=== PATIENT | female | born 1960 | race Caucasian/White ===

== ENCOUNTER → 2017-12-03 17:55 | Outpatient (CLI) | payer OTHER, SELFPAY | PROVIDERS: Family Provider Family Medicine; Visit Provider Physician Assistant Surgical | DX: J02.9 Acute pharyngitis, unspecified (principal) | CPT/HCPCS: 87081 ==

== ENCOUNTER → 2020-05-17 09:13 | Outpatient (CLI) | payer SELFPAY ==
[2020-05-17 12:10] LABS: Absolute Lymphocyte Count 1.34 X10^3/uL (0.83-4.51); Absolute Neutrophil Count 2.1 X10^3/uL (2.0-7.7); Basophil# 0.03 X10^3/uL; Basophil% 0.8 % (0-1); Hematocrit 44.4 % (37-47); Hemoglobin 13.7 g/dL (12.0-15.0); Lymphocyte # 1.34 X10^3/ul (4.0); Lymphocyte % 34.1 % (19-41); Mean Corp Hgb Conc 30.9 g/dL (32-36); Mean Corpuscular Hgb 27.9 pg (27.0-32.0); Mean Corpuscular Volume 90.4 fL (81-99); Mean Platelet Vol. 10.7 fl (6.2-12.0); Monocyte# 0.43 X10^3/uL; Monocyte% 10.9 % (0-10); NRBC Flagged by Analyzer 0 % (0-5); Neutrophil # 2.11 X10^3/uL (2.7-7.7); Neutrophil % 53.7 % (47-70); Platelet Count 320 K/mm3 (150-450); RBC Distribution Width CV 12.6 % (11.6-14.6); RBC Distribution Width SD 41.3 fl (35.1-43.9); Red Blood Count 4.91 M/mm3 (4.2-5.4); White Blood Count 3.9 K/mm3 (4.4-11.0)
[2020-05-17 12:35] LABS: ALB/GLOB Ratio 1.1 RATIO (0.9-2.4); AST(SGOT) 14 U/L (15-37); Alanine Aminotransfer ALT/SGPT 20 U/L (13-56); Albumin, Serum 3.9 g/dL (3.2-5.0); Alkaline Phosphatase 84 U/L (45-117); Anion Gap 2 (5-15); BUN 15 mg/dL (7-18); BUN/Creat Ratio 15.6 RATIO (10-20); Calcium,Total 9.1 mg/dL (8.5-10.1); Chloride 108 mmol/L (98-107); Cholesterol 154 mg/dL (200); Creatinine, Serum 0.96 mg/dL (0.55-1.02); EST Glomerular Filtration Rate 63 mL/min (>60); Est Glom Filt Rate - Afr Amer 76 mL/min (>60); Globulin 3.5 g/dL (2.2-4.2); Glucose 96 mg/dL (74-106); High Density Lipoprotein 52 mg/dL; Potassium 4.2 mmol/L (3.5-5.1); Protein, Total 7.4 g/dL (6.4-8.2); Sodium Level 139 mmol/L (136-145); Triglycerides 118 mg/dL; Very Low Density Lipoprotein 24 mg/dL (5-40)
== END ==
PROVIDERS: PCP Family Medicine; Visit Provider Family Medicine
DX: E78.5 Hyperlipidemia, unspecified (principal); D64.9 Anemia, unspecified; Z51.81 Encounter for therapeutic drug level monitoring
CPT/HCPCS: 36415; 80053; 80061; 85025

== ENCOUNTER → 2022-06-26 | Outpatient (CLI) | payer OTHER, SELFPAY ==
--- NOTE | 2022-06-26 11:59 | US_ITS ---
STUDY: THYROID ULTRASOUND REASON FOR EXAM: Female, 61 years old. NODULE TECHNIQUE: Ultrasound evaluation of the thyroid was performed with real-time and static lind-scale imaging. COMPARISON: None. FINDINGS: RIGHT LOBE: The right lobe of the thyroid gland measures 3.7 x 1.7 x 1.8 cm. Mixed solid and cystic nodule mid pole 1.3 x 1.0 x 1.1 cm. This is seen posteriorly in the mid pole. In the midpole there is a cyst 0.7 x 0.5 x 0.3 cm anteriorly. There is a mixed cystic and solid nodule in the lower pole 0.6 x 0.4 x 0.5 cm. LEFT LOBE: The left lobe of the thyroid gland measures 5.0 x 2.4 x 2.9 cm upper pole mixed cystic and solid nodule 1.0 x 0.7 x 1.2 cm. Larger nodule is seen in the left mid to lower pole with predominately cystic components but solid components as well and overall measures 3.7 x 2.6 x 2.5 cm. Remainder of both lobes is homogeneous with the exception of a scattered small cysts within both lobes. ISTHMUS: The isthmus measures 0.2 cm. . The regional lymph nodes are normal. US/Thyroid IMPRESSION: Multicystic/multinodular goiter as above. Electronically Signed: Kendrick Carrizales MD, TASHI at 17:35 EDT ,
== END | disposition home or self-care (01) ==
PROVIDERS: PCP Family Medicine; Referring Provider Family Medicine; Visit Provider Family Medicine
DX: E04.1 Nontoxic single thyroid nodule (principal)
CPT/HCPCS: 76536

== ENCOUNTER 2022-06-28 19:11 | Emergency (ER) | payer OTHER, SELFPAY ==
[2022-06-28 19:13] VITALS: BP 174/108; PULSE 68; RESP 15; TEMP 36.6; O2SAT 98; BMI 38.0
[2022-06-28 20:01] VITALS: BP 179/86; PULSE 59; RESP 16; O2SAT 98
--- NOTE | 2022-06-28 20:01 | CT_ITS ---
STUDY: CTA HEAD AND NECK WITH CONTRAST REASON FOR EXAM: Female, 61 years old. TIA RADIATION DOSAGE (If Supplied By Facility): CTDIvol = ( 28.32 ) mGy, DLP = ( 1477.45 ) mGycm TECHNIQUE: CT angiography was performed with a multi-detector CT scanner. Data acquisition was obtained from the skull base through the vertex following intravenous administration of IV 100mL Isovue-370. MIP images were reconstructed from the axial data set. Post-processing of the angiographic images was performed, with multiplanar reformation and 3D reconstruction. Individualized dose optimization techniques were used for this CT. COMPARISON: No relevant priors. FINDINGS: Normal bilateral petrous carotid arteries. Normal right cavernous carotid artery with a normal supraclinoid bifurcation. Normal left cavernous carotid artery with a normal supraclinoid bifurcation. There is non-visualization of the right A1 segment of the anterior cerebral arteries consistent with either aplastic development or an occlusion. Normal left A1 segments of the anterior cerebral artery. Normal intact anterior communicating artery (ACOM). Normal bilateral A2 segments of the anterior cerebral arteries. Normal right M1 and M2 segments of the middle cerebral arteries, with a normal M1 bifurcation. Normal left M1 and M2 segments of the middle cerebral arteries, with a normal M1 bifurcation. Normal right posterior communicating artery (PCOM). Normal left posterior communicating artery (PCOM). Normal bilateral vertebral arteries. Normal basilar artery with a normal basilar bifurcation. The visualized bilateral superior cerebellar (SCA) arteries are normal. Normal bilateral P1, P2 and visualized P3 segments of the posterior cerebral arteries. There is no demonstrated aneurysm of the [place]. There is no demonstrated abnormality of the visualized brain. AORTIC ARCH: There is a bovine origin of the great vessels arising from the aortic arch with a common origin of the brachiocephalic and left common carotid artery. Normal origin of the left subclavian artery. Normal origins of the brachiocephalic, left common carotid, and left subclavian arteries. RIGHT CAROTID ARTERIES: Normal right common carotid artery (CCA). Normal right common carotid bulb. Normal origin of the right internal carotid (ICA) artery without a hemodynamically significant stenosis. There is atherosclerotic tortuous elongation of the cervical portion of the right internal carotid artery. Normal origin of the right external carotid artery (ECA). LEFT CAROTID ARTERIES: Normal left common carotid artery (CCA). Normal left common carotid bulb. Normal origin of the left internal carotid (ICA) artery without a hemodynamically significant stenosis. There is atherosclerotic tortuous elongation of the cervical portion of the left internal carotid artery. Normal origin of the left external carotid artery (ECA). VERTEBRAL ARTERIES: Normal bilateral vertebral arteries. CT/CTA Head AND Neck W/ Contrast IMPRESSION: Normal CTA Head and neck with contrast. Electronically Signed: Davey Rodriges MD at 22:20 EDT ,
--- NOTE | 2022-06-28 20:02 | EKG12_ITS ---
Test Reason : DYSRHYTHMIA Blood Pressure : / mmHG Vent. Rate : 059 BPM Atrial Rate : 059 BPM P-R Int : 176 ms QRS Dur : 096 ms QT Int : 448 ms P-R-T Axes : 049 -20 031 degrees QTc Int : 443 ms Sinus bradycardia Otherwise normal ECG Confirmed by MELISSA LOPEZ, BRENNON ([id number]), content editor CAROLYN VALLECILLO ([id number]) on 06/29/2022 2:04:52 P M Referred By: TI Confirmed By:SHERLY TORRES MD
--- NOTE | 2022-06-28 20:04 | EDS_ITS ---
HPI History of Present Illness Chief Complaint: Neuro S/Sx Informant: patient Onset/Context/Timing Onset: Days Current Severity: Gone Maximum Severity: Moderate Narrative Narrative: Patient presents after waking up with right-sided weakness 2 days ago. Patient states that she was normal when she went to bed on Sunday night, June 24. When she woke on Sunday morning she states her right leg was like a rag doll. She had some vision changes also. She managed to get up and states she was bouncing off the f[place]man and furniture when trying to walk. She fell and struck her head. She woke up on the floor and was able to crawl to the bathroom and then to the kitchen to get some water. Within 1/2-hour of waking her symptoms completely resolved. She did go back to bed and take a nap for about 3 hours. When she woke she had a right-sided headache that has since resolved. Patient denies any vision change or right-sided weakness at this time. She has noted some intermittent paresthesias to her face, but states it is not unilateral. [facility] Medical History Chest pain HTN (hypertension) SOB (shortness of breath) Home Medications fluticasone propionate 50 mcg/actuation nasal spray,suspension (Flonase Allergy Relief) 50 mcg intranasal ONCE 12/03/17 [History Last Taken Unknown] lisinopril 2.5 mg tablet 2.5 mg PO QDAY 12/03/17 [History Last Taken Unknown] multivitamin (One-A-Day Essential tablet) 1 tab PO QAM 12/03/17 [History Last Taken Unknown] Allergy/AdvReac Type Severity Reaction Status Date / Time grass pollen Allergy Unknown Verified 06/28/22 20:02 mold Allergy Unknown Verified 06/28/22 20:02 Surgical History H/O foot surgery History of hernia surgery History of tonsillectomy Social History Smoking Status: Never smoker alcohol intake: never ROS ROS ED Constitutional Constitutional ED: Denies chills or fever(s) Eyes Eyes: Reports change in vision; Denies discharge from eye(s) ENT ENT ED: Denies discharge from eye(s), rhinorrhea or sore throat Cardiovascular Cardiovascular: Denies chest pain or palpitations Respiratory/Chest Respiratory/Chest: Denies cough or dyspnea Gastrointestinal Gastrointestinal: Denies abdominal pain, diarrhea, nausea or vomiting Genitourinary Genitourinary ED: Denies dysuria Musculoskeletal Musculoskeletal: Denies back pain or extremity pain Integumentary Denies Abrasions or rash Neurologic Neurologic: Reports headache(s), paresthesias and weakness Psychiatric Psychiatric: Denies anxiety or depression Allergic/Immunologic Allergic/Immunologic ED: Denies lip swelling or urticaria EXAM Physical Exam Const Vital Signs: 06/28/22 19:13 06/28/22 20:01 Temperature 97.8 F Temperature Source Temporal Pulse Rate 68 59 L Respiratory Rate 15 16 Blood Pressure 174/108 H 179/86 H Blood Pressure Mean 130 117 Pulse Ox 98 98 Oxygen Delivery Method Room Air Room Air Positive well nourished and well developed General Appearance ED: well developed HEENT Reports normocephalic and head/scalp atraumatic Eyes PERRL and EOMs intact bilaterally Neck supple Chest Wall inspection of chest normal and palpation of chest normal Resp normal respiratory effort and clear to auscultation bilaterally Cardio regular rate and regular rhythm GI normal to inspection, nondistended, normoactive bowel sounds Palpation: soft Back/Spine no CVA tenderness Extremity normal to inspection Neuro oriented x3 and no sensory deficits noted Neuro Narrative: NIH equals 0 Sensorium / Orientation: alert Motor Exam: strength 5/5 throughout Psych mental status grossly normal Skin no rashes or lesions noted MDM MDM MDM Narrative Medical decision making narrative: EKG, chest x-ray, lab work obtained. Patient sent for CTA of the head and neck. Lab Data Attestation: I reviewed the patient's lab results. Labs: Laboratory Results - last 24 hr 06/28/22 06/28/22 20:10 20:10 WBC 9.1 RBC 4.76 Hgb 13.9 Hct 42.8 MCV 89.9 MCH 29.2 MCHC 32.5 RDW Std Deviation 41.9 RDW Coeff of Lesli 12.7 Plt Count 351 MPV 9.8 Immature Gran % (Auto) 0.200 Neut % (Auto) 64.2 Lymph % (Auto) 27.1 [place] % (Auto) 8.0 Eos % (Auto) 0.1 Baso % (Auto) 0.4 Absolute Neuts (auto) 5.9 Absolute Lymphs (auto) 2.48 Nucleated RBC % 0 Sodium 140 Potassium 3.8 Chloride 105 Carbon Dioxide 28.0 Anion Gap 7 BUN 20 H Creatinine 0.94 Estim Creat Clear Calc 57.35 Est GFR (MDRD) Af Amer 78 Est GFR (MDRD) Non-Af 64 BUN/Creatinine Ratio 21.4 H Glucose 105 Calcium 9.1 Troponin I High Sens 5 Radiography Chest X-Ray - ED: 1 View, Read by ED Physician, Chronic Changes and No Infiltrates Diagnostic Testing: Clinical Impression(s) from Imaging Studies Head/Neck CTA 06/28/22 20:01 IMPRESSION: Normal CTA Head and neck with contrast. Electronically Signed: Davey Rodriges MD at 22:20 EDT Reading Location ID and State: [id number] / [place] Tel , Service support , Chest X-Ray 06/28/22 20:45 IMPRESSION: Normal x-ray examination of the chest. Electronically Signed: Davey Rodriges MD at 22:07 EDT , EKG Initial EKG: Interpretation: Sinus Bradycardia (Sinus bradycardia 59 bpm. No acute ischemia.) Treatment and Re-Evaluation Narrative: Repeat evaluation patient resting comfortably. Blood pressures in the 150s systolic. Lab work unremarkable. EKG and chest x-ray revealed no acute abnormalities. CTA of the head and neck is normal. I did discuss all these findings with the patient. I did encourage her if she gets any recurrent neurologic symptoms she needs to present to the emergency room immediately for evaluation. She will follow-up with her primary care physician. Return instructions provided. Discharge Plan Triage Chief Complaint: Neuro S/Sx ED Provider: Nena Partida Dx/Rx/DC Orders Clinical Impression: Brain TIA Instructions: ED TIA: Transient Ischemic Attack Prescriptions: No Action lisinopril 2.5 mg tablet 2.5 mg PO QDAY fluticasone propionate [Flonase Allergy Relief] 50 mcg/actuation spray,watt spension 50 mcg INTRANASAL ONCE multivitamin [One-A-Day Essential] tablet 1 tab PO QAM Primary Care Provider: Sabina Simons Referrals: Sabina Simons DO [Primary Care Provider] - 1-2 Weeks Disposition Disposition: Home, Self Care
[2022-06-28 20:14] VITALS: BMI 38.5
[2022-06-28 20:20] LABS: Absolute Lymphocyte Count 2.48 X10^3/uL (0.83-4.51); Absolute Neutrophil Count 5.9 X10^3/uL (2.0-7.7); Basophil# 0.04 X10^3/uL; Basophil% 0.4 % (0-1); Eosinophil# 0.01 X10^3/uL; Eosinophils% 0.1 % (0-5); Hematocrit 42.8 % (37-47); Hemoglobin 13.9 g/dL (12.0-15.0); Lymphocyte # 2.48 X10^3/ul (0.83-4.51); Lymphocyte % 27.1 % (19-41); Mean Corp Hgb Conc 32.5 g/dL (32-36); Mean Corpuscular Hgb 29.2 pg (27.0-32.0); Mean Corpuscular Volume 89.9 fL (81-99); Mean Platelet Vol. 9.8 fl (6.2-12.0); Monocyte# 0.73 X10^3/uL; NRBC Flagged by Analyzer 0 % (0-5); Neutrophil # 5.86 X10^3/uL (2.7-7.7); Neutrophil % 64.2 % (47-70); Platelet Count 351 K/mm3 (150-450); RBC Distribution Width CV 12.7 % (11.6-14.6); RBC Distribution Width SD 41.9 fl (35.1-43.9); Red Blood Count 4.76 M/mm3 (4.2-5.4); White Blood Count 9.1 K/mm3 (4.4-11.0)
[2022-06-28 20:37] LABS: Anion Gap 7 (5-15); BUN 20 mg/dL (7-18); BUN/Creat Ratio 21.4 RATIO (10-20); Calcium,Total 9.1 mg/dL (8.5-10.1); Chloride 105 mmol/L (98-107); Creatinine, Serum 0.94 mg/dL (0.55-1.02); EST Glomerular Filtration Rate 64 mL/min (>60); Est Glom Filt Rate - Afr Amer 78 mL/min (>60); Estimated Creatinine Clearance 57.35 ml/min; Glucose 105 mg/dL (74-106); Potassium 3.8 mmol/L (3.5-5.1); Sodium Level 140 mmol/L (136-145); Troponin-I HS 5 pg/mL (3.0-54.0)
--- NOTE | 2022-06-28 20:45 | RAD_ITS ---
STUDY: X-RAY CHEST REASON FOR EXAM: Female, 61 years old. sob TECHNIQUE: Single AP portable view of the chest. COMPARISON: None. FINDINGS: The lungs are clear and expanded. There is no demonstrated pleural abnormality. Normal size heart. Normal mediastinum and gisselle. Normal visualized pulmonary arteries. Normal visualized aortic arch and descending thoracic aorta. Normal visualized thoracic spine. Normal visualized ribs, clavicles, and shoulders. There is no demonstrated abnormality of the visualized soft tissue structures of the upper abdomen. RAD/Chest 1 View (Portable) IMPRESSION: Normal x-ray examination of the chest. Electronically Signed: Davey Rodriges MD at 22:07 EDT ,
[2022-06-28 22:46] VITALS: BP 167/102; PULSE 61; RESP 14; O2SAT 97
[2022-06-28 22:47] VITALS: BP 167/102; PULSE 63; RESP 17; O2SAT 95
== END 2022-06-28 22:55 | disposition home or self-care (01) ==
PROVIDERS: Emergency Provider Emergency Medicine; PCP Family Medicine; Visit Provider Emergency Medicine
DX: G45.9 Transient cerebral ischemic attack, unspecified (principal); I10 Essential (primary) hypertension; H53.9 Unspecified visual disturbance; R51.9 Headache, unspecified; R20.2 Paresthesia of skin; R53.1 Weakness
CPT/HCPCS: 70496; 70498; 71045; 80048; 84484; 85025; 93005; 99284; Q9967; A4216

== ENCOUNTER → 2022-07-10 | Outpatient (CLI) | payer OTHER, SELFPAY ==
[2022-07-10 18:03] LABS: Thyroid Stim Hormone (TSH) 2.07 uIU/mL (0.358-3.74)
== END | disposition home or self-care (01) ==
LOC: BFHLAB 14:56
PROVIDERS: PCP Family Medicine; Visit Provider Family Medicine
DX: E04.2 Nontoxic multinodular goiter (principal)
CPT/HCPCS: 36415; 84443

== ENCOUNTER → 2022-07-13 | Outpatient (CLI) | payer OTHER, SELFPAY ==
--- NOTE | 2022-07-13 08:15 | FLU_PTH ---
PATIENT: BARBARA SMYTH LOC: [facility] U#:[id number] AGE/SX: 61/F ROOM: RE07/13/[address]: Dr. Dmitry Elliott MD : 1960 BED: DIS: 07/13/2022 SPEC #: [id number] RECD: 07/13/22 16:27 STATUS: NIRANJAN REDara #: [id number] NELSON: 07/13/22 08:[address]: Dmitry Elliott DEPT: CYTOLOGY RECD BY: Mary Carrington ENTERED: 07/14/22 08:41 SP TYPE: Fluid OTHR DR: Dr. Sabina Simons, DO Tissues: A - Thyroid gland, NOS B - Thyroid gland, NOS Procedures: Special Stain Group II Surgery Specimen Level IV Cytospin Fluid Cytology Other HEADER OPERATION: Fine needle aspiration of left mid to lower thyroid nodule PRE-OP DIAGNOSIS: Multiple thyroid nodules TISSUE SUBMITTED: A - Left superior thyroid cystic fluid, B - Left mid to lower thyroid nodule x6 slides DIAGNOSIS CYTOLOGY A. Fine needle aspiration, left superior thyroid nodule (cytospin and cell block): Macrophages consistent with benign cyst contents. See comment. B. Fine needle aspiration, left mid to lower thyroid nodule (smears): Adequate for evaluation. Benign, consistent with benign follicular nodule ([place] Category II). See comment. AM:mike 07/17/2022 COMMENT A. Rare benign follicular cells are noted. B. The [place] System for thyroid diagnostic categorization was used in the evaluation of this case. The specimen is adequate for evaluation. CYTOLOGY STUDY Slides are reviewed. CYTOLOGY GROSS A - Received is 6 ml of brown cloudy fluid labeled with the patient's name and and designated per the requisition as left superior cystic fluid. Submitted for cytology preparation including cell block. B - Received are six smears labeled with the patient's name and designated per the requisition as left mid to lower thyroid nodule. Submitted for staining. / mike 07/14/2022 TC:5 CPT: 49504, 71029 x2
== END | disposition home or self-care (01) ==
LOC: LABSPEC 16:39
PROVIDERS: PCP Family Medicine; Referring Provider Surgery; Visit Provider Surgery
DX: E04.1 Nontoxic single thyroid nodule (principal)
CPT/HCPCS: 88108; 88161; 88305; 88313

== ENCOUNTER 2022-07-22 21:43 | Emergency (ER) | payer OTHER, SELFPAY ==
[2022-07-22 21:44] VITALS: BP 161/87; PULSE 77; RESP 20; TEMP 36.1; O2SAT 96; BMI 38.5
--- NOTE | 2022-07-22 22:14 | EKG12_ITS ---
Test Reason : CP Blood Pressure : / mmHG Vent. Rate : 074 BPM Atrial Rate : 074 BPM P-R Int : 188 ms QRS Dur : 092 ms QT Int : 412 ms P-R-T Axes : 044 -27 044 degrees QTc Int : 457 ms Normal sinus rhythm Inferior infarct , age undetermined Abnormal ECG Confirmed by ERICA LOPEZ, MAGAN ([id number]), editor department CAROLYN VALLECILLO ([id number]) on 07/24/2022 12:56:00 PM Referred By: MYLES Confirmed By:MAGAN MALDONADO MD
--- NOTE | 2022-07-22 22:16 | EDS_ITS ---
HPI History of Present Illness Chief Complaint: Chest Pain Informant: patient Onset/Context/Timing Onset: Today Activity at onset: sudden Timing: Intermittent and Lasts (15 minutes) Quality: Positive for Sharp Location: Left Chest Current Severity: Gone Maximum Severity: Moderate Narrative Narrative: Patient presents with a 15-minute episode of chest pain. Approximate hour and a half prior to my evaluation she experienced sudden onset of sharp pain to the left side of her chest. She states it went into her back and down her left arm. Once it started to ease up she developed a headache. All of her pain is currently subsided. She denies any similar events in the past. No known heart disease. She does have a history of hypertension. [facility] Medical History Chest pain HTN (hypertension) SOB (shortness of breath) Home Medications fluticasone propionate 50 mcg/actuation nasal spray,suspension (Flonase Allergy Relief) 50 mcg intranasal ONCE 12/03/17 [History Last Taken Unknown] multivitamin (One-A-Day Essential tablet) 1 tab PO QAM 12/03/17 [History Last Taken Unknown] aspirin 81 mg tablet,delayed release 81 mg PO DAILY 07/13/22 [History Last Taken Unknown] losartan 50 mg tablet 50 mg PO DAILY 07/13/22 [History Last Taken Unknown] omeprazole magnesium 20 mg tablet,delayed release (Prilosec OTC) 20 mg PO DAILY 07/13/22 [History Last Taken Unknown] Allergy/AdvReac Type Severity Reaction Status Date / Time adhesive tape Allergy Intermediate Rash Verified 07/13/22 07:52 grass pollen Allergy Unknown Verified 07/13/22 07:52 mold Allergy Unknown Verified 07/13/22 07:52 Surgical History H/O foot surgery History of hernia surgery History of tonsillectomy Social History Smoking Status: Never smoker alcohol intake: never ROS ROS ED Constitutional Constitutional ED: Denies chills or fever(s) Eyes Eyes: Denies change in vision or discharge from eye(s) ENT ENT ED: Denies discharge from eye(s), rhinorrhea or sore throat Cardiovascular Cardiovascular: Reports chest pain; Denies palpitations Respiratory/Chest Respiratory/Chest: Denies cough or dyspnea Gastrointestinal Gastrointestinal: Denies abdominal pain, diarrhea, nausea or vomiting Genitourinary Genitourinary ED: Denies difficulty urinating or dysuria Musculoskeletal Musculoskeletal: Reports extremity pain; Denies back pain Integumentary Denies Abrasions or rash Neurologic Neurologic: Reports headache(s); Denies weakness Allergic/Immunologic Allergic/Immunologic ED: Denies lip swelling or urticaria EXAM Physical Exam Const Vital Signs: 07/22/22 21:44 07/22/22 21:51 07/22/22 22:14 Temperature 97.0 F L Temperature Source Temporal Pulse Rate 77 Respiratory Rate 20 H Respiratory Effort Normal Non-Labored Blood Pressure 161/87 H Blood Pressure Mean 111 Pulse Ox 96 Oxygen Delivery Method Room Air Room Air 07/22/22 22:44 07/23/22 00:00 Temperature Temperature Source Pulse Rate 71 64 Respiratory Rate 16 22 H Respiratory Effort Blood Pressure 126/71 H 145/87 H Blood Pressure Mean 89 106 Pulse Ox 94 93 Oxygen Delivery Method Room Air Positive well nourished and well developed General Appearance ED: well developed HEENT Reports normocephalic and head/scalp atraumatic Eyes PERRL and EOMs intact bilaterally Neck supple Chest Wall inspection of chest normal and palpation of chest normal Resp normal respiratory effort and clear to auscultation bilaterally Cardio regular rate and regular rhythm Peripheral Pulses: pulses 2+ throughout GI normal to inspection, nondistended, normoactive bowel sounds Palpation: soft Extremity normal to inspection Neuro oriented x3 and no sensory deficits noted Sensorium / Orientation: alert Motor Exam: strength 5/5 throughout Psych mental status grossly normal Skin no rashes or lesions noted Heart Score History: Slightly/Non-Suspicious ECG: Normal Age: >45 - <65 years Risk Factors: 1 or 2 Risk Factors Troponin: </= Normal Limit Score: 2 MDM MDM MDM Narrative Medical decision making narrative: Patient given aspirin on arrival. EKG, chest x-ray, lab work obtained. Lab Data Attestation: I reviewed the patient's lab results. Labs: Laboratory Results - last 24 hr 07/22/22 07/22/22 07/22/22 22:10 22:10 22:10 WBC 5.5 RBC 4.43 Hgb 13.1 Hct 40.2 MCV 90.7 MCH 29.6 MCHC 32.6 RDW Std Deviation 42.6 RDW Coeff of Lesli 13.0 Plt Count 297 MPV 10.1 Immature Gran % (Auto) 0.400 Neut % (Auto) 59.5 Lymph % (Auto) 26.6 [place] % (Auto) 12.6 H Eos % (Auto) 0.2 Baso % (Auto) 0.7 Absolute Neuts (auto) 3.3 Absolute Lymphs (auto) 1.46 Nucleated RBC % 0 D-Dimer Quant (PE/DVT) 0.74 H* Sodium 141 Potassium 3.6 Chloride 109 H Carbon Dioxide 26.0 Anion Gap 6 BUN 14 Creatinine 0.90 Estim Creat Clear Calc 59.89 Est GFR (MDRD) Af Amer 81 Est GFR (MDRD) Non-Af 67 BUN/Creatinine Ratio 15.5 Glucose 115 H Calcium 8.7 Troponin I High Sens 10 07/23/22 00:35 WBC RBC Hgb Hct MCV MCH MCHC RDW Std Deviation RDW Coeff of Lesli Plt Count MPV Immature Gran % (Auto) Neut % (Auto) Lymph % (Auto) [place] % (Auto) Eos % (Auto) Baso % (Auto) Absolute Neuts (auto) Absolute Lymphs (auto) Nucleated RBC % D-Dimer Quant (PE/DVT) Sodium Potassium Chloride Carbon Dioxide Anion Gap BUN Creatinine Estim Creat Clear Calc Est GFR (MDRD) Af Amer Est GFR (MDRD) Non-Af BUN/Creatinine Ratio Glucose Calcium Troponin I High Sens 16 Radiography Chest X-Ray - ED: 1 View, Read by ED Physician, Normal, Heart, Lungs and Mediastinum Diagnostic Testing: Clinical Impression(s) from Imaging Studies Chest X-Ray 07/22/22 22:18 IMPRESSION: No evidence of active intrathoracic disease. Electronically Signed: Augusta Florian MD at 23:06 EDT , Chest CTA 07/22/22 22:50 IMPRESSION: 1. No evidence of pulmonary emboli. 2. Scattered minimal groundglass opacities in the lungs nonspecific can be seen with viral pneumonitis. Mild peribronchial thickening. No consolidation. 3. Right upper lobe 4 mm pulmonary nodule and smaller nodule, indeterminate. CT imaging follow-up recommended according to the guidelines detail below. 4. 3.5 cm thyroid nodule. Follow-up nonemergent thyroid ultrasound recommended. 5. Right adrenal nodule indeterminate. If there are no prior imaging studies to assess stability, consider follow-up nonemergent CT adrenal protocol. *Fleischner Society Recommendations (Radiology 2017, 284:228-243.) (Follow-up and management of multiple nodules smaller than 8 mm detected incidentally at non-screening CT. Newly detected indeterminate nodule in persons 35 years of age or older.) Low risk patient: Minimal or absent history of smoking and of other known risk factors. < 6 mm: No followup needed 6-8mm: Initial Follow-up CT at 3-6 months, then consider CT at 18-24 months >8mm: CT at 3-6 months, then consider CT at 18-24 months High risk patient: History of smoking or of other known risk factors. < 6 mm: Optional CT at 12 months. 6-8mm: CT at 3-6 months, then CT at 18-24 months. >8mm: CT at 3-6 months, then CT at 18-24 months Electronically Signed: Augusta Florian MD at 23:51 EDT , EKG Initial EKG: Attestation: I personally reviewed and interpreted this EKG as follows: Interpretation: Sinus Rhythm (Sinus at 74 with no acute ischemia.) Treatment and Re-Evaluation Narrative: Patient has had no further pain while in the emergency room. 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 CBC and chemistry studies unremarkable. Initial troponin is 10. D-dimer is slightly elevated at 0.74. Portable chest x-ray per my interpretation shows no acute findings. CTA of the chest is obtained. There is a lung nodule that will need follow-up but no acute evidence of PE or dissection. Patient is already aware of thyroid nodule that was noted and has had it biopsied. 2-hour repeat troponin is obtained and is still normal at 16. At this time patient be discharged home with family. Return instructions provided. Discharge Plan Triage Chief Complaint: Chest Pain ED Provider: Nena Partida Dx/Rx/DC Orders Clinical Impression: Atypical chest pain Instructions: ED Chest Pain, Uncertain Cause Prescriptions: No Action fluticasone propionate [Flonase Allergy Relief] 50 mcg/actuation spray,suspension 50 mcg INTRANASAL ONCE multivitamin [One-A-Day Essential] tablet 1 tab PO QAM omeprazole magnesium [Prilosec OTC] 20 mg tablet,delayed release (DR/EC) 20 mg PO DAILY losartan 50 mg tablet 50 mg PO DAILY aspirin 81 mg tablet,delayed release (DR/EC) 81 mg PO DAILY Primary Care Provider: Kendrick Kendall Referrals: Kendrick Kendall DO [Primary Care Provider] - 1-2 Weeks Disposition Disposition: Home, Self Care
--- NOTE | 2022-07-22 22:18 | RAD_ITS ---
STUDY: X-RAY CHEST REASON FOR EXAM: Female, 61 years old. chest pain TECHNIQUE: AP portable. 10:20 PM. COMPARISON: 06/28/2022. FINDINGS: LUNGS: No consolidation. No pneumothorax. MEDIASTINUM: Aorta is tortuous and atherosclerotic. CARDIAC SILHOUETTE: Not enlarged. BONES AND SOFT TISSUES: Degenerative changes in the dorsal spine. RAD/Chest 1 View (Portable) IMPRESSION: No evidence of active intrathoracic disease. Electronically Signed: Augusta Florian MD at 23:06 EDT ,
[2022-07-22] MEDS: 0.9% Normal Saline 1,000 ML 150 ML IV (22:22)
[2022-07-22] MEDS: Aspirin 81 MG TAB.CHEW 243 MG PO (22:22)
[2022-07-22 22:28] LABS: Absolute Lymphocyte Count 1.46 X10^3/uL (0.83-4.51); Absolute Neutrophil Count 3.3 X10^3/uL (2.0-7.7); Basophil# 0.04 X10^3/uL; Basophil% 0.7 % (0-1); Eosinophil# 0.01 X10^3/uL; Eosinophils% 0.2 % (0-5); Hematocrit 40.2 % (37-47); Hemoglobin 13.1 g/dL (12.0-15.0); Lymphocyte # 1.46 X10^3/ul (0.83-4.51); Lymphocyte % 26.6 % (19-41); Mean Corp Hgb Conc 32.6 g/dL (32-36); Mean Corpuscular Hgb 29.6 pg (27.0-32.0); Mean Corpuscular Volume 90.7 fL (81-99); Mean Platelet Vol. 10.1 fl (6.2-12.0); Monocyte# 0.69 X10^3/uL; Monocyte% 12.6 % (0-10); NRBC Flagged by Analyzer 0 % (0-5); Neutrophil # 3.27 X10^3/uL (2.7-7.7); Neutrophil % 59.5 % (47-70); Platelet Count 297 K/mm3 (150-450); RBC Distribution Width SD 42.6 fl (35.1-43.9); Red Blood Count 4.43 M/mm3 (4.2-5.4); White Blood Count 5.5 K/mm3 (4.4-11.0)
[2022-07-22 22:44] VITALS: BP 126/71; PULSE 71; RESP 16; O2SAT 94
[2022-07-22 22:44] LABS: D-Dimer Quantitative (DVT/PE) 0.74 FEU/ug/m (0.27-0.49)
[2022-07-22 22:49] LABS: Anion Gap 6 (5-15); BUN 14 mg/dL (7-18); BUN/Creat Ratio 15.5 RATIO (10-20); Calcium,Total 8.7 mg/dL (8.5-10.1); Chloride 109 mmol/L (98-107); EST Glomerular Filtration Rate 67 mL/min (>60); Est Glom Filt Rate - Afr Amer 81 mL/min (>60); Estimated Creatinine Clearance 59.89 ml/min; Glucose 115 mg/dL (74-106); Potassium 3.6 mmol/L (3.5-5.1); Sodium Level 141 mmol/L (136-145); Troponin-I HS (w/2H Reflex) 10 pg/mL (3.0-54.0)
--- NOTE | 2022-07-22 22:50 | CT_ITS ---
STUDY: CTA CHEST REASON FOR EXAM: Female, 61 years old. CP, elevated d-dimer RADIATION DOSAGE (If Supplied By Facility): CTDIvol = ( 24.53 ) mGy, DLP = ( 557.27 ) mGycm TECHNIQUE: The examination was performed with the intravenous administration of IV 100mL Isovue-370. Post-processing of the angiographic images was performed, with multiplanar reformation and 3D reconstruction. Individualized dose optimization techniques were used for this CT. COMPARISON: CTA head and neck 06/28/2022. FINDINGS: LUNGS: Scattered minimal groundglass opacities in the lungs. There is a 4 mm nodule in the right upper lobe inferiorly, tiny nodule in the right upper lobe. Mild bronchial wall thickening bilaterally. No consolidation. PLEURA: No pleural effusion. No pneumothorax. PULMONARY VESSELS: Suboptimal due to respiratory motion. No definite pulmonary emboli identified. MEDIASTINUM: 3.5 x 2.5 cm heterogeneous mass inferior left thyroid extending into the superior mediastinum, with displacement of trachea to the right, unchanged compared to recent prior study. HEART: Not enlarged. AORTA/GREAT VESSELS: Thoracic aorta is normal caliber. No aneurysm or dissection. ESOPHAGUS: Small hiatal hernia. UPPER ABDOMEN: No acute findings. Right adrenal nodule. 4 cm not completely characterized. BONES/SOFT TISSUES: No acute findings. OTHER: None. CT/CTA Chest W/WO Contrast IMPRESSION: 1. No evidence of pulmonary emboli. 2. Scattered minimal groundglass opacities in the lungs nonspecific can be seen with viral pneumonitis. Mild peribronchial thickening. No consolidation. 3. Right upper lobe 4 mm pulmonary nodule and smaller nodule, indeterminate. CT imaging follow-up recommended according to the guidelines detail below. 4. 3.5 cm thyroid nodule. Follow-up nonemergent thyroid ultrasound recommended. 5. Right adrenal nodule indeterminate. If there are no prior imaging studies to assess stability, consider follow-up nonemergent CT adrenal protocol. *Fleischner Society Recommendations (Radiology 2017, 284:228-243.) (Follow-up and management of multiple nodules smaller than 8 mm detected incidentally at non-screening CT. Newly detected indeterminate nodule in persons 35 years of age or older.) Low risk patient: Minimal or absent history of smoking and of other known risk factors. < 6 mm: No followup needed 6-8mm: Initial Follow-up CT at 3-6 months, then consider CT at 18-24 months >8mm: CT at 3-6 months, then consider CT at 18-24 months High risk patient: History of smoking or of other known risk factors. < 6 mm: Optional CT at 12 months. 6-8mm: CT at 3-6 months, then CT at 18-24 months. >8mm: CT at 3-6 months, then CT at 18-24 months Electronically Signed: Augusta Florian MD at 23:51 EDT ,
[2022-07-23] VITALS: BP 145/87; PULSE 64; RESP 22; O2SAT 93
[2022-07-23 00:25] LABS: Reflex Troponin-HS? (from REC) Y
[2022-07-23 00:57] LABS: Troponin-I HS 16 pg/mL (3.0-54.0)
[2022-07-23 01:08] VITALS: BP 150/82; PULSE 67; RESP 15; O2SAT 97
== END 2022-07-23 01:32 | disposition home or self-care (01) ==
PROVIDERS: Emergency Provider Emergency Medicine; PCP Family Medicine; Visit Provider Emergency Medicine
DX: R07.89 Other chest pain (principal); I10 Essential (primary) hypertension; Z79.82 Long term (current) use of aspirin; Z79.899 Other long term (current) drug therapy
CPT/HCPCS: 71045; 71275; 80048; 84484; 85025; 85379; 93005; 99284; J7030; Q9967; A4216

== ENCOUNTER → 2022-10-23 | Outpatient (CLI) | payer MEDICAID, SELFPAY ==
--- NOTE | 2022-10-23 07:41 | BI_ITS ---
MAMMOGRAPHY - BILATERAL SCREENING REASON FOR EXAM: Female, 62 years old. Routine annual screening examination. PERTINENT HISTORY: Non-contributory. TECHNIQUE: Digital bilateral breast lynette (3D mammographic acquisition) in the CC and MLO projections. 2-D mediolateral oblique (MLO) and craniocaudad (CC) views of both breasts were obtained. CAD: Full Field Digital Mammography with Computer Added Detection was performed. COMPARISON: Comparison is made with prior study 11/27/2016. FINDINGS: Breast Composition: There are scattered areas of fibroglandular density. There are no dominant masses or suspicious calcifications. Stable small benign-appearing bilateral axillary lymph nodes. No other significant abnormalities are identified. There has been no significant change since the prior study. BI/SCRN MAMM (CAD)W/LYNETTE BILAT IMPRESSION: Stable bilateral screening mammogram. Yearly follow-up mammogram recommended. (A) ASSESSMENT CATEGORY: BIRADS Category 2: Benign. A letter regarding these results will be sent to the patient by the facility within 30 days. Approximately 10% of breast cancers are not detected by mammography. A normal mammogram should not delay biopsy of a clinically suspicious abnormality. [id number] Electronically Signed: Vince Workman MD at 13:03 EST ,
== END | disposition home or self-care (01) ==
LOC: OPBI 07:39
PROVIDERS: PCP Family Medicine; Referring Provider Family Medicine; Visit Provider Family Medicine
DX: Z12.31 Encounter for screening mammogram for malignant neoplasm of breast (principal)
CPT/HCPCS: 77063; 77067

== ENCOUNTER → 2022-11-03 | Outpatient (CLI) | payer MEDICAID, SELFPAY ==
--- NOTE | 2022-11-03 12:30 | LIP_PTH ---
PATIENT: BARBARA SMYTH LOC: [facility] U#:[id number] AGE/SX: 62/F ROOM: RE11/03/[address]: Dr. Kimmie Olmos MD : 1960 BED: DIS: 11/03/2022 SPEC #: [id number] RECD: 11/03/22 15:21 STATUS: NIRANJAN REQ #: [id number] NELSON: 11/03/22 12:[address]: Kimmie Olmos DEPT: SURGICAL PATHOLOGY RECD BY: Mary Carrington ENTERED: 11/06/22 08:46 SP TYPE: LIPOMA OTHR DR: Dr. Kendrick Kendall, DO Tissues: Soft tissues, NOS Procedures: Surgery Specimen Level III HEADER OPERATION: Lipoma excision on back PRE-OP DIAGNOSIS: Lipoma excision on back TISSUE SUBMITTED: Lipoma tissue MICROSCOPIC DIAGNOSIS Soft tissue mass of back, excision: Mature adipose tissue consistent with lipoma. AM:mike 11/07/2022 MICROSCOPIC DESCRIPTION Slides are reviewed. GROSS DESCRIPTION Received in fixative is one container labeled with the patient's name and designated lipoma tissue. The specimen consists of an irregular piece of adipose tissue measuring 8.0 x 6.0 x 4.0 cm. The external surface is inked. Sections reveal yellow adipose cut surfaces without areas of hemorrhage, necrosis or cystic degeneration. Stunner sections are submitted in four cassettes. / SJ:mike 11/06/2022 TC:1 CPT: 86662
== END | disposition home or self-care (01) ==
LOC: LABSPEC 15:27
PROVIDERS: PCP Family Medicine; Referring Provider Surgery; Visit Provider Surgery
DX: D17.79 Benign lipomatous neoplasm of other sites (principal)
CPT/HCPCS: 88304

== ENCOUNTER 2022-11-20 07:22 | Day surgery (SDC) | payer MEDICAID, SELFPAY ==
--- NOTE | 2022-11-20 | GASB_PTH ---
PATIENT: BARBARA SMYTH LOC: EN U#:[id number] AGE/SX: 62/F ROOM: RE11/20/[address]: Dr. Kimmie Olmos MD : 1960 BED: DIS: 11/20/2022 SPEC #: [id number] RECD: 11/20/22 11:52 STATUS: NIRANJAN REDara #: [id number] NELSON: 11/20/22 00:[address]: Kimmie Olmos DEPT: SURGICAL PATHOLOGY RECD BY: Wolfgang Najera ENTERED: 11/20/22 11:53 SP TYPE: Gastric Bx OTHR DR: Dr. Kendrick Kendall, DO Tissues: A - Gastric mucous membrane B - Gastric mucous membrane C - Ascending colon D - Sigmoid colon biopsy Procedures: Surgery Specimen Level IV HEADER OPERATION: [place]oscopy with biopsies[place] [place] PRE-OP DIAGNOSIS: GERD, history of colonic polyp TISSUE SUBMITTED: A ? Antrum biopsy for H. pylori and path, B - Gastroesophageal junction biopsy, C ? Ascending colon polyp biopsy, D ? Sigmoid colon polyp biopsy x2 MICROSCOPIC DIAGNOSIS A. Gastric antrum, biopsy: Chronic gastritis. See comment. B. Gastroesophageal junction, biopsy: Chronic inflammation. Focal goblet cell metaplasia consistent with Romero's esophagus. No evidence of dysplasia. See comment. C. Ascending colon polyp, biopsy: Tubular adenoma. D. Sigmoid colon polyps, biopsy: Fragments of tubular adenoma. AM:mike 11/21/2022 COMMENT A. The results of immunohistochemistry for Helicobacter pylori will be reported separately ([id number]). B. Immunohistochemistry ([id number]) for P53 and Ki-67 will be performed and results will be reported separately. Alcian blue/PAS stain with matched control supports the above diagnosis. MICROSCOPIC DESCRIPTION Slides are reviewed. GROSS DESCRIPTION A - Received in fixative is one container labeled with the patient's name and designated antrum biopsy. The specimen consists of one irregular fragment of light de paz soft tissue that measures 0.3 x 0.3 x 0.1 cm. The specimen is totally submitted in one cassette. B - Received in fixative is one container labeled with the patient's name and designated GE junction biopsy. The specimen consists of one irregular fragment of light de paz soft tissue that measures 0.3 x 0.3 x 0.1 cm. The specimen is totally submitted in one cassette. C - Received in fixative is one container labeled with the patient's name and designated ascending colon polyp biopsy. The specimen consists of one irregular fragment of light de paz soft tissue that measures 0.3 x 0.3 x 0.1 cm. The specimen is totally submitted in one cassette. D - Received in fixative is one container labeled with the patient's name and designated sigmoid colon polyp biopsy x2. The specimen consists of two irregular fragments of light de paz soft tissue that in aggregate measure 0.6 x 0.3 x 0.1 cm. The specimen is totally submitted in one cassette. / SJ:rg 11/20/2022 TC:3 CPT: 11761 x4, 53272
[2022-11-20 07:53] VITALS: BP 122/72; PULSE 66; RESP 18; TEMP 36.2; O2SAT 98; BMI 36.6
[2022-11-20] MEDS: Lactated Ringers 1,000 ML 15 ML IV (08:00)
--- NOTE | 2022-11-20 08:23 | HP.PCM_ITS ---
HPI - General General Date of Admission: 11/20/22 HPI Narrative BARBARA SANFORD, is a 62 F who presents for EGD and colonoscopy. Patient's last scopes were in 2011 patient did not have any polyps at that time on her colonoscopy did have some esophagitis on her EGD. States she has bowel movements about every day or every other day. Denies any blood. Patient denies any chronic abdominal pain/nausea/vomiting. Patient is on omeprazole. States it pretty well controls her reflux. [facility] Medical History (Updated 11/16/22 @ 09:48 by Vickie Gray) Allergic rhinitis due to allergen Arthritis Asthma Back pain Chest pain CPAP (continuous positive airway pressure) dependence Former smoker Gastric reflux History of edema History of IBS History of steroid therapy HTN (hypertension) Hx of lipoma Incidental lung nodule, > 3mm and < 8mm Injury of head and neck NICOLAS on CPAP Post-menopausal Sleep apnea SOB (shortness of breath) TIA (transient ischemic attack) Wears dentures Wears glasses Wears hearing aid Wheezing Home Medications multivitamin (One-A-Day Essential tablet) 1 tab PO QAM 12/03/17 [History Last Taken Unknown] losartan 50 mg tablet 50 mg PO DAILY 07/13/22 [History Last Taken 11/20/22] estradiol 0.5 mg tablet 0.5 mg PO DAILY 10/16/22 [History Last Taken Unknown] omeprazole 40 mg capsule,delayed release 40 mg PO QDAY #30 caps 10/16/22 [Rx Last Taken Unknown] ipratropium bromide 21 mcg (0.03 %) nasal spray 2 spray intranasal BID-TID PRN allergy symptoms #30 mL 10/30/22 [Rx Last Taken Unknown] albuterol sulfate 90 mcg/actuation aerosol inhaler 1 - 2 inh inhalation PRN PRN ASTHMA 11/16/22 [History Last Taken Unknown] fexofenadine 180 mg tablet 180 mg PO DAILY 11/16/22 [History Last Taken Unknown] Allergy/AdvReac Type Severity Reaction Status Date / Time adhesive tape Allergy Intermediate Rash Verified 11/20/22 07:53 grass pollen Allergy Unknown Verified 11/20/22 07:53 mold Allergy Unknown Verified 11/20/22 07:53 Surgical History H/O foot surgery History of hernia surgery History of tonsillectomy Social History Smoking Status: Never smoker alcohol intake: never Past Medical/Surgical History Planned Operation Planned Operative Procedure/s: ONOSCOPY/EGD Previous Hospitalizations/Surgeries HX Hospitalizations: No Any Problems With Anesthesia: No You/Your Family Experience Fever (Hyperthermia) With Anes: No Cholinesterase deficiency: No Cardiovascular Hx Hypertension: Yes (CONTROLLED ON MED) Respiratory Hx Sleep Apnea: Yes CPAP: Yes BIPAP: No Hx Respiratory Tract Infection/Cold (presently): No Result (for STOP score): Positive Smoking Status: Never smoker Neurological Does patient have nerve stimulator: No Miscellaneous Recent Exposure to Contagious Disease: No Allergies adhesive tape Allergy (Intermediate, Verified 11/20/22 07:53) Rash grass pollen Allergy (Verified 11/20/22 07:53) Unknown mold Allergy (Verified 11/20/22 07:53) Unknown Discharge Is Pt Admitted From a Senior Living, or a Mcfp: No After D/C, Where Do you Plan to Go: Return Home Vital Signs Vital Signs Vital Signs: 11/20/22 07:53 11/20/22 07:53 Temperature 97.2 F L Temperature Source Temporal Pulse Rate 66 Respiratory Rate 18 Respiratory Pattern Normal Blood Pressure 122/72 H Blood Pressure Mean 88 Blood Pressure Source Monitor Blood Pressure Position Semi-Fowlers Blood Pressure Location Left Arm Pulse Ox 98 Oxygen Delivery Method Room Air Weight Weight: 226 lb 13.69 oz Body Mass Index (BMI) 36.6 Physical Exam Const alert, oriented x3 and no apparent distress HEENT normocephalic and head/scalp atraumatic Neck Neck Narrative: Posterior left neck previous excision of a lipoma incision healing well with Steri-Strips no evidence of seroma. Resp normal respiratory effort Cardio regular rate GI soft to palpation and non-tender; Negative for non-distended Palpation: Negative for guarding Extremity no clubbing, cyanosis or edema Neuro CN's II-XII intact bilaterally Psych mental status grossly normal Assessment & Plan Assessment/Plan (1) GERD (gastroesophageal reflux disease): (2) Hx of colonic polyp: Surgery Risks - Colonoscopy Risks Include but are not Limited To: Risks include but are not limited to: Bleeding, perforation requiring further surgery, inability to complete colonoscopy requiring barium enema.
--- NOTE | 2022-11-20 09:00 | IMM_PTH ---
PATIENT: BARBARA SMYTH LOC: EN U#:[id number] AGE/SX: 62/F ROOM: RE11/20/[address]: Dr. Kimmie Olmos MD : 1960 BED: DIS: 11/20/2022 SPEC #: [id number] RECD: 11/20/22 12:31 STATUS: NIRANJAN REDara #: [id number] NELSON: 11/20/22 09:[address]: Kimmie Olmos DEPT: IMMUNOHISTOCHEMISTRY RECD BY: Casie Townsend ENTERED: 11/20/22 12:32 SP TYPE: IMMUNO OTHR DR: Dr. Kendrick Kendall, DO Tissues: A - Stomach, NOS B - Gastric mucous membrane Procedures: H Pylori (initial) P53 (initial) KI-67 (add) PHYSICIAN & INSTITUTION [place] [address] SPECIMEN INFORMATION: Tissue Source: A ? Antrum biopsy, B - Gastroesophageal junction Clinical Info: GERD, history of colonic polyp Specimen Number: [id number] A & B CPT code: 21048 x2, 32000 METHODOLOGY: Deparaffinized sections of prefer/formalin-fixed tissue or PAP/DQ stained slides are incubated with monoclonal/polyclonal antibodies/oligonucleotide probes. Localization is made via biotin free immunoperoxidase method. Appropriate controls are performed and reacted as expected. Results on target cell population are indicated in the following table: RESULTS: ANTIBODY / CLONE RESULT Block A H Pylori (polyclonal) negative Block B P53 (DO-7) positive, wild-type pattern Ki-67 (30-9) positive, low These tests were developed and their performance characteristics determined by [facility]. They may not have been cleared or approved by the U.S. Food and Drug Administration. The FDA has determined that such clearance or approval is not necessary. The above immunohistochemical/dualISH markers are ordered and reviewed by the Pathologist. INTERPRETATION: A. Antrum, biopsy: Negative for Helicobacter pylori organisms. B. Gastroesophageal junction, biopsy: No evidence of dysplasia. AM:mike 11/22/2022
[2022-11-20 09:45] VITALS: BP 115/64; BP 122/72; PULSE 57; RESP 16; TEMP 36.4; O2SAT 98
[2022-11-20 09:50] VITALS: BP 104/58; BP 122/72; PULSE 61; RESP 16; O2SAT 97
--- NOTE | 2022-11-20 09:52 | OP.EGD_ITS ---
Patient Name: Chiara Hernandez Procedure Date: 11/20/2022 9:01 AM Date of : 1960 Age: 62 Procedure: Upper GI endoscopy Indications: Heartburn Providers: Kimmie Olmos MD Referring MD: Kimmie Olmos MD Medicines: Monitored Anesthesia Care Patient Profile: This is a 62 year old female. Complications: No immediate complications. Procedure: Pre-Anesthesia Assessment: - Prior to the procedure, a History and Physical was performed, and patient medications and allergies were reviewed. The patient's tolerance of previous anesthesia was also reviewed. The risks and benefits of the procedure and the sedation options and risks were discussed with the patient. All questions were answered, and informed consent was obtained. Prior Anticoagulants: The patient has taken no previous anticoagulant or antiplatelet agents. ASA Grade Assessment: Per anesthesia. After reviewing the risks and benefits, the patient was deemed in satisfactory condition to undergo the procedure. After obtaining informed consent, the endoscope was passed under direct vision. Throughout the procedure, the patient's blood pressure, pulse, and oxygen saturations were monitored continuously. The colonoscope was introduced through the mouth, and advanced to the second part of duodenum. The upper GI endoscopy was accomplished without difficulty. The patient tolerated the procedure well. Scope In: 9:10:19 AM Scope Out: 9:16:46 AM Total Procedure Duration Time 0 hours 6 minutes 27 seconds Findings: The Z-line was irregular and was found 37 cm from the incisors. Biopsies were taken with a cold forceps for histology. Mildly erythematous mucosa was found in the gastric antrum. Biopsies were taken with a cold forceps for histology. Biopsies were taken with a cold forceps for Helicobacter pylori cultures. The examined duodenum was normal. A small hiatal hernia was present. Impression: - Z-line irregular, 37 cm from the incisors. Biopsied. - Erythematous mucosa in the antrum. Biopsied. - Normal examined duodenum. - Small hiatal hernia. Recommendation: - Await pathology results. - Continue present medications. Procedure Code(s): --- Professional --- 79691, Esophagogastroduodenoscopy, flexible, transoral; with biopsy, single or multiple Diagnosis Code(s): --- Professional --- K22.8, Other specified diseases of esophagus K31.89, Other diseases of stomach and duodenum K44.9, Diaphragmatic hernia without obstruction or gangrene R12, Heartburn CPT copyright 2017 [employer]. All rights reserved. The codes documented in this report are preliminary and upon medical biller/coder review may be revised to meet current compliance requirements. MD Kimmie Hernandes MD 11/20/2022 9:52:31 AM This report has been signed electronically. Number of Addenda: 0 Note Initiated On: 11/20/2022 9:01 AM
--- NOTE | 2022-11-20 09:53 | OP.CCLET_ITS ---
11/20/2022 Kendrick Kendall [address] [facility] [place] [address] Re : Upper GI endoscopy procedure for Chiara Diana David Dear Dr. Kendall This procedure was performed on Sunday, November 20, 2022. My impressions and recommendations are as follows: Impressions : - Z-line irregular, 37 cm from the incisors. Biopsied. - Erythematous mucosa in the antrum. Biopsied. - Normal examined duodenum. - Small hiatal hernia. Recommendations : - Await pathology results. - Continue present medications. My findings are described in the full procedure note, which is enclosed. If I can be of further assistance, please feel free to contact me at Doctor phone number(s): , Work: . Sincerely, MD Kimmie Hernandes MD 11/20/2022 9:52:31 AM This report has been signed electronically.
[2022-11-20 09:55] VITALS: BP 119/69; BP 122/72; PULSE 57; RESP 16; O2SAT 98
--- NOTE | 2022-11-20 09:58 | OP.COLON_ITS ---
Patient Name: Chiara Hernandez Procedure Date: 11/20/2022 9:17 AM Date of : 1960 Age: 62 Procedure: Colonoscopy Indications: Screening for colorectal malignant neoplasm Providers: Kimmie Olmos MD Referring MD: Kimmie Olmos MD Medicines: Monitored Anesthesia Care Patient Profile: This is a 62 year old female. Last Colonoscopy: 2011. Complications: No immediate complications. Procedure: Pre-Anesthesia Assessment: - Prior to the procedure, a History and Physical was performed, and patient medications and allergies were reviewed. The patient's tolerance of previous anesthesia was also reviewed. The risks and benefits of the procedure and the sedation options and risks were discussed with the patient. All questions were answered, and informed consent was obtained. Prior Anticoagulants: The patient has taken no previous anticoagulant or antiplatelet agents. ASA Grade Assessment: Per anesthesia. After reviewing the risks and benefits, the patient was deemed in satisfactory condition to undergo the procedure. After I obtained informed consent, the scope was passed under direct vision. Throughout the procedure, the patient's blood pressure, pulse, and oxygen saturations were monitored continuously. The colonoscope was introduced through the anus and advanced to the terminal ileum. The colonoscopy was performed without difficulty. The patient tolerated the procedure well. The quality of the bowel preparation was good. Scope In: 9:18:27 AM Scope Withdrawal Time 0 hours 13 minutes 52 seconds Scope Out: 9:39:55 AM Total Procedure Duration Time 0 hours 21 minutes 28 seconds Findings: Hemorrhoids were found on perianal exam. Non-bleeding external and internal hemorrhoids were found. The hemorrhoids were small and Grade I (internal hemorrhoids that do not prolapse). Three sessile polyps were found in the sigmoid colon and ascending colon. The polyps were less than 5 mm in size. These polyps were removed with a cold biopsy forceps. Resection and retrieval were complete. The terminal ileum appeared normal. The exam was otherwise without abnormality. Multiple small-mouthed diverticula were found in the sigmoid colon. There was a medium-sized lipoma, in the ascending colon. Impression: - Hemorrhoids found on perianal exam. - Non-bleeding external and internal hemorrhoids. - Three less than 5 mm polyps in the sigmoid colon and in the ascending colon, removed with a cold biopsy forceps. Resected and retrieved. - The examined portion of the ileum was normal. - The examination was otherwise normal. - Diverticulosis in the sigmoid colon. - Medium-sized lipoma in the ascending colon. Recommendation: - Discharge patient to home. - High fiber diet. - Continue present medications. - Await pathology results. - Repeat colonoscopy in 3 - 5 years for surveillance based on pathology results. Procedure Code(s): --- Professional --- 81957, PT, Colonoscopy, flexible; with biopsy, single or multiple Diagnosis Code(s): --- Professional --- Z12.11, Encounter for screening for malignant neoplasm of colon K64.0, First degree hemorrhoids D12.5, Benign neoplasm of sigmoid colon D12.2, Benign neoplasm of ascending colon K57.30, Diverticulosis of large intestine without perforation or abscess without bleeding CPT copyright 2017 [employer]. All rights reserved. The codes documented in this report are preliminary and upon infection control preventionist review may be revised to meet current compliance requirements. MD Kimmie Hernandes MD 11/20/2022 9:58:12 AM This report has been signed electronically. Number of Addenda: 0 Note Initiated On: 11/20/2022 9:17 AM
--- NOTE | 2022-11-20 09:59 | OP.CCLET_ITS ---
11/20/2022 Kendrick Kendall [address] [facility] [place] [address] Re : Colonoscopy procedure for Chiara Diana David Dear Dr. Kendall This procedure was performed on Sunday, November 20, 2022. My impressions and recommendations are as follows: Impressions : - Hemorrhoids found on perianal exam. - Non-bleeding external and internal hemorrhoids. - Three less than 5 mm polyps in the sigmoid colon and in the ascending colon, removed with a cold biopsy forceps. Resected and retrieved. - The examined portion of the ileum was normal. - The examination was otherwise normal. - Diverticulosis in the sigmoid colon. - Medium-sized lipoma in the ascending colon. Recommendations : - Discharge patient to home. - High fiber diet. - Continue present medications. - Await pathology results. - Repeat colonoscopy in 3 - 5 years for surveillance based on pathology results. My findings are described in the full procedure note, which is enclosed. If I can be of further assistance, please feel free to contact me at Doctor phone number(s): , Work: . Sincerely, MD Kimmie Hernandes MD 11/20/2022 9:58:12 AM This report has been signed electronically.
[2022-11-20 10:00] VITALS: BP 109/78; BP 122/72; PULSE 55; RESP 16; TEMP 36.6; O2SAT 97
[2022-11-20 10:16] VITALS: BP 122/72
== END 2022-11-20 10:50 | disposition home or self-care (01) ==
LOC: EN 07:25 → AC 07:25
PROVIDERS: PCP Family Medicine; Referring Provider Family Medicine; Visit Provider Surgery
PROC: 0DJD8ZZ Inspection of Lower Intestinal Tract, Via Natural or Artificial Opening Endoscopic (ICD-10-PCS; CPT 45378; principal; 2022-11-20 08:55)
DX: Z12.11 Encounter for screening for malignant neoplasm of colon (principal); K44.9 Diaphragmatic hernia without obstruction or gangrene; K57.30 Diverticulosis of large intestine without perforation or abscess without bleeding; Z86.010 Personal history of colon polyps; I10 Essential (primary) hypertension; K64.9 Unspecified hemorrhoids; R12 Heartburn; K31.89 Other diseases of stomach and duodenum; K64.0 First degree hemorrhoids; G47.33 Obstructive sleep apnea (adult) (pediatric); Z86.73 Personal history of transient ischemic attack (TIA), and cerebral infarction without residual deficits; D12.5 Benign neoplasm of sigmoid colon; D12.2 Benign neoplasm of ascending colon
CPT/HCPCS: 43239; 45380; 88305; 88341; 88342; J7120; J2405

== ENCOUNTER → 2022-12-25 | Outpatient (CLI) | payer MEDICAID, SELFPAY ==
--- NOTE | 2022-12-26 05:46 | PFTCOMP_ITS ---
COMPLETE PULMONARY FUNCTION TEST INTERPRETATION Brief HPI: Patient is a 62-year-old female, currently under the care of Dr. Carranza, who presents to [facility] for complete pulmonary function tests secondary to diagnosis of wheezing. Respiratory therapist reports good effort and reproducible results. Interpretation: Forced expiration spirometry shows no large airways obstructive ventilatory defect with an FEV1 of 109% predicted. There is no significant bronchodilator response by strict ATS criteria. Spirograms are of good quality and plateau slowly, indicating slowly emptying areas of the lungs. The respiratory flow volume loop shows decreased expiratory flow rates at high lung volumes consistent with small airways obstruction. Lung volumes by body plethysmography show an elevated total lung capacity at 6.3 L, 122% predicted. All other lung volumes are increased symmetrically. Diffusion capacity by carbon monoxide is normal at 101% predicted. The airway resistance is normal. No previous pulmonary function tests were available for review. Impression: Grossly normal pulmonary function test with some stigmata of small airways disease. Could consider bronchoprovocation study if asthma is being considered
== END | disposition home or self-care (01) ==
LOC: PSN 07:42
PROVIDERS: PCP Family Medicine; Referring Provider Internal Medicine; Visit Provider Internal Medicine
DX: J30.9 Allergic rhinitis, unspecified (principal); R06.2 Wheezing
CPT/HCPCS: 94060; 94726; 94729

== ENCOUNTER → 2023-01-01 | Outpatient (CLI) | payer MEDICAID, SELFPAY | END | disposition home or self-care (01) | LOC: SL 20:22 | PROVIDERS: PCP Family Medicine; Referring Provider Internal Medicine; Visit Provider Internal Medicine | DX: G47.33 Obstructive sleep apnea (adult) (pediatric) (principal); Z99.89 Dependence on other enabling machines and devices | CPT/HCPCS: 95811 ==

== ENCOUNTER → 2023-01-27 | Outpatient (CLI) | payer MEDICAID, SELFPAY ==
--- NOTE | 2023-01-27 07:49 | CT_ITS ---
STUDY: CT MAXILLOFACIAL SINUSES REASON FOR EXAM: Female, 62 years old. PROBABLE OBSTRUCTIVE SUNUSITIS, ? NEED SURGERY RADIATION DOSAGE (If Supplied By Facility): CTDIvol = ( 33.06 ) mGy, DLP = ( 738.81 ) mGycm TECHNIQUE: The patient was scanned in a multi detector CT scanner. High resolution axial imaging was performed without the administration of intravenous contrast material. Sagittal and coronal images were reconstructed. Individualized dose optimization techniques were used for this CT. COMPARISON: None. FINDINGS: This frontal S internus. There is visualized mild degenerative change within the cervical spine. There is a benign-appearing appearing calcifications in the inner table of the right temporal region which likely represents a benign bony calcification less likely meningioma measuring 9.4 mm. FRONTAL SINUSES: Normal aeration, without mucosal inflammatory disease. ETHMOIDAL SINUSES: Normal aeration, without mucosal inflammatory disease. MAXILLARY SINUSES: Normal aeration, without mucosal inflammatory disease. SPHENOIDAL SINUSES: There is chronic appearing mucosal thickening of the left sphenoid sinus. There is patency of the bilateral maxillary infundibuli with normal uncinate processes, ethmoid bullae, and hiatus semilunaris. There is a paradoxical right-sided middle turbinate compared to the right side inferior turbinate. There is an enlarged appearance of the right inferior turbinate. There is a visualized rightward nasal spur and deviation with narrowing of the right-sided nasal passageway partial obstruction of the ostiomeatal complex. There is a normal size of the left-sided inferior turbinate. There is a slightly rightward deviated by large rightward nasal spur . The left side is patent. There is a narrowed appearance of the right-sided nasal passageway and ostiomeatal complex secondary to a nasal spur. The visualized osseous structures are normal. The visualized bilateral orbital contents are normal. CT/Sinus/Facial Bone IMPRESSION: Enlarged right-sided inferior turbinate.. Paradoxical appearing right middle turbinate and visualized rightward nasal spur contributing to narrowing of the right-sided nasal passageway. Electronically Signed: Kenzie Markham MD at 4:44 EDT ,
== END | disposition home or self-care (01) ==
LOC: CT 07:47
PROVIDERS: PCP Family Medicine; Referring Provider Internal Medicine; Visit Provider Internal Medicine
DX: J30.9 Allergic rhinitis, unspecified (principal); G47.33 Obstructive sleep apnea (adult) (pediatric); Z99.89 Dependence on other enabling machines and devices
CPT/HCPCS: 70486

== ENCOUNTER → 2023-02-09 | Outpatient (CLI) | payer MEDICAID, SELFPAY ==
--- NOTE | 2023-02-09 07:10 | CT_ITS ---
INDICATION: RT ADRENAL MASS EXAMINATION: CT ABDOMEN WITH AND WITHOUT CONTRAST TECHNIQUE: Helically acquired images were obtained of the abdomen both before and after IV contrast. A radiation dose optimization technique was used for this scan. IV Contrast dosage and agent: 100 cc Isovue-300 Oral contrast: None. RADIATION DOSAGE (If Supplied By Facility): CTDIvol = ( 35.93 ) mGy, DLP = ( 3183.02 ) mGycm COMPARISON: 07/22/2022 FINDINGS: LOWER CHEST: Lung bases are clear. No cardiomegaly or pericardial effusion. LIVER: Homogeneous. No focal mass. GALLBLADDER AND BILIARY TREE: There is a solitary gallstone measures 3 mm. No intra- or extrahepatic biliary ductal dilation. PANCREAS: No focal cystic or solid mass. SPLEEN: Normal size without focal cystic or solid mass. ADRENAL GLANDS: No nodules. KIDNEYS AND URETERS: Normal renal size and position. No hydronephrosis or nephrolithiasis. No definite renal mass. PERITONEUM: No ascites or free air. No other fluid collection. BOWEL: No stomach or bowel distension. No focal inflammatory change. There is diverticulosis of the descending colon. LYMPH NODES: No enlarged mesenteric or retroperitoneal lymph nodes. VESSELS: Aorta is non-dilated. ABDOMINAL WALL: No discrete abdominal wall hernia. BONES: No lytic or blastic abnormality. CT/Abdomen W/WO IV Contrast IMPRESSION: Diverticulosis of the descending colon. Cholelithiasis. There is no evidence of renal neoplasm. Electronically Signed: Justin Lyles MD at 2:59 EDT ,
[2023-02-09 07:15] LABS: CREATININE FINGERSTICK < 0.9 mg/dL (0.55-1.02); EGFR FINGERSTICK > 60.0000 mL/min (>60)
== END | disposition home or self-care (01) ==
PROVIDERS: PCP Family Medicine; Referring Provider Family Medicine; Visit Provider Family Medicine
DX: E27.8 Other specified disorders of adrenal gland (principal)
CPT/HCPCS: 74170; Q9967; A4216

== ENCOUNTER → 2023-10-01 | Outpatient (CLI) | payer MEDICARE, SELFPAY ==
--- NOTE | 2023-10-01 13:39 | VDLE_ITS ---
Reason For Study: Varicose Veins RIGHT LEFT CFV is compressible, spontaneous, phasic, CFV is compressible, spontaneous, phasic, competent and demonstrates normal competent, and demonstrates normal augmentation. augmentation. FV is compressible, spontaneous, phasic, FV is compressible, spontaneous, phasic, competent and demonstrates normal competent and demonstrates normal augmentation. augmentation. POP V is compressible, spontaneous, phasic, POP V is compressible, spontaneous, phasic, competent and demonstrates normal competent and demonstrates normal augmentation. augmentation. T/P Trunk is compressible. T/P Trunk is compressible. PTV is compressible. PTV is compressible. RT PerV is compressible. LT PerV is compressible. SFJ is competent and measures 0.83cm x 0.74 SFJ is competent and measures 0.70cm x 0.68 cm. cm. GSV proximal thigh measures 0.40cm x 0.44 cm. GSV proximal thigh measures 0.32cm x 0.36 cm. GSV at knee measures 0.33cm x 0.32 cm. GSV at knee measures 0.34cm x 0.37 cm. GSV above knee is competent. GSV above knee is INCOMPETENT for greater GSV below knee is INCOMPETENT for greater than 0.5 seconds. than 0.5 seconds. GSV below knee is competent. SSV proximal calf is competent and measures SSV proximal calf is competent and measures 0.32cm x 0.33 cm. 0.53cm x 0.58 cm. Procedure ASV proximal calf is INCOMPETENT for greater This is a venous duplex using B-mode, color than 0.5 seconds and measures 0.28cm x 0.28 flow and spectral Doppler. cm. Exam performed in department. A preliminary report was called and/or faxed to Dr. Kendall. VL/Venous Duplex US - Saulo Extrem Interpretation Summary Deep veins of the lower extremities are patent and compressible segmentally. Th ere is no evidence of bilateral lower extremity deep vein thrombosis. The bilateral great saphenous v eins appear patent and compressible segmentally. Positive for reflux in the right great saphenous vein below the knee Positive for reflux in the left great saphenous vein below the knee, accessory saphenous vein below the knee Ordering Physician: Kendrick Kendall Referring Physician: Kendrick Kendall Performed By: Marisabel Nunn, DANIKA, RVT
== END | disposition home or self-care (01) ==
LOC: CVS 13:38
PROVIDERS: PCP Family Medicine; Referring Provider Family Medicine; Visit Provider Family Medicine
DX: I83.893 Varicose veins of bilateral lower extremities with other complications (principal); I83.029 Varicose veins of left lower extremity with ulcer of unspecified site
CPT/HCPCS: 93970

== ENCOUNTER → 2023-10-15 | Outpatient (CLI) | payer MEDICARE, SELFPAY ==
[2023-10-15 12:02] LABS: Absolute Lymphocyte Count 1.36 X10^3/uL (0.83-4.51); Absolute Neutrophil Count 3.1 X10^3/uL (2.0-7.7); Basophil# 0.06 X10^3/uL; Basophil% 1.1 % (0-1); Hematocrit 42.8 % (37-47); Hemoglobin 13.7 g/dL (12.0-15.0); Lymphocyte # 1.36 X10^3/ul (0.83-4.51); Lymphocyte % 25.8 % (19-41); Mean Corpuscular Hgb 29.4 pg (27.0-32.0); Mean Corpuscular Volume 91.8 fL (81-99); Mean Platelet Vol. 10.5 fl (6.2-12.0); Monocyte# 0.75 X10^3/uL; Monocyte% 14.2 % (0-10); NRBC Flagged by Analyzer 0 % (0-5); Neutrophil # 3.05 X10^3/uL (2.7-7.7); Platelet Count 358 K/mm3 (150-450); RBC Distribution Width CV 13.1 % (11.6-14.6); RBC Distribution Width SD 43.2 fl (35.1-43.9); Red Blood Count 4.66 M/mm3 (4.2-5.4); White Blood Count 5.3 K/mm3 (4.4-11.0)
[2023-10-15 13:44] LABS: ALB/GLOB Ratio 0.9 RATIO (0.9-2.4); AST(SGOT) 18 U/L (15-37); Alanine Aminotransfer ALT/SGPT 28 U/L (13-56); Albumin, Serum 3.5 g/dL (3.2-5.0); Alkaline Phosphatase 73 U/L (45-117); Anion Gap 4 (5-15); BUN 20 mg/dL (7-18); BUN/Creat Ratio 21.9 RATIO (10-20); Calcium,Total 9.2 mg/dL (8.5-10.1); Chloride 109 mmol/L (98-107); Cholesterol 139 mg/dL (200); Creatinine, Serum 0.92 mg/dL (0.55-1.02); EST Glomerular Filtration Rate 66 mL/min (>60); Est Glom Filt Rate - Afr Amer 79 mL/min (>60); Globulin 3.7 g/dL (2.2-4.2); Glucose 97 mg/dL (74-106); High Density Lipoprotein 50 mg/dL; Potassium 4.2 mmol/L (3.5-5.1); Protein, Total 7.2 g/dL (6.4-8.2); Sodium Level 139 mmol/L (136-145); Triglycerides 199 mg/dL; Very Low Density Lipoprotein 40 mg/dL (5-40)
[2023-10-15 14:40] LABS: Hemoglobin A1c 5.6 % (3.8-5.6)
== END | disposition home or self-care (01) ==
LOC: BFHLAB 09:51
PROVIDERS: PCP Family Medicine; Visit Provider Family Medicine
DX: I10 Essential (primary) hypertension (principal); R73.01 Impaired fasting glucose
CPT/HCPCS: 36415; 80053; 80061; 83036; 85025

== ENCOUNTER → 2023-10-29 | Outpatient (CLI) | payer MEDICARE, SELFPAY | END | disposition home or self-care (01) | LOC: LABSPEC 15:23 | PROVIDERS: PCP Family Medicine; Visit Provider Otolaryngology Otolaryngology/Facial Plastic Surgery | DX: J32.9 Chronic sinusitis, unspecified (principal) | CPT/HCPCS: 87070; 87205 ==

== ENCOUNTER → 2023-11-15 | Outpatient (CLI) | payer MEDICARE, SELFPAY ==
--- NOTE | 2023-11-15 14:38 | BI_ITS ---
MAMMOGRAPHY - BILATERAL SCREENING REASON FOR EXAM: Female, 63 years old. Routine annual screening examination. PERTINENT HISTORY: Non-contributory. TECHNIQUE: Digital bilateral breast lynette (3D mammographic acquisition) in the CC and MLO projections. 2-D mediolateral oblique (MLO) and craniocaudad (CC) views of both breasts were obtained. CAD: Full Field Digital Mammography with Computer Added Detection was performed. COMPARISON: Comparison is made with prior study dated October 23, 2022 and November 27, 2016. FINDINGS: Breast Composition: There are scattered areas of fibroglandular density. There are no dominant masses or suspicious calcifications. Stable bilateral fat containing axillary lymph nodes. No other significant abnormalities are identified. There has been no significant change since the prior study. BI/SCRN MAMM (CAD)W/LYNETTE BILAT IMPRESSION: Stable bilateral screening mammogram. Yearly follow-up mammogram recommended. (A) ASSESSMENT CATEGORY: BIRADS Category 2: Benign. A letter regarding these results will be sent to the patient by the facility within 30 days. Approximately 10% of breast cancers are not detected by mammography. A normal mammogram should not delay biopsy of a clinically suspicious abnormality. [id number] Electronically Signed: Vince Workman MD at 15:42 EST ,
--- NOTE | 2023-11-15 15:18 | BD_ITS ---
STUDY: DUAL ENERGY X-RAY ABSORPTIOMETRY / DXA REASON FOR EXAM: Female, 63 years old. M810 TECHNIQUE: Bone Mineral Density (BMD) measurements of lumbar spine and bilateral hips were obtained. COMPARISON: None. FINDINGS: Lumbar Spine (L1-L4): g/cm2 (0.866) / T-score (-1.0) / Z-score (0.6) Findings are suggestive of normal bone density with a low fracture risk. Left Femur Total: g/cm2 (1.042) / T-score (0.8) / Z-score (2.1) Left Femoral Neck: g/cm2 (0.814) / T-score (-0.3) / Z-score (1.2) Right Femur Total: g/cm2 (1.003) / T-score (0.5) / Z-score (1.7) Right Femoral Neck: g/cm2 (0.771) / T-score (-0.7) / Z-score (0.8) BD/Dexa Bone Density Study IMPRESSION: The patient is considered normal as outlined below according to World Fernando Organization (WHO) criteria with a low fracture risk. Reference Information: The T-score is the number of standard deviations above or below the standard which is normal for young adults at their peak bone mineral density. The World Health Organization (WHO) interprets the T-scores as follows: Above -1 Normal bone density Between -1 and -2.5 Osteopenia Equal to / or below -2.5 Osteoporosis As a practical clinical guideline, osteopenia may be graded as follows: Mild -1 through -1.5 Moderate -1.6 through -2.0 Severe -2.1 through -2.4 The Z-score is the number of standard deviations above or below age-matched controls. A Z-score of less than -1.5 would be considered abnormal. References: 1. NIH Osteoporosis and Related Bone Diseases www osteo.org 2. International Society for Clinical Densitometry www iscd.org 3. National Osteoporosis Foundation www nof.org Electronically Signed: Vince Workman MD at 13:33 EST ,
== END | disposition home or self-care (01) ==
LOC: OPBD 14:36
PROVIDERS: PCP Family Medicine; Referring Provider Family Medicine; Visit Provider Family Medicine
DX: Z12.31 Encounter for screening mammogram for malignant neoplasm of breast (principal); M81.0 Age-related osteoporosis without current pathological fracture
CPT/HCPCS: 77063; 77067; 77080

== ENCOUNTER → 2023-11-19 | Outpatient (CLI) | payer MEDICARE, SELFPAY ==
--- NOTE | 2023-11-19 13:06 | CT_ITS ---
INDICATION: FU LUNG NODULE EXAMINATION: CT CHEST WITHOUT CONTRAST - CT Chest W/O Contrast Injection TECHNIQUE: Helically acquired images were obtained of the chest. A radiation dose optimization technique was used for this scan. IV Contrast dosage and agent: None. RADIATION DOSAGE (If Supplied By Facility): CTDIvol = ( 20.84 ) mGy, DLP = ( 731.80 ) mGycm COMPARISON: Prior study dated: 07/22/2022 FINDINGS: LUNGS, PLEURA AND LARGE AIRWAYS: Stable right middle lobe nodule measuring about 7 mm best seen on axial image 57 series 4 unchanged. Vague groundglass 3 mm nodular density in the right upper lobe. Calcified left lower lobe granuloma. No focal infiltrate or consolidation. No evidence of pleural effusions. THYROID: Persistent 3 cm left lobe thyroid nodule unchanged. HEART AND PERICARDIUM: Heart size is normal. No pericardial effusion. CORONARY ARTERIES: Coronary artery calcification is not seen. VESSELS: Thoracic aorta is not dilated. MEDIASTINUM AND ZONIA: No mediastinal or hilar adenopathy. Esophagus is unremarkable. Small hiatal hernia. UPPER ABDOMEN: No acute pathology. BONES: Degenerative changes of the spine. CT/Chest without Contrast IMPRESSION: 1. Stable 7 mm right upper lobe nodule. Further follow-up exam in one year is recommended. 2. No new mass, adenopathy or focal acute pulmonary infiltrate. 3. Left lobe thyroid nodule unchanged. Electronically Signed: Diego Flores MD at 15:36 EST ,
== END | disposition home or self-care (01) ==
LOC: CT 13:03
PROVIDERS: PCP Family Medicine; Referring Provider Family Medicine; Visit Provider Family Medicine
DX: R91.1 Solitary pulmonary nodule (principal)
CPT/HCPCS: 71250

== ENCOUNTER 2023-11-26 10:00 | Outpatient (RCR) | payer MEDICARE, SELFPAY ==
--- NOTE | 2023-08-27 11:37 | HP.PTEVAL ---
Patient's Visit Information Visit Information Visit Information: BARBARA SANFORD is a 62 year old F referred to Physical Therapy by Dr. Radha Osorio MD with a diagnosis of MIXED INCONTINENCE. Date of Evaluation: 08/27/23 Physical Therapist: Rika Thompson, PT, Cert MDT Visit Plan Frequency: 1x/Week Duration: 2-4 Months Plan: EDUCATION IN BASIC ANATOMY AND PHYSIOLOGY OF PELVIC FLOOR, CORE AND HIPS. INSTRUCTED PATIENT IN AVOIDING KEGEL'S DURING micturition, INCREASE of FLUID INTAKE to 1/2 BODY WEIGHT IN OUNCES (with 2/3 being H2O), AND TO AVOID JIC VOIDING. RECOMMENDED VOIDING EVERY 3 HOURS IF POSSIBLE BUT TO AVOID PAIN AND LEAKING. INSTRUCTION IN BEHAVIOR MODIFICATIONS FOR URGE INCONTINENCE. Subjective Subjective: Work/Leisure: [employer] 40+ HRS A WK 8 TO 12 HRS A DAY, 5 DAYS A WK. Present symptoms: URINARY LEAKING THAT IS WORSENING. Present since: ABOUT 10 YEARS. WORSE THE LAST 3 YEARS. Pain Scale: N/A Is it getting better, worse or staying the same: IMPROVING SINCE STARTING MEDICINE. Commenced as a result of: NO APPARENT REASON Worse: DRINKING A LOT WATER Better: NOTHING Disturbed sleep: GETTING UP 1 TIME AT NIGHT TO URINATE. Previous history/Previous treatment: NO PRIOR TREATMENT. INITIALLY USE TO WEAR A PANTY LINER. NOW WEARING THCKER UI PAD. Treatment this episode: ONE CONSULT WITH DR. OSORIO. RECOMMENDED DIETARY CHANGES AND PT CONSULT. ALSO STARTED MEDICATION SAMPLES AND PATIENT THINKS IT IS HELPING. Coughing/sneezing/straining: POSITIVE FOR UI. Gait: NORMAL How long can you delay the need to urinate: SOMETIMES CAN NOT MAKE IT IN TIME. 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 REPORTS SHE DOES GET A FEELING OF FALLING OUT. Frequency of Urination: ABOUT EVERY 45 MINUTES. Ability to stop urine flow: UNSURE Ability to initiate urine stream: YES Dyspareunia: N/A Bowel Incontinence: NO Accidents: NO Unexplained weight loss: NO Imaging: US SHOWED NORMAL BLADDER EMPTYING PER PATIENT REPORT. PMH/Recent major surgery: HTN, ACID REFLUX. HYSTERECTOMY 1982. R FOOT ORIF 1984. H/O LBP/L SCIATICA AND SCOLIOSIS. HAS BEEN GOING TO [facility] REGULARLY FOR 2 YEARS AND OFF AND ON YEARS. H/O LLE EDEMA - STATES DR. JAIN RECOMMENDED SUPPORT HOSE AND CALLING A SPECIALIST. PATIENT REPORTS SHE WEARS OTC SUPPORT STOCKINGS FROM [facility]. Objective Objective: Sitting/Standing Posture: FH. RSH'S. INCREASED KYPHOSIS. NORMAL LORDOSIS. NO RELEVANT LATERAL SHIFT. ANTERIOR PELVIC TILT. Other Observations: INDEP GAIT AND TRANSFERS. Sensory deficit: DECREASED L LATERAL LOWER LEG LIGHT TOUCH COMPARED TO RIGHT. ROM deficit: TIGHT RAGHU HIP FLEXORS, HS, HIP ROTATORS AND CALVES. L HIP TIGHTER THAN R. Motor deficit: R HIP 4/5, KNEE 5/5, ANKLE 5/5. L HIP 4-/5, KNEE 5/5, ANKLE 5/5. PATIENT COMMUNICATES ABILITY TO CONTRACT PELVIC FLOOR X 3 SEC X 3 REPS WITH CUEING. Reflexes: UNABLE TO ELICIT RAGHU LE DTR'S. Dural Signs: POSITIVE LLE. Lumbar mvmt loss: flex - MIN ext - MOD R SG - MOD L SG - MOD PATIENT C/O LOW BACK PAIN WITH RAGHU SG TESTING BUT DENIES INCREASED PAIN WITH FLEXION AND EXTENSION TESTING. INCREASED C/O LBP AFTER LUMBAR ROM TESTING AND PATIENT REPORTS HER TAILBONE ALWAYS HURTS. Core strength: POOR Palpation: TENDERNESS WITH PALPATION OF LUMBAR SPINE AND INCREASED M. TONE RAGHU LUMBAR PARASPINALS. FUNCTIONAL SCREEN: Incontinence Impact Questionnaire Score: 12 Urogenital Distress Inventory Score: 10 Goals Goal 1:: DECREASE URINARY LEAKAGE EPISODES TO ONE OR LESS PER DAY Goal Time Frame: 8-12 Weeks Goal 2:: PATIENT WILL SUCCESSFULLY DELAY VOIDING LONG NEEDED WHEN URGENCY OCCURS TO SUCCESSFULLY MAKE IT TO THE BATHROOM. Goal Time Frame: 6-8 Weeks Goal 3:: PATIENT WILL DEMONSTRATE/COMMUNICATE 10 CONSISTENT AND CONSECUTIVE 10 SECOND PELVIC FLOOR MUSCLE CONTRACTIONS TO DEMONSTRATE IMPROVED PELVIC FLOOR ENDURANCE. Goal Time Frame: 8-12 Weeks Goal 4:: DEVELOP HEALTHY FLUID INTAKE HABITS WITH FLUID INTAKE OF ? BODY WEIGHT IN OUNCES PER DAY AND 2/3 BEING WATER. Goal Time Frame: 2-4 Weeks Goal 5:: NORMALIZE VOIDING FREQUENCEY TO EVERY 3-4 HOURS. Goal Time Frame: 6-8 Weeks Goal 6:: PATIENT WILL BE INDEP WITH A HEP/HOME INSTRUCTIONS FOR CONTINUED IMPROVEMENT ONCE FORMAL PHYSICAL THERAPY CONCLUDES. Goal Time Frame: 8-12 Weeks Rehabilitation Potential Physical Therapy Diagnosis: MIXED STRESS AND URGE INCONTINENCE. CONTRIBUTING FACTORS INCLUDE POOR CORE STABILITY CONTROL Rehabilitation Potential: Good Anticipated Interventions Patient/Client Instruction: Educate patient on: Condition, Plan of Care and Risk Factors For the Purpose of:: To improve self management Therapeutic Exercise to Include: Strength training, Endurance training and Flexibilty training For the Purpose of:: To improve muscle performance and motor function, To increase tolerance to activity/condition/position, To improve ability of physical actions for home/community/work/leisure and To increase flexibility/ROM Text: Thank you for the opportunity to evaluate your patient. For Medicare and Medicare HMO plans, please review the plan of care and approve it. It will need to be FAXED BACK to us at [phone] for Medicare purposes. For Medicare only, by signing this I certify the plan of care. Please let me know if there are questions or concerns regarding this plan of care. Physician Signature: Date:
--- NOTE | 2023-11-26 16:44 | HP.PTDCSUM_ITS ---
Discharge Summary D/C summary: It has been my pleasure to treat BARBARA SANFORD referred by Dr. Radha Osorio MD, with the diagnosis of MIXED INCONTINENCE for a total of 11 visit(s). Discharge Date: 11/26/23 Please see the following information for a summary of their discharge status. Subjective Subjective: EVERY ONCE IN A BLUE VASQUEZ IF I HAVE A LOT OF WATER AND WAIT TO GO TO THE BATHROOM I HAVE TROUBLE GETTING MY PANTS DOWN IN TIME . PATIENT REPORTS SHE IS DOING GOOD WITH THE EX'S AND PLANS TO CONTINUE THEM. Overall Improvement % Improvement: 95 Objective Objective/Function: PATIENT TOLERATED NEW EX WELL AND COMMUNICATED A GOOD UNDERSTANDING OF ALL INSTRUCTIONS AFTER GIVEN. SHE IS APPROPRIATE FOR AND AGREEABLE TO DISCHARGE TO [facility]. SHE HAS DONE REALLY WELL WITH PT AND ALL PT GOALS HAVE BEEN MET. FUNCTIONAL SCREEN: Incontinence Impact Questionnaire Score: 3 Urogenital Distress Inventory Score: 1 Goals Goal 1:: DECREASE URINARY LEAKAGE EPISODES TO ONE OR LESS PER DAY Goal Progress: Goal Met Goal 2:: PATIENT WILL SUCCESSFULLY DELAY VOIDING LONG NEEDED WHEN URGENCY OCCURS TO SUCCESSFULLY MAKE IT TO THE BATHROOM. Goal Progress: Goal Met Goal 3:: PATIENT WILL DEMONSTRATE/COMMUNICATE 10 CONSISTENT AND CONSECUTIVE 10 SECOND PELVIC FLOOR MUSCLE CONTRACTIONS TO DEMONSTRATE IMPROVED PELVIC FLOOR ENDURANCE. Goal Progress: Goal Met Goal 4:: DEVELOP HEALTHY FLUID INTAKE HABITS WITH FLUID INTAKE OF ? BODY WEIGHT IN OUNCES PER DAY AND 2/3 BEING WATER. Goal Progress: Goal Met Goal 5:: NORMALIZE VOIDING FREQUENCEY TO EVERY 3-4 HOURS. Goal Progress: Goal Met Goal 6:: PATIENT WILL BE INDEP WITH A HEP/HOME INSTRUCTIONS FOR CONTINUED IMPROVEMENT ONCE FORMAL PHYSICAL THERAPY CONCLUDES. Goal Progress: Goal Met Plan Plan: D/C D/C Information d/c sentence: If there are questions or concerns regarding this patient's physical therapy, please feel free to call me at [phone]. Thank you for the referral of this patient. Sincerely, Rika Thompson, PT, Cert MDT Balance/Gait/Functional tests Improvement % Improvement: 95
== END 2023-11-26 19:00 | disposition home or self-care (01) ==
LOC: PT 10:00
PROVIDERS: PCP Family Medicine; Visit Provider Urology
DX: N39.46 Mixed incontinence (principal)
CPT/HCPCS: 97162; 97530

== ENCOUNTER → 2023-12-10 | Outpatient (CLI) | payer MEDICARE, SELFPAY ==
--- NOTE | 2023-12-10 11:50 | US_ITS ---
EXAM: US SOFT TISSUES HEAD AND NECK, THYROID CLINICAL INDICATION: MULTIPLE NODULES TECHNIQUE: Crain scale and color doppler imaging was performed of the thyroid gland. COMPARISON: No relevant prior studies available. FINDINGS: LEFT THYROID LOBE: Left thyroid lobe measures 6.0 x 2.9 x 2.6 cm. 3.8 x 2.8 cm left thyroid mass noted. This nodule is mixed cystic and solid, hyperechoic or isoechoic, [id number], smoothly marginated and contains no echogenic foci. TI-RADS points: 2. TI-RADS category: TR2. This nodule is not suspicious and no FNA or follow-up is necessary. RIGHT THYROID LOBE: Right thyroid lobe measures 4.0 x 1.8 x 1.9 cm. Dominant 1.6 cm nodule along the posterior midportion of the right thyroid lobe. This nodule is solid or almost completely solid, hyperechoic or isoechoic, [id number], smoothly marginated and contains no echogenic foci. TI-RADS points: 3. TI-RADS category: TR3. This nodule is mildly suspicious. Recommend follow-up thyroid ultrasounds at 1, 3 and 5 years. Several additional nodules noted measuring 6 mm and less in size. These nodules are mixed cystic and solid, hyperechoic or isoechoic, [id number]-[id number], smoothly marginated and contained no echogenic foci. TI-RADS points: 2. TI-RADS category: TR2. These nodules are not suspicious and no FNA or follow-up is necessary. ISTHMUS: Isthmus measures 3.4 mm in AP dimension. No thyroid nodules are present. US/Thyroid IMPRESSION: Bilateral thyroid nodules as described. Follow-up thyroid ultrasound as recommended above. Electronically Signed: Zachary Rubio MD at 9:12 EDT ,
== END | disposition home or self-care (01) ==
LOC: US 11:50
PROVIDERS: PCP Family Medicine; Referring Provider Family Medicine; Visit Provider Family Medicine
DX: E04.2 Nontoxic multinodular goiter (principal)
CPT/HCPCS: 76536

== ENCOUNTER → 2024-06-04 | Outpatient (CLI) | payer MEDICARE, SELFPAY ==
--- NOTE | 2024-06-04 13:10 | LIP_PTH ---
PATIENT: BARBARA SMYTH LOC: [facility] U#:[id number] AGE/SX: 63/F ROOM: RE06/04/[address]: Dr. Kimmie Olmos MD : 1960 BED: DIS: 06/04/2024 SPEC #: [id number] RECD: 06/04/24 14:22 STATUS: NIRANJAN REDara #: [id number] NELSON: 06/04/24 13:[address]: Kimmie Olmos DEPT: SURGICAL PATHOLOGY RECD BY: Juju Bey ENTERED: 06/05/24 10:21 SP TYPE: LIPOMA OTHR DR: Dr. Kendrick Kendall, DO Tissues: Soft tissues, NOS Procedures: Surgery Specimen Level III HEADER OPERATION: Right anterior shoulder lipoma excision PRE-OP DIAGNOSIS: Right shoulder lipoma TISSUE SUBMITTED: Right shoulder lipoma MICROSCOPIC DIAGNOSIS Soft tissue mass of right shoulder, excision: Capillary hemangioma. AM.mr 06/06/2024 COMMENT Case has been reviewed in consultation with Dr. Zamorano who concurs with the above diagnosis. IDC:[id number] MICROSCOPIC DESCRIPTION Slides are reviewed. GROSS DESCRIPTION Received in fixative is one container labeled with the patient's name and designated Right anterior shoulder lipoma. The specimen consists of a piece of black-yellow adipose tissue measuring 1.8 x 1.5 x 0.7cm. The specimen is inked, serially sectioned and reveal hemorrhagic cut surfaces. The entire specimen is submitted in two cassettes. 06/05/2024 TC:1 CPT:04458
== END | disposition home or self-care (01) ==
LOC: LABSPEC 14:57
PROVIDERS: PCP Family Medicine; Referring Provider Surgery; Visit Provider Surgery
DX: D17.9 Benign lipomatous neoplasm, unspecified (principal)
CPT/HCPCS: 88304

== ENCOUNTER → 2024-08-18 | Outpatient (CLI) | payer MEDICARE, SELFPAY | END | disposition home or self-care (01) | PROVIDERS: PCP Family Medicine; Referring Provider Otolaryngology Otolaryngology/Facial Plastic Surgery; Visit Provider Otolaryngology Otolaryngology/Facial Plastic Surgery | DX: J32.8 Other chronic sinusitis (principal) | CPT/HCPCS: 87070; 87205 ==

== ENCOUNTER → 2024-10-20 | Outpatient (CLI) | payer MEDICARE, SELFPAY ==
[2024-10-20 12:21] LABS: Absolute Lymphocyte Count 1.13 X10^3/uL (0.83-4.51); Absolute Neutrophil Count 3.3 X10^3/uL (2.0-7.7); Basophil# 0.03 X10^3/uL; Basophil% 0.6 % (0-1); Eosinophil# 0.03 X10^3/uL; Eosinophils% 0.6 % (0-5); Hematocrit 41.2 % (37-47); Hemoglobin 12.7 g/dL (12.0-15.0); Lymphocyte # 1.13 X10^3/ul (0.83-4.51); Lymphocyte % 22.3 % (19-41); Mean Corp Hgb Conc 30.8 g/dL (32-36); Mean Corpuscular Hgb 28.3 pg (27.0-32.0); Mean Platelet Vol. 10.3 fl (6.2-12.0); Monocyte# 0.53 X10^3/uL; Monocyte% 10.5 % (0-10); NRBC Flagged by Analyzer 0 % (0-5); Neutrophil # 3.32 X10^3/uL (2.7-7.7); Neutrophil % 65.6 % (47-70); Platelet Count 346 K/mm3 (150-450); RBC Distribution Width CV 13.1 % (11.6-14.6); RBC Distribution Width SD 44.4 fl (35.1-43.9); Red Blood Count 4.48 M/mm3 (4.2-5.4); White Blood Count 5.1 K/mm3 (4.4-11.0)
[2024-10-20 12:39] LABS: Hemoglobin A1c 5.5 % (3.8-5.6)
[2024-10-20 13:07] LABS: ALB/GLOB Ratio 0.9 RATIO (0.9-2.4); AST(SGOT) 13 U/L (15-37); Alanine Aminotransfer ALT/SGPT 16 U/L (13-56); Albumin, Serum 3.3 g/dL (3.2-5.0); Alkaline Phosphatase 84 U/L (45-117); Anion Gap 10 (5-15); BUN 14 mg/dL (7-18); BUN/Creat Ratio 13.6 RATIO (10-20); Calcium,Total 8.8 mg/dL (8.5-10.1); Chloride 108 mmol/L (98-107); Cholesterol 125 mg/dL (200); Creatinine, Serum 1.03 mg/dL (0.55-1.02); EST Glomerular Filtration Rate 57 mL/min (>60); Est Glom Filt Rate - Afr Amer 69 mL/min (>60); Globulin 3.6 g/dL (2.2-4.2); Glucose 128 mg/dL (74-106); High Density Lipoprotein 55 mg/dL; Potassium 3.8 mmol/L (3.5-5.1); Protein, Total 6.9 g/dL (6.4-8.2); Sodium Level 140 mmol/L (136-145); Triglycerides 68 mg/dL; Very Low Density Lipoprotein 14 mg/dL (5-40)
== END | disposition home or self-care (01) ==
LOC: BFHLAB 08:52
PROVIDERS: PCP Family Medicine; Referring Provider Family Medicine; Visit Provider Family Medicine
DX: I10 Essential (primary) hypertension (principal); E04.2 Nontoxic multinodular goiter; R73.01 Impaired fasting glucose
CPT/HCPCS: 36415; 80053; 80061; 83036; 84443; 85025

== ENCOUNTER → 2024-10-27 | Outpatient (CLI) | payer MEDICARE, SELFPAY ==
--- NOTE | 2024-10-27 14:18 | US_ITS ---
PROCEDURE: THYROID REASON FOR EXAM: History of thyroid nodules. Goiter. TECHNIQUE: Thyroid ultrasound COMPARISON: Comparison is made with prior study dated December 10, 2023. FINDINGS: Right thyroid lobe measures 4.6 cm x 1.9 cm x 2 cm. Left thyroid lobe measures 6.1 cm x 2.6 cm x 3.3 cm. Isthmus thickness is2.8 mm. Thyroid Size: Enlarged left lobe of the thyroid. Background Echotexture: Normal Thyroid Nodules: Once again, 3 nodules are seen in the right lobe of the thyroid. The largest measures 1.6 cm x 1.4 cm x 1.2 cm. This is seen in the posterior aspect of the midpole. This is mixed solid and cystic nodule. In the midpole, there is also evidence of a 5 mm x 5 mm x 3 mm and 6 mm x 4 mm x 3 mm mixed cystic and solid nodules. Stable 6 mm x 4 mm x 5 mm mixed cystic nodule in the lower pole. There is a dominant 4 cm x 3.1 cm x 2.5 cm complex nodule in the pole of the left lobe. This is predominantly cystic although some solid components are seen. This has increased slightly in size as compared to prior study. Vascularity is present. A biopsy is recommended if not already performed. Stable 1.2 cm x 1.1 cm x 0.4 cm cystic and solid nodule in the upper pole. US/Thyroid IMPRESSION: Enlargement of the left lobe of the thyroid with the dominant mass as described . Biopsy recommended if not already performed. Reading Location: [id number]
== END | disposition home or self-care (01) ==
LOC: US 14:18
PROVIDERS: PCP Family Medicine; Referring Provider Family Medicine; Visit Provider Family Medicine
DX: E04.2 Nontoxic multinodular goiter (principal)
CPT/HCPCS: 76536

== ENCOUNTER → 2024-11-10 | Outpatient (CLI) | payer MEDICARE, SELFPAY | END | disposition home or self-care (01) | PROVIDERS: PCP Family Medicine; Referring Provider Nurse Practitioner Acute Care; Visit Provider Nurse Practitioner Acute Care | DX: R06.02 Shortness of breath (principal) | CPT/HCPCS: 94060; 94726; 94729 ==

== ENCOUNTER → 2024-11-17 | Outpatient (CLI) | payer MEDICARE, SELFPAY ==
--- NOTE | 2024-11-17 07:55 | BI_ITS ---
PROCEDURE: SCRN MAMM (CAD)W/LYNETTE BILAT REASON FOR EXAM: F, Age 64 y/o, grandmother. Annual mammographic follow-up. TECHNIQUE: Bilateral screening digital breast tomosynthesis with 2D and 3D images. Computer aided detection. COMPARISON: Prior exam(s) dating back to 06/06/2024.. FINDINGS: There are scattered areas of fibroglandular density. Stable fat containing bilateral axillary lymph nodes. No suspicious masses, areas of developing architectural distortion, or suspicious calcifications. BI/SCRN MAMM (CAD)W/LYNETTE BILAT IMPRESSION: BI-RADS 2: BENIGN. RECOMMEND ANNUAL MAMMOGRAPHIC SCREENING. Follow-up code: Routine Follow-up The patient will be notified of the results by letter. Reading Location: [id number]
== END | disposition home or self-care (01) ==
LOC: OPBI 07:53
PROVIDERS: PCP Family Medicine; Referring Provider Family Medicine; Visit Provider Family Medicine
DX: Z12.31 Encounter for screening mammogram for malignant neoplasm of breast (principal)
CPT/HCPCS: 77063; 77067

== ENCOUNTER 2024-12-01 08:45 | Day surgery (SDC) | payer MEDICARE, SELFPAY ==
[2024-12-01] VITALS (8 sets, daily range): BP systolic 105–141; BP diastolic 56–70; PULSE 59–66; RESP 16–20; TEMP 36.1–36.6; O2SAT 95–98; BMI 40.7
--- NOTE | 2024-12-01 | EGD_PTH ---
PATIENT: BARBARA SMYTH LOC: EN U#:[id number] AGE/SX: 64/F ROOM: RE12/01/[address]: Dr. Kimmie Olmos MD : 1960 BED: DIS: 12/01/2024 SPEC #: [id number] RECD: 12/01/24 13:19 STATUS: NIRANJAN REDara #: [id number] NELSON: 12/01/24 00:[address]: Kimmie Olmos DEPT: SURGICAL PATHOLOGY RECD BY: Juju Bey ENTERED: 12/01/24 13:34 SP TYPE: EGD BIOPSY SACHIN DR: Dr. 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 Stomach, antrum, biopsy: * Chronic gastritis with features of reactive gastropathy. * IHC is negative for H pylori. B. Esophagus, GEJ, biopsy: * Squamous mucosa with reactive change. * Columnar mucosa negative for goblet cell metaplasia. MICROSCOPIC DESCRIPTION Slides are reviewed. These tests were developed and their performance characteristics determined by [facility]. They may not have been cleared or approved by the U.S. Food and Drug Administration. The FDA has determined that such clearance or approval is not necessary. The above immunohistochemical/dualISH markers are ordered and reviewed by the Pathologist. GROSS DESCRIPTION A. Received in fixative is one container labeled with the patient's name and designated Antrum biopsy. The specimen consists of one irregular fragment of light de paz soft tissue that measures 0.5 x 0.3 x 0.2 cm. The specimen is totally submitted in one cassette. B. Received in fixative is one container labeled with the patient's name and designated GE junction biopsy. The specimen consists of two irregular fragments of light de paz soft tissue that in aggregate measure 0.6 x 0.3 x 0.1 cm. The specimen is totally submitted in one cassette. MS/mr 12/01/2024 CPT:28941f8,32315
--- NOTE | 2024-12-01 09:47 | PCM.HP.BLA ---
History and Physical Date of Admission: 12/01/24 Date of Service: 11/10/24 MR#: [id number] Acct: [id number] Name: BARBARA SMYTH Rep #: [id number] : 1960 Provider: Dr. Kimmie Olmos MD Age/Sex: 64/F Location: [facility] [address] Status: Signed Intake Vital Signs 05/05/2413:35 10/27/2508:12 11/10/2512:14 Height 5 ft 6 in 5 ft 6 in 5 ft 6 in Weight: 230 lb 235 lb BMI 37.1 37.9 BP 138/84 H 141/81 H Blood Pressure Location Lt brachial Rt brachial Position Sitting Sitting Respiration 18 17 Pulse 77 78 Pulse Source Monitor Monitor Temp 97.6 F L Pulse Oximetry (%) 96 94 Oxygen Delivery Method room air room air Intake Visit Reasons: RECALL EGD Chief Complaint: recall egd Is patient in pain?: No Allergies adhesive tape Allergy (Intermediate, Verified 11/10/24 13:15) Rashgrass pollen Allergy (Verified 11/10/24 13:15) Unknownmold Allergy (Verified 11/10/24 13:15) Unknown Medications ?Medication ?Instructions ?Recorded ?Confirmed ?Type multivitamin (One-A-Day Essential 1 tab PO QAM 12/03/17 11/10/24 History tablet) losartan 50 mg tablet 50 mg PO DAILY 07/13/22 11/10/24 History estradiol 0.5 mg tablet 0.5 mg PO DAILY 10/16/22 11/10/24 History fexofenadine 180 mg tablet 180 mg PO DAILY 11/16/22 10/27/24 History fluticasone propionate 50 2 spray intranasal BID Allergic 01/15/23 11/10/24 Rx mcg/actuation nasal rhinitis #30 mL spray,suspension (Flonase Allergy Relief) albuterol sulfate 90 mcg/actuation 1 - 2 inh inhalation PRN PRN 10/27/24 11/10/24 Rx aerosol inhaler ASTHMA #8.5 grams omeprazole 40 mg capsule,delayed 40 mg PO QDAY #30 caps 11/10/24 11/10/24 Rx release sucralfate 1 gram tablet 1 g PO QACHS #56 tabs 11/10/24 11/10/24 Rx Have you fallen in the past year?: No PFSH Medical History Barretts esophagus BMI 37.0-37.9, adult Wears hearing aid Wears dentures Wears glasses Post-menopausal History of steroid therapy Arthritis Back pain Injury of head and neck TIA (transient ischemic attack) History of IBS Gastric reflux Former smoker CPAP (continuous positive airway pressure) dependence Sleep apnea Asthma History of edema Hx of lipoma Wheezing Allergic rhinitis due to allergen Incidental lung nodule, > 3mm and < 8mm NICOLAS on CPAP Chest pain SOB (shortness of breath) HTN (hypertension) Surgical History History of hysterectomy H/O foot surgery History of tonsillectomy History of hernia surgery Family History Other Asthma Cancer Diabetes Hypertension Social History Smoking Status: Former smoker second hand exposure: Yes alcohol intake: never HPI HPI HPI: 64-year-old female presents due to history of Romero's patient's last EGD was 11/20/2022. Patient has been on Protonix 40 mg p.o. daily. Patient states for the last month she has had daily symptoms with burning in her epigastrium and up her esophagus. Patient notices the reflux abdominal discomfort in the morning before she overeats as well as at night when she is laying down. Patient did cut back on her coffee as she did think it was making it worse. Patient previously had colonoscopy in 2022 as well which she did have tubular adenomas recommend 5-year follow-up. ROS General General: No weight change, appetite, fatigue, colon cancer or breast cancer HEENT HEENT: No difficulty swallowing, eye injury, eye surgery, swollen glands or hoarseness Endo Endocrine: Yes thyroid disease; No diabetes mellitus, thyroid cancer, Hair loss, heat intolerance or cold intolerance Skin Skin: No rash or changing moles Musc Musculoskeletal: Yes back problems and arthritis; No rheumatoid arthritis, gout or joint pain Cardio Cardiovascular: Yes high blood pressure and shortness of breat with exertion; No murmur, pacemaker, heart disease, atrial fibrillation, heart attack, heart stent, palpitations or chest pain Psych Psychiatric: No depression, anxiety or hearing voices Resp Respiratory: Yes shortness of breath, Yes sleep apnea, No cough, No COPD, Yes asthma, No emphysema and No wheezing Gastro Gastrointestinal: No abdominal pain, No nausea or vomiting, No diarrhea, No constipation, No blood in stool, Yes acid reflux, No hemorrhoids, No ulcers, No gallbladder problem and No black,tarry stools Rancho Hematologic: No blood thinners, No blood disorders, No bleeding, No anemia and No blood clots Neuro Neurologic: No numbness and No tingling Exam Const General: cooperative, healthy appearing, comfortable and no acute distress [facility] Head: normocephalic and atraumatic Neck Neck: supple Resp Effort & Inspection: normal respiratory effort Cardio Rate: regular rate GI Inspection: non-distended Palpation: soft, no guarding and tender in the epigastrum and in the LUQ; with no rebound tenderness Skin General: no rashes or lesions noted Neuro General: CN's II-XI intact bilaterally Extrem General: normal to inspection Psych Mental Status: mental status grossly normal Attitude: cooperative Assessment and Plan Assessment and Plan (1) 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: Status: Acute (2) GERD (gastroesophageal reflux disease): Status: Acute Medications: New omeprazole swallow whole; do not crush, chew, dissolve, cut, break 40 mg PO QDAY 30 caps 5RF sucralfate Take an hour before meals and at bedtime 1 g PO QACHS 56 tabs 0RF Discontinued pantoprazole Discontinued Reason: Order Changed Take 1 tablet by mouth once daily 30 tabs 3RF Plan I have discussed the above with the patient. I have offered the patient esophagogastroduodenoscopy for evaluation. I have explained the risks/benefits of the procedure and described the procedure. I have discussed the risks with the patient, including but not limited to: infection, bleeding, perforation of the GI tract requiring emergency surgery, inability to complete the procedure, injury to any internal organs, complications of anesthesia, etc. - the patient understands and agrees to proceed. I have answered all the patient's questions to the patient's satisfaction and the patient has no further questions. Kimmie Olmos M.D. Pager: [phone] [facility] [address] [place] [address], [facility], [address] [place] [address] Office: [phone] Coding Level of Care Code Off vis,est,level 3 Diagnoses 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 K22.70 GERD (gastroesophageal reflux disease) K21.9 Clinical Quality Measures Falls Risk Screening/Assistive Devices Have you fallen in the past year?: No 11/10/24 1319 <Electronically signed by Kimmie Olmos MD> Date Kimmie Olmos MD
--- NOTE | 2024-12-01 10:22 | PRE.ANES_ITS ---
ASA Classification* ASA Classification ASA Classification: 3 Assessment & Plan Anesthesia* Anesthesia Assessment Anesthesia Assessment: Discussed sedation and/or anesthesia options, risks, benefits, and alternatives with patient/parents/legal guardian/POA. Questions invited. The patient/parents/legal guardian/POA seems to understand and agrees to proceed with anesthesia plan. Reviewed the physical assessment, medical history, allergy history and patient home medications list prior to surgery/procedure/anesthetic and documented any changes. Performed airway and anesthesia risk assessments. Anesthesia Type Anesthesia Type: MAC History Source History Obtained from:: Patient and Chart Anesthesia Focused Assessment* Temperature: 97.7 F Pulse Rate: 63 Blood Pressure: 135/56 Respiratory Rate: 16 Pulse Ox: 95 Oxygen Delivery Method: Room Air Airway Assessment Mouth opens: >3 cm Mallampati Score: II Teeth Condition: Dentures (Upper) and Lower (partial, teeth still in mouth are intact) Neck Range of motion (ROM): Full ROM Focused Labs Anesthesia Preop lab: CBC WBC 5.1 K/mm3 (4.4-11.0) 10/20/24 08:52 10/20/24 RBC 4.48 M/mm3 (4.2-5.4) 10/20/24 08:52 10/20/24 Hgb 12.7 g/dL (12.0-15.0) 10/20/24 08:52 10/20/24 Hct 41.2 % (37-47) 10/20/24 08:52 10/20/24 Plt Count 346 K/mm3 (150-450) 10/20/24 08:52 10/20/24 CHEMISTRY Potassium 3.8 mmol/L (3.5-5.1) 10/20/24 08:52 10/20/24 Sodium 140 mmol/L (136-145) 10/20/24 08:52 10/20/24 Magnesium 2.2 mg/dL (1.8-2.4) 04/12/15 10:00 04/12/15 BUN 14 mg/dL (7-18) 10/20/24 08:52 10/20/24 Creatinine 1.03 mg/dL (0.55-1.02) H 10/20/24 08:52 Glucose 128 mg/dL (74-106) H 10/20/24 08:52 10/20/24 TSH 2.080 uIU/mL (0.358-3.740) 10/20/24 08:52 0212/09 COAG Pre-Assessment Diagnosis/Proposed Procedure Planned Operative Procedure(s): EGD Anesthesia History Anesthesia History - stars analytical lead: Anesthesia History - stars analytical lead Hx Hospitalization No 11/28/24 14:13 Any Problems With Anesthesia No 11/28/24 14:13 Cholinesterase deficiency No 11/28/24 14:13 You/Your Family Experience No 11/28/24 14:13 fever (hyperthermia) with Relationship Recent Exposure to Contagious No 12/01/24 09:18 Disease Does patient have nerve No 11/28/24 14:13 stimulator Patient instructed to have device shut off --Does patient have Pacemaker No 12/01/24 09:21 or ICD? When Was Last Pacemaker Check QUESTION #4 FULL TEXT: You/Your Family Experience fever (hyperthermia) with Anesthesia Last Oral Intake Last Oral intake: Last Oral Intake NPO since 22:00 12/01/24 09:21 Meds taken in AM with sips of Yes 12/01/24 09:21 water? Meds patient instructed to take am of surgery PONV PONV - stars analytical lead: PONV - stars analytical lead Female Yes 11/28/24 14:13 HX of Motion Sickness Yes 11/28/24 14:13 HX of N/V After Surgery No 11/28/24 14:13 Non-Smoker Yes 11/28/24 14:13 Duration of Surgery greater No 11/28/24 14:13 than 60 minutes Number of Risk Factors 3 11/28/24 14:13 PONV Score Moderate Risk 11/28/24 14:13 Height & Weight Height & Weight: Anesthesia: Height & Weight Height 5 ft 6 in 12/01/24 09:21 Weight: 114.577 kg 12/01/24 09:21 Body Mass Index (BMI) 40.7 12/01/24 09:21 Respiratory Assessment Respiratory Assessment - stars analytical lead: Respiratory Tract Infection Hx - stars analytical lead Hx Respiratory Tract Infection Yes: URI TREATED/RESOLVED 11/28/24 14:13 STOP Sleep Apnea STOP Sleep Apnea - stars analytical lead: STOP Sleep Apnea - stars analytical lead Hx Hypertension Yes: CONTROLLED ON MED 11/28/24 14:13 Hx Sleep Apnea Yes 11/28/24 14:13 CPAP Yes 11/28/24 14:13 BIPAP No 11/28/24 14:13 Do you snore loudly (louder than talking or can be heard Do you often feel tired/ fatigued/ sleepy during daytime? Has anyone observed you stop breathing during sleep? STOP Results Positive 11/28/24 14:13 QUESTION #5 FULL TEXT : Do you snore loudly (louder than talking or can be heard through closed doors)? 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 Specify any problems Hx of Preganancy in last 3 No 11/28/24 14:13 Months Nurse Filling Out Transfusion DSCHRIBER 11/28/24 14:13 & Questions: Date: 11/28/24 11/28/24 14:13 Time: 14:15 11/28/24 14:13 Patient unable to answer at this time (ie. confused, unrespo /Reproduction History /Reproductive History - stars analytical lead: /Reproductive Hx- stars analytical lead Hx Now No 11/28/24 14:13 Gestational Age (in weeks): EDC: Hx Hx Para Hx Section SAB No 11/28/24 14:13 PFSH Medical History Thyroid disease Difficulty swallowing Barretts esophagus BMI 37.0-37.9, adult Wears hearing aid Wears dentures Wears glasses Post-menopausal History of steroid therapy Arthritis Back pain Injury of head and neck TIA (transient ischemic attack) History of IBS Gastric reflux Former smoker CPAP (continuous positive airway pressure) dependence Asthma History of edema Hx of lipoma Wheezing Allergic rhinitis due to allergen Incidental lung nodule, > 3mm and < 8mm NICOLAS on CPAP SOB (shortness of breath) HTN (hypertension) Home Medications ?Medication ?Instructions ?Recorded ?Last Taken ?Type multivitamin (One-A-Day Essential 1 tab PO QAM 8 11/30/24 History tablet) losartan 50 mg tablet 50 mg PO DAILY 07/13/2211/15 07:00 History estradiol 0.5 mg tablet 0.5 mg PO DAILY 10/16/22 History fexofenadine 180 mg tablet 180 mg PO DAILY 11/16/22 History fluticasone propionate 50 2 spray intranasal BID Aller gic 01/15/23 11/30/24 Rx mcg/actuation nasal rhinitis #30 mL spray,suspension (Flonase Allergy Relief) albuterol sulfate 90 mcg/actuation 1 - 2 inh inhalatio n PRN PRN 10/27/24 12/01/24 06:00 Rx aerosol inhaler ASTHMA #8.5 grams omeprazole 40 mg capsule,delayed 40 mg PO QDAY #30 cap s 11/10/24 12/01/24 06:00 Rx release sucralfate 1 gram tablet 1 g PO QACHS #56 tabs 11/30/24 Rx Allergy/AdvReac Type Severity Reaction Status Date / Time adhesive tape Allergy Intermediate Rash Verified 12/01/24 09:17 grass pollen Allergy Unknown Verified 12/01/24 09:17 mold Allergy Unknown Verified 12/01/24 09:17 Family History Other Asthma Cancer Diabetes Hypertension Surgical History Hx of colonoscopy History of esophagogastroduodenoscopy (EGD) Hx of umbilical hernia repair History of hysterectomy H/O foot surgery History of tonsillectomy Social History Smoking Status: Former smoker second hand exposure: Yes alcohol intake: never Review of Systems (Anesthesia) ROS Narrative System reviewed and no additional complaints, except as documented.
--- NOTE | 2024-12-01 11:08 | PCM.POST.ANE ---
Anesthesia: Postop Eval I Current Vital Signs Temperature: 97.0 F Pulse Rate: 66 Blood Pressure: 111/56 Respiratory Rate: 20 Pulse Ox: 98 Oxygen Delivery Method: Room Air Assessment Airway patent: Yes Spontaneous unlabored respirations: Yes Mental status: Awake nausea: No Vomiting: No Anesthesia Complication: No Fluid Hydration Crystalloid volume administer (ml): 30 Total IV fluid infused: 30 Progress Note Anesthesia document: Postop Eval 1 completed: Yes
--- NOTE | 2024-12-01 11:10 | OP.CCLET_ITS ---
12/01/2024 Kendrick Kendall [address] [place] [address] Re : Upper GI endoscopy procedure for Chiara Diana Dear Dr. Kendall This procedure was performed on Sunday, December 01, 2024. My impressions and recommendations are as follows: Impressions : - Z-line irregular, 41 cm from the incisors. Biopsied. - Normal examined duodenum. - Small hiatal hernia. - Erythematous mucosa in the antrum. Biopsied. - No gross lesions in the entire esophagus. Recommendations : - Await pathology results. - Discharge patient to home. - Resume previous diet. - Continue present medications. My findings are described in the full procedure note, which is enclosed. If I can be of further assistance, please feel free to contact me at Doctor phone number(s): , Work: . Sincerely, MD Kimmie Hernandes MD 12/01/2024 11:09:31 AM This report has been signed electronically.
--- NOTE | 2024-12-01 11:10 | OP.EGD_ITS ---
Patient Name: Chiara Diana Procedure Date: 12/01/2024 10:44 AM Date of : 1960 Age: 64 Procedure: Upper GI endoscopy Indications: Romero's esophagus Providers: Kimmie Olmos MD Referring MD: Kendrick Kendall Medicines: Monitored Anesthesia Care Patient Profile: This is a 64 year old female. Complications: No immediate complications. Procedure: Pre-Anesthesia Assessment: - Prior to the procedure, a History and Physical was performed, and patient medications and allergies were reviewed. The patient's tolerance of previous anesthesia was also reviewed. The risks and benefits of the procedure and the sedation options and risks were discussed with the patient. All questions were answered, and informed consent was obtained. Prior Anticoagulants: The patient has taken no anticoagulant or antiplatelet agents. ASA Grade Assessment: Per anesthesia. After reviewing the risks and benefits, the patient was deemed in satisfactory condition to undergo the procedure. After obtaining informed consent, the endoscope was passed under direct vision. Throughout the procedure, the patient's blood pressure, pulse, and oxygen saturations were monitored continuously. The Endoscope was introduced through the mouth, and advanced to the second part of duodenum. The upper GI endoscopy was accomplished without difficulty. The patient tolerated the procedure well. Scope In: 10:56:18 AM Scope Out: 11:02:13 AM Total Procedure Duration Time 0 hours 5 minutes 55 seconds Findings: The Z-line was irregular and was found 41 cm from the incisors. Biopsies were taken with a cold forceps for histology. The examined duodenum was normal. A small hiatal hernia was present. Mildly erythematous mucosa without bleeding was found in the gastric antrum. Biopsies were taken with a cold forceps for histology. Biopsies were taken with a cold forceps for Helicobacter pylori cultures. No gross lesions were noted in the entire esophagus. Impression: - Z-line irregular, 41 cm from the incisors. Biopsied. - Normal examined duodenum. - Small hiatal hernia. - Erythematous mucosa in the antrum. Biopsied. - No gross lesions in the entire esophagus. Recommendation: - Await pathology results. - Discharge patient to home. - Resume previous diet. - Continue present medications. Procedure Code(s): --- Professional --- 08745, PT, Esophagogastroduodenoscopy, flexible, transoral; with biopsy, single or multiple Diagnosis Code(s): --- Professional --- K22.89, Other specified disease of esophagus K22.70, Romero's esophagus without dysplasia K44.9, Diaphragmatic hernia without obstruction or gangrene K31.89, Other diseases of stomach and duodenum CPT copyright 2021 [employer]. All rights reserved. The codes documented in this report are preliminary and upon barber apprentice review may be revised to meet current compliance requirements. MD Kimmie Hernandes MD 12/01/2024 11:09:31 AM This report has been signed electronically. Number of Addenda: 0 Note Initiated On: 12/01/2024 10:44 AM
--- NOTE | 2024-12-01 11:15 | POSTOPAN2_ITS ---
Anesthesia Postop Eval I Sum Postop Eval Completion status Anesthesia document: Postop Eval 1 completed: Yes Anesthesia Postop Eval I Summary Anesthesia Postop Eval I Summary: Anesthesia Postop Eval I: Assessment Summary Airway patent Yes 12/01/24 11:09 [email or web address] Spontaneous unlabored Yes 12/01/24 11:09 [email or web address] respirations Mental status Awake 12/01/24 11:09 [email or web address] nausea No 12/01/24 11:09 [email or web address] Vomiting No 12/01/24 11:09 [email or web address] Anesthesia Postop Eval I: Fluid Summary Crystalloid volume administer 30 12/01/24 11:09 [email or web address] (ml) Colloids volume administered ( ml) Blood Product volume administered (ml) Total IV fluid infused 30 12/01/24 11:09 [email or web address] Anesthesia Postop Eval I: Summary Notes Anesthesia Complication No 12/01/24 11:09 [email or web address] Anesthesia Complication Comment: Post-operative progress note Anesthesia: Postop Eval II Evaluation Mental status: Awake Pain Level: 0 nausea: No Vomiting: No
--- NOTE | 2024-12-01 11:15 | PCM.POSTANE2 ---
Anesthesia Postop Eval I Sum Postop Eval Completion status Anesthesia document: Postop Eval 1 completed: Yes Anesthesia Postop Eval I Summary Anesthesia Postop Eval I Summary: Anesthesia Postop Eval I: Assessment Summary Airway patent Yes 12/01/24 11:09 [email or web address] Spontaneous unlabored Yes 12/01/24 11:09 [email or web address] [email or web address] respirations Mental status Awake 12/01/24 11:09 [email or web address] nausea No 12/01/24 11:09 [email or web address] [email or web address] Vomiting No 12/01/24 11:09 [email or web address] Anesthesia Postop Eval I: Fluid Summary Crystalloid volume administer 30 12/01/24 11:09 [email or web address] (ml) Colloids volume administered ( ml) Blood Product volume administered (ml) Total IV fluid infused 30 12/01/24 11:09 [email or web address] Anesthesia Postop Eval I: Summary Notes Anesthesia Complication No 12/01/24 11:09 [email or web address] Anesthesia Complication Comment: Post-operative progress note Anesthesia: Postop Eval II Evaluation Mental status: Awake Pain Level: 0 nausea: No Vomiting: No
== END 2024-12-01 12:12 | disposition home or self-care (01) ==
LOC: EN 08:45 → AC 09:05
PROVIDERS: PCP Family Medicine; Referring Provider Family Medicine; Visit Provider Surgery
PROC: 0DJ08ZZ Inspection of Upper Intestinal Tract, Via Natural or Artificial Opening Endoscopic (ICD-10-PCS; CPT 43235; principal; 2024-12-01 10:10)
DX: K22.70 Barrett's esophagus without dysplasia (principal); K44.9 Diaphragmatic hernia without obstruction or gangrene; I10 Essential (primary) hypertension; K22.89 Other specified disease of esophagus; Z87.891 Personal history of nicotine dependence; Z90.710 Acquired absence of both cervix and uterus; Z86.73 Personal history of transient ischemic attack (TIA), and cerebral infarction without residual deficits; G47.33 Obstructive sleep apnea (adult) (pediatric); Z99.89 Dependence on other enabling machines and devices; K21.9 Gastro-esophageal reflux disease without esophagitis; Z79.899 Other long term (current) drug therapy; K29.50 Unspecified chronic gastritis without bleeding
CPT/HCPCS: 43239; 88305; 88342; A4216; J2405

== ENCOUNTER → 2024-12-08 | Outpatient (CLI) | payer MEDICARE, SELFPAY ==
[2024-12-08 12:35] VITALS: PULSE 100; PULSE 101; PULSE 103; PULSE 71; PULSE 76; O2SAT 94; O2SAT 95; O2SAT 96; O2SAT 97
--- NOTE | 2024-12-10 11:08 | PCM.PSN.6M ---
PSN 6 Minute Walk Test 6 Minute Walk Test 6 Minute Walk Test: 6 Minute Walk Test PSN:6-Minute Walk Test Start: 12/08/24 12:35 Freq: Status: Active Protocol: [id number] Document 12/08/24 12:35 RACHAELJULIANNA (Rec: 12/08/24 12:37 [email or web address] [id number]) 6 Minute Walk Test Date Performed 12/08/24 Time Performed 12:30 Height 5 ft 6 in Weight: 235 lb Weight in Pounds 235.[address]: Jodie Salguero HAND FLESHER Assistive device None used: Pre-test Oxygen Delivery Room Air Method Pulse Ox (%) 94 Pulse Rate (60-100 71 beats/min) Dyspnea Marylin Scale ( 0 0-10) Exertion Marylin Scale 6 (6-20) 1st minute Oxygen Delivery Room Air Method Pulse Ox (%) 94 Pulse Rate (60-100 103 H beats/min) 2nd minute Oxygen Delivery Room Air Method Pulse Ox (%) 96 Pulse Rate (60-100 103 H beats/min) 3rd minute Oxygen Delivery Room Air Method Pulse Ox (%) 96 Pulse Rate (60-100 101 H beats/min) 4th minute Oxygen Delivery Room Air Method Pulse Ox (%) 95 Pulse Rate (60-100 101 H beats/min) 5th minute Oxygen Delivery Room Air Method Pulse Ox (%) 96 Pulse Rate (60-100 101 H beats/min) 6th minute Oxygen Delivery Room Air Method Pulse Ox (%) 96 Pulse Rate (60-100 100 beats/min) Dyspnea Marylin Scale ( 3 0-10) Exertion Marylin Scale 12 (6-20) Post-test Oxygen Delivery Room Air Method Pulse Ox (%) 97 Pulse Rate (60-100 76 beats/min) Full Laps Walked 14 Partial Lap, Number 37 of Tiles Walked Total Distance 863 Walked (ft) Interpretation Interpretation: The patient ambulated 863 feet over the course of 6 minutes beginning on room air without assistive devices. Pretesting oxygen saturation was noted to be 94% on room air. With ambulation, the shane oxygen saturation was 94%. There was no significant exertional oxygen desaturation. Recommendations Recommendations: There is no indication for the use of supplemental oxygen at this time.
== END | disposition home or self-care (01) ==
PROVIDERS: PCP Family Medicine; Referring Provider Nurse Practitioner Acute Care; Visit Provider Nurse Practitioner Acute Care
DX: R06.02 Shortness of breath (principal)
CPT/HCPCS: 94618

== ENCOUNTER → 2024-12-29 | Outpatient (CLI) | payer MEDICARE, SELFPAY ==
--- NOTE | 2024-12-29 09:00 | FLU_PTH ---
PATIENT: BARBARA SMYTH LOC: [facility] U#:[id number] AGE/SX: 64/F ROOM: RE12/29/[address]: Dr. Babak Clarke MD : 1960 BED: DIS: 12/29/2024 SPEC #: [id number] RECD: 12/29/24 11:26 STATUS: NIRANJAN LAWRENCE #: [id number] NELSON: 12/29/24 09:[address]: Babak Clarke DEPT: CYTOLOGY RECD BY: Juju Bey ENTERED: 12/29/24 11:26 SP TYPE: Fluid OTHR DR: Dr. Kendrick Kendall, DO Tissues: A - CYST Procedures: Special Stain Group II Surgery Specimen Level III Surgery Specimen Level IV Cytospin Fluid HEADER OPERATION: Thyroid nodular cyst PRE-OP DIAGNOSIS: Thyroid nodular cyst TISSUE SUBMITTED: A- Thyroid nodular cyst fluid for cytology DIAGNOSIS CYTOLOGY A. Thyroid nodular cyst, FNA: * Non-diagnostic * Cyst fluid only CYTOLOGY STUDY Slides are reviewed. CYTOLOGY GROSS A. Received is 8 ml of dark-red/brown fluid labeled with the patient's name and and designated per the requisition as Thyroid nodular cyst. Submitted for cytology and cell block preparation. Mr 12/29/2024 CPT: 53890
== END | disposition home or self-care (01) ==
LOC: LABSPEC 10:37
PROVIDERS: PCP Family Medicine; Referring Provider Surgery; Visit Provider Surgery
DX: E04.1 Nontoxic single thyroid nodule (principal)
CPT/HCPCS: 88108; 88304; 88305; 88313

== ENCOUNTER → 2025-06-08 | Outpatient (CLI) | payer MEDICARE, SELFPAY ==
--- NOTE | 2025-06-08 06:30 | CT_ITS ---
PROCEDURE: CHEST WITHOUT CONTRAST 06/08/2025 REASON FOR EXAM: FU LUNG NODULE TECHNIQUE: Chest CT without contrast. Coronal and Sagittal reconstruction series were provided. One or more dose reduction techniques were used (e.g., Automated exposure control, adjustment of the mA and/or kV according to patient size, use of iterative reconstruction technique RADIATION DOSE SUMMARY: DLP: 683 mGycm COMPARISON: 11/19/2023 FINDINGS: LUNGS AND PLEURA: No focal consolidations. No pleural effusion. No pneumothorax. No pleural thickening. Stable 7 mm right middle lobe nodule, grossly unchanged. Again seen is subtle 3 mm ground-glass nodular density within the right upper lobe best seen on series 2, image 3. Calcified left lower lobe granuloma. MEDIASTINUM: No lymphadenopathy or mass. The heart shows no acute findings. The aorta shows no acute findings. The pulmonary trunk and branches of the vessels in the mediastinum are within normal limits. SUPRACLAVICULAR AND AXILLARY: No abnormalities seen in these regions. No mass or significant lymphadenopathy. 2.8 x 2.6 cm left thyroid nodule. UPPER ABDOMEN: Small hiatal hernia. BONES AND SOFT TISSUES: The bony structures show no significant acute findings. No focal bony mass lesions noted. The subcutaneous soft tissues are unremarkable. CT/Chest without Contrast IMPRESSION: Stable 7 mm right middle lobe nodule. Stable subtle subtle 3 mm ground-glass no dular density within the right upper lobe. Stable 2.8 cm left thyroid nodule. Reading Location: [id number]
--- OUTSIDE RECORDS SUMMARY | 2025-06-08 06:32 | XMS RPT_ITS | CCD ---
Author Organization [facility] Care Team Providers Care Project Scheduler Name Role Phone Dr. Sabina Simons Primary Care Provider [phone] Sabina Simons Referring Provider [phone] Dr. Dmitry Elliott Attending Provider Dr. Sabina Simons Primary Care Provider [phone] Sabina Simons Referring Provider Dr. Dmitry Elliott Attending Provider Dr. Kendrick Kendall Primary Care Provider Dr. Kendrick Kendall Referring Provider Dr. Kimmie Olmos Attending Provider Dr. Rashid Carranza Attending Provider Dr. Kendrick Kendall Primary Care Provider Dr. Kendrick Kendall Referring Provider Dr. Kimmie Olmos Attending Provider Dr. Rashid Carranza Attending Provider Dr. Kimmie Olmos Other Provider Dr. Rashid Carranza Referring Provider Dr. Rashid Carranza Other Provider Dr. Fran Ornelas Attending Provider Dr. Kendrick Kendall Primary Care Provider Dr. Steve Waldrop Attending Provider Dr. Kendrick Kendall Referring Provider Dr. Fran Ornelas Attending Provider BARRETT Garrett Attending Provider Dr. Kendrick Kendall Primary Care Provider Dr. Kendrick Kendall Referring Provider Dr. Steve Waldrop Attending Provider Dr. Fran Ornelas Attending Provider BARRETT Garrett Attending Provider Sabina Simons DO Primary Care Provider Dr. Kendrick Kendall DO Primary Care Provider Bebeto LOPEZ, Dr. Usman Dominguez Attending Provider Dr. Usman Tate MD Referring Provider Dr. Kendrick Kendall DO Attending Provider Dr. Kendrick Kendall DO Referring Provider Noemy UNIFIED COMMUNICATIONS ARCHITECT-C, Jodie Attending Provider Noemy UNIFIED COMMUNICATIONS ARCHITECT-C, Jodie Referring Provider Dr. Kimmie Olmos MD Attending Provider Dr. Kendrick Kendall DO Primary Care Provider Dr. Usman Tate MD Attending Provider Dr. Usman Tate MD Referring Provider Dr. Kendrick Kendall DO Attending Provider Dr. Kendrick Kendall DO Referring Provider Noemy UNIFIED COMMUNICATIONS ARCHITECT-C, Jodie Attending Provider Noemy UNIFIED COMMUNICATIONS ARCHITECT-C, Jodie Referring Provider Dr. Kimmie Olmos MD Attending Provider Dr. Kimmie Olmos MD Other Provider Noemy UNIFIED COMMUNICATIONS ARCHITECT-C, Jodie Other Provider [phone] Dr. Jonathon Roche DO Attending Provider Dr. Kendrick Kendall DO Primary Care Provider Vince LOPEZ, Dr. Hilliard Attending Provider Vince LOPEZ, Dr. Hilliard Referring Provider Faiza LUTZ, Kendrick A Unavailable [phone] Faiza, Kendrick Referring Unavailable Faiza, Kendrick Primary Care Unavailable Faiza, Kendrick Attending Unavailable Faiza, Kendrick Primary Care Unavailable Faiza, Kendrick Referring Unavailable Faiza, Kendrick Attending Unavailable Robotham, Kimmie Attending Unavailable Faiza, Kendrick Primary Care Unavailable Faiza, Kendrick Referring Unavailable Robotham, Kimmie Referring Unavailable Robotham, Kimmie Attending Unavailable Faiza, Kendrick Primary Care Unavailable Faiza, Kendrick Primary Care Unavailable Usman Tate K Referring Unavailable Usman Tate K Attending Unavailable Faiza, Kendrick Referring Unavailable Faiza, Kendrick Primary Care Unavailable Faiza, Kendrick Attending Unavailable Faiza, Kendrick Primary Care Unavailable Jodie Salguero Referring Unavailable Noemy, Jodie Attending Unavailable Faiza, Kendrick Referring Unavailable Babak Clarke Consulting Unavailable Faiza, Kendrick Attending Unavailable Faiza, Kendrick Primary Care Unavailable Faiza, Kendrick Referring Unavailable Faiza, Kendrick Primary Care Unavailable Jodie Salguero Attending Unavailable Faiza, Kendrick Referring Unavailable Faiza, Kendrick Primary Care Unavailable Noemy, Jodie Attending Unavailable Babak Clarke Referring Unavailable Borsilvia, Babak Attending Unavailable Faiza, Kendrick Primary Care Unavailable Faiza, Kendrick Primary Care Unavailable Jodie Salguero Referring Unavailable Jodie Salguero Attending Unavailable Babak Clarke Referring Unavailable BorBabak vega Attending Unavailable Faiza, Kendrick Primary Care Unavailable Babak Clarke Attending Unavailable Faiza, Kendirck Primary Care Unavailable Faiza, Kendrick Referring Unavailable Faiza, Kendrick Referring Unavailable Robotham, Kimmie Attending Unavailable Faiza, Kendrick Primary Care Unavailable Faiza, Kendrick Referring Unavailable Faiza, Kendrick Primary Care Unavailable Jodie Salguero Attending Unavailable Faiza, Kendrick Primary Care Unavailable Faiza, Kendrick Referring Unavailable Robotham, Kimmie Attending Unavailable Faiza, Kendrick Primary Care Unavailable Noemy, Jodie Referring Unavailable Jonathon Roche Attending Unavailable Babak Clarke Attending Unavailable Faiza, Kendrick Primary Care Unavailable Faiza, Kendrick Referring Unavailable Robotham, Kimmie Attending Unavailable Kimmie Olmos Consulting Unavailable Kendrick Kendall Primary Care Unavailable Kendrick Kendall Referring Unavailable Kendrick Kendall Primary Care Unavailable Jodie Salguero Referring Unavailable Jonathon Roche Attending Unavailable Jodie Salguero Consulting Unavailable MALYS, SABINA A Primary Care Unavailable ALVA, REYNA Referring Unavailable MALYS, SABINA A Primary Care Unavailable KETDEEPAR, JOSE Attending Unavailable MALYS, SABINA A Primary Care Unavailable KETTLER, JOSE Referring Unavailable MALYS, SABINA A Primary Care Unavailable MALYS, SABINA A Primary Care Unavailable NIDA, REYNA Attending Unavailable Allergies Allergy Classification Reported Allergen(s) Allergy Type Date of Onset Reaction(s) Facility (20 sources) Grass pollen; Translations: [grass pollen] Allergy to substance 2 Unknown [facility] (20 sources) Mold Extract Drug Allergy 2 [facility] (20 sources) Adhesive Tape; Translations: [adhesive tape] Allergy to substance 2 Rash [facility] (6 sources) Seasonal allergy; Translations: [SEASONAL ALLERGIES] Allergy to substance 3 Other: See Comments [facility] (1 source) Mold Extract Drug Allergy 5 [facility] Repository Medications Current Medications Medication Drug Class(es) Dates Sig (Normalized) Sig (Original) [id number] actuat albuterol 0.09 mg/actuat metered dose inhaler (20 sources) beta2-Adrenergic Agonist Start: 11-16-2022 End: 10-27-2024 Albuterol Sulfate 90 mcg/actuation HFA aerosol inhaler Active 1 - 2 NMA INHALATION NEEDED as needed for ASTHMA 8.5 October 27, 2024 2:53pm Start: 11-16-2022 Albuterol Sulf ate Active 1 - 2 INH INHALATION NEEDED November 16, 2022 1:00am Start: 02-23-2014 take 2 puff(s) by in halation every six hours as needed for wheezing albuterol HFA 90 mcg/actuation inhaler Indications: Asthma (HCC) Inhale 2 Puffs as instructed every 6 hours as needed for Wheezing/Shortness of Breath. 1 Inhaler 6 02/23/2014 Active 12 hr amoxicillin 1000 mg / clavulanate 62.5 mg extended release oral tablet (1 source) Penicillin-class Antibacterial Start: 05-29-2025 End: 06-05-2025 take 2 tablets by mouth twice daily amoxicillin-clavulanate potassium (AUGMENTIN XR) 1,000-62.5 mg per tablet Indications: Acute bacterial rhinosinusitis Take 2 tablets by mouth two times a day for 7 days. 28 tablet 05/29/2025 06/05/2025 Active aspirin 81 mg delayed release oral tablet (5 sources) Platelet Aggregation Inhibitor, Nonsteroidal Anti-inflammatory Drug Start: 07-13-2022 take 81 mg by mouth once daily Aspirin Active 81 MG PO DAILY July 12, 2022 11:00pm BREYNA 160-4.5 mcg/actuation inhaler (4 sources) Start: 05-01-2025 take 2 puff(s) by inhalation twice daily BREYNA 160-4.5 mcg/actuation inhaler Inhale 2 puffs as instructed two times a day. 05/01/2025 Active Budesonide-For moterol (2 sources) Corticosteroid, beta2-Adrenergic Agonist Start: 12-29-2024 Budesonide-Formoterol (Breyna) 160-4.5 mcg/actuation HFA aerosol inhaler Active 2 NMA INHALATION TWICE A DAY December 29, 2024 12:00am CPAP (15 sources) Start: 12-09-2014 CPAP CHIN STRAP, USED WITH CPAP DEVICE 1 Each 12/09/2014 Active Start: 08-19-2014 CPAP Mask (per patient preference) optional chin strap (if indicated) , filters, tubing, humidifier and lifetime supplies. Dx. NICOLAS 327.23. Pt is in need of new filters and supplies. 1 Units 0 08/19/2014 Active Start: 07-01-2014 CPAP Indicatio ns: NICOLAS (obstructive sleep apnea) Initiate CPAP @ 11 cm of water with humidification. Mask (per patient preference) optional chin strap (if indicated) , filters, tubing, humidifier and lifetime supplies. Dx. NICOLAS 327.23 1 Device 0 07/01/2014 Active doxycycline hyclate 100 mg oral tablet (3 sources) Tetracycline-class Drug Start: 05-12-2025 End: 05-19-2025 take 1 tablet by mouth twice daily doxycycline (VIBRA-TABS) 100 mg tablet Indications: Pharyngitis, unspecified etiology , Rhinosinusitis , Acute cough Take 1 tablet by mouth two times a day for 7 days. 14 tablet 05/12/2025 05/19/2025 Active Start: 11-20-2024 End: 11-27-2024 take 1 tablet by mouth twice daily doxycycline (VIBRA-TABS) 100 mg tablet Indications: Sinobronchitis Take 1 tablet by mouth two times a day for 7 days. 14 tablet 11/20/2024 11/27/2024 Active ergocalciferol 1.25 mg oral capsule (5 sources) Provitamin D2 Compound Start: 09-09-2014 take 1 capsule by mouth every week ergocalciferol, vitamin D2, (DRISDOL) 50,000 unit capsule Indications: Vitamin D deficiency Take 1 capsule by mouth once each week. 4 capsule 11 09/09/2014 Active estradiol 0.5 mg oral tablet (20 sources) Estrogen Start: 10-16-2022 take 1 tablet by mouth once daily Estradiol 0.5 mg tablet Active 0.5 mg PO DAILY October 16, 2022 1:00am fexofenadine hydrochloride 180 mg oral tablet (16 sources) Histamine-1 Receptor Antagonist Start: 11-16-2022 take 1 tablet by mouth once daily Fexofenadine (Bettina) 180 mg Tablet Active 180 mg PO DAILY November 16, 2022 1:00am fluticasone propionate 0.05 mg/actuat metered dose nasal spray (20 sources) Corticosteroid Start: 01-15-2023 take 50 ug nasal route twice daily Fluticasone Propionate (Flonase Allergy Relief) 50 mcg/actuation spray,suspension Active 2 NMA INTRANASAL TWICE A DAY January 15, 2023 12:00am administer into each nostril Start: 01-15-2023 take 1 spray(s) nasa l route twice daily Fluticasone Propionate (Flonase Allergy Relief) 50 mcg/actuation spray,suspension Active 2 SPRAY INTRANASAL TWICE A DAY January 15, 2023 12:00am administer into each nostril Start: 12-03-2017 Fluticasone Pr opionate (Flonase Allergy Relief) 50 mcg/actuation spray,suspension Active 50 MCG INTRANASAL ONCE December 02, 2017 11:00pm Start: 06-10-2014 take 2 spray(s) by m outh once daily fluticasone (FLONASE) 50 mcg/actuation nasal spray Indications: Allergic rhinitis Use 2 Sprays in each nostril once daily. Rinse mouth after use. 1 Bottle 6 06/10/2014 Active losartan potassium 50 mg oral tablet (20 sources) Angiotensin 2 Receptor Mariaelena Start: 07-13-2022 take 1 tablet by mouth once daily losartan (COZAAR) 50 mg tablet Take 1 tablet by mouth once daily. 09/24/2024 Active methylPREDNISolone (20 sources) Corticosteroid Start: 05-12-2025 End: 05-18-2025 methylPREDNISolone (MEDROL, SARA,) 4 mg Dose-Pack Indications: Pharyngitis, unspecified etiology , Rhinosinusitis , Acute cough Take as instructed per package. 21 tablet 05/12/2025 05/18/2025 Active Start: 12-03-2017 End: 12-08-2017 take 1 tablet by mouth once Methylprednisolone (Medrol (Sara)) 4 mg tablets,dose pack Discontinued 4 mg PO per package directions 21 5 December 03, 2017 12:00am December 07, 2017 12:00am December 08, 2017 12:06am Multivitamin (One-A-Day Essential) tablet (20 sources) Start: 12-03-2017 Multivitamin ( One-A-Day Essential) tablet Active 1 {tbl} PO EVERY MORNING December 03, 2017 12:00am Start: 12-03-2017 Multivitamin ( One-A-Day Essential) tablet Active 1 {tbl} PO EVERY MORNING December 02, 2017 11:00pm Start: 12-03-2017 take 1 tablet by payam th once daily in the morning Multivitamin (One-A-Day Essential) tablet Active 1 TABLET PO EVERY MORNING December 02, 2017 11:00pm Start: 12-03-2017 take 1 tablet by payam th once daily in the morning Multivitamin (One-A-Day Essential) tablet Active 1 TABLET PO EVERY MORNING December 03, 2017 12:00am multivitamin tablet (5 sources) Start: 08-16-2012 take 1 tablet by mouth once daily multivitamin tablet Take 1 tablet by mouth once daily. 0 08/16/2012 Active omeprazole 40 mg delayed release oral capsule (20 sources) Proton Pump Inhibitor Start: 07-13-2022 End: 10-30-2022 take 1 tablet by mouth once daily Omeprazole Magnesium (Prilosec Otc) 20 mg tablet,delayed release (DR/EC) Discontinued 20 mg PO DAILY July 13, 2022 12:00am October 30, 2022 8:05am Start: 02-15-2015 End: 11-22-2022 take 1 capsule by mouth once daily Omeprazole 40 mg capsule Indications: GERD (gastroesophageal reflux disease) Take 1 capsule by mouth once daily. 30 capsule 11 02/15/2015 Active pantoprazole 40 mg delayed release oral tablet (20 sources) Proton Pump Inhibitor Start: 11-22-2022 End: 11-10-2024 take 1 tablet by mouth once daily pantoprazole DR (PROTONIX) 40 mg tablet Take 40 mg by mouth once daily. 11/06/2024 Active predniSONE 20 mg oral tablet (2 sources) Start: 05-29-2025 End: 06-09-2025 take 2 tablets by mouth once daily, then take 1.5 tablets by mouth once daily, then take 1 tablet by mouth once daily, then take 0.5 tablet by mouth once daily predniSONE (DELTASONE) 20 mg tablet Indications: Moderate persistent asthma with (acute) exacerbation (HCC) Take 2 tablets by mouth once daily for 5 days, THEN 1.5 tablets once daily for 2 days, THEN 1 tablet once daily for 2 days, THEN 0.5 tablets once daily for 2 days. 16 tablet 05/29/2025 06/09/2025 Active Start: 11-20-2024 End: 11-25-2024 take 2 tablets by mouth once daily at mealtime predniSONE (DELTASONE) 20 mg tablet Indications: Sinobronchitis Take 2 tablets by mouth once daily for 5 days. Take daily with food. 10 tablet 11/20/2024 11/25/2024 Active sucralfate 1000 mg oral tablet (11 sources) Aluminum Complex Start: 11-10-2024 take 1 tablet by mouth four times daily sucralfate (CARAFATE) 1 gram tablet Take 1 g by mouth four times daily. 11/10/2024 Active Start: 11-10-2024 take 1 tablet by payam th once at bedtime Sucralfate 1 gram tablet Active 1 g PO before meals and at bedtime 56 November 10, 2024 1:00am Take an hour before meals and at bedtime Completed/Discontinued Medications Medication Drug Class(es) Dates Sig (Normalized) Sig (Original) azithromycin 250 mg oral tablet (20 sources) Macrolide Antimicrobial Start: 12-03-2017 End: 12-13-2017 Azithromycin 250 mg tablet Discontinued 250 mg PO daily 11 December 03, 2017 12:00am December 12, 2017 12:00am December 13, 2017 12:05am Take 2 tabs once on day one then take one tablet once daily for the next 9 days. ipratropium bromide 0.021 mg/actuat metered dose nasal spray (20 sources) Anticholinergic Start: 01-15-2023 End: 10-23-2023 Ipratropium Rougon 21 mcg (0.03 %) spray,non-aerosol Discontinued 2 NMA INTRANASAL 2 to 3 times per day January 15, 2023 8:52am October 23, 2023 2:05pm administer into each nostril Start: 01-15-2023 End: 10-23-2023 Ipratropium Rougon Disconti nued 2 SPRAY INTRANASAL 2 to 3 times per day January 15, 2023 8:52am October 23, 2023 2:05pm administer into each nostril Start: 10-30-2022 End: 01-15-2023 Ipratropium Rougon Disconti nued 2 SPRAY INTRANASAL 2 to 3 times per day October 30, 2022 12:00am January 15, 2023 8:09am administer into each nostril Start: 10-30-2022 End: 01-15-2023 Ipratropium Rougon Disconti nued 2 SPRAY INTRANASAL 2 to 3 times per day October 30, 2022 1:00am January 15, 2023 9:09am administer into each nostril Start: 10-30-2022 Ipratropium Br omide Active 2 SPRAY INTRANASAL 2 to 3 times per day October 30, 2022 1:00am administer into each nostril Start: 10-30-2022 Ipratropium Br omide Active 2 SPRAY INTRANASAL 2 to 3 times per day October 30, 2022 12:00am administer into each nostril Ipratropium Rougon 21 mcg ( 0.03 %) spray,non-aerosol (6 sources) Start: 10-30-2022 End: 01-15-2023 Ipratropium Rougon 21 mcg (0.03 %) spray,non-aerosol Discontinued 2 NMA INTRANASAL 2 to 3 times per day as needed for allergy symptoms October 30, 2022 1:00am January 15, 2023 9:09am administer into each nostril Start: 10-30-2022 End: 01-15-2023 Ipratropium Rougon 21 mcg ( 0.03 %) spray,non-aerosol Discontinued 2 NMA INTRANASAL 2 to 3 times per day as needed for allergy symptoms October 30, 2022 12:00am January 15, 2023 8:09am administer into each nostril lisinopril 2.5 mg oral tablet (20 sources) Angiotensin Converting Enzyme Inhibitor Start: 12-03-2017 End: 07-13-2022 take 1 tablet by mouth once daily Lisinopril 2.5 mg tablet Discontinued 2.5 mg PO daily December 03, 2017 12:00am July 13, 2022 7:52am Start: 09-09-2014 take 1 tablet by payam once daily lisinopril (ZESTRIL, PRINIVIL) 10 mg tablet Indications: Essential hypertension, benign Take 1 tablet by mouth once daily. 90 tablet 3 09/09/2014 Active phentermine hydrochloride 37.5 mg oral capsule (6 sources) Sympathomimetic Amine Anorectic Start: 12-19-2023 End: 10-27-2024 take 1 capsule by mouth once daily 30 minutes after breakfast Phentermine 37.5 mg capsule Discontinued 37.5 mg PO DAILY December 19, 2023 12:00am October 27, 2024 2:23pm must administer 30 minutes before or 1-2 hours after breakfast Problems Active Problems Problem Classification Problem Date Documented Date Episodic/Chronic Asthma (17 sources) Unspecified asthma, uncomplicated; Translations: [Asthma, unspecified type, unspecified] Onset: 2 Chronic Bacterial infection; unspecified site (1 source) Other specified bacterial agents as the cause of diseases classified elsewhere; Translations: [Acute bacterial rhinosinusitis] Onset: 5 Episodic Esophageal disorders (20 sources) Gastroesophageal reflux disease; Translations: [Gastro-esophageal reflux disease without esophagitis] Onset: 2 10-16-2022 Chronic Essential hypertension (6 sources) Benign essential hypertension; Translations: [Essential (primary) hypertension] Onset: 8 06-05-2011 Chronic Menopausal disorders (5 sources) Menopausal syndrome; Translations: [Menopausal and female climacteric states] Onset: 1 06-26-2011 Chronic Nonspecific chest pain (20 sources) Atypical chest pain; Translations: [Other chest pain] 07-31-2022 Episodic Nutritional deficiencies (5 sources) Vitamin D deficiency; Translations: [Vitamin D deficiency, unspecified] Onset: 4 03-18-2014 Chronic Other and unspecified benign neoplasm (18 sources) Lipoma of back; Translations: [Benign lipomatous neoplasm of skin and subcutaneous tissue of trunk] 10-16-2022 Episodic Comment on above: s/p excision 11x8 cm (11/03/22) Other and unspecified benign neoplasm (18 sources) History of polyp of colon; Translations: [Personal history of colonic polyps] 10-16-2022 Episodic Other and unspecified benign neoplasm (8 sources) Personal history of colonic polyps; Translations: [Personal history of colonic polyps] 10-16-2022 Episodic Other and unspecified benign neoplasm (9 sources) Benign lipomatous neoplasm of skin and subcutaneous tissue of trunk; Translations: [Lipoma of other specified sites] 10-16-2022 Episodic Other and unspecified benign neoplasm (6 sources) Lipoma of upper limb; Translations: [Benign lipomatous neoplasm of skin and subcutaneous tissue of unspecified limb] 05-05-2024 Episodic Other diseases of veins and lymphatics (11 sources) Venous insufficiency of leg; Translations: [Venous insufficiency (chronic) (peripheral)] 10-23-2023 Episodic Comment on above: Venous Duplex US - B il ExtremInterpretation SummaryDeep veins of the lower extremities are patent and compressible segmentally. There is no evidence ofbilateral lower extremity deep vein thrombosis. The bilateral great saphenous veins appear patentand compressible segmentally.Positive for reflux in the right great saphenous vein below the kneePositive for reflux in the left great saphenous vein below the knee, accessory saphenous vein belowthe knee Other diseases of veins and lymphatics (5 sources) Venous insufficiency (chronic) (peripheral); Translations: [Venous (peripheral) insufficiency, unspecified] 10-23-2023 Episodic Other hereditary and degenerative nervous system conditions (5 sources) Restless legs; Translations: [Restless legs syndrome] Onset: 4 08-23-2014 Chronic Other lower respiratory disease (11 sources) Pulmonary granuloma; Translations: [Pulmonary fibrosis, unspecified] 10-22-2023 Chronic Other lower respiratory disease (5 sources) Pulmonary fibrosis, unspecified; Translations: [Postinflammatory pulmonary fibrosis] 10-22-2023 Chronic Other lower respiratory disease (18 sources) Wheezing; Translations: [Wheezing] 10-31-2022 Episodic Comment on above: Impression:Obstructi ve sleep apnea, good stated compliance with CPAP 11 cm with a full facemask still mildly sleepy with an Geneva score of 8, and 6 years since her last sleep study. Weight has remained stable in that time. -Split-night polysomnogram, adjusted settings as needed -Lesly has been contacted to obtain the download of her current CPAP machine at 11 cm. - patient was advised to continue CPAP all night, every night - we discussed her sleep habits. Her Geneva score , although not excessively sleepy, is higher than I would like, likely due to non-CPAP issues (frequent awakenings, with noisy CPAP, etc.) - Patient was coached on machine cleaning and disinfection. She was advised to replace plastic wear per medical information specialist's instruction, probably once every 1 to 3 months. - Atrovent nasal spray 1 spray each nostril nightly as needed 0.03% - weight loss is recommended.Possible mild COPD plus or minus asthma, maintained on as needed albuterol alone in a former [id number] smoker - Complete pulmonary function test -Adjust albuterol or other inhalers based on results.Hypertension, possible TIA Jul 2022; managed by primary - it is important to assure that NICOLAS is treated well and AHI has been reduced to <10 on CPAP.Incidental 4 mm Right lung nodule in a former heavy smoker. She quit 25 years ago, and with a nodule less than 5 cm by the Fleischner criteria a follow-up CT scan is optional. - In the setting of an adrenal mass I would re-check a LDCT in 1 year. If the adrenal mass is being followed, would recommend the chest be included at the same time. - timing of and Follow-up of the adrenal mass per Dr. Kendall.Thank you for referring this pleasant woman for evaluation of [facility]. She will follow-up here in 2 months for the results of the above and I may make adjustments prior to that as her test results come back.Rashid Carranza MD/ addendum:I received her ENT/allergy records from [facility],Her allergy skin testing on 02/15/2022 was 3+ for cockroach, 2 for molds including Alternaria, Hormodendrum, Aspergillus, penicillium; 2+ for cat and cattle, 2+ for dust and feathers, 2+ for grass including fescue, Sanjiv, [place], and [place], 2+ for tree pollen including maple birch elm and oak, and 2+ for ragweed goldenrod lambs quarter and grain. She was 1+ for dog and horse.Office notes were reviewed, her last course of Medrol Dosepak was June 26, 2022 for flare in her allergic rhinitis symptoms. Other lower respiratory disease (18 sources) Solitary nodule of lung; Translations: [Solitary pulmonary nodule] 10-30-2022 Episodic Other lower respiratory disease (7 sources) Solitary pulmonary nodule; Translations: [Solitary pulmonary nodule] Onset: 5 10-30-2022 Episodic Other lower respiratory disease (5 sources) Wheezing; Translations: [Wheezing] 10-30-2022 Episodic Other lower respiratory disease (14 sources) Dyspnea; Translations: [Shortness of breath] 10-27-2024 Episodic Other lower respiratory disease (2 sources) Cough; Translations: [Acute cough] 05-12-2025 Episodic Other lower respiratory disease (3 sources) Shortness of breath; Translations: [Shortness of breath] Onset: Episodic Other nutritional; endocrine; and metabolic disorders (14 sources) Body mass index 30+ - obesity; Translations: [Body mass index (BMI) 37.0-37.9, adult] 01-15-2023 Chronic Other nutritional; endocrine; and metabolic disorders (6 sources) Body mass index (BMI) 37.0-37.9, adult; Translations: [Body Mass Index 37.0-37.9, adult] 01-15-2023 Chronic Other nutritional; endocrine; and metabolic disorders (10 sources) Obesity; Translations: [Obesity, unspecified] Onset: 2 08-16-2012 Chronic Other screening for suspected conditions (not mental disorders or infectious disease) (1 source)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 currently on room air. She has not recently been seen in the ED or urgent care for any respiratory illness. She was seen in an urgent care and was treated with antibiotics and prednisone in the end of November for a cough. If you recall, she quit smoking 25 or more years ago. Since last office visit she has been compliant with the use of Breyna 2 puffs twice daily. She does report rinsing her mouth out after each use. She denies any medication side effect such as sore throat or thrush. She is compliant with use of Bettina and Flonase daily. She also utilizes ipratropium bromide nasal spray daily. She has not needed albuterol rescue inhaler as frequently. She denied shortness of breath at the last office visit, however today she is reporting that she is noticing less shortness of breath since starting Breyna. She has an occasional cough that is productive of "cream-colored" sputum. She denies any hemoptysis. She admits that the cough is less frequent. She reports occasional wheezing, but denies any chest tightness, chest pain or palpitations. She denies any fever, chills or body aches. She is compliant with PAP therapy. She wakes feeling rested and refreshed. She is experiencing occasional dry mouth. She is not having excessive nocturia. She denies the need for napping. She is not nodding off to sleep unintentionally. Compliance report for the past 30 days shows 100% compliance with an average use of 6 hours and 54 minutes per night. Current setting is AutoPap 8 to 17 cm water pressure typically being utilized at 9.2-13.4 cm water. Residual AHI of 1.7 events per hour. Leaks do not appear to be problematic. Intake Vital Signs 12/29/24 09:22 02/16/25 08:18 Height 5 ft 6 in 5 ft 6 in Weight: 236 lb 4 oz 233 lb BMI 38.1 37.5 BP 137/84 H 145/70 H Blood Pressure Location Rt brachial Lt radial Position Sitting Sitting Respiration 18 16 Pulse 72 73 Pulse Source Monitor NIBP Temp 97.2 F L 97.8 F Temperature Source Temporal Artery Pulse Oximetry (%) 98 96 Oxygen Delivery Method room air room air Intake Visit Reasons: 6 wk FU Chief Complaint: thyroid nodule Residential Electrician Required: No DME Vendor: Lesly Accompanied by: Self Is patient in pain?: No Allergies adhesive tape Allergy (Intermediate, Verified 02/16/25 14:28) Rash grass pollen Allergy (Verified 02/16/25 14:28) Unknown mold Allergy (Verified 02/16/25 14:28) Unknown Medications ???Medication ???Instructions ???Recorded ???Confirmed ???Type multivitamin (One-A-Day Essential 1 tab PO QAM 12/03/17 02/16/25 Hi story tablet) losartan 50 mg tablet 50 mg PO DAILY 07/13/22 02/16/25 H istory estradiol 0.5 mg tablet 0.5 mg PO DAILY 10/16/22 02/16/25 History fexofenadine 180 mg tablet 180 mg PO DAILY 11/16/22 02/16/25 History fluticasone propionate 50 2 spray intranasal BID Allergic 02/16/25 Rx mcg/actuation nasal rhinitis #30 mL spray,suspension (Flonase Allergy (more content not included)... Normal [facility] Pulmonary Visit Reporton Pulmonary Visit Report [facility] Pulmonary Medicine of [address] [place] [address] OFFICE VISIT Date of Service: 12/29/24 MR#: [id number] Acct: [id number] Name: BARBARA DIANA Rep #: [id number] : 1960 Provider: SHAHANA Salguero Age/Sex: 64/F Location: [facility] [place] Status: Signed Assessment and Plan Assessment and Plan (1) Asthma: Status: Acute Qualifiers: Asthma severity: unspecified severity Asthma persistence: unspecified Asthma complication type: uncomplicated Qualified Code(s): J45.909 - Unspecified asthma, uncomplicated Plan: Recent PFTs suggestive of asthma. The patient would need a bronco provocation to confirm. However, we will proceed with trial of combination inhaled corticosteroid and long-acting bronchodilator. She will return to the office in 6 weeks to evaluate her response. She was instructed to use this inhaler 2 puffs twice daily and to rinse her mouth out after each use. She conveyed understanding. She was also instructed that if this medication is too expensive to contact her prescription drug plan to evaluate if there is an alternative that is preferred. She can contact our office with this information. No additional testing at this time. (2) NICOLAS on CPAP: Status: Chronic Comment: AutoPap Plan: She is using and benefiting from Pap therapy. No indication for titration study at this time. Contact the office for any new or worsening symptoms in the meantime. (3) Obesity: Status: Chronic Qualifiers: Obesity type: due to excess calories Obesity classification: adult class 2 (BMI 35 - 39.9) Serious obesity comorbidity presence: with serious comorbidity Body mass index: BMI 37.0-37.9 Qualified Code(s): E66.812 - Obesity, class 2; E66.01 - Morbid (severe) obesity due to excess calories; Z68.37 - Body mass index [BMI] 37.0-37.9, adult Plan: Complicates exam, plan, care and prognosis. Encourage weight loss. Medications: New budesonide-formoterol 160-4.5 mcg/actuation (Breyna) 2 inhalations inhalation BID 1 ea 11RF Plan Details Follow Up: 6 Weeks (CSM) HPI 2 M F/U Chief Complaint: Test results HPI Comments Details: This patient presents to the office today for follow-up of her obstructive sleep apnea, allergic rhinitis secondary to allergen and lung nodule. She is ambulatory and currently on room air. She has not recently been seen in the ED or urgent care for any respiratory illness. She was seen in an urgent care and was treated with antibiotics and prednisone in the end of November for a cough. If you recall, she quit smoking 25 or more years ago. She is compliant with use of Bettina and Flonase daily. She also utilizes ipratropium bromide nasal spray daily. She is using Albuterol rescue inhaler "at least twice a week". She finds it to be effective. Today she denies any shortness of breath. She has an occasional cough that is productive of clear sputum. She denies any hemoptysis. She reports occasional wheezing, but denies any chest tightne ss, chest pain or palpitations. She denies any fever, chills or body aches. She is compliant with PAP therapy. She wakes feeling rested and refreshed. She is experiencing occasional dry mouth. She is not having excessive nocturia. She denies the need for napping. She is not nodding off to sleep unintentionally. Compliance report for the past 30 days shows 100% compliance with an average use of 7 hours and 6 minutes per night. Current setting is AutoPap 8 to 17 cm water pressure typically being utilized at 9.2-13.3 cm water. Residual AHI of 1.1 events per hour. Leaks do not appear to be problematic. Test results personally with patient: Pulmonary function test completed on November 10, 2024. Impression is grossly normal pulmonary studies. There is noted a significant bronchodilator response. Walking oximetry completed on December 08, 2024. The patient was able to ambulate total of 863 feet over the course of 6 minutes. She did not become hypoxic and does not currently require any supplemental oxygen. Intake Vital Signs 10/27/24 09:12 12/29/24 08:30 12/29/24 09:22 Height 5 ft 6 in 5 ft 6 in 5 ft 6 in Weight: 235 lb BMI 37.9 BP 122/79 H Blood Pressure Location Lt brachial Position Sitting Respiration 18 Pulse 75 Pulse Source Monitor Temp 97.8 F Temperature Source Temporal Artery Pulse Oximetry (%) 96 Oxygen Delivery Method room air Intake Visit Reasons: 2 M F/U Chief Complaint: recall egd Residential Electrician Required: No DME Vendor: Lesly Accompanied by: Self Allergies adhesive tape Allergy (Intermediate, Verified 12/29/24 14:56) Rash grass pollen Allergy (Verified 12/29/24 14:56) Unknown mold Allergy (Verified 12/29/24 14:56) Unknown Medications ???Medication ???Instructions ???Recorded ???Confirmed ???Type (more content not included)... Normal [facility] Special Stain Group IIon Special Stain Group II -------- Patient Age/Sex Location Account Attending Physician -------- BARBARA DIANA 64/F LABSPEC [id number] Dr. Babak Clarke MD -------- Specimen: [id number] Received: 12/29/24 Status: NIRANJAN Morales Num: [id number] Spec Type: Fluid Subm Dr: Dr. Babak Clarke MD HEADER OPERATION: Thyroid nodular cyst PRE-OP DIAGNOSIS: Thyroid nodular cyst TISSUE SUBMITTED: A- Thyroid nodular cyst fluid for cytology -------- DIAGNOSIS CYTOLOGY A. Thyroid nodular cyst, FNA: * Non-diagnostic * Cyst fluid only CYTOLOGY STUDY Slides are reviewed. CYTOLOGY GROSS A. Received is 8 ml of dark-red/brown fluid labeled with the patient's name and and designated per the requisition as "Thyroid nodular cyst." Submitted for cytology and cell block preparation. Mr 12/29/2024 CPT: 31749 Signed (signature on file) Dr. Natalya Estrella, 01/06/25 0824 -------- Normal [facility] Comment on above: Performed By: #### P SSII #### [facility] [address] [place], [address] Surgery Visit Reporton 12-29 Surgery Visit Report [facility] [address] [place] [address] OFFICE VISIT Date of Service: 12/29/24 MR#: [id number] Acct: [id number] Name: BARBARA DIANA Rep #: [id number] : 1960 Provider: Dr. Babak infante MD Age/Sex: 64/F Location: [facility] Status: Signed Intake Vital Signs 11/10/24 13:14 12/29/24 08:30 12/29/24 09:22 Height 5 ft 6 in 5 ft 6 in 5 ft 6 in Weight: 236 lb 4 oz BMI 38.1 BP 137/84 H Blood Pressure Location Rt brachial Position Sitting Respiration 18 Pulse 72 Pulse Source Monitor Temp 97.2 F L Temp Source Temporal Pulse Oximetry (%) 98 Oxygen Delivery Method room air Intake Visit Reasons: THYROID NODULE Chief Complaint: thyroid nodule Is patient in pain?: No Allergies adhesive tape Allergy (Intermediate, Verified 12/01/24 09:17) Rash grass pollen Allergy (Verified 12/01/24 09:17) Unknown mold Allergy (Verified 12/01/24 09:17) Unknown Have you fallen in the past year?: No PFSH Medical History Thyroid disease Difficulty swallowing Barretts esophagus BMI 37.0-37.9, adult Wears hearing aid Wears dentures Wears glasses Post-menopausal History of steroid therapy Arthritis Back pain Injury of head and neck TIA (transient ischemic attack) History of IBS Gastric reflux Former smoker CPAP (continuous positive airway pressure) dependence Asthma History of edema Hx of lipoma Wheezing Allergic rhinitis due to allergen Incidental lung nodule, > 3mm and < 8mm NICOLAS on CPAP SOB (shortness of breath) HTN (hypertension) Surgical History Hx of colonoscopy History of esophagogastroduodenoscopy (EGD) Hx of umbilical hernia repair History of hysterectomy H/O foot surgery History of tonsillectomy Family History Other Asthma Cancer Diabetes Hypertension Social History Smoking Status: Former smoker second hand exposure: Yes alcohol intake: never HPI HPI HPI: Patient is a 64-year-old female who presents for evaluation of thyroid nodules. They are referred for surgical consultation from Dr. Kendall. This was discovered years ago and patient has even previously sought surgical consultation. Patient last seen by Dr. Elliott 07/13/2022 when he performed FNA biopsy of patient's left dominant thyroid nodule as well as aspiration of additional cystic fluid. She states that she felt "so much better" following this aspiration procedure and noticed an immediate impact to her swallow and cough symptoms. However, gradually since that time she now finds that medicines seem to get stuck, her cough has returned with intensity, and she even finds that she must stop while talking to regroup for voice. She notes that this exacerbation has occurred rather acutely over the last 3 to 4 months. In addition above patient notes that she has experienced some weight gain and some shortness of breath. Regarding the latter she reports that she is due to see pulmonary medicine but believes that her shortness of breath, experience more acutely, was related to her becoming sick. She notes that she had a favorable response to initiation of both steroid and antibiotic treatments. Previous work-up has included thyroid ultrasound. This study was performed on 10/27/2024 and showed a right thyroid lobe measuring 4.6 x 1.9 x 2.0 cm. Within this lobe radiology identified 3 nodules with the largest measuring 1.6 x 1.4 x 1.2 cm. It is described as having mixed composition. Additionally there were 5 mm and 6 mm mixed composition nodules identified alongside this more dominant nodule of the right side. The left thyroid lobe measured 6.1 x 2.6 x 3.3 cm. Within this lobe radiology identified a nodule measuring 4.0 x 3.1 x 2.5 cm with a "predominantly cystic" appearance. As above, an FNA was performed in [address] Dmitry Elliott with a final [place] 2 diagnosis. Other tests include: TSH: 2.08 (10/20/2024) ROS General General: No weight change, appetite, fatigue, colon cancer or breast cancer HEENT HEENT: No difficulty swallowing, eye injury, eye surgery, swollen glands or hoarseness Endo Endocrine: Yes thyroid disease; No diabetes mellitus, thyroid cancer, Hair loss, heat intolerance or cold intolerance Skin Skin: No rash or changing moles Musc Musculoskeletal: Yes back problems and arthritis; No rheumatoid arthritis, gout or joint pain Cardio Cardiovascular: Yes high blood pressure and shortness of breath with exertion; No murmur, pacemaker, heart disease, atrial fibrillation, heart attack, heart stent, palpitations or chest pain Psych (more content not included)... Normal [facility] 6 Minute Walk Teston 025 6 Minute Walk Test y [facility] Pul[facility] Services/Neurology [address] [place] [address] MR#: [id number] Acct: [id number] Name: BARBARA DIANA Rep #: [id number] : 1960 64 From: Jonathon Roche DO Referring Dr: Jodie Salguero UNIFIED COMMUNICATIONS ARCHITECT UNIFIED COMMUNICATIONS ARCHITECT-C Status: REG CLI Location: PSN Date: Sex: F C PSN 6 Minute Walk Test 6 Minute Walk Test 6 Minute Walk Test: 6 Minute Walk Test PSN:6-Minute Walk Test Start: 12/08/24 12:35 Freq: Status: Active Protocol: RESP.6MINW Document 12/08/24 12:35 SFENTON (Rec: 12/08/24 12:37 SFENTON [id number]) 6 Minute Walk Test Date Performed 12/08/24 Time Performed 12:30 Height 5 ft 6 in Weight: 235 lb Weight in Pounds 235.[address]: Jodie Salguero UNIFIED COMMUNICATIONS ARCHITECT Assistive device None used: Pre-test Oxygen Delivery Room Air Method Pulse Ox (%) 94 Pulse Rate (60-100 71 beats/min) Dyspnea Marylin Scale ( 0 0-10) Exertion Marylin Scale 6 (6-20) 1st minute Oxygen Delivery Room Air Method Pulse Ox (%) 94 Pulse Rate (60-100 103 H beats/min) 2nd minute Oxygen Delivery Room Air Method Pulse Ox (%) 96 Pulse Rate (60-100 103 H beats/min) 3rd minute Oxygen Delivery Room Air Method Pulse Ox (%) 96 Pulse Rate (60-100 101 H beats/min) 4th minute Oxygen Delivery Room Air Method Pulse Ox (%) 95 Pulse Rate (60-100 101 H beats/min) 5th minute Oxygen Delivery Room Air Method Pulse Ox (%) 96 Pulse Rate (60-100 101 H beats/min) 6th minute Oxygen Delivery Room Air Method Pulse Ox (%) 96 Pulse Rate (60-100 100 beats/min) Dyspnea Marylin Scale ( 3 0-10) Exertion Marylin Scale 12 (6-20) Post-test Oxygen Delivery Room Air Method Pulse Ox (%) 97 Pulse Rate (60-100 76 beats/min) Full Laps Walked 14 Partial Lap, Number 37 of Tiles Walked Total Distance 863 Walked (ft) Interpretation Interpretation: The patient ambulated 863 feet over the course of 6 minutes beginning on room air without assistive devices. Pretesting oxygen saturation was noted to be 94% on room air. With ambulation, the shane oxygen saturation was 94%. There was no significant exertional oxygen desaturation. Recommendations Recommendations: There is no indication for the use of supplemental oxygen at this time. 12/10/24 1109 Date Jonathon Roche DO CC: Date Dictated: 12/10/241107 Date Transcribed: 12/10/241107 Cigar Packing Examiner: Dr. Jonathon Roche DO Signed Normal [facility] EGD Reporton 12-01-2024 EGD Report [facility] Medical Records Department [address] [place] [address] EGD Report MR#: [id number] Acct: [id number] Name: BARBARA DIANA Rep #: [id number] : 1960 64 From: Kimmie Olmos MD PCP: Dr. Kendrick Kendall, DO Status[place] [facility] Patient Name: Barbara Diana Procedure Date: 12/01/2024 10:44 AM Date of : 1960 Age: 64 Procedure: Upper GI endoscopy Indications: Romero's esophagus Providers: Kimmie Olmos MD Referring MD: Kendrick Kendall Medicines: Monitored Anesthesia Care Patient Profile: This is a 64 year old female. Complications: No immediate complications. Procedure: Pre-Anesthesia Assessment: - Prior to the procedure, a History and Physical was performed, and patient medications and allergies were reviewed. The patient's tolerance of previous anesthesia was also reviewed. The risks and benefits of the procedure and the sedation options and risks were discussed with the patient. All questions were answered, and informed consent was obtained. Prior Anticoagulants: The patient has taken no anticoagulant or antiplatelet agents. ASA Grade Assessment: Per anesthesia. After reviewing the risks and benefits, the patient was deemed in satisfactory condition to undergo the procedure. After obtaining informed consent, the endoscope was passed under direct vision. Throughout the procedure, the patient's blood pressure, pulse, and oxygen saturations were monitored continuously. The Endoscope was introduced through the mouth, and advanced to the second part of duodenum. The upper GI endoscopy was accomplished without difficulty. The patient tolerated the procedure well. Scope In: 10:56:18 AM Scope Out: 11:02:13 AM Total Procedure Duration Time 0 hours 5 minutes 55 seconds Findings: The Z-line was irregular and was found 41 cm from the incisors. Biopsies were taken with a cold forceps for histology. The examined duodenum was normal. A small hiatal hernia was present. Mildly erythematous mucosa without bleeding was found in the gastric antrum. Biopsies were taken with a cold forceps for histology. Biopsies were taken with a cold forceps for Helicobacter pylori cultures. No gross lesions were noted in the entire esophagus. Impression: - Z-line irregular, 41 cm from the incisors. Biopsied. - Normal examined duodenum. - Small hiatal hernia. - Erythematous mucosa in the antrum. Biopsied. - No gross lesions in the entire esophagus. Recommendation: - Await pathology results. - Discharge patient to home. - Resume previous diet. - Continue present medications. Procedure Code(s): --- Professional --- 92524, PT, Esophagogastroduodenoscopy, flexible, transoral; with biopsy, single or multiple Diagnosis Code(s): --- Professional --- K22.89, Other specified disease of esophagus K22.70, Romero's esophagus without dysplasia K44.9, Diaphragmatic hernia without obstruction or gangrene K31.89, Other diseases of stomach and duodenum CPT copyright 2021 [employer]. All rights reserved. The codes documented in this report are preliminary and upon paleobotanist review may be revised to meet current compliance requirements. MD Kimmie Hernandes MD 12/01/2024 11:09:31 AM This report has been signed electronically. Number of Addenda: 0 Note Initiated On: 12/01/2024 10:44 AM 12/01/24 1109 Date Kimmie Olmos MD Cosigner Signature: Date (if indicated) CC: Dr. Kendrick Kendall DO; Dr. Kimmie Olmos MD Date Dictated: 12/01/24 1044 Date Transcribed: Cigar Packing Examiner: TR Signed Normal [facility] Immunohistochemical Stainson 12-01-2024 Immunohistochemical Stains -------- Patient Age/Sex Location Account Attending Physician -------- BARBARA DIANA 64/F EN [id number] Dr. Kimmie Olmos MD -------- Specimen: [id number] Received: 12/01/24 Status: NIRANJAN Morales Num: [id number] Spec Type: EGD BIOPSY Subm Dr: Dr. Kimmie Olmos MD HEADER OPERATION: EGD with biopsy PRE-OP DIAGNOSIS: Romero's esophagus determined by biopsy, GERD TISSUE SUBMITTED: A- Antrum biopsy, B- Gastroesophageal junction biopsy -------- MICROSCOPIC DIAGNOSIS A. Stomach, antrum, biopsy: * Chronic gastritis with features of reactive gastropathy. * IHC is negative for H pylori. B. Esophagus, GEJ, biopsy: * Squamous mucosa with reactive change. * Columnar mucosa negative for goblet cell metaplasia. MICROSCOPIC DESCRIPTION Slides are reviewed. Matched control(s) reacted appropriately. GROSS DESCRIPTION A. Received in fixative is one container labeled with the patient's name and designated "Antrum biopsy." The specimen consists of one irregular fragment of light de paz soft tissue that measures 0.5 x 0.3 x 0.2 cm. The specimen is totally submitted in one cassette. B. Received in fixative is one container labeled with the patient's name and designated "GE junction biopsy." The specimen consists of two irregular fragments of light de paz soft tissue that in aggregate measure 0.6 x 0.3 x 0.1 cm. The specimen is totally submitted in one cassette. MS/ 12/01/2024 CPT:07072g5,78343 -------- Patient Age/Sex Location Account Attending Physician -------- BARBARA DIANA 64/F EN [id number] Dr. Kimmie Olmos MD -------- Signed (signature on file) Dr. Tameka Eckert MD 12/04/24 0955 -------- Normal [facility] Comment on above: Performed By: #### P IMHI #### [facility] [address] [place], [address] MR/[email or web address] 12-01-2024 MR/[email or web address].ANE [facility] Medical Records Department [address] [place] [address] Anesthesia Postop Eval I 12/01/24 1108 MR#: [id number] Acct: [id number] Name: BARBARA DIANA Rep #: [id number] : 1960 64 From: Jarad Monson CRNA PCP: Dr. Kendrick Kendall, DO Status:REG SDC Y Race: C Location: [place] [address] Anesthesia: Postop Eval I Current Vital Signs Temperature: 97.0 F Pulse Rate: 66 Blood Pressure: 111/56 Respiratory Rate: 20 Pulse Ox: 98 Oxygen Delivery Method: Room Air Assessment Airway patent: Yes Spontaneous unlabored respirations: Yes Mental status: Awake nausea: No Vomiting: No Anesthesia Complication: No Fluid Hydration Crystalloid volume administer (ml): 30 Total IV fluid infused: 30 Progress Note Anesthesia document: Postop Eval 1 completed: Yes 12/01/24 110 Date Jarad Monson CRNA Cosigner Signature: Date CC: Signed Normal [facility] MR/[id number] 12-01-2024 MR/POSTOPAN2 [facility] Medical Records Department [address] [place] [address] Anesthesia Postop Eval II 12/01/24 1115 MR#: [id number] Acct: [id number] Name: BARBARA DIANA Rep #: [id number] : 1960 64 From: Caty Gomez PCP: Dr. Kendrick Kendall, DO Status:REG SDC Y Race: C Location: [place] [address] Anesthesia Postop Eval I Sum Postop Eval Completion status Anesthesia document: Postop Eval 1 completed: Yes Anesthesia Postop Eval I Summary Anesthesia Postop Eval I Summary: Anesthesia Postop Eval I: Assessment Summary Airway patent Yes 12/01/24 11:09 TEST ANALYST.PKEL Spontaneous unlabored Yes 12/01/24 11:09 TEST ANALYST.PKEL respirations Mental status Awake 12/01/24 11:09 TEST ANALYST.PKEL nausea No 12/01/24 11:09 TEST ANALYST.PKEL Vomiting No 12/01/24 11:09 TEST ANALYST.PKEL Anesthesia Postop Eval I: Fluid Summary Crystalloid volume administer 30 12/01/24 11:09 TEST ANALYST.PKEL (ml) Colloids volume administered ( ml) Blood Product volume administered (ml) Total IV fluid infused 30 12/01/24 11:09 TEST ANALYST.PKEL Anesthesia Postop Eval I: Summary Notes Anesthesia Complication No 12/01/24 11:09 TEST ANALYST.PKEL Anesthesia Complication Comment: Post-operative progress note Anesthesia: Postop Eval II Evaluation Mental status: Awake Pain Level: 0 nausea: No Vomiting: No 12/01/24 1115 Date Caty Modi Signature: Date CC: Signed Normal [facility] CNOVon 11-20-2024 CNOV Office Visit (UCWSTR ) BARBARA DIANA ([id number]) 1960 F Date Time Provider Department 11/20/24 7:00 PM MOGRAN SARAVIA [facility] During your visit today, we recorded the following information about you: Temperature Pulse Respiration Blood pressure 98.5 degrees 70/minute 22/minute 154/91 Weight 107 kg Morgan Saravia APRN.[employer] FACULTY MEMBER 11/20/2024 7:38 PM Signed [facility] Subjective HPI Barbara Diana is a 64 year old female who presents today for CC of cough, sinus pressure, sob, wheezing. This started 2 weeks ago. Has tried otc medication for relief. Symptoms are worsened by nothing. Risk factors sick exposures. Hx of asthma. Nonsmoker. .Patient presents with: Cough: Chest congestion, SOB, wheeze, sinus pressure and pain x 2 weeks PAST MEDICAL HISTORY Diagnosis Date Anxiety 06/16/2004 Asthma 08/16/2012 Essential hypertension, benign 06/29/2008 GERD (gastroesophageal reflux disease) 06/27/2012 Hemorrhage of gastrointestinal tract, unspecified 2004 hemorrhoidal NICOLAS (obstructive sleep apnea) 08/05/2014 Split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 [Vol rate/Area] 57 mL/min/{1.73_m2} Low >60 [facility] Comment on above: Order Comment: CBCD Result Comment: Non- GFR Calc Performed By: #### P IMHI #### [facility] [address] [place], [address] Globulin (S) [Mass/Vol] 3.6 g/dL Normal 2.2-4.2 [facility] Comment on above: Order Comment: CBCD Performed By: #### P IMHI #### [facility] [address] [place], [address] Glucose [Mass/Vol] 128 mg/dL High 74-106 [facility] Comment on above: Order Comment: CBCD Result Comment: Fast ing Glucose result greater than or equal to 126 mg/dL suggests DIABETES MELLITUS per A.D.A. criteria. Performed By: #### P IMHI #### [facility] [address] [place], [address] Potassium [Moles/Vol] 3.8 mmol/L Normal 3.5-5.1 [facility] Comment on above: Order Comment: CBCD Performed By: #### P IMHI #### [facility] [address] [place], [place], [address] Sodium [Moles/Vol] 140 mmol/L Normal 136-145 [facility] Comment on above: Order Comment: CBCD Performed By: #### P IMHI #### [facility] [address] [place], [place], [address] T PROT 6.9 g/dL Normal 6.4-8.2 [facility] Comment on above: Order Comment: CBCD Performed By: #### P IMHI #### [facility] [address] [place], [place], [address] Urea nitrogen [Mass/Vol] 14 mg/dL Normal 7-18 [facility] Comment on above: Order Comment: CBCD Performed By: #### P IMHI #### [facility] [address] [place], [place], [address] Eosinophil percentageOrdered By: Kendrick Kendall on 10-20-2024 Eosinophils/100 WBC (Bld) 0.6 % 0-5 [facility] Erythrocyte distribution wid th ratioOrdered By: Kendrick Kendall on 10-20-2024 Erythrocyte distribution width (RBC) [Ratio] 13.1 % 11.6-14.6 [facility] Erythrocyte distribution wid th standard deviationOrdered By: Kendrick Kendall on 10-20-2024 Erythrocyte distribution width (RBC) [Entitic vol] 44.4 fL High 35.1-43.9 [facility] Erythrocyte distribution width (RBC) [Ratio] 44.4 fl High 35.1-43.9 [facility] Estimated glomerular filtrat ion rate (GFR) AmericanOrdered By: Kendrick Kendall on 10-20-2024 Estimated GFR (MDRD) Amer 69 mL/min >60 [facility] Comment on above: GFR Calc Glomerular filtration rate ( GFR) estimationOrdered By: Kendrick Kendall on 10-20-2024 Estimated GFR (MDRD) Non-Af Amer 57 mL/min Low >60 [facility] Comment on above: Non- GFR Calc GFR/1.73 sq M.predicted among non-blacks MDRD (S/P/Bld) [Vol rate/Area] 57 mL/min/{1.73_m2} Low >60 [facility] Comment on above: Non- GFR Calc Glucose measurementOrdered B y: Kendrick Kendall on 10-20-2024 Glucose [Mass/Vol] 128 mg/dL High 74-106 [facility] Comment on above: Fasting Glucose resu lt greater than or equal to 126 mg/dL suggests DIABETES MELLITUS per A.D.A. criteria. Hematocrit Auto (Bld) [Volum e fraction]Ordered By: Kendrick Kendall on 10-20-2024 Hematocrit (Bld) [Volume fraction] 41.2 % 37-47 [facility] Hemoglobin A1con 10-20-2024 HbA1c (Bld) [Mass fraction] 5.5 % Normal 3.8-5.6 [facility] Comment on above: Result Comment: Norm al < 5.7 % Prediabetic 5.7 - 6.4 % Diabetic >or= 6.5 % Please note range changes. Performed By: #### P SUIII #### [facility] [address] [place], [place] [address] [place], [address] Hemoglobin A1c percentageOrd ered By: Kendrick Kendall on 10-20-2024 HbA1c (Bld) [Mass fraction] 5.5 % 3.8-5.6 [facility] Comment on above: Normal < 5.7 % Predi abetic 5.7 - 6.4 % Diabetic >or= 6.5 % Please note range changes. Hemoglobin measurementOrdere d By: Kendrick Kendall on 10-20-2024 Hemoglobin (Bld) [Mass/Vol] 12.7 g/dL 12.0-15.0 [facility] High density lipoprotein (HD L) measurementOrdered By: Kendrick Kendall on 10-20-2024 Cholesterol in HDL [Mass/Vol] 55 mg/dL >40 [facility] Comment on above: The drugs N-Acetylcy steine and Metamizole may falsely depress this assay. Reference Range HDL <40 mg/dL Low HDL Cholesterol HDL >or= 60 mg/dL High HDL Cholesterol Immature granulocytes/100 WB C Auto (Bld)Ordered By: Kendrick Kendall on 10-20-2024 Immature granulocytes/100 WBC (Bld) 0.400 % 0.0-0.9 [facility] Comment on above: IG% - Immature Granu locytes (promyelocytes, myelocytes and metamyelocytes) > 1% indicates that a LEFT SHIFT is Present. Laboratory - Chemistry and C hemistry - challengeOrdered By: Kendrick Kendall on 10-20-2024 AST [Catalytic activity/Vol] 13 U/L Low 15-37 [facility] Lipid Profileon 10-20-2024 Cholesterol [Mass/Vol] 125 mg/dL Normal 200 [facility] Comment on above: Result Comment: <200 mg/dL Desirable 200-240 mg/dL Borderline >240 mg/dL High Risk Performed By: #### P IMHI #### [facility] [address] [facility] [address] Cholesterol in HDL [Mass/Vol] 55 mg/dL Normal [facility] Comment on above: Result Comment: The drugs N-Acetylcysteine and Metamizole may falsely depress this assay. Reference Range HDL <40 mg/dL Low HDL Cholesterol HDL >or= 60 mg/dL High HDL Cholesterol Performed By: #### P IMHI #### [facility] [address] [place], [address] Cholesterol in LDL [Mass/Vol] 56 mg/dL Normal 0-130 [facility] Comment on above: Performed By: #### P IMHI #### [facility] [address] [facility] [address] Cholesterol in VLDL [Mass/Vol] 14 mg/dL Normal 5-40 [facility] Comment on above: Performed By: #### P IMHI #### [facility] [address] [facility] [address] Triglyceride [Mass/Vol] 68 mg/dL Normal [facility] Comment on above: Result Comment: The drugs N-Acetylcysteine and Metamizole may falsely depress this assay. Serum Triglycerides Reference Interval Normal <150 mg/dL Borderline high 150 - 199 mg/dL High 200 - 499 mg/dL Very High > or = 500 mg/dL Performed By: #### P IMNJ #### [facility] [address] [place], [address] Low density lipoprotein (LDL ) cholesterol measurementOrdered By: Kendrick Kendall on 10-20-2024 Cholesterol in LDL [Mass/Vol] 56 mg/dL 0-130 [facility] Lymphocytes Auto (Unsp spec) [#/Vol]Ordered By: Kendrick Kendall on 10-20-2024 Lymphocytes (Bld) [#/Vol] 1.13 10*3/uL 0.83-4.51 [facility] Lymphocytes/100 WBC Auto (Un sp spec)Ordered By: Kendrick Kendall on 10-20-2024 Lymphocytes/100 WBC (Bld) 22.3 % 19-41 [facility] MCV (mean corpuscular volume ) determinationOrdered By: Kendrick Kendall on 10-20-2024 MCV (RBC) [Entitic vol] 92.0 fL 81-99 [facility] Mean corpuscular hemoglobin (MCH) determinationOrdered By: Kendrick Kendall on 10-20-2024 MCH (RBC) [Entitic mass] 28.3 pg 27.0-32.0 [facility] Mean corpuscular hemoglobin concentration (MCHC) determinationOrdered By: Kendrick Kendall on 10-20-2024 MCHC (RBC) [Mass/Vol] 30.8 g/dL Low 32-36 [facility] Mean platelet volume determi nationOrdered By: Kendrick Kendall on 10-20-2024 Platelet mean volume (Bld) [Entitic vol] 10.3 fL 6.2-12.0 [facility] Monocyte percentageOrdered B y: Kendrick Kendall on 10-20-2024 Monocytes/100 WBC (Bld) 10.5 % High 0-10 [facility] Neutrophil percentageOrdered By: Kendrick Kendall on 10-20-2024 Neutrophils/100 WBC (Bld) 65.6 % 47-70 [facility] Nucleated red blood cell per centageOrdered By: Kendrick Kendall on 10-20-2024 Nucleated RBC/100 WBC (Bld) [Ratio] 0 % 0-5 [facility] Platelet countOrdered By: Louie Kendall on 10-20-2024 Platelets (Bld) [#/Vol] 346 10*3/uL 150-450 [facility] Potassium measurementOrdered By: Kendrick Kendall on 10-20-2024 Potassium [Moles/Vol] 3.8 mmol/L 3.5-5.1 [facility] RBC Auto (Bld) [#/Vol]Ordere d By: Kendrick Kendall on 10-20-2024 RBC (Bld) [#/Vol] 4.48 10*6/uL 4.2-5.4 [facility] Serum anion gap measurementO rdered By: Kendrick Kendall on 10-20-2024 Anion gap [Moles/Vol] 10 mmol/L 5-15 [facility] Serum globulin measurementOr dered By: Kendrick Kendall on 10-20-2024 Globulin (S) [Mass/Vol] 3.6 g/dL 2.2-4.2 [facility] Serum or plasma alanine min otransferase (ALT) measurementOrdered By: Kendrick Kendall on 10-20-2024 ALT [Catalytic activity/Vol] 16 U/L 13-56 [facility] Serum or plasma albumin donal urement (mass/volume)Ordered By: Kendrick Kendall on 10-20-2024 Albumin [Mass/Vol] 3.3 g/dL 3.2-5.0 [facility] Serum or plasma alkaline mk sphatase measurementOrdered By: Kendrick Kendall on 10-20-2024 ALP [Catalytic activity/Vol] 84 U/L 45-117 [facility] Serum or plasma calcium donal urement (mass/volume)Ordered By: Kendrick Kendall on 10-20-2024 Calcium [Mass/Vol] 8.8 mg/dL 8.5-10.1 [facility] Serum or plasma cholesterol measurement (mass/volume)Ordered By: Kendrick Kendall on 10-20-2024 Cholesterol [Mass/Vol] 125 mg/dL <200 [facility] Comment on above: <200 mg/dL Desirable 200-240 mg/dL Borderline >240 mg/dL High Risk Serum or plasma creatinine m easurement (mass/volume)Ordered By: Kendrick Kendall on 10-20-2024 Creatinine [Mass/Vol] 1.03 mg/dL High 0.55-1.02 [facility] Comment on above: The validity of the calculated GFR & GFRAA in patients over 70 years has not been determined. Clinical correlation is essential. Serum or plasma thyroid stim ulating hormone (TSH) measurement (units/volume)Ordered By: Kendrick Kendall on 10-20-2024 TSH Qn 2.080 uIU/mL 0.358-3.74 0 [facility] Serum or plasma urea nitroge n measurement (mass/volume)Ordered By: Kendrick Kendall on 10-20-2024 Urea nitrogen [Mass/Vol] 14 mg/dL 7-18 [facility] Sodium levelOrdered By: Kendrick Kendall on 10-20-2024 Sodium [Moles/Vol] 140 mmol/L 136-145 [facility] TSH QnOrdered By: Kendrick malik on 10-20-2024 Thyroid Stimulating Hormone (TSH) 2.080 uIU/mL 0.358-3.74 0 [facility] Thyroid Stim Hormone (TSH)on 10-20-2024 TSH 2.080 uIU/mL Normal 0.358-3.74 0 [facility] Comment on above: Performed By: #### P [facility] #### [facility] [place], [address] Total proteinOrdered By: Meryl Kendall on 10-20-2024 Protein [Mass/Vol] 6.9 g/dL 6.4-8.2 [facility] Triglycerides measurementOrd ered By: Kendrick Kendall on 10-20-2024 Triglyceride [Mass/Vol] 68 mg/dL <199 [facility] Comment on above: The drugs N-Acetylcy steine and Metamizole may falsely depress this assay.Serum Triglycerides Reference Interval Normal <150 mg/dL Borderline high 150 - 199 mg/dL High 200 - 499 mg/dL Very High > or = 500 mg/dL Very low density lipoprotein (VLDL) cholesterol measurementOrdered By: Kendrick Kendall on 10-20-2024 Very low density lipoprotein (VLDL) cholesterol measurement 14 mg/dL 5-40 [facility] VLDL Cholesterol 14 mg/dL 5-40 [facility] White blood cell (WBC) count Ordered By: Kendrick Kendall on 10-20-2024 WBC (Bld) [#/Vol] 5.1 10*3/uL 4.4-11.0 [facility] Gram Stainon 08-19-2024 GS Gram Stain Rare Epithelial cells Rare Gram positive rods Rare Gram positive cocci Normal [facility] Comment on above: Performed By: #### P SUIII #### [facility] [address] [place], [place], [id number] Nasopharyngeal Cultureon NAC No growth in 48 hours. Normal [facility] Comment on above: Performed By: #### P SUIII #### [facility] [address] [place], [address] Gram stainOrdered By: Usman calderon on 08-18-2024 Microscopic observation Gram stain Nom (Unsp spec) [facility] Microscopic observation Gram stain Nom (Unsp spec) [facility] Nasopharyngeal cultureOrdere d By: Usman Tate on 08-18-2024 Nasopharyngeal Culture No growth in 48 hours. [facility] Nasopharyngeal Culture No growth in 48 hours. [facility] Specimen Level IIIon 06-04-2024 Surgery Specimen Level III -------- Patient Age/Sex Location Account Attending Physician -------- [facility] 63[id number] Kimmie Olmos MD -------- Specimen: [id number] Received: 06/04/24 Status: NIRANJAN Morales Num: [id number] Spec Type: LIPOMA Subm Dr: Dr. Kimmie Olmos MD HEADER OPERATION: Right anterior shoulder lipoma excision PRE-OP DIAGNOSIS: Right shoulder lipoma TISSUE SUBMITTED: Right shoulder lipoma -------- MICROSCOPIC DIAGNOSIS Soft tissue mass of right shoulder, excision: Capillary hemangioma. AM. 06/06/2024 COMMENT Case has been reviewed in consultation with Dr. Zamorano who concurs with the above diagnosis. IDC:RJ MICROSCOPIC DESCRIPTION Slides are reviewed. GROSS DESCRIPTION Received in fixative is one container labeled with the patient's name and designated "Right anterior shoulder lipoma." The specimen consists of a piece of black-yellow adipose tissue measuring 1.8 x 1.5 x 0.7cm. The specimen is inked, serially sectioned and reveal hemorrhagic cut surfaces. The entire specimen is submitted in two cassettes. RJ. 06/05/2024 TC:1 CPT:43902 -------- Patient Age/Sex Location Account Attending Physician -------- BARBARA FREEMAN 63/F [facility] [id number] Dr. Kimmie Olmos MD -------- Signed (signature on file) Dr. Usman Gomez DO 06/06/24 1215 -------- Normal [facility] Comment on above: Performed By: #### P SUIII #### [facility] [address] [place], [address] Surgery Visit Reporton 06-04 Surgery Visit Report [facility] [address] [place] [address] OFFICE VISIT Date of Service: 06/04/24 MR#: [id number] Acct: [id number] Name: BARBARA FREEMAN Rep #: [id number] : 1960 Provider: Dr. Kimmie hansen MD Age/Sex: 63/F Location: [facility] Status: Signed Intake Vital Signs 05/05/24 13:35 Height 5 ft 6 in Weight: 227 lb 6 oz BMI 36.6 BP 130/76 H Blood Pressure Location Rt brachial Position Sitting Respiration 18 Pulse 76 Pulse Source Monitor Temp 96.4 F L Temp Source Temporal Pulse Oximetry (%) 96 Oxygen Delivery Method room air Intake Visit Reasons: LIPOMAS ON RIGHT ARM Chief Complaint: Lipomas right arm Allergies adhesive tape Allergy (Intermediate, Verified 05/05/24 13:36) Rash grass pollen Allergy (Verified 05/05/24 13:36) Unknown mold Allergy (Verified 05/05/24 13:36) Unknown Have you fallen in the past year?: No PFSH Medical History (Updated 06/04/24 @ 15:[address] Kimmie Olmos MD) Barretts esophagus BMI 37.0-37.9, adult Wears hearing aid Wears dentures Wears glasses Post-menopausal History of steroid therapy Arthritis Back pain Injury of head and neck TIA (transient ischemic attack) History of IBS Gastric reflux Former smoker CPAP (continuous positive airway pressure) dependence Sleep apnea Asthma History of edema Hx of lipoma Wheezing Allergic rhinitis due to allergen Incidental lung nodule, > 3mm and < 8mm NICOLAS on CPAP Chest pain SOB (shortness of breath) HTN (hypertension) Surgical History (Updated 05/05/24 @ 13:27 by Paty Madsen) History of hysterectomy H/O foot surgery History of tonsillectomy History of hernia surgery Family History Other Asthma Cancer Diabetes Hypertension Social History Smoking Status: Former smoker second hand exposure: Yes alcohol intake: never HPI HPI HPI: 63-year-old female presents for excision of right upper extremity subcutaneous masses likely lipomas. As they have been more bothersome and painful. Office Procedures Excision and Linear Repair Procedure performed by: Kimmie Olmos Informed consent given: Yes Consent signed: Yes Size of lesion (cm): 3 (3 cm anterior shoulder- ?lipoma/clot-sent to pathology; 1.5 cm right posterior arm c/w lipoma no sent) Amount of lidocaine applied (mL): 8 Preparation: chlorhexidine Device used for excision: #15 blade Cutaneous deformities present: No Hemostasis: electrocautery (Hyfrecator) Buried vertical mattress suture used: No Sutures used for cuticle layer: Yes Type: 3-0 (Vicryl subdermal interrupted sutures with Steri- Strips) Patient tolerated procedure: well Complications: No Assessment and Plan Assessment and Plan (1) Lipoma of arm: Status: Acute (2) Subcutaneous mass of right upper extremity: Status: Acute Plan Patient tolerated excision well in office. Right upper extremity/shoulder subcutaneous mass sent to pathology-Questionable lipoma/clot mixture clinically. Will call patient with pathology results. Kimmie Olmos M.D. Pager: [phone] [facility] [address] [place] [address], [address] [place] [address] Office: 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 Kendrick Kendall, DO Normal [facility] Gram stain for investigation of transfusion reactionOrdered By: Usman Tate on 10-29-2023 Microscopic observation Gram stain Nom (Unsp spec) [facility] Microscopic observation Gram stain Nom (Unsp spec) [facility] No Panel InformationOrdered By: Usman Tate on 10-29-2023 Nasopharyngeal Culture No growth in 48 hours. [facility] Nasopharyngeal Culture No growth in 48 hours. [facility] Absolute lymphocyte countOrd ered By: Kendrick Kendall on 10-15-2023 Lymphocytes Auto (Unsp spec) [#/Vol] 1.36 10*3/uL 0.83-4.51 [facility] Automated lymphocyte count a s percentage of total leukocytesOrdered By: Kendrick Kendall on 10-15-2023 Lymphocytes/100 WBC Auto (Unsp spec) 25.8 % 19-41 [facility] Basophil percentageOrdered B y: Kendrick Kendall on 10-15-2023 Basophils/100 WBC (Bld) 1.1 % 0-1 [facility] Bilirubin [Mass/Vol] 0.50 mg/dL 0.20-1.00 [facility] Comment on above: For patients on eltr ombopag therapy, use of Dimension [place] TBIL is not recommended. Chloride [Moles/Vol] 109 mmol/L 98-107 [facility] Cholesterol [Mass/Vol] 139 mg/dL <200 [facility] Comment on above: <200 mg/dL Desirable 200-240 mg/dL Borderline >240 mg/dL High Risk Eosinophils/100 WBC (Bld) 0.0 % 0-5 [facility] Glucose [Mass/Vol] 97 mg/dL 74-106 [facility] Hemoglobin (Bld) [Mass/Vol] 13.7 g/dL 12.0-15.0 [facility] Monocytes/100 WBC (Bld) 14.2 % 0-10 [facility] Neutrophils (Bld) [#/Vol] 3.1 10*3/uL 2.0-7.7 [facility] Neutrophils/100 WBC (Bld) 58.0 % 47-70 [facility] Potassium [Moles/Vol] 4.2 mmol/L 3.5-5.1 [facility] Protein [Mass/Vol] 7.2 g/dL 6.4-8.2 [facility] Sodium [Moles/Vol] 139 mmol/L 136-145 [facility] Triglyceride [Mass/Vol] 199 mg/dL <199 [facility] Comment on above: The drugs N-Acetylcy steine and Metamizole may falsely depress this assay.Serum Triglycerides Reference Interval Normal <150 mg/dL Borderline high 150 - 199 mg/dL High 200 - 499 mg/dL Very High > or = 500 mg/dL WBC (Bld) [#/Vol] 5.3 10*3/uL 4.4-11.0 [facility] Determination of erythrocyte mean corpuscular volume (MCV)Ordered By: Kendrick Kendall on 10-15-2023 MCV (RBC) [Entitic vol] 91.8 fL 81-99 [facility] Erythrocyte distribution wid th ratioOrdered By: Kendrick Kendall on 10-15-2023 Erythrocyte distribution width (RBC) [Ratio] 13.1 % 11.6-14.6 [facility] Erythrocyte distribution wid th standard deviationOrdered By: Kendrick Kendall on 10-15-2023 Erythrocyte distribution width (RBC) [Entitic vol] 43.2 fL 35.1-43.9 [facility] Hematocrit Auto (Bld) [Volum e fraction]Ordered By: Kendrick Kendall on 10-15-2023 Hematocrit (Bld) [Volume fraction] 42.8 % 37-47 [facility] High density lipoprotein (HD L) measurementOrdered By: Kendrick Kendall on 10-15-2023 Cholesterol in HDL (Body fld) [Mass/Vol] 50 mg/dL >40 [facility] Comment on above: The drugs N-Acetylcy steine and Metamizole may falsely depress this assay. Reference Range HDL <40 mg/dL Low HDL Cholesterol HDL >or= 60 mg/dL High HDL Cholesterol Immature granulocytes/100 WB C Auto (Bld)Ordered By: Kendrick Kendall on 10-15-2023 Immature granulocytes/100 WBC (Bld) 0.900 % 0.0-0.9 [facility] Comment on above: IG% - Immature Granu locytes (promyelocytes, myelocytes and metamyelocytes) > 1% indicates that a LEFT SHIFT is Present. Laboratory - Chemistry and C hemistry - challengeOrdered By: Kendrick Kendall on 10-15-2023 Albumin/Globulin [Mass ratio] 0.9 {ratio} 0.9-2.4 [facility] ALP [Catalytic activity/Vol] 73 U/L 45-117 [facility] ALT [Catalytic activity/Vol] 28 U/L 13-56 [facility] CO2 [Moles/Vol] 26.0 mmol/L 21.0-32.0 [facility] Globulin (S) [Mass/Vol] 3.7 g/dL 2.2-4.2 [facility] Urea nitrogen/Creatinine [Mass ratio] 21.9 mg/mg 10-20 [facility] Laboratory - Hematology and Cell countsOrdered By: Kendrick Kendall on 10-15-2023 MCH (RBC) [Entitic mass] 29.4 pg 27.0-32.0 [facility] MCHC (RBC) [Mass/Vol] 32.0 g/dL 32-36 [facility] Nucleated RBC/100 WBC (Bld) [Ratio] 0 % 0-5 [facility] Platelets (Bld) [#/Vol] 358 10*3/uL 150-450 [facility] Low density lipoprotein (LDL ) cholesterol measurementOrdered By: Kendrick Kendall on 10-15-2023 Cholesterol in LDL (Body fld) [Moles/Vol] 49 mg/dL 0-130 [facility] No Panel InformationOrdered By: Kendrick Kendall on 10-15-2023 Estimated GFR (MDRD) Amer 79 mL/min >60 [facility] Comment on above: GFR Calc Estimated GFR (MDRD) Non-Af Amer 66 mL/min >60 [facility] Comment on above: Non- GFR Calc Platelet mean volume Win-Ec ker (Bld) [Entitic vol]Ordered By: Kendrick Kendall on 10-15-2023 Platelet mean volume (Bld) [Entitic vol] 10.5 fL 6.2-12.0 [facility] RBC Auto (Bld) [#/Vol]Ordere d By: Kendrick Kendall on 10-15-2023 RBC (Bld) [#/Vol] 4.66 10*6/uL 4.2-5.4 [facility] Serum or plasma calcium donal urement (mass/volume)Ordered By: Kendrick Kendall on 10-15-2023 Calcium [Mass/Vol] 9.2 mg/dL 8.5-10.1 [facility] Serum or plasma creatinine m easurement (mass/volume)Ordered By: Kendrick Kendall on 10-15-2023 Creatinine [Mass/Vol] 0.92 mg/dL 0.55-1.02 [facility] Comment on above: The validity of the calculated GFR & GFRAA in patients over 70 years has not been determined. Clinical correlation is essential. Serum or plasma urea nitroge n measurement (mass/volume)Ordered By: Kendrick Kendall on 10-15-2023 Urea nitrogen [Mass/Vol] 20 mg/dL 7-18 [facility] Thin prep Papanicolaou smear with manual screeningOrdered By: Kendrick Kendall on 10-15-2023 Thin prep Papanicolaou smear with manual screening 3.5 g/dL 3.2-5.0 [facility] Thin prep Papanicolaou smear with manual screening 18 U/L 15-37 [facility] Thin prep Papanicolaou smear with manual screening 4 5-15 [facility] Very low density lipoprotein (VLDL) cholesterol measurementOrdered By: Kendrick Kendall on 10-15-2023 Cholesterol in VLDL Calc [Moles/Vol] 40 mg/dL 5-40 [facility] Whole blood hemoglobin A1c/t otal hemoglobin ratio (mass fraction)Ordered By: Kendrick Kendall on 10-15-2023 HbA1c (Bld) [Mass fraction] 5.6 % 3.8-5.6 [facility] Comment on above: Normal < 5.7 % Predi abetic 5.7 - 6.4 % Diabetic >or= 6.5 % Please note range changes. Basophil percentageOrdered B y: Dr. Kendall on 02-09-2023 Basophil percentage < 0.9 mg/dL 0.55-1.02 [facility] No Panel InformationOrdered By: Dr. Kendall on 02-09-2023 Bedside Estimated GFR (eGFR) > 60.0000 mL/min >60 [facility] No Panel InformationOrdered By: Dr. Partida on 07-23-2022 Troponin I High Sensitivity 16 pg/mL 3.0-54.0 [facility] Comment on above: Please Note: New Mayte t Units and Gender Specific Reference Ranges. For more information see Policy Stat Procedure [place] High Sensitivity Troponin (TNIH) and attachments. Absolute lymphocyte countOrd ered By: Dr. Partida on 07-22-2022 Lymphocytes Auto (Unsp spec) [#/Vol] 1.46 10*3/uL 0.83-4.51 [facility] Basophil percentageOrdered B y: Dr. Partida on 07-22-2022 Basophils/100 WBC (Bld) 0.7 % 0-1 [facility] Chloride [Moles/Vol] 109 mmol/L 98-107 [facility] Eosinophils/100 WBC (Bld) 0.2 % 0-5 [facility] Glucose [Mass/Vol] 115 mg/dL 74-106 [facility] Comment on above: Fasting Glucose resu lt from 100 to 125 mg/dL suggests IMPAIRED HOMEOSTASIS per A.D.A. criteria. Neutrophils (Bld) [#/Vol] 3.3 10*3/uL 2.0-7.7 [facility] Neutrophils/100 WBC (Bld) 59.5 % 47-70 [facility] Potassium [Moles/Vol] 3.6 mmol/L 3.5-5.1 [facility] Sodium [Moles/Vol] 141 mmol/L 136-145 [facility] WBC (Bld) [#/Vol] 5.5 10*3/uL 4.4-11.0 [facility] Blood erythrocytes count (nu mber/volume)Ordered By: Dr. Partida on 07-22-2022 RBC (Bld) [#/Vol] 4.43 10*6/uL 4.2-5.4 [facility] Blood hemoglobin measurement (mass/volume)Ordered By: Dr. Partida on 07-22-2022 Hemoglobin (Bld) [Mass/Vol] 13.1 g/dL 12.0-15.0 [facility] Blood lymphocytes/100 leukoc ytesOrdered By: Dr. Partida on 07-22-2022 Lymphocytes/100 WBC (Bld) 26.6 % 19-41 [facility] Blood monocytes/100 leukocyt esOrdered By: Dr. Partida on 07-22-2022 Monocytes/100 WBC (Bld) 12.6 % 0-10 [facility] Blood platelet mean volumeOr dered By: Dr. Partida on 07-22-2022 Platelet mean volume (Bld) [Entitic vol] 10.1 fL 6.2-12.0 [facility] Determination of erythrocyte mean corpuscular volume (MCV)Ordered By: Dr. Partida on 07-22-2022 MCV (RBC) [Entitic vol] 90.7 fL 81-99 [facility] Hematocrit Auto (Bld) [Volum e fraction]Ordered By: Dr. Partida on 07-22-2022 Hematocrit (Bld) [Volume fraction] 40.2 % 37-47 [facility] Laboratory - Chemistry and C hemistry - challengeOrdered By: Dr. Partida on 07-22-2022 CO2 [Moles/Vol] 26.0 mmol/L 21.0-32.0 [facility] Urea nitrogen/Creatinine [Mass ratio] 15.5 mg/mg 10-20 [facility] Laboratory - Hematology and Cell countsOrdered By: Dr. Partida on 07-22-2022 Erythrocyte distribution width (RBC) [Entitic vol] 42.6 fL 35.1-43.9 [facility] Erythrocyte distribution width (RBC) [Ratio] 13.0 % 11.6-14.6 [facility] Immature granulocytes/100 WBC (Bld) 0.400 % 0.0-0.9 [facility] Comment on above: IG% - Immature Granu locytes (promyelocytes, myelocytes and metamyelocytes) > 1% indicates that a LEFT SHIFT is Present. MCH (RBC) [Entitic mass] 29.6 pg 27.0-32.0 [facility] Nucleated RBC/100 WBC (Bld) [Ratio] 0 % 0-5 [facility] MCHC Auto (RBC) [Mass/Vol]Or dered By: Dr. Partida on 07-22-2022 MCHC (RBC) [Mass/Vol] 32.6 g/dL 32-36 [facility] No Panel InformationOrdered By: Dr. Partida on 07-22-2022 D-Dimer Quantitative (PE/DVT) 0.74 FEU/ug/m 0.27-0.49 [facility] Comment on above: D-Dimer ELEVATED (>0 .49): Additional studies and clinicalassessments are indicated to conclude diagnosis of:Deep Vein Thrombosis (DVT) or Pulmonary Embolism (PE)CRITICAL VALUE VERIFIED. CALLED TO QUENTIN PITTMAN07/22/22 0200 Tameka Bach.RESULTS READ BACK BY SAME . Estimated Creatinine Clearance Calc 59.89 ml/min [facility] Estimated GFR (MDRD) Amer 81 mL/min >60 [facility] Comment on above: GFR Calc Estimated GFR (MDRD) Non-Af Amer 67 mL/min >60 [facility] Comment on above: Non- GFR Calc Platelets bldOrdered By: Dr. Partida on 07-22-2022 Platelets (Bld) [#/Vol] 297 10*3/uL 150-450 [facility] Serum or plasma calcium donal urement (mass/volume)Ordered By: Dr. Partida on 07-22-2022 Calcium [Mass/Vol] 8.7 mg/dL 8.5-10.1 [facility] Serum or plasma creatinine m easurement (mass/volume)Ordered By: Dr. Partida on 07-22-2022 Creatinine [Mass/Vol] 0.90 mg/dL 0.55-1.02 [facility] Comment on above: The validity of the calculated GFR & GFRAA in patients over 70 years has not been determined. Clinical correlation is essential. Serum or plasma urea nitroge n measurement (mass/volume)Ordered By: Dr. Partida on 07-22-2022 Urea nitrogen [Mass/Vol] 14 mg/dL 7-18 [facility] Thin prep Papanicolaou smear with manual screeningOrdered By: Dr. Partida on 07-22-2022 Thin prep Papanicolaou smear with manual screening 6 5-15 [facility] No Panel InformationOrdered By: Dr. Simons on 07-10-2022 Thyroid Stimulating Hormone (TSH) 2.07 uIU/mL 0.358-3.74 [facility] Absolute lymphocyte counton 06-28-2022 Lymphocytes Auto (Unsp spec) [#/Vol] 2.48 10*3/uL 0.83-4.51 [facility] Work Phone: [phone] Basophil percentageon 2021 Basophils/100 WBC (Bld) 0.4 % 0-1 [facility] Work Phone: Chloride [Moles/Vol] 105 mmol/L 98-107 [facility] Work Phone: Eosinophils/100 WBC (Bld) 0.1 % 0-5 [facility] Work Phone: Glucose [Mass/Vol] 105 mg/dL 74-106 [facility] Work Phone: [phone] Comment on above: Fasting Glucose resu lt from 100 to 125 mg/dL suggests IMPAIRED HOMEOSTASIS per A.D.A. criteria. Neutrophils (Bld) [#/Vol] 5.9 10*3/uL 2.0-7.7 [facility] Work Phone: Neutrophils/100 WBC (Bld) 64.2 % 47-70 [facility] Work Phone: Potassium [Moles/Vol] 3.8 mmol/L 3.5-5.1 [facility] Work Phone: Sodium [Moles/Vol] 140 mmol/L 136-145 [facility] Work Phone: WBC (Bld) [#/Vol] 9.1 10*3/uL 4.4-11.0 [facility] Work Phone: [phone] Blood erythrocytes count (nu mber/volume)on 06-28-2022 RBC (Bld) [#/Vol] 4.76 10*6/uL 4.2-5.4 [facility] Work Phone: [phone] Blood hemoglobin measurement (mass/volume)on 06-28-2022 Hemoglobin (Bld) [Mass/Vol] 13.9 g/dL 12.0-15.0 [facility] Work Phone: Blood lymphocytes/100 leukoc yteson 06-28-2022 Lymphocytes/100 WBC (Bld) 27.1 % 19-41 [facility] Work Phone: Blood monocytes/100 leukocyt eson 06-28-2022 Monocytes/100 WBC (Bld) 8.0 % 0-10 [facility] Work Phone: Blood platelet mean volumeon 06-28-2022 Platelet mean volume (Bld) [Entitic vol] 9.8 fL 6.2-12.0 [facility] Work Phone: [phone] Determination of erythrocyte mean corpuscular volume (MCV)on 06-28-2022 MCV (RBC) [Entitic vol] 89.9 fL 81-99 [facility] Work Phone: Hematocrit Auto (Bld) [Volum e fraction]on 06-28-2022 Hematocrit (Bld) [Volume fraction] 42.8 % 37-47 [facility] Work Phone: Laboratory - Chemistry and C hemistry - challengeon 06-28-2022 CO2 [Moles/Vol] 28.0 mmol/L 21.0-32.0 [facility] Work Phone: [phone] Urea nitrogen/Creatinine [Mass ratio] 21.4 mg/mg 10-20 [facility] Work Phone: Laboratory - Hematology and Cell countson 06-28-2022 Erythrocyte distribution width (RBC) [Entitic vol] 41.9 fL 35.1-43.9 [facility] Work Phone: [phone] Erythrocyte distribution width (RBC) [Ratio] 12.7 % 11.6-14.6 [facility] Work Phone: Immature granulocytes/100 WBC (Bld) 0.200 % 0.0-0.9 [facility] Work Phone: Comment on above: IG% - Immature Granu locytes (promyelocytes, myelocytes and metamyelocytes) > 1% indicates that a LEFT SHIFT is Present. MCH (RBC) [Entitic mass] 29.2 pg 27.0-32.0 [facility] Work Phone: Nucleated RBC/100 WBC (Bld) [Ratio] 0 % 0-5 [facility] Work Phone: MCHC Auto (RBC) [Mass/Vol]on 06-28-2022 MCHC (RBC) [Mass/Vol] 32.5 g/dL 32-36 [facility] Work Phone: No Panel Informationon 06-28 Estimated Creatinine Clearance Calc 57.35 ml/min [facility] Work Phone: Estimated GFR (MDRD) Amer 78 mL/min >60 [facility] Work Phone: Comment on above: GFR Calc Estimated GFR (MDRD) Non-Af Amer 64 mL/min >60 [facility] Work Phone: Comment on above: Non- GFR Calc Troponin I High Sensitivity 5 pg/mL 3.0-54.0 [facility] Work Phone: Comment on above: Please Note: New Mayte t Units and Gender Specific Reference Ranges. For more information see Policy Stat Procedure [place] High Sensitivity Troponin (TNIH) and attachments. Platelets bldon 06-28-2022 Platelets (Bld) [#/Vol] 351 10*3/uL 150-450 [facility] Work Phone: Serum or plasma calcium donal urement (mass/volume)on 06-28-2022 Calcium [Mass/Vol] 9.1 mg/dL 8.5-10.1 [facility] Work Phone: Serum or plasma creatinine m easurement (mass/volume)on 06-28-2022 Creatinine [Mass/Vol] 0.94 mg/dL 0.55-1.02 [facility] Work Phone: Comment on above: The validity of the calculated GFR & GFRAA in patients over 70 years has not been determined. Clinical correlation is essential. Serum or plasma urea nitroge n measurement (mass/volume)on 06-28-2022 Urea nitrogen [Mass/Vol] 20 mg/dL 7-18 [facility] Work Phone: Thin prep Papanicolaou smear with manual screeningon 06-28-2022 Thin prep Papanicolaou smear with manual screening 7 5-15 [facility] Work Phone: Vital Signs Date Time Vital Sign Value Performing Clinician Facility 05-29-2025 18:30-0400 Body temperature 99.7 [degF] Jose Astudillo MD Work Phone: [facility] 05-29-2025 18:30-0400 Body weight 106 kg Jose Astudillo MD Work Phone: [facility] 05-29-2025 18:30-0400 Diastolic blood pressure 90 mm[Hg] Jose Astudillo MD Work Phone: [facility] 05-29-2025 18:30-0400 Heart rate 93 /min Jose Astudillo MD Work Phone: [facility] 05-29-2025 18:30-0400 Respiratory rate 20 /min Jose Astudillo MD Work Phone: [facility] 05-29-2025 18:30-0400 SaO2% (BldA) [Mass fraction] 96 % Jose Astudillo MD Work Phone: [facility] 05-29-2025 18:30-0400 Systolic blood pressure 150 mm[Hg] Jose Astudillo MD Work Phone: [facility] 05-12-2025 18:49-0400 Body temperature 98.49 [degF] Reyna Alva HEALTHCARE FACILITY ADMINISTRATOR.[employer]AC[employer]Y MEMBER Work Phone: [facility] 05-12-2025 18:49-0400 Body weight 106.9 kg Reyna Alva HEALTHCARE FACILITY ADMINISTRATOR.[employer]AC[employer]Y MEMBER Work Phone: [facility] 05-12-2025 18:49-0400 Diastolic blood pressure 78 mm[Hg] Reyna Alva HEALTHCARE FACILITY ADMINISTRATOR.[employer]AC[employer]Y MEMBER Work Phone: [facility] 05-12-2025 18:49-0400 Heart rate 77 /min Reyna Alva HEALTHCARE FACILITY ADMINISTRATOR.[employer]AC[employer]Y MEMBER Work Phone: [facility] 05-12-2025 18:49-0400 Respiratory rate 16 /min Reyna Alva HEALTHCARE FACILITY ADMINISTRATOR.[employer]AC[employer] MEMBER Work Phone: [facility] 05-12-2025 18:49-0400 SaO2% (BldA) [Mass fraction] 98 % Reyna Alva HEALTHCARE FACILITY ADMINISTRATOR.[employer] FAC[employer]Y MEMBER Work Phone: [facility] 05-12-2025 18:49-0400 Systolic blood pressure 130 mm[Hg] Reyna Alva HEALTHCARE FACILITY ADMINISTRATOR.[employer]AC[employer]Y MEMBER Work Phone: [facility] 02-16-2025 08:18-0400 Body height 167.[address] Kendrick Kendall DO Work Phone: [facility] 02-16-2025 08:18-0400 Body mass index (BMI) [Ratio] 37.5 kg/m2 Dr. Kendrick Kendall DO Work Phone: [facility] 02-16-2025 08:18-0400 Body temperature 97.8 [degF] Dr. Kendrick Kendall DO Work Phone: [facility] 02-16-2025 08:18-0400 Body weight 105.[address] Kendrick Kendall DO Work Phone: [facility] 02-16-2025 08:18-0400 Diastolic blood pressure 70 mm[Hg] Dr. Kendrick Kendall DO Work Phone: [facility] 02-16-2025 08:18-0400 Heart rate 73 /min Dr. Kendrick Kendall DO Work Phone: [facility] 02-16-2025 08:18-0400 Respiratory rate 16 /min Dr. Kendrick Kendall DO Work Phone: [facility] 02-16-2025 08:18-0400 SaO2% (BldA) [Mass fraction] 96 % Dr. Kendrick Kendall DO Work Phone: [facility] 02-16-2025 08:18-0400 Systolic blood pressure 145 mm[Hg] Dr. Kendrick Kendall DO Work Phone: [facility] 12-29-2024 09:22-0400 Body height 167.[address] Kendrick Kendall DO Work Phone: [facility] 12-29-2024 09:22-0400 Body mass index (BMI) [Ratio] 38.1 kg/m2 Dr. Kendrick Kendall DO Work Phone: [facility] 12-29-2024 09:22-0400 Body temperature 97.2 [degF] Dr. Kendrick Kendall DO Work Phone: [facility] 12-29-2024 09:22-0400 Body weight 107.[address] Kendrick Kendall DO Work Phone: [facility] 12-29-2024 09:22-0400 Diastolic blood pressure 84 mm[Hg] Dr. Kendrick Kendall DO Work Phone: [facility] 12-29-2024 09:22-0400 Heart rate 72 /min Dr. Kendrick Kendall DO Work Phone: [facility] 12-29-2024 09:22-0400 Respiratory rate 18 /min Dr. Kendrick Kendall DO Work Phone: [facility] 12-29-2024 09:22-0400 SaO2% (BldA) [Mass fraction] 98 % Dr. Kendrick Kendall DO Work Phone: [facility] 12-29-2024 09:22-0400 Systolic blood pressure 137 mm[Hg] Dr. Kendrick Kendall DO Work Phone: [facility] 12-29-2024 08:30-0400 Body mass index (BMI) [Ratio] 37.9 kg/m2 Dr. Kendrick Kendall DO Work Phone: [facility] 12-29-2024 08:30-0400 Body temperature 97.8 [degF] Dr. Kendrick Kendall DO Work Phone: [facility] 12-29-2024 08:30-0400 Body weight 106.[address] Kendrick Kendall DO Work Phone: [facility] 12-29-2024 08:30-0400 Diastolic blood pressure 79 mm[Hg] Dr. Kendrick Kendall DO Work Phone: [facility] 12-29-2024 08:30-0400 Heart rate 75 /min Dr. Kendrick Kendall DO Work Phone: [facility] 12-29-2024 08:30-0400 Respiratory rate 18 /min Dr. Kendrick Kendall DO Work Phone: [facility] 12-29-2024 08:30-0400 SaO2% (BldA) [Mass fraction] 96 % Dr. Kendrick Kendall DO Work Phone: [facility] 12-29-2024 08:30-0400 Systolic blood pressure 122 mm[Hg] Dr. Kendrick Kendall DO Work Phone: [facility] 12-08-2024 12:35-0400 Body height 167.[address] Kendrick Kendall DO Work Phone: [facility] 12-08-2024 12:35-0400 Body weight 106.[address] Kendrick Kendall DO Work Phone: [facility] 12-08-2024 12:35-0400 Heart rate 71 /min Dr. Kendrick Kendall DO Work Phone: [facility] 12-08-2024 12:35-0400 SaO2% (BldA) [Mass fraction] 94 % Dr. Kendrick Kendall DO Work Phone: [facility] 12-01-2024 11:20-0400 Body temperature 97.8 [degF] Dr. Kendrick Kendall DO Work Phone: [facility] 12-01-2024 11:20-0400 Diastolic blood pressure 70 mm[Hg] Dr. Kendrick Kendall DO Work Phone: [facility] 12-01-2024 11:20-0400 Heart rate 61 /min Dr. Kendrick Kendall DO Work Phone: [facility] 12-01-2024 11:20-0400 Respiratory rate 16 /min Dr. Kendrick Kendall DO Work Phone: [facility] 12-01-2024 11:20-0400 SaO2% (BldA) [Mass fraction] 97 % Dr. Kendrick Kendall DO Work Phone: [facility] 12-01-2024 11:20-0400 Systolic blood pressure 141 mm[Hg] Dr. Kendrick Kendall DO Work Phone: [facility] 12-01-2024 09:21-0400 Body height 167.[address] Kendrick Kendall DO Work Phone: [facility] 12-01-2024 09:21-0400 Body mass index (BMI) [Ratio] 40.7 kg/m2 Dr. Kendrick Kendall DO Work Phone: [facility] 12-01-2024 09:21-0400 Body weight 114.[address] Kendrick Kendall DO Work Phone: [facility] 11-20-2024 19:13-0500 Body mass index (BMI) [Ratio] 39.25 kg/m2 Morgan Saravia HEALTHCARE FACILITY ADMINISTRATOR.[employer]AC[employer]Y MEMBER Work Phone: [facility] 11-20-2024 19:13-0500 Body temperature 98.49 [degF] Morgan Saravia HEALTHCARE FACILITY ADMINISTRATOR.[employer] FAC[employer]Y MEMBER Work Phone: [facility] 11-20-2024 19:13-0500 Body weight 107 kg Morgan Saravia HEALTHCARE FACILITY ADMINISTRATOR.[employer]AC[employer]Y MEMBER Work Phone: [facility] 11-20-2024 19:13-0500 Diastolic blood pressure 91 mm[Hg] Morgan Saravia HEALTHCARE FACILITY ADMINISTRATOR.[employer]AC[employer]Y MEMBER Work Phone: [facility] 11-20-2024 19:13-0500 Heart rate 70 /min Morgan Saravia HEALTHCARE FACILITY ADMINISTRATOR.[employer]AC[employer]Y MEMBER Work Phone: [facility] 11-20-2024 19:13-0500 Respiratory rate 22 /min Morgan Saravia HEALTHCARE FACILITY ADMINISTRATOR.NATURAL RESOURCES FACULTY MEMBER Work Phone: [facility] 11-20-2024 19:13-0500 SaO2% (BldA) [Mass fraction] 99 % Morgan Saravia HEALTHCARE FACILITY ADMINISTRATOR.NATURAL RESOURCES FACULTY MEMBER Work Phone: [facility] 11-20-2024 19:13-0500 Systolic blood pressure 154 mm[Hg] Morgan Saravia HEALTHCARE FACILITY ADMINISTRATOR.NATURAL RESOURCES FACULTY MEMBER Work Phone: [facility] 11-10-2024 13:14-0500 Body height 167.[address] Kendrick Kendall DO Work Phone: [facility] 11-10-2024 13:14-0500 Body mass index (BMI) [Ratio] 37.9 kg/m2 Dr. Kendrick Kendall DO Work Phone: [facility] 11-10-2024 13:14-0500 Body weight 106.[address] Kendrick Kendall DO Work Phone: [facility] 11-10-2024 13:14-0500 Diastolic blood pressure 81 mm[Hg] Dr. Kendrick Kendall DO Work Phone: [facility] 11-10-2024 13:14-0500 Heart rate 78 /min Dr. Kendrick Kendall DO Work Phone: [facility] 11-10-2024 13:14-0500 Respiratory rate 17 /min Dr. Kendrick Kendall DO Work Phone: [facility] 11-10-2024 13:14-0500 SaO2% (BldA) [Mass fraction] 94 % Dr. Kendrick Kendall DO Work Phone: [facility] 11-10-2024 13:14-0500 Systolic blood pressure 141 mm[Hg] Dr. Kendrick Kendall DO Work Phone: [facility] 10-27-2024 09:12-0500 Body mass index (BMI) [Ratio] 37.1 kg/m2 Dr. Kendrick Kendall DO Work Phone: [facility] 10-27-2024 09:12-0500 Body temperature 97.6 [degF] Dr. Kendrick Kendall DO Work Phone: [facility] 10-27-2024 09:12-0500 Body weight 104.[address] Kendrick Kendall DO Work Phone: [facility] 10-27-2024 09:12-0500 Diastolic blood pressure 84 mm[Hg] Dr. Kendrick Kendall DO Work Phone: [facility] 10-27-2024 09:12-0500 Heart rate 77 /min Dr. Kendrick Kendall DO Work Phone: [facility] 10-27-2024 09:12-0500 Respiratory rate 18 /min Dr. Kendrick Kendall DO Work Phone: [facility] 10-27-2024 09:12-0500 SaO2% (BldA) [Mass fraction] 96 % Dr. Kendrick Kendall DO Work Phone: [facility] 10-27-2024 09:12-0500 Systolic blood pressure 138 mm[Hg] Dr. Kendrick Kendall DO Work Phone: [facility] 10-23-2023 13:03-0500 Body temperature 97.8 [degF] Dr. Kendrick Kendall Work Phone: [facility] 10-23-2023 13:03-0500 Body weight 106.[address] Kendrick Kendall Work Phone: [facility] 10-23-2023 13:03-0500 Diastolic blood pressure 80 mm[Hg] Dr. Kendrick Kendall Work Phone: [facility] 10-23-2023 13:03-0500 Heart rate 78 /min Dr. Kendrick Kendall Work Phone: [facility] 10-23-2023 13:03-0500 Respiratory rate 18 /min Dr. Kendrick Kendall Work Phone: [facility] 10-23-2023 13:03-0500 SaO2% (BldA) [Mass fraction] 95 % Dr. Kendrick Kendall Work Phone: [facility] 10-23-2023 13:03-0500 Systolic blood pressure 141 mm[Hg] Dr. Kendrick Kendall Work Phone: [facility] 10-22-2023 06:00-0500 Body height 167.[address] Kendrick Kendall Work Phone: [facility] 10-22-2023 06:00-0500 Body mass index (BMI) [Ratio] 37.1 kg/m2 Dr. Kendrick Kendall Work Phone: [facility] 10-22-2023 06:00-0500 Body temperature 97.3 [degF] Dr. Kendrick Kendall Work Phone: [facility] 10-22-2023 06:00-0500 Body weight 104.[address] Kendrick Kendall Work Phone: [facility] 10-22-2023 06:00-0500 Diastolic blood pressure 87 mm[Hg] Dr. Kendrick Kendall Work Phone: [facility] 10-22-2023 06:00-0500 Heart rate 80 /min Dr. Kendrick Kendall Work Phone: [facility] 10-22-2023 06:00-0500 Respiratory rate 20 /min Dr. Kendrick Kendall Work Phone: [facility] 10-22-2023 06:00-0500 SaO2% (BldA) [Mass fraction] 92 % Dr. Kendrick Kendall Work Phone: [facility] 10-22-2023 06:00-0500 Systolic blood pressure 150 mm[Hg] Dr. Kendrick Kendall Work Phone: [facility] 01-15-2023 08:06-0400 Body height 167.[address] Kendrick Kendall Work Phone: [facility] 01-15-2023 08:06-0400 Body mass index (BMI) [Ratio] 37.5 kg/m2 Dr. Kendrick Kendall Work Phone: [facility] 01-15-2023 08:06-0400 Body temperature 95.3 [degF] Dr. Kendrick Kendall Work Phone: [facility] 01-15-2023 08:06-0400 Body weight 105.[address] Kendrick Kendall Work Phone: [facility] 01-15-2023 08:06-0400 Diastolic blood pressure 85 mm[Hg] Dr. Kendrick Kendall Work Phone: [facility] 01-15-2023 08:06-0400 Heart rate 68 /min Dr. Kendrick Kendall Work Phone: [facility] 01-15-2023 08:06-0400 Respiratory rate 20 /min Dr. Kendrick Kendall Work Phone: [facility] 01-15-2023 08:06-0400 SaO2% (BldA) [Mass fraction] 95 % Dr. Kendrick Kendall Work Phone: [facility] 01-15-2023 08:06-0400 Systolic blood pressure 148 mm[Hg] Dr. Kendrick Kendall Work Phone: [facility] 11-20-2022 10:00-0500 Body temperature 97.9 [degF] Dr. Kendrick Kendall Work Phone: [facility] 11-20-2022 10:00-0500 Diastolic blood pressure 78 mm[Hg] Dr. Kendrick Kendall Work Phone: [facility] 11-20-2022 10:00-0500 Heart rate 55 /min Dr. Kendrick Kendall Work Phone: [facility] 11-20-2022 10:00-0500 Respiratory rate 16 /min Dr. Kendrick Kendall Work Phone: [facility] 11-20-2022 10:00-0500 SaO2% (BldA) [Mass fraction] 97 % Dr. Kendrick Kendall Work Phone: [facility] 11-20-2022 10:00-0500 Systolic blood pressure 109 mm[Hg] Dr. Kendrick Kendall Work Phone: [facility] 11-20-2022 07:53-0500 Body height 167.[address] Kendrick Kendall Work Phone: [facility] 11-20-2022 07:53-0500 Body mass index (BMI) [Ratio] 36.6 kg/m2 Dr. Kendrick Kendall Work Phone: [facility] 11-20-2022 07:53-0500 Body weight 102.[address] Kendrick Kendall Work Phone: [facility] 10-30-2022 07:07-0500 Body height 167.[address] Sabina Simons Work Phone: [facility] 10-30-2022 07:02-0500 Body mass index (BMI) [Ratio] 37.1 kg/m2 Dr. Sabina Simons Work Phone: [facility] 10-30-2022 07:02-0500 Body temperature 98.1 [degF] Dr. Sabina Simons Work Phone: [facility] 10-30-2022 07:02-0500 Body weight 104.[address] Sabina Simons Work Phone: [facility] 10-30-2022 07:02-0500 Diastolic blood pressure 86 mm[Hg] Dr. Sabina Simons Work Phone: [facility] 10-30-2022 07:02-0500 Heart rate 56 /min Dr. Sabina Simons Work Phone: [facility] 10-30-2022 07:02-0500 Respiratory rate 18 /min Dr. Sabina Simons Work Phone: [facility] 10-30-2022 07:02-0500 SaO2% (BldA) [Mass fraction] 96 % Dr. Sabina Simons Work Phone: [facility] 10-30-2022 07:02-0500 Systolic blood pressure 152 mm[Hg] Dr. Sabina Simons Work Phone: [facility] 10-16-2022 13:02-0500 Body mass index (BMI) [Ratio] 36.8 kg/m2 Dr. Sabina Simons Work Phone: [facility] 10-16-2022 13:02-0500 Body weight 103.[address] Sabina Simons Work Phone: [facility] 10-16-2022 13:02-0500 Diastolic blood pressure 80 mm[Hg] Dr. Sabina Simons Work Phone: [facility] 10-16-2022 13:02-0500 Respiratory rate 16 /min Dr. Sabina Simons Work Phone: [facility] 10-16-2022 13:02-0500 Systolic blood pressure 129 mm[Hg] Dr. Sabina Simons Work Phone: [facility] 07-23-2022 01:08-0400 Diastolic blood pressure 82 mm[Hg] Dr. Sabina Simons Work Phone: [facility] 07-23-2022 01:08-0400 Heart rate 67 /min Dr. Sabina Simons Work Phone: [facility] 07-23-2022 01:08-0400 Respiratory rate 15 /min Dr. Sabina Simons Work Phone: [facility] 07-23-2022 01:08-0400 SaO2% (BldA) [Mass fraction] 97 % Dr. Sabina Simons Work Phone: [facility] 07-23-2022 01:08-0400 Systolic blood pressure 150 mm[Hg] Dr. Sabina Simons Work Phone: [facility] 07-22-2022 21:44-0400 Body height 167.[address] Sabina Simons Work Phone: [facility] Work Phone: 07-22-2022 21:44-0400 Body mass index (BMI) [Ratio] 38.5 kg/m2 Dr. Sabina Simons Work Phone: [facility] 07-22-2022 21:44-0400 Body temperature 97 [degF] Dr. Sabina Simons Work Phone: [facility] 07-22-2022 21:44-0400 Body weight 108.[address] Sabina Simons Work Phone: [facility] 07-13-2022 07:50-0400 Body height 167.[address] Sabina Simons Work Phone: [facility] Work Phone: 07-13-2022 07:50-0400 Body mass index (BMI) [Ratio] 38.6 kg/m2 Dr. Sabina Simons Work Phone: [facility] 07-13-2022 07:50-0400 Body temperature 97.3 [degF] Dr. Sabina Simons Work Phone: [facility] 07-13-2022 07:50-0400 Body weight 108.[address] Sabina Simons Work Phone: [facility] 07-13-2022 07:50-0400 Diastolic blood pressure 78 mm[Hg] Dr. Sabina Simons Work Phone: [facility] 07-13-2022 07:50-0400 Heart rate 76 /min Dr. Sabina Simons Work Phone: [facility] 07-13-2022 07:50-0400 Respiratory rate 17 /min Dr. Sabina Simons Work Phone: [facility] 07-13-2022 07:50-0400 SaO2% (BldA) [Mass fraction] 96 % Dr. Sabina Simons Work Phone: [facility] 07-13-2022 07:50-0400 Systolic blood pressure 133 mm[Hg] Dr. Sabina Simons Work Phone: [facility] 06-28-2022 22:47-0400 Diastolic blood pressure 102 mm[Hg] [facility] Work Phone: 06-28-2022 22:47-0400 Heart rate 63 /min [facility] Work Phone: 06-28-2022 22:47-0400 Respiratory rate 17 /min [facility] Work Phone: 06-28-2022 22:47-0400 SaO2% (BldA) [Mass fraction] 95 % [facility] Work Phone: 06-28-2022 22:47-0400 Systolic blood pressure 167 mm[Hg] [facility] Work Phone: 06-28-2022 20:14-0400 Body height 167.64 cm [facility] Work Phone: 06-28-2022 20:14-0400 Body mass index (BMI) [Ratio] 38.5 kg/m2 [facility] Work Phone: 06-28-2022 20:14-0400 Body weight 108.2 kg [facility] Work Phone: 06-28-2022 19:13-0400 Body temperature 97.8 [degF] [facility] Work Phone: Encounters Encounter Date Encounter Type Care Provider Facility Start: 06-08-2025 ambulatory Babak Clarke Facility: [facility] Start: 05-29-2025 End: 05-29-2025 Subsequent hospital visit by physician Xr [facility] Work Phone: Radiology Comment on above: SOB (shortness of br eath) [R06.02] Start: 05-29-2025 End: 05-29-2025 Office outpatient visit 25 minutes Jose Astudillo MD Work Phone: [facility] Comment on above: Moderate persistent asthma with (acute) exacerbation (HCC) (Primary Dx); Acute bacterial rhinosinusitis; SOB (shortness of breath) Start: 05-29-2025 End: 05-29-2025 ambulatory SABINA SIMONS Facility:[facility] Start: 05-12-2025 End: 05-12-2025 Subsequent hospital visit by physician Xr [facility] Work Phone: Radiology Comment on above: Pharyngitis, unspeci fied etiology [J02.9] Start: 05-12-2025 End: 05-12-2025 ambulatory SABINA SIMONS Facility:[facility] Start: 05-12-2025 End: 05-12-2025 Patient encounter procedure Reyna Alva ZOFIA.NATURAL RESOURCES FACULTY MEMBER Work Phone: [facility] Comment on above: Pharyngitis, unspeci fied etiology (Primary Dx); Rhinosinusitis; Acute cough; Abnormal finding on chest xray; Uncomplicated asthma, unspecified asthma severity, unspecified whether persistent (HCC) Start: 02-16-2025 End: 02-16-2025 Patient encounter procedure Jodie HARKINS -[facility] Work Phone: Start: 02-16-2025 End: 02-16-[address] Kendrick Kendall DO Work Phone: [facility] Work Phone: Start: 12-29-2024 End: 12-29-2024 Patient encounter procedure Jodie HARKINS -[facility] Work Phone: Start: 12-29-2024 End: 12-29-2024 ambulatory Kendrick Kendall Facility:[facility] Start: 12-29-2024 End: 12-29-[address] Kendrick Kendall DO Work Phone: [facility] Work Phone: Start: 12-29-2024 End: 12-29-[address] Babak Clarke MD -Laboratory, Specimen Work Phone: Start: 12-29-2024 End: 12-29-[address] Babak Clarke MD -[facility] Work Phone: Start: 12-29-2024 End: 12-29-2024 ambulatory Babak Vince Facility:[facility] Start: 12-29-2024 End: 12-29-2024 ambulatory Babak Clarke Facility:[facility] Start: 12-10-2024 ambulatory Kendrick Kendall Facility: [facility] Start: 12-10-2024 Non-patient / Non-visit Dr. Jonathon ward DO -[facility] Start: 12-08-2024 End: 12-08-[address] Kendrick Kendall DO Work Phone: [facility] Work Phone: Start: 12-08-2024 End: 12-08-2024 Patient encounter procedure Jodie Salguero UNIFIED COMMUNICATIONS ARCHITECT-C -Pulmonary Services/Neurology Work Phone: Start: 12-08-2024 End: 12-08-2024 ambulatory Kendrick Faiza Facility:[facility] Start: 12-01-2024 ambulatory Kimmie Butcher y:[facility] Start: 12-01-2024 Non-patient / Non-visit Dr. Barrett Olmos MD -[facility] Start: 12-01-2024 End: 12-01-2024 Admission to same day surgery center Dr. Kimmie Olmos MD -Endoscopy Work Phone: Start: 12-01-2024 End: 12-01-[address] Kendrick Kendall DO Work Phone: [facility] Work Phone: Start: 11-24-2024 ambulatory Babak Clarke Facility: [facility] Start: 11-20-2024 End: 11-20-2024 ambulatory SABINA Patel HORTENSIATUNDE Facility:[facility] Start: 11-20-2024 End: 11-20-2024 Patient encounter procedure Morgan Saravia APRN.CNP Work Phone: [facility] Comment on above: Sinobronchitis (Prim balbina Dx) Start: 11-17-2024 End: 11-17-[address] Kendrick Kendall DO Work Phone: [facility] Work Phone: Start: 11-17-2024 End: 11-17-[address] Kendrick Kendall DO -Outpatient Breast Imaging Work Phone: Start: 11-17-2024 End: 11-17-2024 ambulatory [facility] Start: 11-10-2024 End: 11-10-[address] Kimmie Olmos MD -[facility] Work Phone: Start: 11-10-2024 End: 11-10-2024 ambulatory [facility] Start: 11-10-2024 End: 11-10-2024 Patient encounter procedure Jodie Salguero UN[employer] COMMUNICATIONS ARCHITECTMitchell -Pulmonary Services/Neurology Work Phone: Start: 11-10-2024 End: 11-10-[address] Kendrick Kendall DO Work Phone: [facility] Work Phone: Start: 11-10-2024 End: 11-10-2024 ambulatory [facility] Start: 10-27-2024 End: 10-27-[address] Kendrick Kendall DO -Ultrasound, [facility] Work Phone: Start: 10-27-2024 End: 10-27-2024 Patient encounter procedure Jodie LONGC -[facility] Work Phone: Start: 10-27-2024 End: 10-27-2024 ambulatory [facility] Facility:[facility] Start: 10-27-2024 End: 10-27-2024 ambulatory [facility] Start: 10-20-2024 End: 10-20-[address] Kendrick Kendall DO -Laboratory, [facility] Start: 10-20-2024 End: 10-20-2024 ambulatory [facility] Start: 08-18-2024 End: 08-18-[address] Usman Tate MD -Laboratory, Specimen Work Phone: Start: 08-18-2024 End: 08-18-2024 ambulatory Kendrick Kendall Facility:[facility] Start: 06-04-2024 End: 06-04-2024 ambulatory Kendrick Kendall Facility:[facility] Start: 06-04-2024 End: 06-04-2024 ambulatory Kimmie Emeritajade Facility:[facility] Start: 12-10-2023 End: 12-10-[address] Kendrick Kendall Work Phone: [facility] Work Phone: Start: 12-10-2023 End: 12-10-[address] Kendrick Kendall Work Phone: [facility]-Ultrasound, [facility] Work Phone: Start: 11-26-2023 End: 11-26-[address] Kendrick Kendall Work Phone: [facility] Work Phone: Start: 11-26-2023 End: 11-26-[address] Kendrick Kendall Work Phone: [facility]-Physical Therapy Work Phone: Start: 11-19-2023 End: 11-19-[address] Kendrick Kendall Work Phone: [facility] Work Phone: Start: 11-19-2023 End: 11-19-[address] Kendrick Kendall Work Phone: [facility]-Cat Scan, [facility] Work Phone: Start: 11-19-[address] Kendrick Kendall Work Phone: [facility]-Physical Therapy Work Phone: Start: 11-15-2023 End: 11-15-[address] Kendrick Kendall Work Phone: [facility] Work Phone: Start: 11-15-2023 End: 11-15-[address] Kendrick Kendall Work Phone: [facility]-Outpatient Bone Densitometry Work Phone: Start: 10-29-2023 End: 10-29-[address] Kendrick Kendall Work Phone: [facility] Work Phone: Start: 10-29-2023 End: 10-29-[address] Kendrick Kendall Work Phone: [facility]-Laboratory, Specimen Work Phone: Start: 10-29-[address] Kendrick Kendall Work Phone: [facility]-Physical Therapy Work Phone: Start: 10-23-2023 End: 10-23-[address] Kendrick Kendall Work Phone: [facility] Work Phone: Start: 10-22-2023 End: 10-22-[address] Kendrick Kendall Work Phone: [facility]-Pulmonary Medicine [facility] Work Phone: Start: 10-15-[address] Kendrick Kendall Work Phone: [facility]-Physical Therapy Work Phone: Start: 10-15-2023 End: 10-15-[address] Kendrick Kendall Work Phone: [facility] Work Phone: Start: 10-15-2023 End: 10-15-[address] [facility] Start: 10-01-2023 Non-patient / Non-visit Dr. Louie Kendall Work Phone: [facility] Start: 10-01-2023 End: 10-01-[address] Kendrick Kendall Work Phone: [facility] Work Phone: Start: 10-01-2023 End: 10-01-[address] Kendrick Kendall Work Phone: [facility]-Cardiovascula r Services Work Phone: Start: 10-01-[address] Kendrick Kendall Work Phone: [facility]-Physical Therapy Work Phone: Start: 02-09-2023 End: 02-09-[address] Kendrick Kendall Work Phone: [facility] Work Phone: Start: 02-09-2023 End: 02-09-[address] Kendrick Kendall Work Phone: [facility] Start: 01-27-2023 End: 01-27-[address] Kendrick Kendall Work Phone: [facility] Start: 01-15-2023 End: 01-15-[address] Kendrick Kendall Work Phone: [facility]-Pulmonary Medicine [facility] Start: 01-01-2023 End: 01-01-[address] Kendrick Kendall Work Phone: [facility] Work Phone: Start: 01-01-2023 End: 01-01-[address] Kendrick Kendall Work Phone: [facility]-Sleep Lab Start: 12-26-2022 Non-patient / Non-visit Dr. Louie Kendall Work Phone: [facility] Start: 12-25-2022 End: 12-25-[address] Kendrick Kendall Work Phone: [facility] Work Phone: Start: 12-25-2022 End: 12-25-[address] Kendrick Kendall Work Phone: [facility]-Pulmonary Services/Neurology Start: 11-20-2022 Non-patient / Non-visit Dr. Louie Kendall Work Phone: [facility] Start: 11-20-2022 End: 11-20-2022 Admission to same day surgery center Dr. Kendrick Kendall Work Phone: [facility]-Endoscopy Start: 11-03-2022 End: 11-03-[address] Kendrick Kendall Work Phone: [facility] Work Phone: Start: 11-03-2022 End: 11-03-[address] Kendrick Kendall Work Phone: [facility]-Laboratory, Specimen Start: 11-03-2022 End: 11-03-[address] Kendrick Kendall Work Phone: [facility] Start: 10-30-2022 End: 10-30-[address] Sabina Simons Work Phone: [facility]-Pulmonary Medicine [facility] Start: 10-23-2022 End: 10-23-[address] Sabina Simons Work Phone: [facility] Work Phone: Start: 10-23-2022 End: 10-23-[address] Sabina Simons Work Phone: [facility]-Outpatient Breast Imaging Start: 10-16-2022 End: 10-16-[address] Sabina Simons Work Phone: [facility] Start: 07-22-2022 End: 07-23-2022 Emergency department patient visit Dr. Sabina Simons Work Phone: [facility]-Emergency Department Start: 07-13-2022 End: 07-13-[address] Sabina Simons Work Phone: [facility] Work Phone: Start: 07-13-2022 End: 07-13-[address] Sabina Simons Work Phone: [facility]-Laboratory, Specimen Start: 07-13-2022 End: 07-13-[address] Sabina Simons Work Phone: [facility] Start: 07-10-2022 End: 07-10-[address] Sabina Simons Work Phone: [facility] Work Phone: Start: 07-10-2022 End: 07-10-[address] Sabina Simons [facility] Start: 06-28-2022 End: 06-28-2022 Emergency department [facility] visit [facility] [facility]gency Department Start: 06-26-2022 End: 06-26-2022 ambulatory [facility] Work Phone: Start: 06-26-2022 End: 06-26-2022 Patient encounter procedure [facility]-Ultrasound, [facility] Start: 05-29-2022 Registered Referred [facility]Cardiov[facility]cul[facility] r Services Start: 06-05-2011 End: 08-16-2012 Patient encounter status Morgan Saravia HEALTHCARE FACILITY ADMINISTRATOR.NATURAL RESOURCES FACULTY MEMBER Work Phone: [facility] Procedures Date Procedure Procedure Detail Performing Clinician Start: 05-29-2025 Radiologic exam chest 2 views Jose johnson MD Work Phone: Start: 05-12-2025 Radiologic exam chest 2 views Reyna cadet HEALTHCARE FACILITY ADMINISTRATOR.NATURAL RESOURCES FACULTY MEMBER Work Phone: Start: 05-12-2025 Iadna streptococcus group a amplified probe tq Reyna Alva HEALTHCARE FACILITY ADMINISTRATOR.NATURAL RESOURCES FACULTY MEMBER Work Phone: Start: 12-01-[address] Kendrick ren DO Work Phone: Start: 11-17-[address] Kendrick Kendall DO Work Phone: Start: 10-27-2024 US scan of thyroid Dr. Kendrick Kendall DO Work Phone: Start: 10-20-2024 Measurement of renal function Dr. Kendrick rivera DO Work Phone: Comment on above: GFR Calc Start: 08-18-[address] Kendrick Kendall DO Work Phone: Start: 08-18-[address] Kendrick rivera DO Work Phone: Start: 12-10-2023 US scan of thyroid Dr. Kendrick Kendall Work Phone: Start: 11-19-2023 CT of chest without contrast Dr. Kendrick Curry Work Phone: Start: 11-15-2023 Dual energy X-ray absorptiometry Dr. Meryl Kendall Work Phone: Start: 11-15-[address] Kendrick Kendall Work Phone: Start: 10-29-2023 Investigation of transfusion reaction Dr. Kendrick Kendall Work Phone: Start: 10-29-[address] Kendrick Kendall Work Phone: Start: 02-09-2023 CT of abdomen with contrast Dr. Kendrick carmona Work Phone: Start: 01-27-[address] Kendrick Kendall Work Phone: Start: 10-23-[address] Sabina Simons Work Phone: Start: 07-22-2022 CT angiography of chest with contrast Dr. Sabina Simons Work Phone: Start: 07-22-2022 Plain chest X-ray Dr. Sabina Simons Work Phone: Start: 06-28-2022 Plain chest X-ray Start: 06-28-2022 CT angiography of head and neck Start: 06-26-2022 US scan of thyroid Start: 07-08-2012 Colonoscopy Morgan Manjit HEALTHCARE FACILITY ADMINISTRATOR.NATURAL RESOURCES FACULTY MEMBER Work Phone: Start: 06-06-2012 Lipid 1996 panel - Serum or Plasma Valeriano hector Manjit HEALTHCARE FACILITY ADMINISTRATOR.NATURAL RESOURCES FACULTY MEMBER Work Phone: Plan of Treatment Date Care Activity Detail Author Start: 05-18-2025 Influenza vaccination Influenza Vaccine (#1) [facility] Start: 12-08-2024 Walking distance 6 minutes [facility] Start: 12-01-2024 Egd transoral biopsy single/multiple EGD BIOPSY SINGLE/MULTIPLE [facility] Start: 12-01-2024 Patient discharge [facility] Start: 09-17-2024 Advance Directive Discussion Advance Directive Discussion [facility] Start: 09-17-2024 Medicare Advantage Annual Wellness Visit Medicare Advantage Annual Wellness Visit [facility] Start: 05-18-2024 Covid-19 Vaccine ( season) Covid-19 Vaccine () [facility] Start: 2023 Screening for osteoporosis Bone Density Screening [facility] Start: 11-20-2022 Colonoscopy w/biopsy single/multiple COLONOSCOPY AND BIOPSY [facility] Start: 11-20-2022 Egd transoral biopsy single/multiple EGD BIOPSY SINGLE/MULTIPLE [facility] Start: 11-20-2022 Patient discharge [facility] Start: 08-16-2022 Urine microalbumin profile DTaP,Tdap,Td Vaccine (3 - Td or Tdap) [facility] Start: 07-22-2022 [facility] Start: 07-08-2022 Screening for malignant neoplasm of colon [facility] Start: 12-04-2017 Diabetes Screening Diabetes Screening [facility] Start: 06-06-2017 Lipid panel Lipid Screening [facility] Start: 02-25-2015 Screening for malignant neoplasm of breast Mammogram Screening [facility] Start: 2008 Shingrix Vaccine (1 of 2) Shingrix Vaccine (1 of 2) [facility] Start: 2003 Screening for malignant neoplasm of colon [facility] Start: 1976 Annual PCP Team Chronic Disease Visit Annual PCP Team Chronic Disease Visit [facility] Start: 1976 Anxiety Screening Anxiety Screening [facility] Start: 1976 BP Controlled (<130/80) BP Controlled (<130/80) [facility] Start: 1976 Depression Screening Depression Screening [facility] Start: [address] [facility] Measurement of respi ratory function [facility] Patient Education [facility] Work Phone: Patient referral [facility] Work Phone: Polysomnography [facility] [place] Thyroid gland [facility] Immunizations Immunization Date Immunization Notes Care Provider Ryan hunt 08-27-2024 influenza virus vacc ine, unspecified formulation Reyna Alva HEALTHCARE FACILITY ADMINISTRATOR.NATURAL [employer]OURCES FACULTY MEMBER Work Phone: [facility] 07-01-2014 influenza, seasonal, injectable Morgan Saravia HEALTHCARE FACILITY ADMINISTRATOR.NATURAL RESOURCES FACULTY MEMBER Work Phone: [facility] 07-12-2013 influenza virus vacc ine, unspecified formulation Morgan Saravia HEALTHCARE FACILITY ADMINISTRATOR.NATURAL RESOURCES FACULTY MEMBER Work Phone: [facility] Work Phone: 08-16-2012 influenza virus vacc ine, unspecified formulation Morgan Saravia HEALTHCARE FACILITY ADMINISTRATOR.NATURAL RESOURCES FACULTY MEMBER Work Phone: [facility] Work Phone: 08-16-2012 tetanus toxoid, redu aparna diphtheria toxoid, and acellular pertussis vaccine, adsorbed Morgan Saravia HEALTHCARE FACILITY ADMINISTRATOR.NATURAL RESOURCES FACULTY MEMBER Work Phone: [facility] 08-18-2009 novel influenza-H1N1 -09, all formulations Morgan Saravia HEALTHCARE FACILITY ADMINISTRATOR.NATURAL RESOURCES FACULTY MEMBER Work Phone: [facility] 09-26-2000 pneumococcal polysaccharide vaccine, 23 valent Morgan Saravia HEALTHCARE FACILITY ADMINISTRATOR.NATURAL [employer]OURCES FACULTY MEMBER Work Phone: [facility] 07-04-2000 diphtheria and tetan us toxoids, adsorbed for pediatric use Morgan King ZOFIA.[employer] RES[employer] FACULTY MEMBER Work Phone: [facility] Payers Date Payer Category Payer Medicare (Managed Care) MMO ANUSHA DVANTAGE HMO [id number] 2024 Self-pay [id number] 2023 Unknown [id number] Unknown [facility] [place] [id number] Unknown MEJIA RULE [id number] Unknown [facility] PACKAGE PLAN . [id number] Unknown [id number] Unknown [id number] .462 Unknown [id number] [id number] .462 Unknown [id number] [id number] .462 Unknown [id number] 2.840.1.493699.3.579.2 .462 Unknown [id number] 2.16.840.1.256775.3.579.2 .462 Unknown [id number] 2.16.840.1.313724.3.579.2 .462 Unknown [id number] 2.16.840.1.517854.3.579.2 .462 Unknown [id number] 2.16.840.1.519100.3.579.2 .462 Unknown [id number] 2.16.840.1.168777.3.579.2 .462 Unknown [id number] 2.16.840.1.072671.3.579.2 .462 Unknown [id number] 2.16.840.1.409262.3.579.2 .462 Unknown [id number] 2.16.840.1.584866.3.579.2 .462 Unknown [id number] 2.16.840.1.461556.3.579.2 .462 Unknown [id number] 2.16.840.1.950244.3.579.2 .462 Unknown [id number] 2.16.840.1.329047.3.579.2 .462 Unknown [id number] 2.16.840.1.724620.3.579.2 .462 Unknown [id number] 2.16.840.1.136349.3.579.2 .462 Unknown [id number] 2.16.840.1.426403.3.579.2 .462 Unknown [id number] 2.16.840.1.055559.3.579.2 .462 Unknown [id number] 2.16.840.1.708993.3.579.2 .462 Unknown [id number] 2.16.840.1.972949.3.579.2 .462 Social History Date Type Detail Facility Start: 06-28-2022 End: 10-23-2023 Tobacco smoking status LAIS Unknown if ever smoked [facility] Start: 1960 Sex Assigned At Female [facility] Start: 11-20-2024 End: 11-28-2024 Tobacco smoking status NHIS Ex-smoker [facility] Start: 09-17-1974 End: 09-17-1989 History of tobacco use Current smoker [facility] Start: 09-17-1974 End: 09-17-1989 History of tobacco use Cigarette Smoker [facility] Start: 11-20-2024 End: 05-29-2025 Cigarettes smoked current (pack per day) - Reported 2 [facility] Start: 11-20-2024 Tobacco use and exposure Smokeless tobacco non-user [facility] Start: 11-20-2024 End: 05-29-2025 Alcoholic beverage intake Current non-drinker of alcohol (finding) [facility] Start: 11-20-2024 End: 05-29-[address] [facility] Start: 1960 Sex assigned at Not on file [facility] Start: 11-22-2024 End: 12-31-2024 Sex Female (finding) [facility] Start: 08-18-[address] [facility] NEGATED: Highlighted row Not [facility] Goals Date Patient Goal Desired Activity /State Functional Status Date Assessment Result Facility 02-15-2015 Are you deaf, or do you have serious difficulty hearing No 02/15/2015 8:08 AM Jazz Marie LPN No [facility] 02-15-2015 Are you blind, or do you have serious difficulty seeing, even when wearing glasses No 02/15/2015 8:08 AM Jazz Marie LPN No [facility] 02-15-2015 Do you have serious difficulty walking or climbing stairs No 02/15/2015 8:08 AM Jazz Marie LPN No [facility] 02-15-2015 Do you have difficul ty dressing or bathing No 02/15/2015 8:08 AM Jazz Marie LPN No [facility] 02-15-2015 Because of a physica l, mental, or emotional condition, do you have difficulty doing errands alone such as visiting a physician's office or shopping No 02/15/2015 8:08 AM EDT Jazz Thakur LPN No [facility] Mental Status Date Assessment Result Facility 12-01-2024 Cognitive function Voice/Name [facility] Work Phone: 11-20-2022 Cognitive function Voice/Name [facility] Work Phone: 07-22-2022 Cognitive function Voice/Name [facility] Work Phone: 06-28-2022 Cognitive function Voice/Name [facility] Work Phone: 02-15-2015 Because of a physica l, mental, or emotional condition, do you have serious difficulty concentrating, remembering, or making decisions No 02/15/2015 8:08 AM EDT Jazz Thakur LPN No [facility] Clinical Notes 12-26-2022 to 05-29-2025 Patient InstructionsChikis Andrade RT(R) - 05/29/2025 6:50 PM EDTJose Astudillo MD - 05/29/2025 6:35 PM EDReyna Garcia APRN.NATURAL RESOURCES FACULTY MEMBER - 05/12/2025 7:26 PM EDT Note Date & Type Note Facility 05-29-2025 Instructions Jose Astudillo MD - 05/29/2025 7:53 PM EDT -Use your albuterol inhaler every 2 hours as needed for cough, chest tightness -Take prednisone 40 mg x 5 days, 30 mg x 2 days, 20 mg x 2 days, 10 mg x 2 days -Take Augmentin 2 pills twice per day for 7 days -If your symptoms do not improve please go to the emergency room for further management documented in this encounter [facility] 05-29-2025 History of Present illness Narrative Radiology Service Progress Note PATIENT NAME: Barbara Diana DATE OF SERVICE: May 29, 2025 TIME: 6:50 PM PATIENT IDENTITY VERIFICATION COMPLETED USING TWO (2) IDENTIFIERS: Name and Date of confirmed by patient verbally. FALL SCREENING: Has the patient had 2 falls in the last year or 1 fall with injury or currently using an Ambulatory Assistive Device (Walker, Cane, Wheelchair, Crutches, etc.)? No PATIENT GENDER DATA: Assigned female at . status: : No status: NO. PATIENT RELEVANT IMPLANT DATA REVIEWED: Yes PATIENT PRESENTS WITH AN IMPLANTABLE OR ATTACHED COUNTER CLERK FARM EQUIPMENT PARTS: No RADIOLOGY DEPARTMENT: General X-ray: Exam(s) Completed: Chest X-Ray PERIPHERAL IV DATA: Not applicable SIGNED BY: RT Octavia(Nick) May 29, 2025 6:50 PM documented in this encounter [facility] 05-29-2025 Note HNO ID: [id number] Author: CHIKIS ANDRADE RT(R) Service: ? Author Type: Technologist Type: Progress Notes Filed: 05/29/2025 18:58 Note Text: Radiology Service Progress Note PATIENT NAME: Barbara Diana DATE OF SERVICE: May 29, 2025 TIME: 6:50 PM PATIENT IDENTITY VERIFICATION COMPLETED USING TWO (2) IDENTIFIERS: Name and Date of confirmed by patient verbally. FALL SCREENING: Has the patient had 2 falls in the last year or 1 fall with injury or currently using an Ambulatory Assistive Device (Walker, Cane, Wheelchair, Crutches, etc.)? No PATIENT GENDER DATA: Assigned female at . status: : No status: NO. PATIENT RELEVANT IMPLANT DATA REVIEWED: Yes PATIENT PRESENTS WITH AN IMPLANTABLE OR ATTACHED COUNTER CLERK FARM EQUIPMENT PARTS: No RADIOLOGY DEPARTMENT: General X-ray: Exam(s) Completed: Chest X-Ray PERIPHERAL IV DATA: Not applicable SIGNED BY: RT Octavia(R) May 29, 2025 6:50 PM [facility] 05-29-2025 Note HNO ID: [id number] Author: JOSE ASTUDILLO MD Service: ? Author Type: Physician Type: Progress Notes Filed: 05/29/2025 19:54 Note Text: [facility] Subjective Barbara Diana is a 64 year old female. Patient presents with: Cough: Chest congestion, Shortness of Breath, wheezing, bilateral ear pain x2 weeks, persisting from 05/12 HPI -64 yo F was seen 05/12/25 and treated for asthma exacerbation and sinusitis with doxycycline and medrol dose pack -symptoms improved significantly and then worsened immediately after med completion with progressive worsening of sob, chest tightness(similar to prior episode), nasal congestion with purulent drainage, wheezing, coughing -she is using her albuterol inhaler and maint inhaler with some relief but symptoms are progressing and there is burning pain of the sinuses and in her lungs -she denies fevers or chills Review of Systems -see hpi Objective BP 150/90 Pulse 93 Temp 37.6 ?C (99.7 ?F) Resp 20 Wt 106 kg (233 lb 11 oz) SpO2 96% Physical Exam Constitutional: General: She is not in acute distress. Appearance: She is not toxic-appearing. HENT: Head: Comments: Frontal and maxillary sinus TTP Right Ear: Tympanic membrane, ear canal and external ear normal. Left Ear: Tympanic membrane, ear canal and external ear normal. Nose: Congestion present. Cardiovascular: Rate and Rhythm: Normal rate and regular rhythm. Heart sounds: No murmur heard. Pulmonary: Effort: Pulmonary effort is normal. No respiratory distress. Breath sounds: No stridor. No wheezing, rhonchi or rales. Comments: Significant cough observed with resultant audible wheezing Neurological: Mental Status: She is alert. Psychiatric: Mood and Affect: Mood normal. Behavior: Behavior normal. Thought Content: Thought content normal. {ASSESSMENT/PLAN: 1. Moderate persistent asthma with (acute) exacerbation (HCC) - ICD9: 493.92, ICD10: J45.41 (primary diagnosis) 2. Acute bacterial rhinosinusitis - ICD9: 461.9, ICD10: J01.90, B96.89 3. SOB (shortness of breath) - ICD9: 786.05, ICD10: R06.02 -Given patient's improvement and then recurrence of sinusitis symptoms and sob, chest tightness, cough, I am most suspicious for incomplete treatment of asthma exacerbation and bacterial sinusitis -Will prescribe prednisone taper -Cont albuterol q2 PRN and maint inhaler BID -Will treat with high dose Augmentin for resistant sinusitis -Given CXR with nonspecific opacity and significant cough, will cover for PNA with high dose Augmentin and given prior coverage with doxycyline no need for atypical coverage -Discussed that if patient does not improve and worsens significantly patient is to go to the ED for further care and patient was agreeable to this plan - PREDNISONE 20 MG TABLET - AMOXICILLIN-POTASSIUM CLAVULANATE 1,000 MG-62.5 MG TABLET,EXT.REL 12HR - XR CHEST 2V FRONTAL/LAT Jose Astudillo MD [facility] May 29, 2025 6:35 PM MDM Procedures [facility] 05-29-2025 History of Present illness Narrative [facility] Diana is a 64 year old female. Patient presents with: Cough: Chest congestion, Shortness of Breath, wheezing, bilateral ear pain x2 weeks, persisting from 05/12 HPI -64 yo F was seen 05/12/25 and treated for asthma exacerbation and sinusitis with doxycycline and medrol dose pack -symptoms improved significantly and then worsened immediately after med completion with progressive worsening of sob, chest tightness(similar to prior episode), nasal congestion with purulent drainage, wheezing, coughing -she is using her albuterol inhaler and maint inhaler with some relief but symptoms are progressing and there is burning pain of the sinuses and in her lungs -she denies fevers or chills Review of Systems -see hpi Objective BP 150/90 Pulse 93 Temp 37.6 C (99.7 F) Resp 20 Wt 106 kg (233 lb 11 oz) SpO2 96% Physical Exam Constitutional: General: She is not in acute distress. Appearance: She is not toxic-appearing. HENT: Head: Comments: Frontal and maxillary sinus TTP Right Ear: Tympanic membrane, ear canal and external ear normal. Left Ear: Tympanic membrane, ear canal and external ear normal. Nose: Congestion present. Cardiovascular: Rate and Rhythm: Normal rate and regular rhythm. Heart sounds: No murmur heard. Pulmonary: Effort: Pulmonary effort is normal. No respiratory distress. Breath sounds: No stridor. No wheezing, rhonchi or rales. Comments: Significant cough observed with resultant audible wheezing Neurological: Mental Status: She is alert. Psychiatric: Mood and Affect: Mood normal. Behavior: Behavior normal. Thought Content: Thought content normal. {ASSESSMENT/PLAN: 1. Moderate persistent asthma with (acute) exacerbation (HCC) - ICD9: 493.92, ICD10: J45.41 (primary diagnosis) 2. Acute bacterial rhinosinusitis - ICD9: 461.9, ICD10: J01.90, B96.89 3. SOB (shortness of breath) - ICD9: 786.05, ICD10: R06.02 -Given patient's improvement and then recurrence of sinusitis symptoms and sob, chest tightness, cough, I am most suspicious for incomplete treatment of asthma exacerbation and bacterial sinusitis -Will prescribe prednisone taper -Cont albuterol q2 PRN and maint inhaler BID -Will treat with high dose Augmentin for resistant sinusitis -Given CXR with nonspecific opacity and significant cough, will cover for PNA with high dose Augmentin and given prior coverage with doxycyline no need for atypical coverage -Discussed that if patient does not improve and worsens significantly patient is to go to the ED for further care and patient was agreeable to this plan - PREDNISONE 20 MG TABLET - AMOXICILLIN-POTASSIUM CLAVULANATE 1,000 MG-62.5 MG TABLET,EXT.REL 12HR - XR CHEST 2V FRONTAL/LAT Jose Astudillo MD [facility] May 29, 2025 6:35 PM MDM Procedures documented in this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 [address] EGD Report MR#: [id number] Acct: [id number] Name: ROSEMARY DIANAANNE DANICA Rep #:[id number] : 1960 64 From: Kimmie Olmos MD PCP: Dr. Kendrick Kendall, DO Status:REG [facility] Patient Name: Barbara Diana Procedure Date: 12/01/2024 10:44 AM Date of : 1960 Age: 64 Procedure: Upper GI endoscopy Indications: Romero's esophagus Providers: Kimmie Olmos MD Referring MD: Kendrick Kendall Medicines: Monitored Anesthesia Care Patient Profile: This is a 64 year old female. Complications: No immediate complications. Procedure: Pre-Anesthesia Assessment: - Prior to the procedure, a History and Physical was performed, and patient medications and allergies were reviewed. The patient's tolerance of previous anesthesia was also reviewed. The risks and benefits of the procedure and the sedation options and risks were discussed with the patient. All questions were answered, and informed consent was obtained. Prior Anticoagulants: The patient has taken no anticoagulant or antiplatelet agents. ASA Grade Assessment: Per anesthesia. After reviewing the risks and benefits, the patient was deemed in satisfactory condition to undergo the procedure. After obtaining informed consent, the endoscope was passed under direct vision. Throughout the procedure, the patient's blood pressure, pulse, and oxygen saturations were monitored continuously. The Endoscope was introduced through the mouth, and advanced to the second part of duodenum. The upper GI endoscopy was accomplished without difficulty. The patient tolerated the procedure well. Scope In: 10:56:18 AM Scope Out: 11:02:13 AM Total Procedure Duration Time 0 hours 5 minutes 55 seconds Findings: The Z-line was irregular and was found 41 cm from the incisors. Biopsies were taken with a cold forceps for histology. The examined duodenum was normal. A small hiatal hernia was present. Mildly erythematous mucosa without bleeding was found in the gastric antrum. Biopsies were taken with a cold forceps for histology. Biopsies were taken with a cold forceps for Helicobacter pylori cultures. No gross lesions were noted in the entire esophagus. Impression: - Z-line irregular, 41 cm from the incisors. Biopsied. - Normal examined duodenum. - Small hiatal hernia. - Erythematous mucosa in the antrum. Biopsied. - No gross lesions in the entire esophagus. Recommendation: - Await pathology results. - Discharge patient to home. - Resume previous diet. - Continue present medications. Procedure Code(s): --- Professional --- 38594, PT, Esophagogastroduodenoscopy, flexible, transoral; with biopsy, single or multiple Diagnosis Code(s): --- Professional --- K22.89, Other specified disease of esophagus K22.70, Romero's esophagus without dysplasia K44.9, Diaphragmatic hernia without obstruction or gangrene K31.89, Other diseases of stomach and duodenum CPT copyright 2021 [employer]. All rights reserved. The codes documented in this report are preliminary and upon paleobotanist review may be revised to meet current compliance requirements. MD Kimmie Hernandes MD 12/01/2024 11:09:31 AM This report has been signed electronically. Number of Addenda: 0 Note Initiated On: 12/01/2024 10:44 AM 12/01/24 1109 Date _ Kimmie Olmos MD Cosigner Signature: Date (if indicated) CC: Dr. Kendrick Kendall DO; Dr. Kimmie Olmos MD ~ Date Dictated: 12/01/24 1044 Date Transcribed: Cigar Packing Examiner: TR Signed [facility]03-17-2025 Procedure note [facility] Medical Records Department [address] [place] [address] Operative Report - CC Letter MR#: [id number] Acct: [id number] Name: BARBARA DIANA Rep #:[id number] : 1960 64 From: Kimmei Olmos MD PCP: Dr. Kendrick Kendall DO [place] [facility]/01/2024 Kendrick Kendall [address] [facility] [place] [address] [place] [address] Re : Upper GI endoscopy procedure for Barbara Diana Dear Dr. Kendall This procedure was performed on Sunday, December 01, 2024. My impressions and recommendations are as follows: Impressions : - Z-line irregular, 41 cm from the incisors. Biopsied. - Normal examined duodenum. - Small hiatal hernia. - Erythematous mucosa in the antrum. Biopsied. - No gross lesions in the entire esophagus. Recommendations : - Await pathology results. - Discharge patient to home. - Resume previous diet. - Continue present medications. My findings are described in the full procedure note, which is enclosed. If I can be of further assistance, please feel free to contact me at Doctor phone number(s): , Work: . Sincerely, MD Kimmie Hernandes MD 12/01/2024 11:09:31 AM This report has been signed electronically. 12/01/24 1109 Date _ Kimmie Olmos MD Cosigner Signature: Date (if indicated) CC: Dr. Kendrick Kendall DO; Dr. Kimmie Olmos MD ~ Date Dictated: 12/01/24 1044 Date Transcribed: Cigar Packing Examiner: TR Signed [facility]03-17-2025 Consult note [facility] Medical Records Department [address] [place] [address] Anesthesia Postop Eval I 12/01/24 1108 MR#: [id number] Acct: [id number] Name: BARBARA DIANA Rep #:[id number] : 1960 64 From: Jarad Monson CRNA PCP: Dr. Kednrick Kendall DO Status:REG SDC Y Race: C Location: [place] [address] Anesthesia: Postop Eval I Current Vital Signs Temperature: 97.0 F Pulse Rate: 66 Blood Pressure: 111/56 Respiratory Rate: 20 Pulse Ox: 98 Oxygen Delivery Method: Room Air Assessment Airway patent: Yes Spontaneous unlabored respirations: Yes Mental status: Awake nausea: No Vomiting: No Anesthesia Complication: No Fluid Hydration Crystalloid volume administer (ml): 30 Total IV fluid infused: 30 Progress Note Anesthesia document: Postop Eval 1 completed: Yes 12/01/24 1109 y TEST ANALYST> Date _ Jarad Monson TEST ANALYST Cosigner Signature: Date CC: ~ Signed [facility]03-17-2025 Consult note [facility] Medical Records Department [address] [place] [address] Pre-Anesthesia Evaluation 12/01/24 1022 MR#: [id number] Acct: [id number] Name: BARBARA DIANA Rep #:[id number] : 1960 64 From: Caty Gomez PCP: Dr. Kendrick Kendall, DO Status:REG SDC Y Race: C Location: [place] [address] ASA Classification* ASA Classification ASA Classification: 3 Assessment & Plan Anesthesia* Anesthesia Assessment Anesthesia Assessment: Discussed sedation and/or anesthesia options, risks, benefits, and alternatives with patient/parents/legal guardian/POA. Questions invited. The patient/parents/legal guardian/POA seems to understand and agrees to proceedwith anesthesia plan. Reviewed the physical assessment, medical history, allergy history and patient home medications list prior to surgery/procedure/anesthetic and documented any changes. Performed airway and anesthesia risk assessments. Anesthesia Type Anesthesia Type: MAC History Source History Obtained from:: Patient and Chart Anesthesia Focused Assessment* Temperature: 97.7 F Pulse Rate: 63 Blood Pressure: 135/56 Respiratory Rate: 16 Pulse Ox: 95 Oxygen Delivery Method: Room Air Airway Assessment Mouth opens: >3 cm Mallampati Score: II Teeth Condition: Dentures (Upper) and Lower (partial, teeth still in mouth are intact) Neck Range of motion (ROM): Full ROM Focused Labs Anesthesia Preop lab: CBC WBC 5.1 K/mm3 (4.4-11.0) 10/20/24 08:52 10/20/24 RBC 4.48 M/mm3 (4.2-5.4) 10/20/24 08:52 10/20/24 Hgb 12.7 g/dL (12.0-15.0) 10/20/24 08:52 10/20/24 Hct 41.2 % (37-47) 10/20/24 08:52 10/20/24 Plt Count 346 K/mm3 (150-450) 10/20/24 08:52 10/20/24 CHEMISTRY Potassium 3.8 mmol/L (3.5-5.1) 10/20/24 08:52 10/20/24 Sodium 140 mmol/L (136-145) 10/20/24 08:52 10/20/24 Magnesium 2.2 mg/dL (1.8-2.4) 04/12/15 10:00 04/12/15 BUN 14 mg/dL (7-18) 10/20/24 08:52 10/20/24 Creatinine 1.03 mg/dL (0.55-1.02) H 10/20/24 08:52 Glucose 128 mg/dL (74-106) H 10/20/24 08:52 10/20/24 TSH 2.080 uIU/mL (0.358-3.740) 10/20/24 08:52 0212/09 COAG Pre-Assessment Diagnosis/Proposed Procedure Planned Operative Procedure(s): EGD Anesthesia History Anesthesia History - surveillance specialist: Anesthesia History - surveillance specialist Hx Hospitalization No 11/28/24 14:13 Any Problems With Anesthesia No 11/28/24 14:13 Cholinesterase deficiency No 11/28/24 14:13 You/Your Family Experience No 11/28/24 14:13 fever (hyperthermia) with Relationship Recent Exposure to Contagious No 12/01/24 09:18 Disease Does patient have nerve No 11/28/24 14:13 stimulator Patient instructed to have device shut off --Does patient have Pacemaker No 12/01/24 09:21 or ICD? When Was Last Pacemaker Check QUESTION #4 FULL TEXT: You/Your Family Experience fever (hyperthermia) with Anesthesia Last Oral Intake Last Oral intake: Last Oral Intake NPO since 22:00 12/01/24 09:21 Meds taken in AM with sips of Yes 12/01/24 09:21 water? Meds patient instructed to take am of surgery PONV PONV - surveillance specialist: PONV - surveillance specialist Female Yes 11/28/24 14:13 HX of Motion Sickness Yes 11/28/24 14:13 HX of N/V After Surgery No 11/28/24 14:13 Non-Smoker Yes 11/28/24 14:13 Duration of Surgery greater No 11/28/24 14:13 than 60 minutes Number of Risk Factors 3 11/28/24 14:13 PONV Score Moderate Risk 11/28/24 14:13 Height & Weight Height & Weight: Anesthesia: Height & Weight Height 5 ft 6 in 12/01/24 09:21 Weight: 114.577 kg 12/01/24 09:21 Body Mass Index (BMI) 40.7 12/01/24 09:21 Respiratory Assessment Respiratory Assessment - surveillance specialist: Respiratory Tract Infection Hx - surveillance specialist Hx Respiratory Tract Infection Yes: URI TREATED/RESOLVED 11/28/24 14:13 STOP Sleep Apnea STOP Sleep Apnea - surveillance specialist: STOP Sleep Apnea - surveillance specialist Hx Hypertension Yes: CONTROLLED ON MED 11/28/24 14:13 Hx Sleep Apnea Yes 11/28/24 14:13 CPAP Yes 11/28/24 14:13 BIPAP No 11/28/24 14:13 Do you snore loudly (louder than talking or can be heard Do you often feel tired/ fatigued/ sleepy during daytime? Has anyone observed you stop breathing during sleep? STOP Results Positive 11/28/24 14:13 QUESTION #5 FULL TEXT : Do you snore loudly (louder than talking or can be heard through closeddoors)? Tobacco Use History Tobacco Use History - surveillance specialist: Tobacco Use History - surveillance specialist Tobacco Use Smoking Status Former smoker 11/28/24 14:13 Hx Tobacco Use No 11/28/24 14:13 Years Smoking Packs Smoked per Day Smoking Cessation Date was No - quit smoking greater 11/28/24 14:13 within the last 15 years than 15 years ago Hx Smoking Cessation Date Hx Smoking Cessation No 11/28/24 14:13 Counseling Hematologic Medial History Hematologic Hx - surveillance specialist: Hematologic Medical Hx - signal apprentice Hx of Blood Transfusion No 11/28/24 14:13 Hx of Transfusion in last 3 No 11/28/24 14:13 Months Date of Last Transfusion (if within last 3 months) Ever experience any problems No 11/28/24 14:13 with transfusion(s)? Specify any problems Hx of Preganancy in last 3 No 11/28/24 14:13 Months Nurse Filling Out Transfusion DSCHRIBER 11/28/24 14:13 & Questions: Date: 11/28/24 11/28/24 14:13 Time: 14:15 11/28/24 14:13 Patient unable to answer at this time (ie. confused, unrespo /Reproduction History /Reproductive History - surveillance specialist: /Reproductive Hx- surveillance specialist Hx Now No 11/28/24 14:13 Gestational Age (in weeks): EDC: Hx Hx Para Hx Section SAB No 11/28/24 14:13 PFSH Medical History Thyroid disease Difficulty swallowing Barretts esophagus BMI 37.0-37.9, adult Wears hearing aid Wears dentures Wears glasses Post-menopausal History of steroid therapy Arthritis Back pain Injury of head and neck TIA (transient ischemic attack) History of IBS Gastric reflux Former smoker CPAP (continuous positive airway pressure) dependence Asthma History of edema Hx of lipoma Wheezing Allergic rhinitis due to allergen Incidental lung nodule, > 3mm and < 8mm NICOLAS on CPAP SOB (shortness of breath) HTN (hypertension) Home Medications ?Medication ?Instructions ?Recorded ?Last Taken ?Type multivitamin (One-A-Day Essential 1 tab PO QAM 8 11/30/24 History tablet) losartan 50 mg tablet 50 mg PO DAILY 07/13/2211/15 07:00 History estradiol 0.5 mg tablet 0.5 mg PO DAILY 10/16/22 History fexofenadine 180 mg tablet 180 mg PO DAILY 11/16/22 History fluticasone propionate 50 2 spray intranasal BID Aller gic 01/15/23 11/30/24 Rx mcg/actuation nasal rhinitis #30 mL spray,suspension (Flonase Allergy Relief) albuterol sulfate 90 mcg/actuation 1 - 2 inh inhalatio n PRN PRN 10/27/24 12/01/24 06:00 Rx aerosol inhaler ASTHMA #8.5 grams omeprazole 40 mg capsule,delayed 40 mg PO QDAY #30 cap s 11/10/24 12/01/24 06:00 Rx release sucralfate 1 gram tablet 1 g PO QACHS #56 tabs 11/30/24 Rx Allergy/AdvReac Type Severity Reaction Status Date / Time adhesive tape Allergy Intermediate Rash Verified 12/01/24 09:17 grass pollen Allergy Unknown Verified 12/01/24 09:17 mold Allergy Unknown Verified 12/01/24 09:17 Family History Other Asthma Cancer Diabetes Hypertension Surgical History Hx of colonoscopy History of esophagogastroduodenoscopy (EGD) Hx of umbilical hernia repair History of hysterectomy H/O foot surgery History of tonsillectomy Social History Smoking Status: Former smoker second hand exposure: Yes alcohol intake: never Review of Systems (Anesthesia) ROS Narrative System reviewed and no additional complaints, except as documented. 12/01/24 1024 a> Date _ Caty Gomez Cosigner Signature: Date CC: ~ Signed [facility]03-17-2025 History and physical note [facility] Medical Records Department [address] [place] [address] History & Physical Exam 12/01/24 0947 MR#: [id number] Acct: [id number] Name: BARBARA DIANA Rep #:[id number] : 1960 64 From: Kimmie Olmos MD PCP: Dr. Kendrick Kendall, DO [place] [facility]: [address] History and Physical Date of Admission: 12/01/24 Date of Service: 11/10/24 MR#: [id number] Acct: [id number] Name: BARBARA DIANA Rep #: [id number] : 1960 Provider: Dr. Kimmie Olmos MD Age/Sex: 64/F Location: [facility] Status: Signed Intake Vital Signs 05/05/2413:35 10/27/2508:12 11/10/2512:14 Height 5 ft 6 in 5 ft 6 in 5 ft 6 in Weight: 230 lb 235 lb BMI 37.1 37.9 BP 138/84 H 141/81 H Blood Pressure Location Lt brachial Rt brachial Position Sitting Sitting Respiration 18 17 Pulse 77 78 Pulse Source Monitor Monitor Temp 97.6 F L Pulse Oximetry (%) 96 94 Oxygen Delivery Method room air room air Intake Visit Reasons: RECALL EGD Chief Complaint: recall egd Is patient in pain?: No Allergies adhesive tape Allergy (Intermediate, Verified 11/10/24 13:15) Rashgrass pollen Allergy (Verified 11/10/24 13:15) Unknownmold Allergy (Verified 11/10/24 13:15) Unknown Medications ?Medication ?Instructions ?Recorded ?Confirmed ?Type multivitamin (One-A-Day Essential 1 tab PO QAM 12/03/17 11/10/24 History tablet) losartan 50 mg tablet 50 mg PO DAILY 07/13/22 11/10/24 History estradiol 0.5 mg tablet 0.5 mg PO DAILY 10/16/22 11/10/24 Histor y fexofenadine 180 mg tablet 180 mg PO DAILY 11/16/22 10/27/24 Histor y fluticasone propionate 50 2 spray intranasal BID Allergic 01/15/23 11/10/24 Rx mcg/actuation nasal rhinitis #30 mL spray,suspension (Flonase Allergy Relief) albuterol sulfate 90 mcg/actuation 1 - 2 inh inhalation PRN PRN 10/27/24 11/10/24 Rx aerosol inhaler ASTHMA #8.5 grams omeprazole 40 mg capsule,delayed 40 mg PO QDAY #30 caps 11/10/24 11/10/24 Rx release sucralfate 1 gram tablet 1 g PO QACHS #56 tabs 11/10/24 11/10/24 Rx Have you fallen in the past year?: No PFSH Medical History Barretts esophagus BMI 37.0-37.9, adult Wears hearing aid Wears dentures Wears glasses Post-menopausal History of steroid therapy Arthritis Back pain Injury of head and neck TIA (transient ischemic attack) History of IBS Gastric reflux Former smoker CPAP (continuous positive airway pressure) dependence Sleep apnea Asthma History of edema Hx of lipoma Wheezing Allergic rhinitis due to allergen Incidental lung nodule, > 3mm and < 8mm NICOLAS on CPAP Chest pain SOB (shortness of breath) HTN (hypertension) Surgical History History of hysterectomy H/O foot surgery History of tonsillectomy History of hernia surgery Family History (Reviewed 10/27/24 @ 13:28 by Jodie Salguero UNIFIED COMMUNICATIONS ARCHITECT, UNIFIED COMMUNICATIONS ARCHITECT-C) Other Asthma Cancer Diabetes Hypertension Social History (Reviewed 10/27/24 @ 13:28 by Jodie Salguero UNIFIED COMMUNICATIONS ARCHITECT, UNIFIED COMMUNICATIONS ARCHITECT-C) Smoking Status: Former smoker second hand exposure: Yes alcohol intake: never HPI HPI HPI: 64-year-old female presents due to history of Romero's patient's last EGD was 11/20/2022. Patient has been on Protonix 40 mg p.o. daily. Patient states for the last month she has had daily symptoms with burning in her epigastrium and upher esophagus. Patient notices the reflux abdominal discomfort in the morning before she overeats as well as at night when she is laying down. Patient did cut back on her coffee as she did think it was making it worse. Patient previously had colonoscopy in 2022 aswell which she did have tubular adenomas recommend 5-year follow-up. ROS General General: No weight change, appetite, fatigue, colon cancer or breast cancer HEENT HEENT: No difficulty swallowing, eye injury, eye surgery, swollen glands or hoarseness Endo Endocrine: Yes thyroid disease; No diabetes mellitus, thyroid cancer, Hair loss, heat intolerance or cold intolerance Skin Skin: No rash or changing moles Musc Musculoskeletal: Yes back problems and arthritis; No rheumatoid arthritis, gout or joint pain Cardio Cardiovascular: Yes high blood pressure and shortness of breat with exertion; No murmur, pacemaker, heart disease, atrial fibrillation, heart attack, heart stent, palpitations or chest pain Psych Psychiatric: No depression, anxiety or hearing voices Resp Respiratory: Yes shortness of breath, Yes sleep apnea, No cough, No COPD, Yes asthma, No emphysema and No wheezing Gastro Gastrointestinal: No abdominal pain, No nausea or vomiting, No diarrhea, No constipation, No blood in stool, Yes acid reflux, No hemorrhoids, No ulcers, No gallbladder problem and No black,tarry stools [place] Hematologic: No blood thinners, No blood disorders, No bleeding, No anemia and No blood clots Neuro Neurologic: No numbness and No tingling Exam Const General: cooperative, healthy appearing, comfortable and no acute distress [facility] Head: normocephalic and atraumatic Neck Neck: supple Resp Effort & Inspection: normal respiratory effort Cardio Rate: regular rate GI Inspection: non-distended Palpation: soft, no guarding and tender in the epigastrum and in the LUQ; with no rebound tenderness Skin General: no rashes or lesions noted Neuro General: CN's II-XI intact bilaterally Extrem General: normal to inspection Psych Mental Status: mental status grossly normal Attitude: cooperative Assessment and Plan Assessment and Plan (1) 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 I have offered the patient esophagogastroduodenoscopy for evaluation. I have explained the risks/benefits of the procedure and described the procedure. I have discussed the risks with the patient, including but not limited to: infection, bleeding, perforation of the GItract requiring emergency surgery, inability to complete the procedure, injury to any internal organs, complications of anesthesia, etc. - the patient understands and agrees to proceed. I have answered all the patient's questions to the patient's satisfaction and the patient has no further questions. Kimmie Olmos M.D. Pager: [phone] [facility] [address] [place] [address], [address] [place] [address] Office: 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 Kendrick Kendall DO; Dr. Kimmie Olmos MD~ Signed ADDENDUM by Dr. Kimmie Olmos MD on 12/01/24 at 1020 Addendum I have examined the patient the following changes are noted: Patient's heartburnhas improved with the omeprazole and Carafate change at time of appointment. 12/01/24 1020 Cosigner Signature (if applicable): cc: Dr. Kendrick Kendall DO; Dr. Kimmie Olmos MD ~* Signed [facility]03-17-2025 [facility] Medical Records Department [address] [place] [address] History Physical Exam 12/01/24 0947 MR#: [id number] Acct: [id number] Name: BARBARA DIANA Rep #: [id number] : 1960 64 From: Kimmie Olmos MD PCP: Dr. Kendrick Kendall DO Status:[facility] Location: [place] [address] History and Physical Date of Admission: 12/01/24 Date of Service: 11/10/24 MR#: [id number] Acct: [id number] Name: BARBARA DIAAN DANICA Rep #: [id number] : 1960 Provider: Dr. Kimmie Olmos MD Age/Sex: 64/F Location: [facility] Status: Signed Intake Vital Signs 05/05/2413:35 10/27/2508:12 11/10/2512:14 Height 5 ft 6 in 5 ft 6 in 5 ft 6 in Weight: 230 lb 235 lb BMI 37.1 37.9 BP 138/84 H 141/81 H Blood Pressure Location Lt brachial Rt brachial Position Sitting Sitting Respiration 18 17 Pulse 77 78 Pulse Source Monitor Monitor Temp 97.6 F L Pulse Oximetry (%) 96 94 Oxygen Delivery Method room air room air Intake Visit Reasons: RECALL EGD Chief Complaint: recall egd Is patient in pain?: No Allergies adhesive tape Allergy (Intermediate, Verified 11/10/24 13:15) Rashgrass pollen Allergy (Verified 11/10/24 13:15) Unknownmold Allergy (Verified 11/10/24 13:15) Unknown Medications ???Medication ???Instructions ???Recorded ???Confirmed ???Type multivitamin (One-A-Day Essential 1 tab PO QAM 12/03/17 11/10/24 History tablet) losartan 50 mg tablet 50 mg PO DAILY 07/13/22 11/10/24 History estradiol 0.5 mg tablet 0.5 mg PO DAILY 10/16/22 11/10/24 History fexofenadine 180 mg tablet 180 mg PO DAILY 11/16/22 10/27/24 History fluticasone propionate 50 2 spray intranasal BID Allergic 01/15/23 11/10/24 Rx mcg/actuation nasal rhinitis #30 mL spray,suspension (Flonase Allergy Relief) albuterol sulfate 90 mcg/actuation 1 - 2 inh inhalation PRN PRN 10/27/24 11/10/24 Rx aerosol inhaler ASTHMA #8.5 grams omeprazole 40 mg capsule,delayed 40 mg PO QDAY #30 caps 11/10/24 11/10/24 Rx release sucralfate 1 gram tablet 1 g PO QACHS #56 tabs 11/10/24 11/10/24 Rx Have you fallen in the past year?: No PFSH Medical History Barretts esophagus BMI 37.0-37.9, adult Wears hearing aid Wears dentures Wears glasses Post-menopausal History of steroid therapy Arthritis Back pain Injury of head and neck TIA (transient ischemic attack) History of IBS Gastric reflux Former smoker CPAP (continuous positive airway pressure) dependence Sleep apnea Asthma History of edema Hx of lipoma Wheezing Allergic rhinitis due to allergen Incidental lung nodule, > 3mm and < 8mm NICOLAS on CPAP Chest pain SOB (shortness of breath) HTN (hypertension) Surgical History History of hysterectomy H/O foot surgery History of tonsillectomy History of hernia surgery Family History (Reviewed 10/27/24 @ 13:28 by Jodie Salguero UNIFIED COMMUNICATIONS ARCHITECT, UNIFIED COMMUNICATIONS ARCHITECT-C) Other Asthma Cancer Diabetes Hypertension Social History Smoking Status: Former smoker second hand exposure: Yes alcohol intake: never HPI HPI HPI: 64-year-old female presents due to history of Romero's patient's last EGD was 11/20/2022. Patient has been on Protonix 40 mg p.o. daily. Patient states for the last month she has had daily symptoms with burning in her epigastrium and up her esophagus. Patient notices the reflux abdominal discomfort in the morning before she overeats as well as at night when she is laying down. Patient did cut back on her coffee as she did think it was making it worse. Patient previously had colonoscopy in 2022 as well which she did have tubular adenomas recommend 5-year follow-up. ROS General General: No weight change, appetite, fatigue, colon cancer or breast cancer HEENT HEENT: No difficulty swallowing, eye injury, eye surgery, swollen glands or hoarseness Endo Endocrine: Yes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 repair History of hysterectomy H/O foot surgery History of tonsillectomy Social History Smoking Status: Former smoker second hand exposure: Yes alcohol intake: never Review of Systems (Anesthesia) ROS Narrative System reviewed and no additional complaints, except as documented. 12/01/24 1024 <Electronically signed by Caty patel> Date _ Caty Gomez Cosigner Signature: Date CC: ~ Signed [facility] Work Phone: Consult note Author Jarad Monson [facility] Note Date/Time December 01, 2024 11: 09am [facility] Medical Records Department [address] [place] [address] Anesthesia Postop Eval I 12/01/24 1108 MR#: [id number] Acct: [id number] Name: BARBARA DIANA Rep #:[id number] : 1960 64 From: Jarad Monson CRNA PCP: Dr. Kendrick Kendall, DO Status:REG SDC Y Race: C Location: [place] [address] Anesthesia: Postop Eval I Current Vital Signs Temperature: 97.0 F Pulse Rate: 66 Blood Pressure: 111/56 Respiratory Rate: 20 Pulse Ox: 98 Oxygen Delivery Method: Room Air Assessment Airway patent: Yes Spontaneous unlabored respirations: Yes Mental status: Awake nausea: No Vomiting: No Anesthesia Complication: No Fluid Hydration Crystalloid volume administer (ml): 30 Total IV fluid infused: 30 Progress Note Anesthesia document: Postop Eval 1 completed: Yes 12/01/24 1109 <Electronically signed by Jarad sal CRNA> Date _ Jarad Monson CRNA Cosigner Signature: Date CC: ~ Signed [facility] Work Phone: Consult note Author Caty Gomez [facility] Note Date/Time December 01, 2024 11: 15am [facility] Medical Records Department [address] [place] [address] Anesthesia Postop Eval II 12/01/24 1115 MR#: [id number] Acct: [id number] Name: BARBARA DIANA Rep #:[id number] : 1960 64 From: Caty Gomez PCP: Dr. Kendrick Kendall, DO Status:[place] [facility]: C Location: [place] [address] Anesthesia Postop Eval I Sum Postop Eval Completion status Anesthesia document: Postop Eval 1 completed: Yes Anesthesia Postop Eval I Summary Anesthesia Postop Eval I Summary: Anesthesia Postop Eval I: Assessment Summary Airway patent Yes 12/01/24 11:09 TEST ANALYST.PKEL Spontaneous unlabored Yes 12/01/24 11:09 TEST ANALYST.PKEL respirations Mental status Awake 12/01/24 11:09 TEST ANALYST.PKEL nausea No 12/01/24 11:09 TEST ANALYST.PKEL Vomiting No 12/01/24 11:09 TEST ANALYST.PKEL Anesthesia Postop Eval I: Fluid Summary Crystalloid volume administer 30 12/01/24 11:09 TEST ANALYST.PKMORTEZA (ml) Colloids volume administered ( ml) Blood Product volume administered (ml) Total IV fluid infused 30 12/01/24 11:09 TEST ANALYST.MELY Anesthesia Postop Eval I: Summary Notes Anesthesia Complication No 12/01/24 11:09 TEST ANALYSTJESSICA Anesthesia Complication Comment: Post-operative progress note Anesthesia: Postop Eval II Evaluation Mental status: Awake Pain Level: 0 nausea: No Vomiting: No 12/01/24 1115 <Electronically signed by Caty patel> Date _ Caty Modi Signature: Date CC: ~ Signed [facility] Work Phone: Evaluation noteNo assessment information available [facility] Work Phone: Evaluation note* Diagnosis Onset Date Resolution Status [id number] acute Asthma noneactive [facility] Work Phone: Evaluation note* Diagnosis Onset Date Resolution Status [id number] acute Asthma noneactive GERD (gastroesophageal reflux disease) acute Hx of colonic polyp acute Lipoma of back acute Allergic rhinitis due to allergen chronic Incidental lung nodule, > 3mm and < 8mm chronic NICOLAS on CPAP chronic Wheezing chronic [facility] [place] Work Phone: Evaluation note* Diagnosis Onset Date Resolution Status GERD (gastroesophageal reflux disease) acute Hx of colonic polyp acute Lipoma of back acute Allergic rhinitis due to allergen chronic Incidental lung nodule, > 3mm and < 8mm chronic NICOLAS on CPAP chronic Wheezing chronic Lipoma of back acute [facility] [place] Work Phone: Evaluation note* Diagnosis Onset Date Resolution Status GERD (gastroesophageal reflux disease) acute Hx of colonic polyp acute Lipoma of back acute Allergic rhinitis due to allergen chronic Incidental lung nodule, > 3mm and < 8mm chronic NICOLAS on CPAP chronic Wheezing chronic Lipoma of back acute GERD (gastroesophageal reflux disease) acute Hx of colonic polyp acute [facility] [place] Work Phone: Evaluation note* Diagnosis Onset Date Resolution Status GERD (gastroesophageal reflux disease) acute Hx of colonic polyp acute Lipoma of back acute Allergic rhinitis due to allergen chronic Incidental lung nodule, > 3mm and < 8mm chronic NICOLAS on CPAP chronic Wheezing chronic Lipoma of back acute GERD (gastroesophageal reflux disease) acute Hx of colonic polyp acute BMI 37.0-37.9, adult acute Allergic rhinitis due to allergen chronic Incidental lung nodule, > 3mm and < 8mm chronic NICOLAS on CPAP chronic [facility] [place] Work Phone: Evaluation note* Diagnosis Onset Date Resolution Status Pulmonary granuloma acute BMI 37.0-37.9, adult chronic NICOLAS on CPAP chronic Venous insufficiency of both lower extremities acute Venous stasis ulcer of left lower leg with edema of left lower leg acute [facility] [place] Work Phone: Evaluation note* Diagnosis Sinobronchitis- Primary Unspecified sinusitis (chronic) [facility] Diagnosis Pharyngitis, unspecified etiology- Primary Rhinosinusitis Unspecified sinusitis (chronic) Acute cough Abnormal finding on chest xray Other nonspecific abnormal finding of lung field Uncomplicated asthma, unspecified asthma severity, unspecified whether persistent (HCC) Pharyngitis, unspecified etiology Rhinosinusitis Unspecified sinusitis (chronic) Acute cough [facility]* Diagnosis Pharyngitis, unspecified etiology Rhinosinusitis Unspecified sinusitis (chronic) Acute cough [facility] Diagnosis Moderate persistent asthma with (acute) exacerbation (HCC)- Primary Acute bacterial rhinosinusitis Acute sinusitis, unspecified SOB (shortness of breath) Shortness of breath SOB (shortness of breath) Shortness of breath 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 Metals Nontoxic single thyroid nodule NEURO BILATERAL THYROID NODULES FNA OF LEFT MID TO LOWER THYROID NODULE Reason for Visit [id number] Asthma Chief Complaint Sales Representative Metals Nontoxic single thyroid nodule NEURO BILATERAL THYROID NODULES FNA OF LEFT MID TO LOWER THYROID NODULE CHEST PAIN Reason for Visit [id number] Asthma Chief Complaint BILATERAL THYROID NO DULES FNA OF LEFT MID TO LOWER THYROID NODULE CHEST PAIN LIPOMA ON BACK/CSCOPE SCREENING Sleep apnea Reason for Visit [id number] Asthma GERD (gastroesophageal reflux disease) Hx of colonic polyp Lipoma of back Allergic rhinitis due to allergen Incidental lung nodule, > 3mm and < 8mm NICOLAS on CPAP Wheezing Chief Complaint CHEST PAIN LIPOMA ON BACK/CSCOPE SCREENING Sleep apnea LIPOMA ON BACK Reason for Visit GERD (gastroesophage al reflux disease) Hx of colonic polyp Lipoma of back Allergic rhinitis due to allergen Incidental lung nodule, > 3mm and < 8mm NICOLAS on CPAP Wheezing Lipoma of back Chief Complaint LIPOMA ON BACK/CSCOP E SCREENING Sleep apnea LIPOMA ON BACK WHEEZING Wheezing Reason for Visit GERD (gastroesophage al reflux disease) Hx of colonic polyp Lipoma of back Allergic rhinitis due to allergen Incidental lung nodule, > 3mm and < 8mm NICOLAS on CPAP Wheezing Lipoma of back GERD (gastroesophageal reflux disease) Hx of colonic polyp Chief Complaint LIPOMA ON BACK/CSCOP E SCREENING Sleep apnea LIPOMA ON BACK WHEEZING Wheezing NICOLAS Reason for Visit GERD (gastroesophage al reflux disease) Hx of colonic polyp Lipoma of back Allergic rhinitis due to allergen Incidental lung nodule, > 3mm and < 8mm NICOLAS on CPAP Wheezing Lipoma of back GERD (gastroesophageal reflux disease) Hx of colonic polyp Chief Complaint LIPOMA ON BACK/CSCOP E SCREENING Sleep apnea LIPOMA ON BACK WHEEZING Wheezing NICOLAS 2 M FU SINUSITIS RT ADRENAL MASS Reason for Visit GERD (gastroesophage al reflux disease) Hx of colonic polyp Lipoma of back Allergic rhinitis due to allergen Incidental lung nodule, > 3mm and < 8mm NICOLAS on CPAP Wheezing Lipoma of back GERD (gastroesophageal reflux disease) Hx of colonic polyp BMI 37.0-37.9, adult Allergic rhinitis due to allergen Incidental lung nodule, > 3mm and < 8mm NICOLAS on CPAP Chief Complaint MIXED INCONTINENCE / RX HERE I83.893 I83.029 Chief Complaint I83.893 I83.029 MIXED INCONTINENCE / RX HERE Chief Complaint I83.893 I83.029 6 M FU CONSULT-VARICOSE VEINS & EDEMA MIXED INCONTINENCE / RX HERE SINUSITIS Reason for Visit Pulmonary granuloma BMI 37.0-37.9, adult NICOLAS on CPAP Venous insufficiency of both lower extremities Venous stasis ulcer of left lower leg with edema of left lower leg Chief Complaint I83.893 I83.029 6 M FU CONSULT-VARICOSE VEINS & EDEMA SINUSITIS SCREENING MIXED INCONTINENCE / RX HERE FU LUNG NODULE Reason for Visit Pulmonary granuloma BMI 37.0-37.9, adult NICOLAS on CPAP Venous insufficiency of both lower extremities Venous stasis ulcer of left lower leg with edema of left lower leg Chief Complaint I83.893 I83.029 6 M FU CONSULT-VARICOSE VEINS & EDEMA SINUSITIS SCREENING FU LUNG NODULE MIXED INCONTINENCE / RX HERE Reason for Visit Pulmonary granuloma BMI 37.0-37.9, adult NICOLAS on CPAP Venous insufficiency of both lower extremities Venous stasis ulcer of left lower leg with edema of left lower leg Chief Complaint I83.893 I83.029 6 M FU CONSULT-VARICOSE VEINS & EDEMA SINUSITIS SCREENING FU LUNG NODULE MIXED INCONTINENCE / RX HERE MULTIPLE NODULES Reason for Visit Pulmonary granuloma BMI 37.0-37.9, adult NICOLAS on CPAP Venous insufficiency of both lower extremities Venous stasis ulcer of left lower leg with edema of left lower leg Chief Complaint Admit Date Other chronic sinusitis August 18 3:19pm 1 Y FU October 27, 2024 1:03pm NODULE October 27, 2024 2:15pm R06.02 - Shortness of breath November 102024 6:48am RECALL EGD November 10, 2024 12:51pm SCREENING November 17, 2024 7:36 am Reason for Visit Admit Date SOB (shortness of breath) October 27, 2024 1:03pm Allergic rhinitis due to allergen 2024 1:03pm NICOLAS on CPAP October 27, 2024 1:03pm 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 ebruary 2024 12:51pm GERD (gastroesophageal reflux disease) F ebruary 2024 12:51pm Chief Complaint Admit Date Other chronic sinusitis August 18 3:19pm 1 Y FU October 27, 2024 1:03pm NODULE October 27, 2024 2:15pm R06.02 - Shortness of breath November 102024 6:48am RECALL EGD November 10, 2024 12:51pm SCREENING November 17, 2024 7:36 am R06.02 - Shortness of breath December 08, 2024 12:14pm R06.02 - Shortness of breath December 10, 2024 11:08am Chief Complaint Admit Date 1 Y FU October 27, 2024 1:03pm NODULE October 27, 2024 2:15pm R06.02 - Shortness of breath November 102024 6:48am RECALL EGD November 10, 2024 12:51pm SCREENING November 17, 2024 7:36 am R06.02 - Shortness of breath December 08, 2024 12:14pm R06.02 - Shortness of breath December 10, 2024 11:08am THYROID NODULE December 29, 2024 8:5 7am THYROID NODULE December 29, 2024 10: 36am 2 M F/U December 29, 2024 2:5 3pm Reason for Visit Admit Date SOB (shortness of breath) October 27, 2024 1:03pm Allergic rhinitis due to allergen 2024 1:03pm NICOLAS on CPAP October 27, 2024 1:03pm 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 ebruary 2024 12:51pm GERD (gastroesophageal reflux disease) F ebruary 2024 12:51pm Multiple thyroid nodules December 29 8:57am Asthma December 29, 2024 2:5 3pm Obesity December 29, 2024 2:5 3pm NICOLAS on CPAP December 29, 2024 2:5 3pm Chief Complaint Admit Date 1 Y FU October 27, 2024 1:03pm NODULE October 27, 2024 2:15pm R06.02 - Shortness of breath November 102024 6:48am RECALL EGD November 10, 2024 12:51pm SCREENING November 17, 2024 7:36 am R06.02 - Shortness of breath December 08, 2024 12:14pm R06.02 - Shortness of breath December 10, 2024 11:08am THYROID NODULE December 29, 2024 8:5 7am THYROID NODULE December 29, 2024 10: 36am 2 M F/U December 29, 2024 2:5 3pm 6 wk FU February 16, 2025 2:22p m Reason for Visit Admit Date SOB (shortness of breath) October 27, 2024 1:03pm Allergic rhinitis due to allergen 2024 1:03pm NICOLAS on CPAP October 27, 2024 1:03pm 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 ebruary 2024 12:51pm GERD (gastroesophageal reflux disease) F ebruary 2024 12:51pm Multiple thyroid nodules December 29 8:57am Asthma December 29, 2024 2:5 3pm Obesity December 29, 2024 2:5 3pm NICOLAS on CPAP December 29, 2024 2:5 3pm Asthma February 16, 2025 2:22p m Obesity February 16, 2025 2:22p m NICOLAS on CPAP February 16, 2025 2:22p m Advance Directives No Advanced Directives Records Found Advance Directive Response Recorded Date/ Time Living Will No June 28 8:03pm Power of Blow Pit Helper No June 28, 2022 8:03pm Advance Directive Response Recorded Date/ Time Living Will No July 22 9:49pm Power of Blow Pit Helper No July 22, 2022 9:49pm Advance Directive Response Recorded Date/ Time Living Will No July 22 8:49pm Power of Blow Pit Helper No July 22, 2022 8:49pm Advance Directive Response Recorded Date/ Time Living Will No November 16, 2022 10:48am Power of Blow Pit Helper No November 16 10:48am Advance Directive Response Recorded Date/ Time Living Will No November 16, 2022 9:48am Power of Blow Pit Helper No November 16 9:48am Advance Directive Response Recorded Date/ Time Living Will No November 16, 2022 10:48am Power of Blow Pit Helper No November 16 10:48am Living Will No November 28, 2024 2:13pm Power of Blow Pit Helper No November 28 2:13pm Advance Directive Response Recorded Date/ Time Living Will No November 16, 2022 10:48am Do you have a Healthcare Power of Blow Pit Helper? No November 16, 2022 10:48am Living Will No November 28, 2024 2:13pm Do you have a Healthcare Power of Blow Pit Helper? No November 28, 2024 2:13pm Family History No Family History Records Found Relationship Condition Age at Onset Recorded Date/T larisa Not Specified Diabetes mellitus Unknown Malignant neoplasm Unknown Hypertension Unknown Asthma Unknown Summary Purpose Additional Source Comments Goals (unrecognized section and content) Goals may be documented in a n alternate sectionGoals may be documented in an alternate sectionGoals may be documented in an alternate sectionGoals may be documented in an alternate sectionGoals may be documented in an alternate sectionGoals may be documented in an alternate sectionGoals may be documented in an alternate sectionGoals may be documented in an alternate sectionGoals may be documented in an alternate sectionGoals may be documented in an alternate sectionGoals may be documented in an alternate sectionGoals may be documented in an alternate sectionGoals may be documented in an alternate sectionGoals may be documented in an alternate sectionGoals may be documented in an alternate section Care Teams (unrecognized sec tion and content) Team Status: Active Member Role Status Dates Dr. Sabina Simons DO Family Provider Active Dr. Kendrick Kendall DO Primary Care Provider Active Team Status: Inactive Member Role Status Dates Dr. Sabina Simons DO Primary Care Provider, Referring P rovider Active Dr. Dmitry Elliott MD Attending Provider Active Team Status: Inactive Member Role Status Dates Dr. Kendrick Kendall DO Primary Care Provider, Referrin g Provider Active Dr. Kimmie Olmos MD Attending Provider Active Team Status: Inactive Member Role Status Dates Dr. Kendrick Kendall DO Primary Care Provider, Referrin g Provider Active Dr. Rashid Carranza MD Attending Provider Active Team Status: Inactive Member Role Status Dates Dr. Sabina Simons DO Primary Care Provider, Attending P rovider Active Team Status: Inactive Member Role Status Dates Dr. Sabina Simons DO Primary Care Provider Active Dr. Dmitry Elliott MD Attending Provider, Referring Provider Active Team Status: Inactive Member Role Status Dates Dr. Kendrick Kendall DO Primary Care Provider Active Dr. Nena Partida MD Attending Provider, Emergency Provider Active Team Status: Inactive Member Role Status Dates Dr. Kendrick Kendall DO Primary Care Prov ider, Attending Provider, Referring Provider Active Team Status: Inactive Member Role Status Dates Dr. Kendrick Kendall DO Primary Care Provider Active Dr. Kimmie Olmos MD Attending Provider, Referring Provider Active Team Status: Active Member Role Status Dates Dr. Kendrick Kendall DO Primary Care Provider, Referrin g Provider Active Dr. Kimmie Olmos MD Attending Provider, Other Pro vider Active Team Status: Active Member Role Status Dates Dr. Kendrick Kendall DO Primary Care Provider Active Dr. Rashid Carranza MD Referring Provider, Other Pro vider Active Dr. Fran Ornelas MD Attending Provider Active Team Status: Inactive Member Role Status Dates Dr. Kendrick Kendall DO Primary Care Provider Active Dr. Rashid Carranza MD Attending Provider, Referring Provider Active Team Status: Active Member Role Status Dates Dr. Kendrick Kendall DO Primary Care Provider Active Dr. Steve Waldrop MD Attending Provider Active Team Status: Active Member Role Status Dates Dr. Kendrick Kendall DO Primary Care Provider Active Dr. Radha Osorio MD Attending Provider Active Team Status: Active Member Role Status Dates Dr. Kendrick Kendall DO Primary Care Provider, Referrin g Provider Active Dr. Steve Waldrop MD Attending Provider Active Team Status: Inactive Member Role Status Dates Dr. Kendrick Kendall DO Primary Care Provider, Attendin g Provider Active Team Status: Inactive Member Role Status Dates Dr. Kendrick Kendall DO Primary Care Provider, Referrin g Provider Active Dr. Fran Ornelas MD Attending Provider Active Team Status: Inactive Member Role Status Dates Dr. Kendrick Kendall DO Primary Care Provider, Referrin g Provider Active BARRETT Deleon Attending Provider Active Team Status: Inactive Member Role Status Dates Dr. Kendrick Kendall DO Primary Care Provider Active Dr. Usman Tate MD Attending Provider, Other Provi lataf Active Team Status: Active Member Role Status Dates Dr. Kendrick Kendall DO Primary Care Prov ider, Attending Provider, Referring Provider Active Team Status: Inactive Member Role Status Dates Dr. Kendrick Kendall DO Primary Care Provider Active Dr. Radha Osorio MD Attending Provider Active Project Scheduler Relationship Specialty Start Date End Date Sabina Simons DO [address] [facility] [address] PCP - General Family Medicine 11/29/21 Team Status: Active Member Role Status Dates Dr. Kendrick Kendall DO Primary Care Provider Active Team Status: Inactive Member Role Status Dates Dr. Kendrick Kendall DO Primary Care Provider Active Start: August 18, 2024 End: August 18, 2024 Dr. Usman Tate MD Attending Provider Active Start: August 18, 2024 End: August 18, 2024 Dr. Usman Tate MD Referring Provider Active Start: August 18, 2024 End: August 18, 2024 Team Status: Inactive Member Role Status Dates Dr. Kendrick Kendall DO Primary Care Provider Active Start: October 20, 2024 End: October 20, 2024 Dr. Kendrick Kendall DO Attending Provider Active Start: October 20, 2024 End: October 20, 2024 Dr. Kendrick Kendall DO Referring Provider Active Start: October 20, 2024 End: October 20, 2024 Team Status: Inactive Member Role Status Dates Dr. Kendrick Kendall DO Primary Care Provider Active Start: October 27, 2024 End: October 27, 2024 Dr. Kendrick Kendall DO Referring Provider Active Start: October 27, 2024 End: October 27, 2024 Jodie Salguero UNIFIED COMMUNICATIONS ARCHITECT, UNIFIED COMMUNICATIONS ARCHITECT-C Attending Provider Active Start: October 27, 2024 End: October 27, 2024 Team Status: Inactive Member Role Status Dates Dr. Kendrick Kendall DO Primary Care Provider Active Start: October 27, 2024 End: October 27, 2024 Dr. Kendrick Kendall DO Attending Provider Active Start: October 27, 2024 End: October 27, 2024 Dr. Kendrick Kendall DO Referring Provider Active Start: October 27, 2024 End: October 27, 2024 Team Status: Inactive Member Role Status Dates Dr. Kendrick Kendall DO Primary Care Provider Active Start: November 10, 2024 End: November 10, 2024 Jodie Salguero UNIFIED COMMUNICATIONS ARCHITECT, UNIFIED COMMUNICATIONS ARCHITECT-C Attending Provider Active Start: November 10, 2024 End: November 10, 2024 Jodie Salguero UNIFIED COMMUNICATIONS ARCHITECT, UNIFIED COMMUNICATIONS ARCHITECT-C Referring Provider Active Start: November 10, 2024 End: November 10, 2024 Team Status: Inactive Member Role Status Dates Dr. Kendrick Kendall DO Primary Care Provider Active Start: November 10, 2024 End: November 10, 2024 Dr. Kendrick Kendall DO Referring Provider Active Start: November 10, 2024 End: November 10, 2024 Dr. Kimmie Olmos MD Attending Provider Active Start: November 10, 2024 End: November 10, 2024 Team Status: Active Member Role Status Dates Dr. Kendrick Kendall DO Primary Care Provider Active Start: November 17, 2024 Dr. Kendrick Kendall DO Attending Provider Active Start: November 17, 2024 Dr. Kendrick Kendall DO Referring Provider Active Start: November 17, 2024 Team Status: Inactive Member Role Status Dates Dr. Kendrick Kendall DO Primary Care Provider Active Start: November 17, 2024 End: November 17, 2024 Dr. Kendrick Kendall DO Attending Provider Active Start: November 17, 2024 End: November 17, 2024 Dr. Kendrick Kendall DO Referring Provider Active Start: November 17, 2024 End: November 17, 2024 Team Status: Inactive Member Role Status Dates Dr. Kendrick Kendall DO Primary Care Provider Active Start: December 01, 2024 End: December 01, 2024 Dr. Kendrick Kendall DO Referring Provider Active Start: December 01, 2024 End: December 01, 2024 Dr. Kimmie Olmos MD Attending Provider Active Start: December 01, 2024 End: December 01, 2024 Team Status: Active Member Role Status Dates Dr. Kendrick Kendall DO Primary Care Provider Active Start: December 01, 2024 Dr. Kendrick Kendall DO Referring Provider Active Start: December 01, 2024 Dr. Kimmie Olmos MD Attending Provider Active Start: December 01, 2024 Dr. Kimmie Olmos MD Other Provider Active S tart: December 01, 2024 Team Status: Inactive Member Role Status Dates Dr. Kendrick Kendall DO Primary Care Provider Active Start: December 08, 2024 End: December 08, 2024 Jodie Salguero UNIFIED COMMUNICATIONS ARCHITECT, UNIFIED COMMUNICATIONS ARCHITECT-C Attending Provider Active Start: December 08, 2024 End: December 08, 2024 Jodie Salguero UNIFIED COMMUNICATIONS ARCHITECT, UNIFIED COMMUNICATIONS ARCHITECT-C Referring Provider Active Start: December 08, 2024 End: December 08, 2024 Team Status: Active Member Role Status Dates Dr. Kendrick Kendall DO Primary Care Provider Active Start: December 10, 2024 Jodie Salguero UNIFIED COMMUNICATIONS ARCHITECT, UNIFIED COMMUNICATIONS ARCHITECT-C Referring Provider Active Start: December 10, 2024 Jodie Salguero UNIFIED COMMUNICATIONS ARCHITECT, UNIFIED COMMUNICATIONS ARCHITECT-C Other Provider Active Start: December 10, 2024 Dr. Jonathon Roche DO Attending Provider Active S tart: December 10, 2024 Team Status: Inactive Member Role Status Dates Dr. Kendrick Kendall DO Primary Care Provider Active Start: December 29, 2024 End: December 29, 2024 Dr. Kendrick Kendall DO Referring Provider Active Start: December 29, 2024 End: December 29, 2024 Dr. Babak Clarke MD Attending Provider Active Start: December 29, 2024 End: December 29, 2024 Team Status: Inactive Member Role Status Dates Dr. eKndrick Kendall DO Primary Care Provider Active Start: December 29, 2024 End: December 29, 2024 Dr. Babak Clarke MD Attending Provider Active Start: December 29, 2024 End: December 29, 2024 Dr. Babak Clarke MD Referring Provider Active Start: December 29, 2024 End: December 29, 2024 Team Status: Inactive Member Role Status Dates Dr. Kendrick Kendall DO Primary Care Provider Active Start: December 29, 2024 End: December 29, 2024 Dr. Kendrick Kendall DO Referring Provider Active Start: December 29, 2024 End: December 29, 2024 Jodie Salguero NP, UNIFIED COMMUNICATIONS ARCHITECT-C Attending Provider Active Start: December 29, 2024 End: December 29, 2024 Team Status: Inactive Member Role Status Dates Dr. Kendrick Kendall DO Primary Care Provider Active Start: February 16, 2025 End: February 16, 2025 Dr. Kendrick Kendall DO Referring Provider Active Start: February 16, 2025 End: February 16, 2025 Jodie Salguero UNIFIED COMMUNICATIONS ARCHITECT, UNIFIED COMMUNICATIONS ARCHITECT-C Attending Provider Active Start: February 16, 2025 End: February 16, 2025 Project Scheduler Relationship Specialty Start Date End Date Sabina Simons DO [address] [place] [address] PCP - General Family Medicine 11/29/21 Project Scheduler Relationship Specialty Start Date End Date Sabina Simons DO [address] [place] [address] PCP - General Family Medicine 11/29/21 Project Scheduler Relationship Specialty Start Date End Date Sabina Simons DO [address] [place] [id number] PCP - General Family Medicine 11/29/21 Kendrick Kendall DO [address] [address] Family Medicine 05/29/25 Project Scheduler Relationship Specialty Start Date End Date Sabina Simons DO [address] [place], [place] [id number] PCP - General Family Medicine 11/29/21 Kendrick Kendall DO [address] [address] Family Medicine 05/29/25 Source Comments (unrecognize d section and content) In the event this informatio n is protected by the Federal Confidentiality of Alcohol and Drug Abuse Patient Records regulations: The Federal rules restrict any use of the information to criminally investigate or prosecute any alcohol or drug abuse patient.[facility] event this information is protected by the Federal Confidentiality of Alcohol and Drug Abuse Patient Records regulations: The Federal rules restrict any use of the information to criminally investigate or prosecute any alcohol or drug abuse patient.[facility] the event this information is protected by the Federal Confidentiality of Alcohol and Drug Abuse Patient Records regulations: The Federal rules restrict any use of the information to criminally investigate or prosecute any alcohol or drug abuse patient.[facility] the event this information is protected by the Federal Confidentiality of Alcohol and Drug Abuse Patient Records regulations: The Federal rules restrict any use of the information to criminally investigate or prosecute any alcohol or drug abuse patient.[facility] the event this information is protected by the Federal Confidentiality of Alcohol and Drug Abuse Patient Records regulations: The Federal rules restrict any use of the information to criminally investigate or prosecute any alcohol or drug abuse patient.[facility] Reason for Visit (unrecogniz ed section and content) Reason Comments Cough Chest congestion, SO B, wheeze, sinus pressure and pain x 2 weeks Reason Comments Headache X 3 weeks Sore Throat Cough Chest Congestion Reason Comments Cough Chest congestion, Sh ortness of Breath, wheezing, bilateral ear pain x2 weeks, persisting from 05/12 INFORMATION SOURCE (unrecogn ized section and content) DATE CREATED AUTHOR 05/31/2025 [facility] DATE CREATED AUTHOR AUTHOR'S ALFRED COURTNEY 06/01/2025 [facility] FOR RECORDS PERTAINING TO PATIENTS WHO ARE OR HAVE BEEN ENROLLED IN A CHEMICAL DEPENDENCY/SUBSTANCEABUSE PROGRAM, SOME INFORMATION MAY BE OMITTED. This clinical summary was aggregated from multiple sources. Caution should be exercised in using it in the provision of clinical care. This summary normalizes information from multiple sources, and as a consequence, information in this document may materially change the coding, format and clinical context of patient data. In addition, data may be omitted in some cases. CLINICAL DECISIONS SHOULD BE BASED ON THE PRIMARY CLINICAL RECORDS. [facility] [employer] [facility]. provides no warranty or guarantee of the accuracy or completeness of information in this document.
--- NOTE | 2025-06-08 06:43 | US_ITS ---
PROCEDURE: THYROID 06/08/2025 REASON FOR EXAM: THYROID NODULE TECHNIQUE: Procedure Code: USTHY Modality: US Procedure: THYROID COMPARISON: Ultrasound thyroid 06/26/2022 FINDINGS: Right thyroid lobe size: 4.5 x 1.8 x 2.2 cm with volume of 9.5 mL Left thyroid lobe size: 5.3 x 2.7 x 2.9 cm with volume of 21 mL. Isthmus: 0.4 cm Background parenchymal echotexture is homogeneous. Nodules: Right 1. Lobe: Right, Location: Lower, Size: 1.5 x 1.3 x 1.1 cm cm, previously measured 1.6 x 1.1 x 1.3 cm stability: Stable Composition: Mixed cystic and solid (+1) Echogenicity: Hypoechoic (+2) Margin: Smooth (+0) Shape: Wider than tall (+0) Echogenic Foci: None (+0) TI-RADS 2 TI-RADS: <2 = TR 1 * 2 = TR 2 * 3 = TR 3 * 4-6 = TR 4 * >6 = TR 5 2. Lobe: Right, Location: Lower, Size: 0.6 x 0.5 x 0.7 cm, previously measured 0.5 x 0.3 x 0.6 stability: Minimally larger Composition: Mixed cystic and solid (+1) Echogenicity: Hyper to Isoechoic (+1) Margin: Smooth (+0) Shape: Wider than tall (+0) Echogenic Foci: None (+0) TI-RADS 2 (minimally enlarged when compared to prior study) TI-RADS: <2 = TR 1 * 2 = TR 2 * 3 = TR 3 * 4-6 = TR 4 * >6 = TR 5 3. Lobe: Right, Location: Lower, Size: 0.7 x 0.6 x 0.3 cm, previously measured 0.6 x 0.4 x 0.3 stability: Minimally larger Composition: Mixed cystic and solid (+1) Echogenicity: Hyper to Isoechoic (+1) Margin: Ill-defined (+0) Shape: Wider than tall (+0) Echogenic Foci: None (+0) TI-RADS 2 (slightly enlarged when compared to prior study.) TI-RADS: <2 = TR 1 * 2 = TR 2 * 3 = TR 3 * 4-6 = TR 4 * >6 = TR 5 Left 4. Lobe: Left, Location: Lower, Size: 3.9 x 2.5 x 2.5 cm previously measured 4 x 3.1 x 2.5 cm stability: slightly decreased when compared to prior study Composition: Mixed cystic and solid (+1) Echogenicity: Hypoechoic (+2) Margin: Ill-defined (+0) Shape: Wider than tall (+0) Echogenic Foci: Peripheral calcification)(+2) Overall findings are consistent with TI-RADS 3 TI-RADS: <2 = TR 1 * 2 = TR 2 * 3 = TR 3 * 4-6 = TR 4 * >6 = TR 5 US/Thyroid IMPRESSION: Redemonstration of TI-RADS 2 right-sided nodules which are stable to slightly i ncreased when compared to prior study. There is 3.9 cm mixed cystic and solid nodule with suggestion of peripheral leila cification and vascularity. TI-RADS 3. FNA is recommended if not already performed. Stable enlarged left thyroid lobe measuring 5.3 cm with volume of 21 mL. RECOMMENDATION: Based on most suspicious nodule. Nodule size = largest diameter Only evaluate nodule if =>5 mm. Growth > 20% in 2 dimensions = worsening. Follow up to 4 nodules. Recommend biopsy for no more than 2 nodules. Reading Location: [id number]
== END | disposition home or self-care (01) ==
LOC: CT 06:29
PROVIDERS: PCP Family Medicine; Referring Provider Family Medicine; Visit Provider Family Medicine
DX: R91.1 Solitary pulmonary nodule (principal)
CPT/HCPCS: 71250; 76536

== ENCOUNTER 2025-08-04 17:36 | Observation (INO) | payer MEDICARE, SELFPAY ==
--- NOTE | 2025-07-21 17:19 | PAT.ANESEVAL ---
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 When Was Last Pacemaker Check QUESTION #4 FULL TEXT: You/Your Family Experience fever (hyperthermia) with Anesthesia Last Oral Intake Last Oral intake: Last Oral Intake NPO since Meds taken in AM with sips of water? 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 Female Yes 07/21/25 15:59 HX of Motion Sickness Yes 07/21/25 15:59 HX of N/V After Surgery No 07/21/25 15:59 Non-Smoker Yes 07/21/25 15:59 Duration of Surgery greater Yes 07/21/25 15:59 than 60 minutes Number of Risk Factors 4 07/21/25 15:59 PONV Score Severe Risk 07/21/25 15:59 Height & Weight Height & Weight: Anesthesia: Height & Weight Height 5 ft 6 in 06/29/25 08:03 Respiratory Assessment Respiratory Assessment - piano technician: Respiratory Tract Infection Hx - piano technician Hx Respiratory Tract Infection No 07/21/25 15:59 STOP Sleep Apnea STOP Sleep Apnea - piano technician: STOP Sleep Apnea - piano technician Hx Hypertension Yes: CONTROLLED WITH MEDS 07/21/25 15:59 Hx Sleep Apnea Yes 07/21/25 15:59 CPAP Yes 07/21/25 15:59 BIPAP No 07/21/25 15:59 Do you snore loudly (louder than talking or can be heard Do you often feel tired/ fatigued/ sleepy during daytime? Has anyone observed you stop breathing during sleep? STOP Results Positive 07/21/25 15:59 QUESTION #5 FULL TEXT : Do you snore loudly (louder than talking or can be heard through closed doors)? 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 Specify any problems Hx of Preganancy in last 3 No 07/21/25 15:59 Months Nurse Filling Out Transfusion [email or web address] 07/21/25 15:59 & Questions: Date: 07/21/25 07/21/25 15:59 Time: 16:02 07/21/25 15:59 Patient unable to answer at this time (ie. confused, unrespo /Reproduction History /Reproductive History - piano technician: /Reproductive Hx- piano technician Hx Now Gestational Age (in weeks): EDC: Hx Hx Para Hx Section SAB No 11/28/24 14:13 PFSH Medical History (Updated 07/21/25 @ 16:05 by Aris Torres) Shortness of breath on exertion Thyroid disease Difficulty swallowing Barretts esophagus BMI 37.0-37.9, adult Wears hearing aid Wears dentures Wears glasses Post-menopausal History of steroid therapy Arthritis Back pain Injury of head and neck TIA (transient ischemic attack) History of IBS Gastric reflux Former smoker CPAP (continuous positive airway pressure) dependence Asthma History of edema Hx of lipoma Wheezing Allergic rhinitis due to allergen Incidental lung nodule, > 3mm and < 8mm NICOLAS on CPAP SOB (shortness of breath) HTN (hypertension) Home Medications ?Medication ?Instructions ?Recorded ?Last Taken ?Type multivitamin (One-A-Day Essential 1 tab PO QAM 12/03/17 11/30/24 History tablet) losartan 50 mg tablet 50 mg PO DAILY 07/13/22 12/01/24 07:00 History estradiol 0.5 mg tablet 0.5 mg PO DAILY 10/16/22 11/30/24 History fexofenadine 180 mg tablet 180 mg PO DAILY 11/16/22 11/30/24 History fluticasone propionate 50 2 spray intranasal BID Allergic 01/15/23 11/30/24 Rx mcg/actuation nasal rhinitis #30 mL spray,suspension (Flonase Allergy Relief) albuterol sulfate 90 mcg/actuation 1 - 2 inh inhalation PRN PRN 10/27/24 12/01/24 06:00 Rx aerosol inhaler ASTHMA #8.5 grams budesonide-formoterol HFA 160 2 inh inhalation BID #1 ea 12/29/24 Unknown Rx mcg-4.5 mcg/actuation aerosol inhaler (Breyna) omeprazole 40 mg capsule,delayed 40 mg PO QDAY #30 caps 04/28/25 Unknown Rx release Allergy/AdvReac Type Severity Reaction Status Date / Time adhesive tape Allergy Intermediate Rash Verified 07/21/25 15:57 grass pollen Allergy Unknown Verified 07/21/25 15:57 mold Allergy Unknown Verified 07/21/25 15:57 Family History Other Asthma Cancer Diabetes Hypertension Surgical History (Updated 07/21/25 @ 16:05 by Aris Torres) Hx of colonoscopy History of esophagogastroduodenoscopy (EGD) Hx of umbilical hernia repair History of hysterectomy H/O foot surgery History of tonsillectomy Social History Smoking Status: Former smoker second hand exposure: Yes alcohol intake: never Audit: Pertinent Findings Pertinent Findings EKG Perinent findings: 07/22/2022. Normal sinus rhythm. Inferior infarct, age undetermined. Recommendation Anesthesia Recommendation Anesthesia recommendation: OPTIMIZED for anesthesia
[2025-08-04] VITALS (18 sets, daily range): BP systolic 133–185; BP diastolic 63–108; PULSE 71–98; RESP 12–20; TEMP 36.1–37; O2SAT 92–100; BMI 37.7
--- OUTSIDE RECORDS SUMMARY | 2025-08-04 05:56 | XMS RPT_ITS | CCD ---
Author Organization [facility] Care Team Providers Care Oxygen Tank Filler Name Role Phone Dr. Sabina Simons Primary Care Provider Dr. Sabina Simons Referring Provider [phone] Dr. Dmitry Elliott Attending Provider Dr. Sabina Simons Primary Care Provider Dr. Sabina Simons Referring Provider [phone] Dr. Dmitry Elliott Attending Provider Dr. Kendrick [...] Dr. Kendrick Kendall DO Referring Provider Noemy SALES OPERATIONS MANAGER-C, Jodie Attending Provider Noemy SALES OPERATIONS MANAGER-C, Jodie Referring Provider Dr. Kimmie Olmos MD Attending Provider Dr. Kendrick Kendall DO Primary Care Provider Dr. Usman Tate MD Attending Provider Dr. Usman Tate MD Referring Provider Dr. Kendrick Kendall DO Attending Provider Dr. Kendrick Kendall DO Referring Provider Noemy SALES OPERATIONS MANAGER-C, Jodie Attending Provider Noemy SALES OPERATIONS MANAGER-C, Jodie Referring Provider Dr. Kimmie Olmos MD Attending Provider Dr. Kimmie Olmos MD Other Provider Noemy SALES OPERATIONS MANAGER-C, Jodie Other Provider Dr. Jonathon Roche DO Attending Provider [phone] Faiza LUTZ, Dr. Marks Primary Care Provider Vince LOPEZ, Dr. Hilliard Attending Provider Dr. Babak Clarke MD Referring Provider Kendrick Kendall DO A Unavailable MALYS, SABINA A Primary Care Unavailable ALVA, REYNA Referring Unavailable MALYS, SABINA A Primary Care Unavailable KETTLER, JOSE Attending Unavailable MALYS, SABINA A Primary Care Unavailable KETTLER, OJSE Referring Unavailable MALYS, SABINA A Primary Care Unavailable MALYS, SABINA A Primary Care Unavailable NIDA, REYNA Attending Unavailable Dr. Kendrick Kendall DO Primary Care Physician Devon LOPEZ, Dr. Garcia Attending Physician Faiza LUTZ, Dr. Marks Attending Physician Dr. Kendrick Kendall DO Referring Provider Vince LOPEZ, Dr. Hilliard Nurse Practitioner Vince LOPEZ, Dr. Hilliard Attending Physician Babak Clarke Consulting Unavailable FaizaKendrick cheng Attending Unavailable Faiza, Kendrick Primary Care Unavailable Faiza, Kendrick Referring Unavailable Babak Clarke Attending Unavailable Babak Clarke Referring Unavailable Faiza, Kendrick Primary Care Unavailable Faiza, Kendrick Primary Care Unavailable Bebeto, Usman K Referring Unavailable Bebeto, Usman K Attending Unavailable Faiza, Kendrick Primary Care Unavailable Faiza, Kendrick Referring Unavailable Robotham, Kimmie Attending Unavailable Robotham, Kimmie Consulting Unavailable Faiza, Kendrick Primary Care Unavailable Salguero SALES OPERATIONS MANAGER, Jodie Referring Unavailable Jonathon Roche Attending Unavailable Salguero SALES OPERATIONS MANAGER, Jodie Consulting Unavailable Faiza, Kendrick Referring Unavailable Faiza, Kendrick Primary Care Unavailable Faiza, Kendrick Attending Unavailable Faiza, Kendrick Primary Care Unavailable Faiza, Kendrick Referring Unavailable Robotham, Kimmie Attending Unavailable Faiza, Kendrick Primary Care Unavailable Salguero SALES OPERATIONS MANAGER, Jodie Referring Unavailable Salguero SALES OPERATIONS MANAGER, Jodie Attending Unavailable Faiza, Kendrick Referring Unavailable Faiza, Kendrick Primary Care Unavailable Faiza, Kendrick Attending Unavailable Babak Clarke Attending Unavailable Faiza, Kendrick Primary Care Unavailable Faiza, Kendrick Referring Unavailable Borsilvia, Babak Attending Unavailable Faiza, Kendrick Primary Care Unavailable Babak Clarke Referring Unavailable Vince, Babak Attending Unavailable Faiza, Kendrick Primary Care Unavailable Faiza, Kendrick Primary Care Unavailable Salguero SALES OPERATIONS MANAGER, Jodie Referring Unavailable Salguero SALES OPERATIONS MANAGER, Jodie Attending Unavailable Faiza, Kendrick Referring Unavailable Faiza, Kendrick Attending Unavailable Faiza, Kendrick Primary Care Unavailable Faiza, Kendrick Primary Care Unavailable Salguero SALES OPERATIONS MANAGER, Jodie Attending Unavailable Faiza, Kendrick Referring Unavailable Faiza, Kendrick Referring Unavailable Faiza, Kendrick Primary Care Unavailable Salguero SALES OPERATIONS MANAGER, Jodie Attending Unavailable Faiza, Kendrick Primary Care Unavailable Faiza, Kendrick Referring Unavailable Salguero SALES OPERATIONS MANAGER, Jodie Attending Unavailable Vince, Babak Attending Unavailable Faiza, Kendrick Primary Care Unavailable Faiza, Kendrick Referring Unavailable Faiza, Kendrick Primary Care Unavailable Faiza, Kendrick Referring Unavailable Kimmie Olmos Attending Unavailable Vince, Babak Attending Unavailable Faiza, Kendrick Primary Care Unavailable Faiza, Kendrick Referring Unavailable Faiza, Kendrick Primary Care Unavailable Noemy SALES OPERATIONS MANAGER, Jodie Referring Unavailable Jonathon Roche Attending Unavailable Allergies Allergy Classification Reported Allergen(s) Allergy Type Date of Onset Reaction(s) Facility (20 sources) Grass pollen; Translations: [grass pollen] Allergy to substance 2 [facility] (20 sources) Mold Extract Drug Allergy 2 [facility] (20 sources) Adhesive Tape; Translations: [adhesive tape] Allergy to substance [address] [facility] (6 sources) Seasonal allergy; Translations: [SEASONAL ALLERGIES] Allergy to substance 3 Other: See Comments [facility] (1 source) Mold Extract Drug Allergy [address] [facility] Repository Medications Current Medications Medication Drug Class(es) Dates Sig (Normalized) Sig (Original) [id number] actuat albuterol 0.09 mg/actuat metered dose inhaler (20 sources) beta2-Adrenergic Agonist Start: 11-16-2022 End: 10-27-2024 Start: 11-16-2022 Albuterol Sulf ate Active 1 [...] times a day. 05/01/2025 Active Budesonide-For moterol (4 sources) Corticosteroid, beta2-Adrenergic Agonist Start: 12-29-2024 Start: 12-29-2024 Budesonide-For moterol (Breyna) 160-4.5 mcg/actuation HFA aerosol inhaler Active 2 NMA INHALATION TWICE A DAY December 29, 2024 12:00am CPAP (15 sources) Start: 12-09-2014 CPAP CHIN STRA P, USED WITH CPAP DEVICE 1 Each 12/09/2014 [...] take 1 tablet by mouth once daily fexofenadine hydrochloride 180 mg oral tablet (18 sources) Histamine-1 Receptor Antagonist Start: 11-16-2022 take 1 tablet by mouth once daily fluticasone propionate 0.05 mg/actuat metered dose nasal spray (20 sources) Corticosteroid Start: 01-15-2023 take 50 ug nasal route twice daily Start: 01-15-2023 take 1 spray(s) nasa l route twice daily Fluticasone Propionate (Flonase Allergy Relief) 50 mcg/actuation spray,suspension Active 2 SPRAY INTRANASAL TWICE A DAY January 15, 2023 12:00am administer into each nostril Start: 12-03-2017 Fluticasone Pr opionate (Flonase Allergy Relief) 50 mcg/actuation spray,suspension Active 50 MCG INTRANASAL ONCE December 02, 2017 11:00pm Start: 06-10-2014 take 2 spray(s) by out once daily fluticasone (FLONASE) 50 mcg/actuation nasal spray Indications: Allergic rhinitis Use 2 Sprays in each nostril once daily. Rinse mouth after use. 1 Bottle 6 06/10/2014 Active losartan potassium 50 mg oral tablet (20 sources) Angiotensin 2 Receptor Mariaelena Start: 07-13-2022 take 1 tablet by mouth once daily methylPREDNISolone (20 sources) Corticosteroid Start: 05-12-2025 End: 05-18-2025 methylPREDNISolone (MEDROL, SARA,) 4 mg Dose-Pack Indications: Pharyngitis, unspecified etiology , Rhinosinusitis , Acute cough Take as instructed per package. 21 tablet 05/12/2025 05/18/2025 Active Start: 12-03-2017 End: 12-08-2017 take 1 tablet by mouth once Methylprednisolone (Medrol (Sara)) 4 mg tablets,dose pack Discontinued 4 mg PO per package directions 21 5 0 December 03, 2017 12:00am December 07, 2017 12:00am December 08, 2017 12:06am Multivitamin (One-A-Day Esse ntial) tablet (20 sources) Start: 12-03-2017 Start: 12-03-2017 Multivitamin ( One-A-Day Essential) tablet [...] capsule (20 sources) Proton Pump Inhibitor Start: 11-10-2024 End: 04-28-2025 take 1 capsule by mouth once daily Start: 07-13-2022 End: 10-30-2022 take 1 tablet by mouth once daily Omeprazole Magnesium (Prilosec Otc) 20 mg tablet,delayed release (DR/EC) Discontinued 20 mg PO DAILY July 13, 2022 12:00am October 30, 2022 8:05am Start: 02-15-2015 End: 11-22-2022 take 1 capsule by mouth once daily Omeprazole 40 mg capsule,delayed release(DR/EC) Discontinued 40 mg PO daily 30 4 October 16, 2022 1:00am November 22, 2022 3:40pm swallow whole; do not crush, chew, dissolve, cut, break predniSONE 20 mg oral tablet (2 sources) [...] 11/25/2024 Active sucralfate 1000 mg oral tablet (13 sources) Aluminum Complex Start: 11-10-2024 take 1 tablet by mouth four times daily sucralfate (CARAFATE) 1 gram tablet Take 1 g by mouth four times daily. 11/10/2024 Active Start: 11-10-2024 take 1 tablet by mouth once at bedtime Completed/Discontinued Medications Medication Drug Class(es) Dates Sig (Normalized) Sig (Original) azithromycin 250 mg oral tablet (20 sources) Macrolide Antimicrobial Start: 12-03-2017 End: 12-13-2017 Azithromycin 250 mg tablet Discontinued 250 mg PO daily 11 10 0 December 03, 2017 12:00am December 12, 2017 12:00am December 13, 2017 12:05am Take 2 tabs once on day one then take one tablet once daily for the next 9 days. ipratropium bromide 0.021 mg/actuat metered dose nasal spray (20 sources) Anticholinergic Start: 01-15-2023 End: 10-23-2023 Ipratropium [place] Discontinued 2 SPRAY INTRANASAL 2 to 3 times per day January 15, 2023 8:52am October 23, 2023 2:05pm administer into each nostril Start: 10-30-2022 End: 10-23-2023 Ipratropium [place] 21 mcg ( 0.03 %) spray,non-aerosol Discontinued 2 NMA INTRANASAL 2 to 3 times per day 14 12January 15, 2023 8:52am October 23, 2023 2:05pm NICOLAS on CPAP Incidental pulmonary nodule Allergic rhinitis Obstructive sleep apnea (adult) (pediatric) Dependence on other enabling machines and devices Solitary pulmonary nodule Allergic rhinitis, unspecified allergy symptoms administer into each nostril Start: 10-30-2022 End: 01-15-2023 Ipratropium [place] Disconti nued 2 SPRAY INTRANASAL 2 to 3 times per day October 30, 2022 12:00am January 15, 2023 8:09am administer into each nostril Start: 10-30-2022 End: 01-15-2023 Ipratropium [place] Disconti nued 2 SPRAY INTRANASAL 2 to [...] 2022 12:00am administer into each nostril Ipratropium [place] 21 mcg ( 0.03 %) spray,non-aerosol (6 sources) Start: 10-30-2022 End: 01-15-2023 Ipratropium [place] 21 mcg (0.03 %) spray,non-aerosol Discontinued 2 NMA INTRANASAL 2 to 3 times per day as needed for allergy symptoms October 30, 2022 1:00am January 15, 2023 9:09am administer into each nostril Start: 10-30-2022 End: 01-15-2023 Ipratropium [place] 21 mcg ( 0.03 %) spray,non-aerosol Discontinued [...] Start: 09-09-2014 take 1 tablet by payam th once daily lisinopril (ZESTRIL, PRINIVIL) 10 mg tablet Indications: Essential hypertension, benign Take 1 tablet by mouth once daily. 90 tablet 3 09/09/2014 Active pantoprazole 40 mg delayed release oral tablet (20 sources) Proton Pump Inhibitor Start: 11-22-2022 End: 11-10-2024 take 1 tablet by mouth once daily Pantoprazole 40 mg tablet,delayed release (DR/EC) Discontinued 0 .ROUTE .COMPLEX 30 May 07, 2023 9:27am November 10, 2024 2:08pm Take 1 tablet by mouth once daily phentermine hydrochloride 37.5 mg oral capsule (8 sources) Sympathomimetic [place]ine Anorectic Start: 12-19-2023 End: 10-27-2024 take 1 capsule by mouth once daily 30 minutes after breakfast Phentermine 37.5 mg capsule Discontinued 37.5 mg PO DAILY December 19, 2023 12:00am October 27, 2024 2:23pm must administer 30 minutes before or 1-2 hours after breakfast Problems Active Problems Problem Classification Problem Date Documented Date Episodic/Chronic Asthma (19 sources) Unspecified asthma, uncomplicated; Translations: [Asthma, unspecified [...] 03-18-2014 Chronic Other and unspecified benign neoplasm (20 sources) Lipoma of back; Translations: [Benign lipomatous neoplasm of skin and subcutaneous tissue of trunk] 10-16-2022 Episodic Comment on above: s/p excision 11x8 cm (11/03/22) Other and unspecified benign neoplasm (20 sources) History of polyp of colon; Translations: [...] Other and unspecified benign neoplasm (8 sources) Lipoma of upper limb; Translations: [Benign lipomatous neoplasm of skin and subcutaneous tissue of unspecified limb] 05-05-2024 Episodic Other diseases of veins and lymphatics (13 sources) Venous insufficiency of leg; Translations: [Venous [...] 4 08-23-2014 Chronic Other lower respiratory disease (13 sources) Pulmonary granuloma; Translations: [Pulmonary fibrosis, unspecified] 10-22-2023 Chronic Other lower respiratory disease (5 sources) Pulmonary fibrosis, unspecified; Translations: [Postinflammatory pulmonary fibrosis] 10-22-2023 Chronic Other lower respiratory disease (20 sources) Wheezing; Translations: [Wheezing] 10-31-2022 Episodic Comment on above: Impression:Obstructi ve sleep apnea, good stated compliance with CPAP 11 cm with a full facemask still mildly sleepy with an [place] score of 8, and 6 years since her last sleep study. Weight has remained stable in that time. -Split-night polysomnogram, adjusted settings as needed -Lesly has been contacted to obtain the download of her current CPAP machine at 11 cm. - patient was advised to continue CPAP all night, every night - we discussed her sleep habits. Her [place] score , although not excessively sleepy, is higher than I would like, likely due to non-CPAP issues (frequent awakenings, with noisy CPAP, etc.) - Patient was coached on machine cleaning and disinfection. She was advised to replace plastic wear per access director's instruction, probably once every 1 to 3 months. - Atrovent nasal spray 1 spray each nostril nightly as needed 0.03% - weight loss is recommended.Possible mild COPD plus or minus asthma, maintained on as needed albuterol alone in a former [id number] smoker - Complete pulmonary function test -Adjust [...] woman for evaluation of [facility]. She will follow-up here in 2 months for the results of the above and I may make adjustments prior to that as her test results come back.Rashid Carranza MD/ addendum:I received her ENT/allergy records from [facility],Her allergy skin testing on 02/15/2022 [...] allergic rhinitis symptoms. Other lower respiratory disease (20 sources) Solitary nodule of lung; Translations: [Solitary pulmonary nodule] 10-30-2022 Episodic Other lower respiratory disease (7 sources) Solitary pulmonary nodule; Translations: [Solitary pulmonary nodule] Onset: 5 10-30-2022 Episodic Other lower respiratory disease (5 sources) Wheezing; Translations: [Wheezing] 10-30-2022 Episodic Other lower respiratory disease (16 sources) Dyspnea; Translations: [Shortness of breath] 10-27-2024 Episodic Other lower respiratory disease (2 sources) Cough; Translations: [Acute cough] 05-12-2025 Episodic Other nutritional; endocrine; and metabolic disorders (16 sources) Body mass index 30+ - obesity; Translations: [Body mass index (BMI) 37.0-37.9, adult] 01-15-2023 Chronic Other nutritional; endocrine; and metabolic disorders (6 sources) Body mass index (BMI) 37.0-37.9, adult; Translations: [Body Mass Index 37.0-37.9, adult] 01-15-2023 Chronic Other nutritional; endocrine; and metabolic disorders (12 sources) Obesity; Translations: [Obesity, unspecified] Onset: 2 08-16-2012 Chronic Other screening for suspected conditions (not mental disorders or infectious disease) (1 source) Abnormal findings on diagnostic imaging of other specified body structures; Translations: [Nonspecific (abnormal) findings on radiological and other examination of other intrathoracic organs] 05-12-2025 Chronic Other skin disorders (8 sources) Mass of subcutaneous tissue of right [...] Onset: 5 Chronic Other upper respiratory infections (20 sources) Sinusitis; Translations: [Chronic sinusitis, unspecified] Onset: [...] submitted for cytology. Postprocedure instructions were provided. Patient is a 64-year -old female, euthyroid [...] was submitted for cytology. Postprocedure instructions were provided.Update 06/29/2025:- Left thyroid nodule with regrowth noted on interval ultrasound (May): 3.9 x 2.5 x 2.5 cm compared to 4 x 3.1 x 2.5 cm in October; TIRADS 3, mildly suspicious.- Persistent/recurrent compressive symptoms (dysphagia, hoarseness, cough) likely due to recurrent laryngeal nerve compression.- Previous aspirations (December, by myself and Dr. Elliott) provided temporary relief; symptoms have worsened over the past 2 weeks.- Diagnostic FNA biopsy not feasible due to high cystic fluid content.- Discussed surgical options: total thyroidectomy vs. left thyroid lobectomy with isthmusectomy; recommend left lobectomy with isthmusectomy to minimize surgical risk and preserve right thyroid function.- Reviewed surgical risks: bleeding, infection, hypoparathyroidism, recurrent laryngeal nerve injury, potential need for thyroid hormone replacement, and possible transient or permanent voice changes.- Explained intraoperative nerve monitoring and parathyroid preservation techniques to minimize risks.- Outpatient surgery planned, pending final scheduling; patient understands and consents to procedure and associated risks. Transient cerebral ischemia (20 sources) Transient cerebral ischemia; Translations: [Transient cerebral ischemic attack, unspecified] 07-06-2022 Chronic Unclassified (1 source) Acute cough; Translations: [Acute cough] Onset: Varicose veins of lower extremity (18 sources) Venous stasis ulcer with edema of left lower leg; Translations: [Varicose veins of left lower extremity with ulcer of unspecified site] 10-23-2023 Episodic Past or Other Problems Problem Classification Problem Date Documented Da te Episodic/Chronic Esophageal disorders (5 sources) Esophagitis; Translations: [Esophagitis, unspecified] Onset: 07-08-2012 Resolved: 02-15-2015 02-15-2015 Episodic Other gastrointestinal disorders (5 sources) Dysphagia; Translations: [Dysphagia, unspecified] Onset: 06-27-2012 Resolved: 02-15-2015 02-15-2015 Episodic Other lower respiratory disease (3 sources) Shortness of breath; Translations: [SOB (shortness of breath)] Onset: 12-17-2024 Episodic Other non-traumatic joint disorders (5 sources) [...] Test Name Value Interpretation Reference Range Facility MR/PATHazelLEOBARDOedilma 07-21-2025 MR/PATMARVEL LESLIE [facility] Medical Records Department [address] [place] [address] PAT - Anesthesia 07/21/25 1719 MR#: [id number] Acct: [id number] Name: BARBARA DIANA Rep #: [id number] : 1960 64 From: Cristóbal Berrios MD PCP: Dr. 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 When Was Last Pacemaker Check QUESTION #4 FULL TEXT: You/Your Family Experience fever (hyperthermia) with Anesthesia Last Oral Intake Last Oral intake: Last Oral Intake NPO since Meds taken in AM with sips of water? Meds patient instructed to take am of surgery PONV PONV - guest service supervisor: PONV - guest service supervisor Female Yes 07/21/25 15:59 HX of Motion Sickness Yes 07/21/25 15:59 HX of N/V After Surgery No 07/21/25 15:59 Non-Smoker Yes 07/21/25 15:59 Duration of Surgery greater Yes 07/21/25 15:59 than 60 minutes Number of Risk Factors 4 07/21/25 15:59 PONV Score Severe Risk 07/21/25 15:59 Height Weight Height Weight: Anesthesia: Height Weight Height 5 ft 6 in 06/29/25 08:03 Respiratory Assessment Respiratory Assessment - guest service supervisor: Respiratory Tract Infection Hx - guest service supervisor Hx Respiratory Tract Infection No 07/21/25 15:59 STOP Sleep Apnea STOP Sleep Apnea - guest service supervisor: STOP Sleep Apnea - guest service supervisor Hx Hypertension Yes: CONTROLLED WITH MEDS 07/21/25 15:59 Hx Sleep Apnea Yes 07/21/25 15:59 CPAP Yes 07/21/25 15:59 BIPAP No 07/21/25 15:59 Do you snore loudly (louder than talking or can be heard Do you often feel tired/ fatigued/ sleepy during daytime? Has anyone observed you stop breathing during sleep? STOP Results Positive 07/21/25 15:59 QUESTION #5 FULL TEXT : Do you snore loudly (louder than talking or can be heard through closed doors)? 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 Specify any problems Hx of Preganancy in last 3 No 07/21/25 15:59 Months Nurse Filling Out Transfusion [email or web address] 07/21/25 15:59 Questions: Date: 07/21/25 07/21/25 15:59 Time: 16:02 07/21/25 15:59 Patient unable to answer at this time (ie. confused, unrespo /Reproduction History /Reproductive History - guest service supervisor: /Reproductive Hx- guest service supervisor Hx Now Gestational Age (in weeks): EDC: Hx Hx Para Hx Section SAB No 11/28/24 14:13 PFSH Medical History (Updated 07/21/25 @ 16:05 by Aris Torres) Shortness of breath on exertion Thyroid disease Difficulty swallowing Barretts esophagus BMI [...] (shortness of breath) HTN (hypertension) Home Medications ???Medication ???Instructions ???Recorded ???Last Taken ???Type multivitamin (One-A-Day Essential 1 tab PO QAM 12/03/17 11/30/24 Hi story tablet) losartan 50 mg tablet 50 mg PO DAILY 07/13/22 12/01/24 0 7:0 (more content not included)... Normal [facility] Surgery Visit Reporton 06-29 Surgery Visit Report [facility] [address] [place] [address] OFFICE VISIT Date of Service: 06/29/25 MR#: [id number] Acct: [id number] Name: BARBARA DIANA Rep #: [id number] : 1960 Provider: Dr. Babak infante MD Age/Sex: 64/F Location: [facility] Status: Signed Intake Vital Signs 02/16/25 08:18 06/29/25 08:03 Height 5 ft 6 in 5 ft 6 in Weight: 233 lb 238 lb 6 oz BMI 37.5 38.5 BP 145/70 H 138/75 H Blood Pressure Location Lt radial Rt brachial Position Sitting Sitting Respiration 16 18 Pulse 73 75 Pulse Source NIBP Monitor Temp 97.8 F 97.2 F L Temp Source Temporal Pulse Oximetry (%) 96 98 Oxygen Delivery Method room air room air Intake Visit Reasons: discuss left thyroid lobectomy with isthmusectomy Chief Complaint: discuss left thyroid lobectomy with isthmusectomy Is patient in pain?: No Allergies adhesive tape Allergy (Intermediate, Verified 06/29/25 08:04) Rash grass pollen Allergy (Verified 06/29/25 08:04) Unknown mold Allergy (Verified 06/29/25 08:04) Unknown Medications ???Medication ???Instructions ???Recorded ???Confirmed ???Type multivitamin (One-A-Day Essential 1 tab PO QAM 12/03/17 06/29/25 Hi story tablet) losartan 50 mg tablet 50 mg PO DAILY 07/13/22 06/29/25 H istory estradiol 0.5 mg tablet 0.5 mg PO DAILY 10/16/22 06/29/25 History fexofenadine 180 mg tablet 180 mg PO DAILY 11/16/22 06/29/25 History fluticasone propionate 50 2 spray intranasal BID Allergic 06/29/25 Rx mcg/actuation nasal rhinitis #30 mL spray,suspension (Flonase Allergy Relief) albuterol sulfate 90 mcg/actuation 1 - 2 inh inhalation PRN PRN 07/1106/29/25 Rx aerosol inhaler ASTHMA #8.5 grams sucralfate 1 gram tablet 1 g PO QACHS #56 tabs 11/10/24 Rx budesonide-formoterol HFA 160 2 inh inhalation BID #1 ea 12/29/2 5 06/29/25 Rx mcg-4.5 mcg/actuation aerosol inhaler (Breyna) omeprazole 40 mg capsule,delayed 40 mg PO QDAY #30 caps 04/28/25 Rx release Have you fallen in the past year?: [...] Patient is a 64-year-old female who presents to discuss possible left thyroid lobectomy. The patient reports persistent neck fullness and intermittent choking episodes. She notes that her symptoms improved after aspiration of the left thyroid nodule in December, but have worsened again over the past 2 weeks. She also reports intermittent voice changes at work, with her coworkers asking if she has a cold, and an increase in cough frequency. She describes a sensation of phlegm buildup that triggers coughing. She has a history of a left thyroid nodule that measured 4 x 3.1 x 2.5 cm in October and 3.9 x 2.5 x 2.5 cm in May. The nodule is TIRADS 3 and predominantly cystic, making FNA biopsy challenging. The right thyroid lobe contains a stable 1.5 cm nodule and two subcentimeter nodules with minimal cystic fluid. She is considering surgery in August after completing ablation procedures for varicose veins of her legs. She inquired about GLP-1 medications for weight loss and expressed concern about potential weight gain after thyroid surgery. She has a family history of obesity, with her brother weighing approximately 400-500 lbs. Below is recapitulated from patient's prior visit for ease of review: Patient is a 64-year-old female who presents for evaluation of thyroid nodules. They are referred for surgical consultation from Dr. Kendall. This was discovered years ago and patient has even previously sought surgical consultation. Patient last seen by Dr. Elliott 07/13 (more content not included)... Normal [facility] Chest without Contraston Chest without Contrast [facility] [address], [place] [address] Chest without Contrast MR#: [id number] Acct: [id number] Name: BARBARA DIANA Rep #: [id number] : 1960 F 64 From: Jamia Banda PCP: Dr. Kendrick Kendall DO Status: REG CLI Study: Chest without Contrast Date of Exam: 06/08/25 Exam# [id number] Ordering Dr: Kendrick Kendall DO PROCEDURE: CHEST WITHOUT CONTRAST 06/08/2025 REASON FOR EXAM: FU LUNG NODULE TECHNIQUE: Chest CT without contrast. Coronal and Sagittal reconstruction series were provided. One or more dose reduction techniques were used (e.g., Automated exposure control, adjustment of the mA and/or kV according to patient size, use of iterative reconstruction technique RADIATION DOSE SUMMARY: DLP: 683 mGycm COMPARISON: 11/19/2023 FINDINGS: LUNGS AND PLEURA: No focal consolidations. No pleural effusion. No pneumothorax. No pleural thickening. Stable 7 mm right middle lobe nodule, grossly unchanged. Again seen is subtle 3 mm ground-glass nodular density within the right upper lobe best seen on series 2, image 3. Calcified left lower lobe granuloma. MEDIASTINUM: No lymphadenopathy or mass. The heart shows no acute findings. The aorta shows no acute findings. The pulmonary trunk and branches of the vessels in the mediastinum are within normal limits. SUPRACLAVICULAR AND AXILLARY: No abnormalities seen in these regions. No mass or significant lymphadenopathy. 2.8 x 2.6 cm left thyroid nodule. UPPER ABDOMEN: Small hiatal hernia. BONES AND SOFT TISSUES: The bony structures show no significant acute findings. No focal bony mass lesions noted. The subcutaneous soft tissues are unremarkable. CT/Chest without Contrast IMPRESSION: Stable 7 mm right middle lobe nodule. Stable subtle subtle 3 mm ground-glass nodular density within the right upper lobe. Stable 2.8 cm left thyroid nodule. Reading Location: [id number] CC: Dr. Kendrick Kendall DO Clicker Operator: Signed Normal [facility] Thyroidon 06-08-2025 Thyroid [facility] Imaging Services [address] [place] [address] Thyroid MR#: [id number] Acct: [id number] Name: BARBARA DIANA Rep #: [id number] : 1960 F 64 From: Handy Dos Santos MD PCP: Dr. Kendrick Kendall DO Status: REG CLI Study: Thyroid Date of Exam: 06/08/25 Exam# [id number] Ordering Dr: Babak Clarke MD PROCEDURE: THYROID 06/08/2025 REASON FOR EXAM: THYROID NODULE TECHNIQUE: Procedure Code: USTHY Modality: US Procedure: THYROID COMPARISON: Ultrasound thyroid 06/26/2022 FINDINGS: Right thyroid lobe size: 4.5 x 1.8 x 2.2 cm with volume of 9.5 mL Left thyroid lobe size: 5.3 x 2.7 x 2.9 cm with volume of 21 mL. Isthmus: 0.4 cm Background parenchymal echotexture is homogeneous. Nodules: Right 1. Lobe: Right, Location: Lower, Size: 1.5 x 1.3 x 1.1 cm cm, previously measured 1.6 x 1.1 x 1.3 cm stability: Stable Composition: Mixed cystic and solid (+1) Echogenicity: Hypoechoic (+2) Margin: Smooth (+0) Shape: Wider than tall (+0) Echogenic Foci: None (+0) TI-RADS 2 TI-RADS: <2 = TR 1 * 2 = TR 2 * 3 = TR 3 * 4-6 = TR 4 * >6 = TR 5 2. Lobe: Right, Location: Lower, Size: 0.6 x 0.5 x 0.7 cm, previously measured 0.5 x 0.3 x 0.6 stability: Minimally larger Composition: Mixed cystic and solid (+1) Echogenicity: Hyper to Isoechoic (+1) Margin: Smooth (+0) Shape: Wider than tall (+0) Echogenic Foci: None (+0) TI-RADS 2 (minimally enlarged when compared to prior study) TI-RADS: <2 = TR 1 * 2 = TR 2 * 3 = TR 3 * 4-6 = TR 4 * >6 = TR 5 3. Lobe: Right, Location: Lower, Size: 0.7 x 0.6 x 0.3 cm, previously measured 0.6 x 0.4 x 0.3 stability: Minimally larger Composition: Mixed cystic and solid (+1) Echogenicity: Hyper to Isoechoic (+1) Margin: Ill-defined (+0) Shape: Wider than tall (+0) Echogenic Foci: None (+0) TI-RADS 2 (slightly enlarged when compared to prior study.) TI-RADS: <2 = TR 1 * 2 = TR 2 * 3 = TR 3 * 4-6 = TR 4 * >6 = TR 5 Left 4. Lobe: Left, Location: Lower, Size: 3.9 x 2.5 x 2.5 cm previously measured 4 x 3.1 x 2.5 cm stability: slightly decreased when compared to prior study Composition: Mixed cystic and solid (+1) Echogenicity: Hypoechoic (+2) Margin: Ill-defined (+0) Shape: Wider than tall (+0) Echogenic Foci: Peripheral calcification)(+2) Overall findings are consistent with TI-RADS 3 TI-RADS: <2 = TR 1 * 2 = TR 2 * 3 = TR 3 * 4-6 = TR 4 * >6 = TR 5 US/Thyroid IMPRESSION: Redemonstration of TI-RADS 2 right-sided nodules which are stable to slightly increased when compared to prior study. There is 3.9 cm mixed cystic and solid nodule with suggestion of peripheral calcification and vascularity. TI-RADS 3. FNA is recommended if not already performed. Stable enlarged left thyroid lobe measuring 5.3 cm with volume of 21 mL. RECOMMENDATION: Based on most suspicious nodule. Nodule size = largest diameter Only evaluate nodule if =>5 mm. Growth > 20% in 2 dimensions = worsening. Follow up to 4 nodules. Recommend biopsy for no more than 2 nodules. Reading Location: [id number] CC: Dr. Kendrick Kendall, DO; Dr. Babak Clarke MD Clicker Operator: Signed Normal [facility] CNOVon 05-29-[address] [facility] Office Visit (WOUCA) BARBARA DIANA ([id number]) 1960 F Date Time Provider Department 05/29/25 6:15 PM JOSE ASTUDILLO During your visit today, we recorded the following information about you: Temperature Pulse Respiration Blood pressure 99.7 degrees 93/minute 20/minute 150/90 Weight 106 kg Jose Astudillo MD 05/29/2025 7:54 PM Signed [facility] [place] Subjective Barbaralaxmi Diana is a 64 year old female. [...] Urgent Care May 29, 2025 6:35 PM [facility] Jose Hernandez MD 05/29/2025 7:54 PM Addendum -Use your [...] of breath) [R06.02] Order(s):XR CHEST 2V FRONTAL/LAT [[id number]] Order #: [id number] FUTURE amoxicillin-clavulanate potassium (AUGMENTIN XR) 1,000-62.5 mg [...] once andre (more content not included)... Normal [facility] XR CHEST 2V FRONTAL/LATon XR CHEST [...] shows degenerative changes. IMPRESSION: Overall findings unchanged. Clicker Operator: PSCB Transcribe Date/Time: May 29 2025 6:58P Dictated by : DESTINEY VELEZ MD This examination was interpreted and the report reviewed and electronically signed by: DESTINEY VELEZ MD on May 29 2025 6:59PM EST [id number] Normal [facility] XR Chest PA and Lateralon IMPRESSION: Overall findings unchanged. Clicker Operator: PSC Transcribe Date/Time: May 29 2025 6:58P Dictated [...] shows degenerative changes. DIVISION OF RADIOLOGY Provider, [facility] - 05/29/2025 * * *Final Report* * [...] degenerative changes. IMPRESSION IMPRESSION: Overall findings unchanged. Clicker Operator: PSCB Transcribe Date/Time: May 29 2025 6:58P Dictated by : DESTINEY VELEZ MD This examination was interpreted and the report reviewed and electronically signed by: DESTINEY VELEZ MD on May 29 2025 6:59PM EST [facility] Radiology Study observation (narrative) [facility] XR Chest PA and LateralOrder ed By: Ccf Provider on 05-29-2025 [facility] CNOVon 05-12-2025 [facility] Office Visit (WOUCA) DIANA,BARBARA Alberto ([id number]) 1960 F Date Time Provider Department 05/12/25 6:45 PM REYNA ALVA During your visit today, we recorded the following information about you: Temperature Pulse Respiration Blood pressure 98.5 degrees 77/minute 16/minute 130/78 Weight 106.9 kg Reyna Alva APRN.CNP 05/12/2025 7:27 PM Signed [facility] [place] Diana is a 64 year old female. [...] Worsened this week, with productive cough and garbage coming up. - Reports wheezing. - Denies relief from Tessalon Perles in the past. Denies CP Denies dyspnea. Denies hemoptysis Sinus Pain - Reports whole face hurts. - Associated with sinus pressure. - Took [...] apnea) 08/05/2014 Split study 06/28/2014 CPAP @ [address] [place] [address] BASELINE RESPIRATORY DATA: This study was performed [...] Cancer Materna (more content not included)... Normal [facility] STREP A MOLECULAR (POC)on Procedural Control Valid [facility] Strep A (POCT) Negative Negative [facility] XR CHEST 2V FRONTAL/LATon XR CHEST [...] is not localized on the lateral view. Clicker Operator: PARRIS Transcribe Date/Time: May 12 2025 7:16P Dictated by : KANDICE SANTIAGO MD This examination was interpreted and the report reviewed and electronically signed by: KANDICE SANTIAGO MD on May 12 2025 7:18PM EST [id number] Normal [facility] XR Chest PA and Lateralon IMPRESSION: No pneum othorax or effusion. No consolidation. Small nonspecific approximately 3 cm area of opacity near the left heart border seen on frontal view and is not localized on the lateral view. Clicker Operator: PARRIS Transcribe Date/Time: May 12 2025 7:16P Dictated by : KANDICE SANTIAGO MD This examination was interpreted and the report reviewed and electronically signed by: KANDICE SANTIAGO MD on May 12 2025 7:18PM EST DIVISION OF RADIOLOGY * * *Final [...] soft tissues: Unremarkable. DIVISION OF RADIOLOGY Provider, [facility] - 05/12/2025 * * *Final [...] is not localized on the lateral view. Clicker Operator: PARRIS Transcribe Date/Time: May 12 2025 7:16P Dictated by : KANDICE SANTIAGO MD This examination was interpreted and the report reviewed and electronically signed by: KANDICE SANTIAGO MD on May 12 2025 7:18PM [facility] Radiology Study observation (narrative) [facility] XR Chest PA and LateralOrder ed By: Ccliam Provider on 05-12-2025 [facility] Pulmonary Visit Reporton Pulmonary Visit Report [facility] [place] [address] [place] [address] OFFICE VISIT Date of Service: 02/16/25 MR#: [id number] Acct: [id number] Name: BARBARA DIANA Rep #: [id number] : 1960 Provider: SHAHANA Salguero Age/Sex: 64/F Location: [facility].PM[facility] Status: Signed Assessment and Plan Assessment [...] Additional Comments: This note was generated with Cytoo dictation software. It may contain incorrect words, [...] an occasional cough that is productive of cream-colored sputum. She denies any hemoptysis. 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 Normal [facility] Pulmonary Visit Reporton Pulmonary Visit Report [facility] Pulmonary Medicine of [address] [place] [address] OFFICE VISIT Date of Service: 12/29/24 MR#: [id number] Acct: [id number] Name: BARBARA DIANA Rep #: [id number] : 1960 Provider: SHAHANA Salguero Age/Sex: 64/F Location: [facility].PMW Status: Signed Assessment and Plan Assessment [...] 11RF Plan Details Follow Up: 6 Weeks ([facility]) HPI 2 M F/U Chief Complaint: Test [...] daily. She is using Albuterol rescue inhaler at least twice a week. She finds it to be effective. 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 Normal [facility] Special Stain Group IIon Special Stain Group II -------- Patient Age/Sex Location Account Attending Physician -------- BARBARA DIANA 64/F LABSPEC [id number] Dr. Babak Clarke MD -------- Specimen: [id number] Received: 12/29/24 Status: NIRANJAN Cardenasmanan Num: [id number] Spec Type: Fluid Subm Dr: Dr. Babak [...] and and designated per the requisition as Thyroid nodular cyst. Submitted for cytology and cell block preparation. 12/29/2024 CPT: 76251 Signed (signature on file) Dr. Natalya Estrella, 01/06/25 0824 -------- Normal [facility] Comment on above: Performed By: #### P SSII ####[facility] [address] [place], [address] Surgery Visit Reporton 12-29 Surgery Visit Report [facility] [address] [place] [address] OFFICE VISIT Date of Service: 12/29/24 MR#: [id number] Acct: [id number] Name: BARBARA DIANA Rep #: [id number] : 1960 Provider: Dr. Babak infante MD Age/Sex: 64/F Location: [facility] Status: Signed Intake Vital Signs 11/10/24 13:14 [...] cystic fluid. She states that she felt so much better following this aspiration procedure and noticed an [...] x 3.1 x 2.5 cm with a predominantly cystic appearance. As above, an FNA was performed in [address] Dmitry Elliott with a final [place] 2 diagnosis. Other tests include: TSH: 2.08 [...] pain Psych (more content not included)... Normal [facility] 6 Minute Walk Teston 025 6 Minute Walk Test y [facility] Pulmonary Services/Neurology [address] [place] [address] MR#: [id number] Acct: [id number] Name: BARBARA DIANA Rep #: [id number] : 1960 64 From: Jonathon Roche DO Referring Dr: Jodie Salguero SALES OPERATIONS MANAGER SALES OPERATIONS MANAGER-C Status: REG CLI Location: PSN Date: Sex: F C PSN 6 Minute Walk Test 6 Minute Walk Test 6 Minute Walk Test: 6 Minute Walk Test PSN:6-Minute Walk Test Start: 12/08/24 12:35 Freq: Status: Active Protocol: RESP.6MINW Document 12/08/24 12:35 SFENTON (Rec: 12/08/24 12:37 SFENTON [id number]) 6 Minute Walk Test Date Performed 12/08/24 Time Performed 12:30 Height 5 ft 6 in Weight: 235 lb Weight in Pounds 235.[address]: Jodie Salguero NP Assistive device None used: Pre-test Oxygen Delivery [...] Date Jonathon Roche DO CC: Date Dictated: 12/10/24 1108 Date Transcribed: 12/10/241107 Clicker Operator: Dr. Jonathon Roche DO Signed Normal [facility] EGD Reporton 12-01-2024 EGD Report [facility] Medical Records Department [address] [place] [address] EGD Report MR#: [id number] Acct: [id number] Name: BARBARA DIANA Rep #: [id number] : 1960 64 From: Kimmie Olmos MD PCP: Dr. Kendrick Kendall DO Status:REG [facility] Patient Name: Barbara Diana Procedure Date: 12/01/2024 [...] present medications. Procedure Code(s): --- Professional --- 91625, PT, Esophagogastroduodenoscopy, flexible, transoral; with biopsy, single or multiple Diagnosis Code(s): --- Professional --- K22.89, Other specified disease of esophagus K22.70, Romero's esophagus without dysplasia K44.9, Diaphragmatic hernia without obstruction or gangrene K31.89, Other diseases of stomach and duodenum CPT copyright 2021 [employer]. All rights reserved. The codes documented in this report are preliminary and upon oil heater installer review may be revised to meet current compliance requirements. MD Kimmie Hernandes MD 12/01/2024 11:09:31 AM This report has been signed electronically. Number of Addenda: 0 Note Initiated On: 12/01/2024 10:44 AM 12/01/24 1109 Date Kimmie Modi Signature: Date (if indicated) CC: Dr. Kendrick Kendall, ; Dr. Kimmie Olmos MD Date Dictated: 12/01/24 1044 Date Transcribed: Clicker Operator: TR Signed [facility] Immunohistochemical Stainson 12-01-2024 Immunohistochemical Stains -------- Patient Age/Sex Location Account Attending Physician -------- BARBARA DIANA 64/F EN [id number] Dr. Kimmie Olmos MD -------- Specimen: [id number] Received: 12/01/24 Status: NIRANJAN Morales Num: [id number] Spec Type: EGD BIOPSY Subm Dr: Dr. [...] labeled with the patient's name and designated Antrum biopsy. The specimen consists of one irregular fragment of light de paz soft tissue that measures 0.5 x 0.3 x 0.2 cm. The specimen is totally submitted in one cassette. B. Received in fixative is one container labeled with the patient's name and designated GE junction biopsy. The specimen consists of two irregular fragments of light de paz soft tissue that in aggregate measure 0.6 x 0.3 x 0.1 cm. The specimen is totally submitted in one cassette. MS/mr 12/01/2024 CPT:58541a5,17547 -------- Patient Age/Sex Location Account Attending Physician -------- BARBARA DIANA 64/F EN [id number] Dr. Kimmie Olmos MD -------- Signed (signature on file) Dr. Tameka Eckert MD 12/04/24 0955 -------- Normal [facility] Comment on above: Performed By: #### P MONIKA #### [facility] Laboratory [address] [place], [place], [address] MR/POSTOP.Tere 12-01-2024 MR/POSTOP.LEOBARDO [facility] Medical Records Department [address] [place] [address] Anesthesia Postop Eval I 12/01/24 1108 MR#: [id number] Acct: [id number] Name: BARBARA DIANA Rep #: [id number] : 1960 64 From: Jarad Monson CRNA PCP: Dr. Kendrick Kendall, DO Status:REG SDC Y Race: C Location: [place] [address] Anesthesia: Postop Eval I Current Vital Signs [...] Postop Eval 1 completed: Yes 12/01/24 1109 Date Jarad Monson CRNA Cosigner Signature: Date CC: Signed Normal [facility] MR/[id number] 12-01-2024 [facility] Medical Records Department [address] [place] [address] Anesthesia Postop Eval II 12/01/24 1115 MR#: [id number] Acct: [id number] Name: BARBARA DIANA Rep #: [id number] : 1960 64 From: Caty Gomez PCP: Dr. Kendrick Kendall, DO Status:REG SDC Y Race: C Location: [place] [address] Anesthesia Postop Eval I Sum Postop Eval Completion status Anesthesia document: Postop Eval 1 completed: Yes Anesthesia Postop Eval I Summary Anesthesia Postop Eval I Summary: Anesthesia Postop Eval I: Assessment Summary Airway patent Yes 12/01/24 11:09 [email or web address] Spontaneous unlabored Yes 12/01/24 11:09 [email or web address] respirations Mental status Awake 12/01/24 11:09 [email or web address].PKEL nausea No 12/01/24 11:09 [email or web address] Vomiting No 12/01/24 11:09 [email or web address] Anesthesia Postop Eval I: Fluid Summary Crystalloid volume administer 30 12/01/24 11:09 [email or web address].PKEL (ml) Colloids volume administered ( ml) Blood Product volume administered (ml) Total IV fluid infused 30 12/01/24 11:09 [email or web address] Anesthesia Postop Eval I: Summary Notes Anesthesia Complication No 12/01/24 11:09 [email or web address] Anesthesia Complication Comment: Post-operative progress note Anesthesia: Postop Eval II Evaluation Mental status: Awake Pain Level: 0 nausea: No Vomiting: No 12/01/24 1115 Date Caty Modi Signature: Date CC: [facility] [facility] Office Visit (UCWSTR ) BARBARA DIANA ([id number]) 1960 F Date Time Provider Department 11/20/24 7:00 PM MORGAN SARAVIA [facility] During your visit today, we recorded the following information about you: Temperature Pulse Respiration Blood pressure 98.5 degrees 70/minute 22/minute 154/91 Weight 107 kg Morgan Saravia APRN.[facility] 11/20/2024 7:[address] [facility] Barbara Diana is a 64 year old [...] apnea) 08/05/2014 Split study 06/28/2014 CPAP @ [address] [place] [address] BASELINE RESPIRATORY DATA: This study was performed [...] 1983 Hysterectomy, vaginal ALLERGIES Seasonal Allergies MEDICATIONS losartan [...] of Syst (more content not included)... Normal [facility] Breast imaging reportOrdered By: Vince Workman on 11-17-2024 Study report [facility] [address] [place] [address] SCRN MAMM (CAD)W/LYNETTE BILAT MR#: [id number] Acct: [id number] Name: BARBARA DIANA Rep #: [id number] : 1960 F 64 From: Fox Workman MD PCP: Dr. Kendrick Kendall DO Status: REG CLI Study:SCRN MAMM (CAD)W/LYNETTE BILAT Date of Exa m: 11/17/24 Exam# [id number] Ordering Dr: Kendrick Kendall DO PROCEDURE: SCRN [...] of the results by letter. Reading Location: [id number] CC: Dr. Kendrick Kendall DO ~ Clicker Operator: Signed [facility] SCRN MAMM (CAD)W/LYNETTE BILATo n 11-17-2024 SCRN MAMM (CAD)W/LYNETTE BILAT [facility] [address] [place] [address] SCRN MAMM (CAD)W/LYNETTE BILAT MR#: [id number] Acct: [id number] Name: BARBARA DIANA Rep #: [id number] : 1960 F 64 From: Vince rocha MD PCP: Dr. Kendrick Kendall DO Status: [facility] CLI Study: SCRN MAMM (CAD)W/LYNETTE BILAT Date of Exam: 12/09 Exam# [id number] Ordering Dr: Kendrick Kendall DO PROCEDURE: SCRN [...] of the results by letter. Reading Location: VICK CC: Dr. Kendrick Kendall DO Clicker Operator: Signed Normal [facility] Surgery Visit Reporton 11-10 Surgery Visit Report [facility] [address] [place], [place] [address] OFFICE VISIT Date of Service: 11/10/24 MR#: [id number] Acct: [id number] Name: BARBARA DIANA Rep #: [id number] : 1960 Provider: Dr. Kimmie hansen MD Age/Sex: 64/F Location: [facility] Status: Signed Intake Vital Signs 05/05/24 13:35 [...] History (Reviewed 10/27/24 @ 13:28 by Jodie Slaguero SALES OPERATIONS MANAGER, SALES OPERATIONS MANAGER-C) Other Asthma Cancer Diabetes Hypertension Social History (Reviewed 10/27/24 @ 13:28 by Jodie Salguero SALES OPERATIONS MANAGER, SALES OPERATIONS MANAGER-C) Smoking Status: Former smoker second hand exposure: [...] General: cooperativ (more content not included)... Normal [facility] Pulmonary Visit Reporton Pulmonary Visit Report [facility] [place] [address] [place] [address] OFFICE VISIT Date of Service: 10/27/24 MR#: [id number] Acct: [id number] Name: BARBARA FREEMAN Rep #: [id number] : 1960 Provider: SHAHANA Salguero Age/Sex: 64/F Location: [facility] Status: Signed Assessment and Plan Assessment [...] recently treated with a Medrol Dosepak for fluid on the ear. She completed this a couple days ago. 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 Normal [facility] Thyroidon 10-27-2024 Thyroid [facility] Imaging Services [address] [place] [address] Thyroid MR#: [id number] Acct: [id number] Name: BARBARA DIANA Rep #: [id number] : 1960 F [id number] From: Vince rocha MD PCP: Dr. Kendrick Kendall DO Status: REG CLI Study: Thyroid Date of Exam: 10/27/24 Exam# [id number] Ordering Dr: Kendrick Kendall DO PROCEDURE: THYROID [...] recommended if not already performed. Reading Location: [facility] CC: Dr. Kendrick Kendall DO Clicker Operator: Signed Normal [facility] Absolute lymphocyte countOrd ered By: Kendrick Kendall on 10-20-2024 Lymphocytes Auto (Unsp spec) [#/Vol] 1.13 10*3/uL 0.83-4.[address] [facility] Absolute neutrophil countOrd ered By: Kendrick Kendall on 10-20-2024 Neutrophils (Bld) [#/Vol] 3.3 10*3/uL 2.0-7.[address] [facility] Albumin to globulin ratioOrd ered By: Kendrick Kendall on 10-20-2024 Albumin/Globulin [Mass ratio] 0.9 {ratio} 0.9-2.[address] [facility] Automated lymphocyte count a s percentage of total leukocytesOrdered By: Kendrick Kendall on 10-20-2024 Lymphocytes/100 WBC Auto (Unsp spec) 22.3 % 19-[address] [facility] Basophil percentageOrdered B y: Kendrick Kendall on 10-20-2024 Basophils/100 WBC (Bld) 0.6 % 0-[address] [facility] Bilirubin, totalOrdered By: Kendrick Kendall on 10-20-2024 Bilirubin [Mass/Vol] 0.50 mg/dL 0.20-1.00 [facility] Comment on above: For patients on eltr ombopag therapy, use of Dimension [place] TBIL is not recommended. Blood urea nitrogen (BUN)/cr eatinine ratioOrdered By: Kendrick Kendall on 10-20-2024 Urea nitrogen/Creatinine [Mass ratio] 13.6 mg/mg 10- [facility] CBC W/Diff, Automatedon Absolute Lymph 1.13 X10 3/uL Normal 0.83-4.[address] [facility] Comment on above: Performed By: #### L 500.4100, L500.4050, L501.9985, L501.9520, L100.0100 ####[facility] [address] [place], [address] Absolute Neut 3.3 X10 3/uL Normal 2.0-7.[address] [facility] Comment on above: Performed By: #### L 500.4100, L500.4050, L501.9985, L501.9520, L100.0100 ####[facility] [address] [place], [address] Basophils/100 WBC (Bld) 0.6 % Normal 0-[address] [facility] Comment on above: Performed By: #### L 500.4100, L500.4050, L501.9985, L501.9520, L100.0100 ####[facility] [address] [place], [address] Eosinophils/100 WBC (Bld) 0.6 % Normal 0-[address] [facility] Comment on above: Performed By: #### L 500.4100, L500.4050, L501.9985, L501.9520, L100.0100 ####[facility] [address] [place], [address] Erythrocyte distribution width (RBC) [Ratio] 13.1 % Normal 11.6-14.[address] [facility] Comment on above: Performed By: #### L 500.4100, L500.4050, L501.9985, L501.9520, L100.0100 ####[facility] [address] [place], [address] Hematocrit (Bld) [Volume fraction] 41.2 % Normal 37-[address] [facility] Comment on above: Performed By: #### L 500.4100, L500.4050, L501.9985, L501.9520, L100.0100 ####[facility] [address] [place], [address] Hemoglobin (Bld) [Mass/Vol] 12.7 g/dL Normal 12.0-15.[address] [facility] Comment on above: Performed By: #### L 500.4100, L500.4050, L501.9985, L501.9520, L100.0100 ####[facility] [address] [place], [address] IG% 0.400 Normal 0.0-0.[address] [facility] Comment on above: Result Comment: IG% - Immature Granulocytes (promyelocytes, myelocytes and metamyelocytes) > 1% indicates that a LEFT SHIFT is Present. Performed By: #### L 500.4100, L500.4050, L501.9985, L501.9520, L100.0100 ####[facility] [address] [place], [address] Lymphocytes/100 WBC (Bld) 22.3 % Normal 19-[address] [facility] Comment on above: Performed By: #### L 500.4100, L500.4050, L501.9985, L501.9520, L100.0100 ####[facility] [address] [place], [address] MCH (RBC) [Entitic mass] 28.3 pg Normal 27.0-32.[address] [facility] Comment on above: Performed By: #### L 500.4100, L500.4050, L501.9985, L501.9520, L100.0100 ####[facility] [address] [place], [address] MCHC (RBC) [Mass/Vol] 30.8 g/dL Low 32-36 [facility] Comment on above: Performed By: #### L 500.4100, L500.4050, L501.9985, L501.9520, L100.0100 ####[facility] [address] [place], [address] MCV (RBC) [Entitic vol] 92.0 fL Normal 81-[address] [facility] Comment on above: Performed By: #### L 500.4100, L500.4050, L501.9985, L501.9520, L100.0100 ####[facility] [address] [place], [address] Monocytes/100 WBC (Bld) 10.5 % High 0-[address] [facility] Comment on above: Performed By: #### L 500.4100, L500.4050, L501.9985, L501.9520, L100.0100 ####[facility] [address] [place], [address] Neutrophils/100 WBC (Bld) 65.6 % Normal 47-[address] [facility] Comment on above: Performed By: #### L 500.4100, L500.4050, L501.9985, L501.9520, L100.0100 ####[facility] [address] [place], [address] Nucleated RBC (Bld) [#/Vol] 0 10*3/uL Normal 0-[address] [facility] Comment on above: Performed By: #### L 500.4100, L500.4050, L501.9985, L501.9520, L100.0100 ####[facility] [address] [place], [address] Platelet mean volume (Bld) [Entitic vol] 10.3 fL Normal 6.2-12.[address] [facility] Comment on above: Performed By: #### L 500.4100, L500.4050, L501.9985, L501.9520, L100.0100 ####[facility] [address] [place], [address] Platelets (Bld) [#/Vol] 346 10*3/uL Normal 150-[address] [facility] Comment on above: Performed By: #### L 500.4100, L500.4050, L501.9985, L501.9520, L100.0100 ####[facility] [address] [place], [address] RBC (Bld) [#/Vol] 4.48 10*6/uL Normal 4.2-5.4 [facility] Comment on above: Performed By: #### L 500.4100, L500.4050, L501.9985, L501.9520, L100.0100 ####[facility] [address] [place], [address] RDW SD 44.4 fl High 35.1-43.[address] [facility] Comment on above: Performed By: #### L 500.4100, L500.4050, L501.9985, L501.9520, L100.0100 ####[facility] [address] [place], [address] WBC (Bld) [#/Vol] 5.1 10*3/uL Normal 4.4-11.0 [facility] Comment on above: Performed By: #### L 500.4100, L500.4050, L501.9985, L501.9520, L100.0100 ####[facility] [address] [place], [address] Carbon dioxide measurementOr dered By: Kendrick Kendall on 10-20-2024 CO2 [Moles/Vol] 22.0 mmol/L 21.0-32.[address] [facility] Chloride measurementOrdered By: Kendrick Kendall on 10-20-2024 Chloride [Moles/Vol] 108 mmol/L High 98-107 [facility] Comprehensive Metabolic Prof ilon 10-20-2024 Albumin [Mass/Vol] 3.3 g/dL Normal 3.2-5.0 [facility] Comment on above: Order Comment: CBCD Performed By: #### L 500.4100, L500.4050, L501.9985, L501.9520, L100.0100 ####[facility] [address] [place], [address] Albumin/Globulin [Mass ratio] 0.9 {ratio} Normal 0.9-2.[address] [facility] Comment on above: Order Comment: CBCD Performed By: #### L 500.4100, L500.4050, L501.9985, L501.9520, L100.0100 ####[facility] [address] [place], [address] ALK P 84 U/L Normal 45-[address] [facility] Comment on above: Order Comment: CBCD Performed By: #### L 500.4100, L500.4050, L501.9985, L501.9520, L100.0100 ####[facility] [address] [place], [address] ALT [Catalytic activity/Vol] 16 U/L Normal 13-[address] [facility] Comment on above: Order Comment: CBCD Performed By: #### L 500.4100, L500.4050, L501.9985, L501.9520, L100.0100 ####[facility] [address] [place], [address] AST [Catalytic activity/Vol] 13 U/L Low 15-[address] [facility] Comment on above: Order Comment: CBCD Performed By: #### L 500.4100, L500.4050, L501.9985, L501.9520, L100.0100 ####[facility] [address] [place], [address] Bilirubin [Mass/Vol] 0.50 mg/dL Normal 0.20-1.00 [facility] Comment on above: Order Comment: CBCD Result Comment: For patients on eltrombopag therapy, use of Dimension [place] TBIL is not recommended. Performed By: #### L 500.4100, L500.4050, L501.9985, L501.9520, L100.0100 ####[facility] [address] [place], [address] BUN/CRE 13.6 RATIO Normal 10-[address] [facility] Comment on above: Order Comment: CBCD Performed By: #### L 500.4100, L500.4050, L501.9985, L501.9520, L100.0100 ####[facility] [address] [place], [address] CA,Total 8.8 mg/dL Normal 8.5-10.[address] [facility] Comment on above: Order Comment: CBCD Performed By: #### L 500.4100, L500.4050, L501.9985, L501.9520, L100.0100 ####[facility] [address] [place], [address] Chloride [Moles/Vol] 108 mmol/L High 98-107 [facility] Comment on above: Order Comment: CBCD Performed By: #### L 500.4100, L500.4050, L501.9985, L501.9520, L100.0100 ####[facility] [address] [place], [address] CO2 [Moles/Vol] 22.0 mmol/L Normal 21.0-32.[address] [facility] Comment on above: Order Comment: CBCD Performed By: #### L 500.4100, L500.4050, L501.9985, L501.9520, L100.0100 ####[facility] [address] [place], [address] Creatinine [Mass/Vol] 1.03 mg/dL High 0.55-1.02 [facility] Comment on above: Order Comment: CBCD Result Comment: The validity of the calculated GFR GFRAA in patients over 70 years has not been determined. Clinical correlation is essential. Performed By: #### L 500.4100, L500.4050, L501.9985, L501.9520, L100.0100 ####[facility] [address] [place], [address] EST GFR - AA 69 mL/min Normal >[address] [facility] Comment on above: Order Comment: CBCD Result Comment: Afri can K[place]z GFR Calc Performed By: #### L 500.4100, L500.4050, L501.9985, L501.9520, L100.0100 ####[facility] [address] [place], [address] GAP 10 Normal 5-[address] [facility] Comment on above: Order Comment: CBCD Performed By: #### L 500.4100, L500.4050, L501.9985, L501.9520, L100.0100 ####[facility] [address] [place], [address] GFR/1.73 sq M.predicted among non-blacks MDRD (S/P/Bld) [Vol rate/Area] 57 mL/min/{1.73_m2} Low >[address] [facility] Comment on above: Order Comment: CBCD Result Comment: Non- GFR Calc Performed By: #### L 500.4100, L500.4050, L501.9985, L501.9520, L100.0100 ####[facility] [address] [place], [address] Globulin (S) [Mass/Vol] 3.6 g/dL Normal 2.2-4.[address] [facility] Comment on above: Order Comment: CBCD Performed By: #### L 500.4100, L500.4050, L501.9985, L501.9520, L100.0100 ####[facility] [address] [place], [address] Glucose [Mass/Vol] 128 mg/dL High 74-106 [facility] Comment on above: Order Comment: CBCD Result Comment: Fast ing Glucose result greater than or equal to 126 mg/dL suggests DIABETES MELLITUS per A.D.A. criteria. Performed By: #### L 500.4100, L500.4050, L501.9985, L501.9520, L100.0100 ####[facility] [address] [place], [address] Potassium [Moles/Vol] 3.8 mmol/L Normal 3.5-5.1 [facility] Comment on above: Order Comment: CBCD Performed By: #### L 500.4100, L500.4050, L501.9985, L501.9520, L100.0100 ####[facility] [address] [place], [address] Sodium [Moles/Vol] 140 mmol/L Normal 136-145 [facility] Comment on above: Order Comment: CBCD Performed By: #### L 500.4100, L500.4050, L501.9985, L501.9520, L100.0100 ####[facility] [address] [place], [address] T PROT 6.9 g/dL Normal 6.4-8.[address] [facility] Comment on above: Order Comment: CBCD Performed By: #### L 500.4100, L500.4050, L501.9985, L501.9520, L100.0100 ####[facility] [address] [place], [address] Urea nitrogen [Mass/Vol] 14 mg/dL Normal 7-[address] [facility] Comment on above: Order Comment: CBCD Performed By: #### L 500.4100, L500.4050, L501.9985, L501.9520, L100.0100 ####[facility] [address] [place], [address] Eosinophil percentageOrdered By: Kendrick Kendall on 10-20-2024 Eosinophils/100 WBC (Bld) 0.6 % 0-[address] [facility] Erythrocyte distribution wid th ratioOrdered By: Kendrick Kendall on 10-20-2024 Erythrocyte distribution width (RBC) [Ratio] 13.1 % 11.6-14.[address] [facility] Erythrocyte distribution wid th standard deviationOrdered By: Kendrick Kendall on 10-20-2024 Erythrocyte distribution width (RBC) [Entitic vol] 44.4 fL High 35.1-43.[address] [facility] Erythrocyte distribution width (RBC) [Ratio] 44.4 fl High 35.1-43.[address] [facility] Estimated glomerular filtrat ion rate (GFR) AmericanOrdered By: Kendrick Kendall on 10-20-2024 Estimated GFR (MDRD) Amer 69 mL/min >[address] [facility] Comment on above: GFR Calc Glomerular filtration rate ( GFR) estimationOrdered By: Kendrick Kendall on 10-20-2024 Estimated GFR (MDRD) Non-Af Amer 57 mL/min Low >[address] [facility] Comment on above: Non- GFR Calc GFR/1.73 sq M.predicted among non-blacks MDRD (S/P/Bld) [Vol rate/Area] 57 mL/min/{1.73_m2} Low >[address] [facility] Comment on above: Non- GFR Calc Glucose measurementOrdered B y: Kendrick Kendall on 10-20-2024 Glucose [Mass/Vol] 128 mg/dL High 74-106 [facility] Comment on above: Fasting Glucose resu lt greater than or equal to 126 mg/dL suggests DIABETES MELLITUS per A.D.A. criteria. Hematocrit Auto (Bld) [Volum e fraction]Ordered By: Kendrick Kendall on 10-20-2024 Hematocrit (Bld) [Volume fraction] 41.2 % 37-[address] [facility] Hemoglobin A1con 10-20-2024 HbA1c (Bld) [Mass fraction] 5.5 % Normal 3.8-5.[address] [facility] Comment on above: Result Comment: Norm al < 5.7 % Prediabetic 5.7 - 6.4 % Diabetic >or= 6.5 % Please note range changes. Performed By: #### L 500.4100, L500.4050, L501.9985, L501.9520, L100.0100 ####[facility] [address] [place], [address] Hemoglobin A1c percentageOrd ered By: Kendrick Kendall on 10-20-2024 HbA1c (Bld) [Mass fraction] 5.5 % 3.8-5.[address] [facility] Comment on above: Normal < 5.7 % Predi abetic 5.7 - 6.4 % Diabetic >or= 6.5 % Please note range changes. Hemoglobin measurementOrdere d By: Kendrick Kendall on 10-20-2024 Hemoglobin (Bld) [Mass/Vol] 12.7 g/dL 12.0-15.[address] [facility] High density lipoprotein (HD L) measurementOrdered By: Kendrick Kendall on 10-20-2024 Cholesterol in HDL [Mass/Vol] 55 mg/dL >[address] [facility] Comment on above: The drugs N-Acetylcy steine and Metamizole may falsely depress this assay. Reference Range HDL <40 mg/dL Low HDL Cholesterol HDL >or= 60 mg/dL High HDL Cholesterol Immature granulocytes/100 WB C Auto (Bld)Ordered By: Kendrick Kendall on 10-20-2024 Immature granulocytes/100 WBC (Bld) 0.400 % 0.0-0.[address] [facility] Comment on above: IG% - Immature Granu locytes (promyelocytes, myelocytes and metamyelocytes) > 1% indicates that a LEFT SHIFT is Present. Laboratory - Chemistry and C hemistry - challengeOrdered By: Kendrick Kendall on 10-20-2024 AST [Catalytic activity/Vol] 13 U/L Low 15-[address] [facility] Lipid Profileon 10-20-2024 Cholesterol [Mass/Vol] 125 mg/dL Normal 200 [facility] Comment on above: Result Comment: <200 mg/dL Desirable 200-240 mg/dL Borderline >240 mg/dL High Risk Performed By: #### L 500.4100, L500.4050, L501.9985, L501.9520, L100.0100 ####[facility] [address] [place], [address] Cholesterol in HDL [Mass/Vol] 55 mg/dL Normal [facility] Comment on above: Result Comment: The drugs N-Acetylcysteine and Metamizole may falsely depress this assay. Reference Range HDL <40 mg/dL Low HDL Cholesterol HDL >or= 60 mg/dL High HDL Cholesterol Performed By: #### L 500.4100, L500.4050, L501.9985, L501.9520, L100.0100 ####[facility] [address] [place], [address] Cholesterol in LDL [Mass/Vol] 56 mg/dL Normal 0-[address] [facility] Comment on above: Performed By: #### L 500.4100, L500.4050, L501.9985, L501.9520, L100.0100 ####[facility] [address] [place], [address] Cholesterol in VLDL [Mass/Vol] 14 mg/dL Normal 5-[address] [facility] Comment on above: Performed By: #### L 500.4100, L500.4050, L501.9985, L501.9520, L100.0100 ####[facility] [address] [place], [address] Triglyceride [Mass/Vol] 68 mg/dL Normal [facility] Comment on above: Result Comment: The drugs N-Acetylcysteine and Metamizole may falsely depress this assay. Serum Triglycerides Reference Interval Normal <150 mg/dL Borderline high 150 - 199 mg/dL High 200 - 499 mg/dL Very High > or = 500 mg/dL Performed By: #### L 500.4100, L500.4050, L501.9985, L501.9520, L100.0100 ####[facility] [address] [place], [address] Low density lipoprotein (LDL ) cholesterol measurementOrdered By: Kendrick Kendall on 10-20-2024 Cholesterol in LDL [Mass/Vol] 56 mg/dL 0-[address] [facility] Lymphocytes Auto (Unsp spec) [#/Vol]Ordered By: Kendrick Kendall on 10-20-2024 Lymphocytes (Bld) [#/Vol] 1.13 10*3/uL 0.83-4.[address] [facility] Lymphocytes/100 WBC Auto (Un sp spec)Ordered By: Kendrick Kendall on 10-20-2024 Lymphocytes/100 WBC (Bld) 22.3 % 19-[address] [facility] MCV (mean corpuscular volume ) determinationOrdered By: Kendrick Kendall on 10-20-2024 MCV (RBC) [Entitic vol] 92.0 fL 81-[address] [facility] Mean corpuscular hemoglobin (MCH) determinationOrdered By: Kendrick Kendall on 10-20-2024 MCH (RBC) [Entitic mass] 28.3 pg 27.0-32.[address] [facility] Mean corpuscular hemoglobin concentration (MCHC) determinationOrdered By: Kendrick Kendall on 10-20-2024 MCHC (RBC) [Mass/Vol] 30.8 g/dL Low 32-36 [facility] Mean platelet volume determi nationOrdered By: Kendrick Kendall on 10-20-2024 Platelet mean volume (Bld) [Entitic vol] 10.3 fL 6.2-12.[address] [facility] Monocyte percentageOrdered B y: Kendrick Kendall on 10-20-2024 Monocytes/100 WBC (Bld) 10.5 % High 0-[address] [facility] Neutrophil percentageOrdered By: Kendrick Kendall on 10-20-2024 Neutrophils/100 WBC (Bld) 65.6 % 47-[address] [facility] Nucleated red blood cell per centageOrdered By: Kendrick Kendall on 10-20-2024 Nucleated RBC/100 WBC (Bld) [Ratio] 0 % 0-[address] [facility] Platelet countOrdered By: Louie Kendall on 10-20-2024 Platelets (Bld) [#/Vol] 346 10*3/uL 150-[address] [facility] Potassium measurementOrdered By: Kendrick Kendall on 10-20-2024 Potassium [Moles/Vol] 3.8 mmol/L 3.5-5.1 [facility] RBC Auto (Bld) [#/Vol]Ordere d By: Kendrick Kendall on 10-20-2024 RBC (Bld) [#/Vol] 4.48 10*6/uL 4.2-5.4 [facility] Serum anion gap measurementO rdered By: Kendrick Kendall on 10-20-2024 Anion gap [Moles/Vol] 10 mmol/L 5-15 [facility] Serum globulin measurementOr dered By: Kendrick Kendall on 10-20-2024 Globulin (S) [Mass/Vol] 3.6 g/dL 2.2-4.[address] [facility] Serum or plasma alanine min otransferase (ALT) measurementOrdered By: Kendrick Kendall on 10-20-2024 ALT [Catalytic activity/Vol] 16 U/L 13-[address] [facility] Serum or plasma albumin donal urement (mass/volume)Ordered By: Kendrick Kendall on 10-20-2024 Albumin [Mass/Vol] 3.3 g/dL 3.2-5.0 [facility] Serum or plasma alkaline mk sphatase measurementOrdered By: Kendrick Kendall on 10-20-2024 ALP [Catalytic activity/Vol] 84 U/L 45-[address] [facility] Serum or plasma calcium donal urement (mass/volume)Ordered By: Kendrick Kendall on 10-20-2024 Calcium [Mass/Vol] 8.8 mg/dL 8.5-10.1 [facility] Serum or plasma cholesterol measurement (mass/volume)Ordered By: Kendrick Kendall on 10-20-2024 Cholesterol [Mass/Vol] 125 mg/dL <200 [facility] Comment on above: <200 mg/dL Desirable 200-240 mg/dL Borderline >240 mg/dL High Risk Serum or plasma creatinine m easurement (mass/volume)Ordered By: Kendrick Kendall on 10-20-2024 Creatinine [Mass/Vol] 1.03 mg/dL High 0.55-1.02 [facility] Comment on above: The validity of the calculated GFR & GFRAA in patients over 70 years has not been determined. Clinical correlation is essential. Serum or plasma thyroid stim ulating hormone (TSH) measurement (units/volume)Ordered By: Kendrick Kendall on 10-20-2024 TSH Qn 2.080 uIU/mL 0.358-3.[address] [facility] Serum or plasma urea nitroge n measurement (mass/volume)Ordered By: Kendrick Kendall on 10-20-2024 Urea nitrogen [Mass/Vol] 14 mg/dL 7-[address] [facility] Sodium levelOrdered By: Kendrick Kendall on 10-20-2024 Sodium [Moles/Vol] 140 mmol/L 136-145 [facility] TSH QnOrdered By: Kendrick malik on 10-20-2024 Thyroid Stimulating Hormone (TSH) 2.080 uIU/mL 0.358-3.[address] [facility] Thyroid Stim Hormone (TSH)on 10-20-2024 TSH 2.080 uIU/mL Normal 0.358-3.[address] [facility] Comment on above: Performed By: #### L 500.4100, L500.4050, L501.9985, L501.9520, L100.0100 ####[facility] [address] [place], [address] Total proteinOrdered By: Meryl Kendall on 10-20-2024 Protein [Mass/Vol] 6.9 g/dL 6.4-8.2 [facility] Triglycerides measurementOrd ered By: Kendrick Kendall on 10-20-2024 Triglyceride [Mass/Vol] 68 mg/dL <[address] [facility] Comment on above: The drugs N-Acetylcy steine and Metamizole may falsely depress this assay.Serum Triglycerides Reference Interval Normal <150 mg/dL Borderline high 150 - 199 mg/dL High 200 - 499 mg/dL Very High > or = 500 mg/dL Very low density lipoprotein (VLDL) cholesterol measurementOrdered By: Kendrick Kendall on 10-20-2024 Very low density lipoprotein (VLDL) cholesterol measurement 14 mg/dL 5-[address] [facility] VLDL Cholesterol 14 mg/dL -[address] [facility] White blood cell (WBC) count Ordered By: Kendrick Kendall on 10-20-2024 WBC (Bld) [#/Vol] 5.1 10*3/uL 4.4-11.0 [facility] Gram Stainon 08-19-2024 GS Gram Stain Rare Epithelial cells Rare Gram positive rods Rare Gram positive cocci Normal [facility] Comment on above: Performed By: #### M 100.2000, M100.2500 ####[facility] [address] [place], [address] Nasopharyngeal Cultureon NAC No growth in 48 hours. Normal [facility] Comment on above: Performed By: #### M 100.1999, M100.2500 ####[facility] [address] [place], [address] Gram stainOrdered By: Usman calderon on 08-18-2024 Microscopic observation Gram stain Nom (Unsp spec) [facility] Microscopic observation Gram stain Nom (Unsp spec) [facility] Nasopharyngeal cultureOrdere d By: Usman Tate on 08-18-2024 Nasopharyngeal Culture No growth in [address] [facility] Nasopharyngeal Culture No growth in [address] [facility] Gram stain for investigation of transfusion reactionOrdered By: Usman Tate on 10-29-2023 Microscopic observation Gram stain Nom (Unsp spec) [facility] Microscopic observation Gram stain Nom (Unsp spec) [facility] No Panel InformationOrdered By: Usman Tate on 10-29-2023 Nasopharyngeal Culture No growth in [address] [facility] Nasopharyngeal Culture No growth in [address] [facility] Absolute lymphocyte countOrd ered By: Kendrick Kendall on 10-15-2023 Lymphocytes Auto (Unsp spec) [#/Vol] 1.36 10*3/uL 0.83-4.[address] [facility] Automated lymphocyte count a s percentage of total leukocytesOrdered By: Kendrick Kendall on 10-15-2023 Lymphocytes/100 WBC Auto (Unsp spec) 25.8 % 19-[address] [facility] Basophil percentageOrdered B y: Kendrick Kendall on 10-15-2023 Basophils/100 WBC (Bld) 1.1 % 0-[address] [facility] Bilirubin [Mass/Vol] 0.50 mg/dL 0.20-1.00 [facility] Comment on above: For patients on eltr ombopag therapy, use of Dimension [place] TBIL is not recommended. Chloride [Moles/Vol] 109 mmol/L 98-107 [facility] Cholesterol [Mass/Vol] 139 mg/dL <200 [facility] Comment on above: <200 mg/dL Desirable 200-240 mg/dL Borderline >240 mg/dL High Risk Eosinophils/100 WBC (Bld) 0.0 % 0-[address] [facility] Glucose [Mass/Vol] 97 mg/dL 74-106 [facility] Hemoglobin (Bld) [Mass/Vol] 13.7 g/dL 12.0-15.[address] [facility] Monocytes/100 WBC (Bld) 14.2 % 0-[address] [facility] Neutrophils (Bld) [#/Vol] 3.1 10*3/uL 2.0-7.[address] [facility] Neutrophils/100 WBC (Bld) 58.0 % 47-[address] [facility] Potassium [Moles/Vol] 4.2 mmol/L 3.5-5.1 [facility] Protein [Mass/Vol] 7.2 g/dL 6.4-8.2 [facility] Sodium [Moles/Vol] 139 mmol/L 136-145 [facility] Triglyceride [Mass/Vol] 199 mg/dL <[address] [facility] Comment on above: The drugs N-Acetylcy steine and Metamizole may falsely depress this assay.Serum Triglycerides Reference Interval Normal <150 mg/dL Borderline high 150 - 199 mg/dL High 200 - 499 mg/dL Very High > or = 500 mg/dL WBC (Bld) [#/Vol] 5.3 10*3/uL 4.4-11.0 [facility] Determination of erythrocyte mean corpuscular volume (MCV)Ordered By: Kendrick Kendall on 10-15-2023 MCV (RBC) [Entitic vol] 91.8 fL 81-[address] [facility] Erythrocyte distribution wid th ratioOrdered By: Kendrick Kendall on 10-15-2023 Erythrocyte distribution width (RBC) [Ratio] 13.1 % 11.6-14.[address] [facility] Erythrocyte distribution wid th standard deviationOrdered By: Kendrick Kendall on 10-15-2023 Erythrocyte distribution width (RBC) [Entitic vol] 43.2 fL 35.1-43.[address] [facility] Hematocrit Auto (Bld) [Volum e fraction]Ordered By: Kendrick Kendall on 10-15-2023 Hematocrit (Bld) [Volume fraction] 42.8 % 37-[address] [facility] High density lipoprotein (HD L) measurementOrdered By: Kendrick Kendall on 10-15-2023 Cholesterol in HDL (Body fld) [Mass/Vol] 50 mg/dL >[address] [facility] Comment on above: The drugs N-Acetylcy steine and Metamizole may falsely depress this assay. Reference Range HDL <40 mg/dL Low HDL Cholesterol HDL >or= 60 mg/dL High HDL Cholesterol Immature granulocytes/100 WB C Auto (Bld)Ordered By: Kendrick Kendall on 10-15-2023 Immature granulocytes/100 WBC (Bld) 0.900 % 0.0-0.[address] [facility] Comment on above: IG% - Immature Granu locytes (promyelocytes, myelocytes and metamyelocytes) > 1% indicates that a LEFT SHIFT is Present. Laboratory - Chemistry and C hemistry - challengeOrdered By: Kendrick Kendall on 10-15-2023 Albumin/Globulin [Mass ratio] 0.9 {ratio} 0.9-2.[address] [facility] ALP [Catalytic activity/Vol] 73 U/L 45-[address] [facility] ALT [Catalytic activity/Vol] 28 U/L 13-[address] [facility] CO2 [Moles/Vol] 26.0 mmol/L 21.0-32.[address] [facility] Globulin (S) [Mass/Vol] 3.7 g/dL 2.2-4.[address] [facility] Urea nitrogen/Creatinine [Mass ratio] 21.9 mg/mg 10-[address] [facility] Laboratory - Hematology and Cell countsOrdered By: Kendrick Kendall on 10-15-2023 MCH (RBC) [Entitic mass] 29.4 pg 27.0-32.[address] [facility] MCHC (RBC) [Mass/Vol] 32.0 g/dL 32-36 [facility] Nucleated RBC/100 WBC (Bld) [Ratio] 0 % 0-[address] [facility] Platelets (Bld) [#/Vol] 358 10*3/uL 150-[address] [facility] Low density lipoprotein (LDL ) cholesterol measurementOrdered By: Kendrick Kendall on 10-15-2023 Cholesterol in LDL (Body fld) [Moles/Vol] 49 mg/dL 0-[address] [facility] No Panel InformationOrdered By: Kendrick Kendall on 10-15-2023 Estimated GFR (MDRD) Amer 79 mL/min >[address] [facility] Comment on above: GFR Calc Estimated GFR (MDRD) Non-Af Amer 66 mL/min >[address] [facility] Comment on above: Non- GFR Calc Platelet mean volume Win-Ec ker (Bld) [Entitic vol]Ordered By: Kendrick Kendall on 10-15-2023 Platelet mean volume (Bld) [Entitic vol] 10.5 fL 6.2-12.[address] [facility] RBC Auto (Bld) [#/Vol]Ordere d By: Kendrick Kendall on 10-15-2023 RBC (Bld) [#/Vol] 4.66 10*6/uL 4.2-5.4 [facility] Serum or plasma calcium donal urement (mass/volume)Ordered By: Kendrick Kendall on 10-15-2023 Calcium [Mass/Vol] 9.2 mg/dL 8.5-10.1 [facility] Serum or plasma creatinine m easurement (mass/volume)Ordered By: Kendrick Kendall on 10-15-2023 Creatinine [Mass/Vol] 0.92 mg/dL 0.55-1.02 [facility] Comment on above: The validity of the calculated GFR & GFRAA in patients over 70 years has not been determined. Clinical correlation is essential. Serum or plasma urea nitroge n measurement (mass/volume)Ordered By: Kendrick Kendall on 10-15-2023 Urea nitrogen [Mass/Vol] 20 mg/dL 7-[address] [facility] Thin prep Papanicolaou smear with manual screeningOrdered By: Kendrick Kendall on 10-15-2023 Thin prep Papanicolaou smear with manual screening 3.5 g/dL 3.2-5.[address] [facility] Thin prep Papanicolaou smear with manual screening 18 U/L 15-[address] [facility] Thin prep Papanicolaou smear with manual screening 4 5-[address] [facility] Very low density lipoprotein (VLDL) cholesterol measurementOrdered By: Kendrick Kendall on 10-15-2023 Cholesterol in VLDL Calc [Moles/Vol] 40 mg/dL 5-[address] [facility] Whole blood hemoglobin A1c/t otal hemoglobin ratio (mass fraction)Ordered By: Kendrick Kendall on 10-15-2023 HbA1c (Bld) [Mass fraction] 5.6 % 3.8-5.[address] [facility] Comment on above: Normal < 5.7 % Predi abetic 5.7 - 6.4 % Diabetic >or= 6.5 % Please note range changes. Basophil percentageOrdered B y: Dr. Kendall on 02-09-2023 Basophil percentage < 0.9 mg/dL 0.55-1.02 [facility] No Panel InformationOrdered By: Dr. Kendall on 02-09-2023 Bedside Estimated GFR (eGFR) > 60.0000 mL/min >[address] [facility] No Panel InformationOrdered By: Dr. Partida on 07-23-2022 Troponin I High Sensitivity 16 pg/mL 3.0-54.[address] [facility] Comment on above: Please Note: New Mayte t Units and Gender Specific Reference Ranges. For more information see Policy Stat Procedure [place] High Sensitivity Troponin (TNIH) and attachments. Absolute lymphocyte countOrd ered By: Dr. Partida on 07-22-2022 Lymphocytes Auto (Unsp spec) [#/Vol] 1.46 10*3/uL 0.83-4.[address] [facility] Basophil percentageOrdered B y: Dr. Partida on 07-22-2022 Basophils/100 WBC (Bld) 0.7 % 0-[address] [facility] Chloride [Moles/Vol] 109 mmol/L 98-107 [facility] Eosinophils/100 WBC (Bld) 0.2 % 0-[address] [facility] Glucose [Mass/Vol] 115 mg/dL 74-106 [facility] Comment on above: Fasting Glucose resu lt from 100 to 125 mg/dL suggests IMPAIRED HOMEOSTASIS per A.D.A. criteria. Neutrophils (Bld) [#/Vol] 3.3 10*3/uL 2.0-7.[address] [facility] Neutrophils/100 WBC (Bld) 59.5 % 47-[address] [facility] Potassium [Moles/Vol] 3.6 mmol/L 3.5-5.1 [facility] Sodium [Moles/Vol] 141 mmol/L 136-145 [facility] WBC (Bld) [#/Vol] 5.5 10*3/uL 4.4-11.0 [facility] Blood erythrocytes count (nu mber/volume)Ordered By: Dr. Partida on 07-22-2022 RBC (Bld) [#/Vol] 4.43 10*6/uL 4.2-5.4 [facility] Blood hemoglobin measurement (mass/volume)Ordered By: Dr. Partida on 07-22-2022 Hemoglobin (Bld) [Mass/Vol] 13.1 g/dL 12.0-15.[address] [facility] Blood lymphocytes/100 leukoc ytesOrdered By: Dr. Partida on 07-22-2022 Lymphocytes/100 WBC (Bld) 26.6 % 19-[address] [facility] Blood monocytes/100 leukocyt esOrdered By: Dr. Partida on 07-22-2022 Monocytes/100 WBC (Bld) 12.6 % 0-[address] [facility] Blood platelet mean volumeOr dered By: Dr. Partida on 07-22-2022 Platelet mean volume (Bld) [Entitic vol] 10.1 fL 6.2-12.[address] [facility] Determination of erythrocyte mean corpuscular volume (MCV)Ordered By: Dr. Partida on 07-22-2022 MCV (RBC) [Entitic vol] 90.7 fL 81-[address] [facility] Hematocrit Auto (Bld) [Volum e fraction]Ordered By: Dr. Partida on 07-22-2022 Hematocrit (Bld) [Volume fraction] 40.2 % 37-[address] [facility] Laboratory - Chemistry and C hemistry - challengeOrdered By: Dr. Partida on 07-22-2022 CO2 [Moles/Vol] 26.0 mmol/L 21.0-32.[address] [facility] Urea nitrogen/Creatinine [Mass ratio] 15.5 mg/mg 10-[address] [facility] Laboratory - Hematology and Cell countsOrdered By: Dr. Partida on 07-22-2022 Erythrocyte distribution width (RBC) [Entitic vol] 42.6 fL 35.1-43.[address] [facility] Erythrocyte distribution width (RBC) [Ratio] 13.0 % 11.6-14.[address] [facility] Immature granulocytes/100 WBC (Bld) 0.400 % 0.0-0.[address] [facility] Comment on above: IG% - Immature Granu locytes (promyelocytes, myelocytes and metamyelocytes) > 1% indicates that a LEFT SHIFT is Present. MCH (RBC) [Entitic mass] 29.6 pg 27.0-32.[address] [facility] Nucleated RBC/100 WBC (Bld) [Ratio] 0 % 0-[address] [facility] MCHC Auto (RBC) [Mass/Vol]Or dered By: Dr. Partida on 07-22-2022 MCHC (RBC) [Mass/Vol] 32.6 g/dL 32-36 [facility] No Panel InformationOrdered By: Dr. Partida on 07-22-2022 D-Dimer Quantitative (PE/DVT) 0.74 FEU/ug/m 0.27-0.[address] [facility] Comment on above: D-Dimer ELEVATED (>0 .49): Additional studies and clinicalassessments are indicated to conclude diagnosis of:Deep Vein Thrombosis (DVT) or Pulmonary Embolism (PE)CRITICAL VALUE VERIFIED. CALLED TO QUENTIN PITTMAN07/22/22 [id number] Tameka Bach.RESULTS READ BACK BY SAME . Estimated Creatinine Clearance Calc 59.89 ml/min [facility] Estimated GFR (MDRD) Amer 81 mL/min >[address] [facility] Comment on above: GFR Calc Estimated GFR (MDRD) Non-Af Amer 67 mL/min >[address] [facility] Comment on above: Non- GFR Calc Platelets bldOrdered By: Dr. Partida on 07-22-2022 Platelets (Bld) [#/Vol] 297 10*3/uL 150-[address] [facility] Serum or plasma calcium donal urement (mass/volume)Ordered By: Dr. Partida on 07-22-2022 Calcium [Mass/Vol] 8.7 mg/dL 8.5-10.1 [facility] Serum or plasma creatinine m easurement (mass/volume)Ordered By: Dr. Partida on 07-22-2022 Creatinine [Mass/Vol] 0.90 mg/dL 0.55-1.02 [facility] Comment on above: The validity of the calculated GFR & GFRAA in patients over 70 years has not been determined. Clinical correlation is essential. Serum or plasma urea nitroge n measurement (mass/volume)Ordered By: Dr. Partida on 07-22-2022 Urea nitrogen [Mass/Vol] 14 mg/dL 7-[address] [facility] Thin prep Papanicolaou smear with manual screeningOrdered By: Dr. Partida on 07-22-2022 Thin prep Papanicolaou smear with manual screening 6 -[address] [facility] No Panel InformationOrdered By: Dr. Simons on 07-10-2022 Thyroid Stimulating Hormone (TSH) 2.07 uIU/mL 0.358-3.[address] [facility] Absolute lymphocyte counton 06-28-2022 Lymphocytes Auto (Unsp spec) [#/Vol] 2.48 10*3/uL 0.83-4.[address] [facility] Work Phone: Basophil percentageon 2021 Basophils/100 WBC (Bld) 0.4 % 0-[address] [facility] Work Phone: Chloride [Moles/Vol] 105 mmol/L 98-107 [facility] Work Phone: Eosinophils/100 WBC (Bld) 0.1 % 0-[address] [facility] Work Phone: Glucose [Mass/Vol] 105 mg/dL 74-106 [facility] Work Phone: [phone] Comment on above: Fasting Glucose resu lt from 100 to 125 mg/dL suggests IMPAIRED HOMEOSTASIS per A.D.A. criteria. Neutrophils (Bld) [#/Vol] 5.9 10*3/uL 2.0-7.[address] [facility] Work Phone: Neutrophils/100 WBC (Bld) 64.2 % 47-[address] [facility] Work Phone: Potassium [Moles/Vol] 3.8 mmol/L 3.5-5.1 [facility] Work Phone: Sodium [Moles/Vol] 140 mmol/L 136-145 [facility] Work Phone: WBC (Bld) [#/Vol] 9.1 10*3/uL 4.4-11.0 [facility] Work Phone: [phone] Blood erythrocytes count (nu mber/volume)on 06-28-2022 RBC (Bld) [#/Vol] 4.76 10*6/uL 4.2-5.4 [facility] Work Phone: [phone] Blood hemoglobin measurement (mass/volume)on 06-28-2022 Hemoglobin (Bld) [Mass/Vol] 13.9 g/dL 12.0-15.[address] [facility] Work Phone: Blood lymphocytes/100 leukoc yteson 06-28-2022 Lymphocytes/100 WBC (Bld) 27.1 % 19-[address] [facility] Work Phone: Blood monocytes/100 leukocyt eson 06-28-2022 Monocytes/100 WBC (Bld) 8.0 % 0-[address] [facility] Work Phone: Blood platelet mean volumeon 06-28-2022 Platelet mean volume (Bld) [Entitic vol] 9.8 fL 6.2-12.[address] [facility] Work Phone: [phone] Determination of erythrocyte mean corpuscular volume (MCV)on 06-28-2022 MCV (RBC) [Entitic vol] 89.9 fL 81-[address] [facility] Work Phone: Hematocrit Auto (Bld) [Volum e fraction]on 06-28-2022 Hematocrit (Bld) [Volume fraction] 42.8 % 37-[address] [facility] Work Phone: Laboratory - Chemistry and C hemistry - challengeon 06-28-2022 CO2 [Moles/Vol] 28.0 mmol/L 21.0-32.[address] [facility] Work Phone: [phone] Urea nitrogen/Creatinine [Mass ratio] 21.4 mg/mg 10-[address] [facility] Work Phone: Laboratory - Hematology and Cell countson 06-28-2022 Erythrocyte distribution width (RBC) [Entitic vol] 41.9 fL 35.1-43.[address] [facility] Work Phone: Erythrocyte distribution width (RBC) [Ratio] 12.7 % 11.6-14.[address] [facility] Work Phone: Immature granulocytes/100 WBC (Bld) 0.200 % 0.0-0.[address] [facility] Work Phone: Comment on above: IG% - Immature Granu locytes (promyelocytes, myelocytes and metamyelocytes) > 1% indicates that a LEFT SHIFT is Present. MCH (RBC) [Entitic mass] 29.2 pg 27.0-32.[address] [facility] Work Phone: Nucleated RBC/100 WBC (Bld) [Ratio] 0 % 0-[address] [facility] Work Phone: MCHC Auto (RBC) [Mass/Vol]on 06-28-2022 MCHC (RBC) [Mass/Vol] 32.5 g/dL 32-36 [facility] Work Phone: No Panel Informationon 06-28 Estimated Creatinine Clearance Calc 57.35 ml/min [facility] Work Phone: Estimated GFR (MDRD) Amer 78 mL/min >[address] [facility] Work Phone: Comment on above: GFR Calc Estimated GFR (MDRD) Non-Af Amer 64 mL/min >[address] [facility] Work Phone: Comment on above: Non- GFR Calc Troponin I High Sensitivity 5 pg/mL 3.0-54.[address] [facility] Work Phone: Comment on above: Please Note: New Mayte t Units and Gender Specific Reference Ranges. For more information see Policy Stat Procedure [place] High Sensitivity Troponin (TNIH) and attachments. Platelets bldon 06-28-2022 Platelets (Bld) [#/Vol] 351 10*3/uL 150-[address] [facility] Work Phone: Serum or plasma calcium donal urement (mass/volume)on 06-28-2022 Calcium [Mass/Vol] 9.1 mg/dL 8.5-10.1 [facility] Work Phone: Serum or plasma creatinine m easurement (mass/volume)on 06-28-2022 Creatinine [Mass/Vol] 0.94 mg/dL 0.55-1.02 [facility] Work Phone: Comment on above: The validity of the calculated GFR & GFRAA in patients over 70 years has not been determined. Clinical correlation is essential. Serum or plasma urea nitroge n measurement (mass/volume)on 06-28-2022 Urea nitrogen [Mass/Vol] 20 mg/dL -[address] [facility] Work Phone: Thin prep Papanicolaou smear with manual screeningon 06-28-2022 Thin prep Papanicolaou smear with manual screening 7 - [facility] Work Phone: Vital Signs Date Time Vital Sign Value Performing Clinician Facility 06-29-2025 08:03-0400 Body height 167.[address] Kendrick Kendall DO Work Phone: [facility] 06-29-2025 08:03-0400 Body mass index (BMI) [Ratio] 38.5 kg/m2 Dr. Kendrick Kendall DO Work Phone: [facility] 06-29-2025 08:03-0400 Body temperature 97.2 [degF] Dr. Kendrick Kendall DO Work Phone: [facility] 06-29-2025 08:03-0400 Body weight 108.[address] Kendrick Kendall DO Work Phone: [facility] 06-29-2025 08:03-0400 Diastolic blood pressure 75 mm[Hg] Dr. Kendrick Kendall DO Work Phone: [facility] 06-29-2025 08:03-0400 Heart rate 75 /min Dr. Kendrick Kendall DO Work Phone: [facility] 06-29-2025 08:03-0400 Respiratory rate 18 /min Dr. Kendrick Kendall DO Work Phone: [facility] 06-29-2025 08:03-0400 SaO2% (BldA) [Mass fraction] 98 % Dr. Kendrick Kendall DO Work Phone: [facility] 06-29-2025 08:03-0400 Systolic blood pressure 138 mm[Hg] Dr. Kendrick Kendall DO Work Phone: [facility] 05-29-2025 18:30-0400 Body temperature 99.7 [degF] Jose Astudillo MD Work Phone: [facility] 05-29-2025 18:30-0400 Body weight 106 kg Jose Astudillo MD Work Phone: [facility] 05-29-2025 18:30-0400 Diastolic blood pressure 90 mm[Hg] Jose Astudillo MD Work Phone: [facility] 05-29-2025 18:30-0400 Heart rate 93 /min Jose Astudillo MD Work Phone: [facility] 05-29-2025 18:30-0400 Respiratory rate 20 /min Jose Astudillo MD Work Phone: [facility] 05-29-2025 18:30-0400 SaO2% (BldA) [Mass fraction] 96 % Jose Astudillo MD Work Phone: [facility] 05-29-2025 18:30-0400 Systolic blood pressure 150 mm[Hg] Jose Astudillo MD Work Phone: [facility] 05-12-2025 18:49-0400 Body temperature 98.49 [degF] Reyna Alva PULVERIZER OPERATOR.NAVAL ARCHITECT SPECIALIST Work Phone: [facility] 05-12-2025 18:49-0400 Body weight 106.9 kg Reyna Alva PULVERIZER OPERATOR.NAVAL ARCHITECT SPECIALIST Work Phone: [facility] 05-12-2025 18:49-0400 Diastolic blood pressure 78 mm[Hg] Reyna Alva PULVERIZER OPERATOR.NAVAL ARCHITECT SPECIALIST Work Phone: [facility] 05-12-2025 18:49-0400 Heart rate 77 /min Reyna Alva PULVERIZER OPERATOR.NAVAL ARCHITECT SPECIALIST Work Phone: [facility] 05-12-2025 18:49-0400 Respiratory rate 16 /min Reyna Alva PULVERIZER OPERATOR.NAVAL ARCHITECT SPECIALIST Work Phone: [facility] 05-12-2025 18:49-0400 SaO2% (BldA) [Mass fraction] 98 % Reyna Alva PULVERIZER OPERATOR.NAVAL ARCHITECT SPECIALIST Work Phone: [facility] 05-12-2025 18:49-0400 Systolic blood pressure 130 mm[Hg] Reyna Alva PULVERIZER OPERATOR.NAVAL ARCHITECT SPECIALIST Work Phone: [facility] 02-16-2025 08:18-0400 Body height 167.[address] Kendrick Kendall DO Work Phone: [facility] 02-16-2025 08:18-0400 Body mass index (BMI) [Ratio] 37.5 kg/m2 Dr. Kendrick Kendall DO Work Phone: [facility] 02-16-2025 08:18-0400 Body temperature 97.8 [degF] Dr. Kendrick Kendall DO Work Phone: [facility] 02-16-2025 08:18-0400 Body weight 105.[address] Kendrick Kendall DO Work Phone: [facility] 02-16-2025 08:18-0400 Diastolic blood pressure 70 mm[Hg] Dr. Kendrick Kendall DO Work Phone: [facility] 02-16-2025 08:18-0400 Heart rate 73 /min Dr. Kendrick Kendall DO Work Phone: [facility] 02-16-2025 08:18-0400 Respiratory rate 16 /min Dr. Kendrick Kendall DO Work Phone: [facility] 02-16-2025 08:18-0400 SaO2% (BldA) [Mass fraction] 96 % Dr. Kendrick Kendall DO Work Phone: [facility] 02-16-2025 08:18-0400 Systolic blood pressure 145 mm[Hg] Dr. Kendrick Kendall DO Work Phone: [facility] 12-29-2024 09:22-0400 Body height 167.[address] Kendrick Kendall DO Work Phone: [facility] 12-29-2024 09:22-0400 Body mass index (BMI) [Ratio] 38.1 kg/m2 Dr. Kendrick Kendall DO Work Phone: [facility] 12-29-2024 09:22-0400 Body temperature 97.2 [degF] Dr. Kendrick Kendall DO Work Phone: [facility] 12-29-2024 09:22-0400 Body weight 107.[address] Kendrick Kendall DO Work Phone: [facility] 12-29-2024 09:22-0400 Diastolic blood pressure 84 mm[Hg] Dr. Kendrick Kendall DO Work Phone: [facility] 12-29-2024 09:22-0400 Heart rate 72 /min Dr. Kendrick Kendall DO Work Phone: [facility] 12-29-2024 09:22-0400 Respiratory rate 18 /min Dr. Kendrick Kendall DO Work Phone: [facility] 12-29-2024 09:22-0400 SaO2% (BldA) [Mass fraction] 98 % Dr. Kendrick Kendall DO Work Phone: [facility] 12-29-2024 09:22-0400 Systolic blood pressure 137 mm[Hg] Dr. Kendrick Kendall DO Work Phone: [facility] 12-29-2024 08:30-0400 Body mass index (BMI) [Ratio] 37.9 kg/m2 Dr. Kendrick Kendall DO Work Phone: [facility] 12-29-2024 08:30-0400 Body temperature 97.8 [degF] Dr. Kendrick Kendall DO Work Phone: [facility] 12-29-2024 08:30-0400 Body weight 106.[address] Kendrick Kendall DO Work Phone: [facility] 12-29-2024 08:30-0400 Diastolic blood pressure 79 mm[Hg] Dr. Kendrick Kendall DO Work Phone: [facility] 12-29-2024 08:30-0400 Heart rate 75 /min Dr. Kendrick Kendall DO Work Phone: [facility] 12-29-2024 08:30-0400 Respiratory rate 18 /min Dr. Kendrick Kendall DO Work Phone: [facility] 12-29-2024 08:30-0400 SaO2% (BldA) [Mass fraction] 96 % Dr. Kenrdick Kendall DO Work Phone: [facility] 12-29-2024 08:30-0400 Systolic blood pressure 122 mm[Hg] Dr. Kendrick Kendall DO Work Phone: [facility] 12-08-2024 12:35-0400 Body height 167.[address] Kendrick Kendall DO Work Phone: [facility] 12-08-2024 12:35-0400 Body weight 106.[address] Kendrick Kendall DO Work Phone: [facility] 12-08-2024 12:35-0400 Heart rate 71 /min Dr. Kendrick Kendall DO Work Phone: [facility] 12-08-2024 12:35-0400 SaO2% (BldA) [Mass fraction] 94 % Dr. Kendrick Kendall DO Work Phone: [facility] 12-01-2024 11:20-0400 Body temperature 97.8 [degF] Dr. Kendrick Kendall DO Work Phone: [facility] 12-01-2024 11:20-0400 Diastolic blood pressure 70 mm[Hg] Dr. Kendrick Kendall DO Work Phone: [facility] 12-01-2024 11:20-0400 Heart rate 61 /min Dr. Kendrick Kendall DO Work Phone: [facility] 12-01-2024 11:20-0400 Respiratory rate 16 /min Dr. Kendrick Kendall DO Work Phone: [facility] 12-01-2024 11:20-0400 SaO2% (BldA) [Mass fraction] 97 % Dr. Kendrick Kendall DO Work Phone: [facility] 12-01-2024 11:20-0400 Systolic blood pressure 141 mm[Hg] Dr. Kendrick Kendall DO Work Phone: [facility] 12-01-2024 09:21-0400 Body height 167.[address] Kendrick Kendall DO Work Phone: [facility] 12-01-2024 09:21-0400 Body mass index (BMI) [Ratio] 40.7 kg/m2 Dr. Kendrick Kendall DO Work Phone: [facility] 12-01-2024 09:21-0400 Body weight 114.[address] Kendrick Kendall DO Work Phone: [facility] 11-20-2024 19:13-0500 Body mass index (BMI) [Ratio] 39.25 kg/m2 Morgan Saravia PULVERIZER OPERATOR.NAVAL ARCHITECT SPECIALIST Work Phone: [facility] 11-20-2024 19:13-0500 Body temperature 98.49 [degF] Morgan Saravia PULVERIZER OPERATOR.NAVAL ARCHITECT SPECIALIST Work Phone: [facility] 11-20-2024 19:13-0500 Body weight 107 kg Morgan Saravia PULVERIZER OPERATOR.NAVAL ARCHITECT SPECIALIST Work Phone: [facility] 11-20-2024 19:13-0500 Diastolic blood pressure 91 mm[Hg] Morgan Saravia PULVERIZER OPERATOR.NAVAL ARCHITECT SPECIALIST Work Phone: [facility] 11-20-2024 19:13-0500 Heart rate 70 /min Morgan Saravia PULVERIZER OPERATOR.NAVAL ARCHITECT SPECIALIST Work Phone: [facility] 11-20-2024 19:13-0500 Respiratory rate 22 /min Morgan Saravia PULVERIZER OPERATOR.NAVAL ARCHITECT SPECIALIST Work Phone: [facility] 11-20-2024 19:13-0500 SaO2% (BldA) [Mass fraction] 99 % Morgan Saravia PULVERIZER OPERATOR.NAVAL ARCHITECT SPECIALIST Work Phone: [facility] 11-20-2024 19:13-0500 Systolic blood pressure 154 mm[Hg] Morgan Saravia PULVERIZER OPERATOR.NAVAL ARCHITECT SPECIALIST Work Phone: [facility] 11-10-2024 13:14-0500 Body height 167.[address] Kendrick Kendall DO Work Phone: [facility] 11-10-2024 13:14-0500 Body mass index (BMI) [Ratio] 37.9 kg/m2 Dr. Kendrick Kendall DO Work Phone: [facility] 11-10-2024 13:14-0500 Body weight 106.[address] Kendrick Kendall DO Work Phone: [facility] 11-10-2024 13:14-0500 Diastolic blood pressure 81 mm[Hg] Dr. Kendrick Kendall DO Work Phone: [facility] 11-10-2024 13:14-0500 Heart rate 78 /min Dr. Kendrick Kendall DO Work Phone: [facility] 11-10-2024 13:14-0500 Respiratory rate 17 /min Dr. Kendrick Kendall DO Work Phone: [facility] 11-10-2024 13:14-0500 SaO2% (BldA) [Mass fraction] 94 % Dr. Kendrick Kendall DO Work Phone: [facility] 11-10-2024 13:14-0500 Systolic blood pressure 141 mm[Hg] Dr. Kendrick Kendall DO Work Phone: [facility] 10-27-2024 09:12-0500 Body mass index (BMI) [Ratio] 37.1 kg/m2 Dr. Kendrick Kendall DO Work Phone: [facility] 10-27-2024 09:12-0500 Body temperature 97.6 [degF] Dr. Kendrick Kendall DO Work Phone: [facility] 10-27-2024 09:12-0500 Body weight 104.[address] Kendrick Kendall DO Work Phone: [facility] 10-27-2024 09:12-0500 Diastolic blood pressure 84 mm[Hg] Dr. Kendrick Kendall DO Work Phone: [facility] 10-27-2024 09:12-0500 Heart rate 77 /min Dr. Kendrick Kendall DO Work Phone: [facility] 10-27-2024 09:12-0500 Respiratory rate 18 /min Dr. Kendrick Kendall DO Work Phone: [facility] 10-27-2024 09:12-0500 SaO2% (BldA) [Mass fraction] 96 % Dr. Kendrick Kendall DO Work Phone: [facility] 10-27-2024 09:12-0500 Systolic blood pressure 138 mm[Hg] Dr. Kendrick Kendall DO Work Phone: [facility] 10-23-2023 13:03-0500 Body temperature 97.8 [degF] Dr. Kendrick Kendall Work Phone: [facility] 10-23-2023 13:03-0500 Body weight 106.[address] Kendrick Kendall Work Phone: [facility] 10-23-2023 13:03-0500 Diastolic blood pressure 80 mm[Hg] Dr. Kendrick Kendall Work Phone: [facility] 10-23-2023 13:03-0500 Heart rate 78 /min Dr. Kendrick Kendall Work Phone: [facility] 10-23-2023 13:03-0500 Respiratory rate 18 /min Dr. Kendrick Kendall Work Phone: [facility] 10-23-2023 13:03-0500 SaO2% (BldA) [Mass fraction] 95 % Dr. Kendrick Kendall Work Phone: [facility] 10-23-2023 13:03-0500 Systolic blood pressure 141 mm[Hg] Dr. Kendrick Kendall Work Phone: [facility] 10-22-2023 06:00-0500 Body height 167.[address] Kendrick Kendall Work Phone: [facility] 10-22-2023 06:00-0500 Body mass index (BMI) [Ratio] 37.1 kg/m2 Dr. Kendrick Kendall Work Phone: [facility] 10-22-2023 06:00-0500 Body temperature 97.3 [degF] Dr. Kendrick Kendall Work Phone: [facility] 10-22-2023 06:00-0500 Body weight 104.[address] Kendrick Kendall Work Phone: [facility] 10-22-2023 06:00-0500 Diastolic blood pressure 87 mm[Hg] Dr. Kendrick Kendall Work Phone: [facility] 10-22-2023 06:00-0500 Heart rate 80 /min Dr. Kendrick Kendall Work Phone: [facility] 10-22-2023 06:00-0500 Respiratory rate 20 /min Dr. Kendrick Kendall Work Phone: [facility] 10-22-2023 06:00-0500 SaO2% (BldA) [Mass fraction] 92 % Dr. Kendrick Kendall Work Phone: [facility] 10-22-2023 06:00-0500 Systolic blood pressure 150 mm[Hg] Dr. Kendrick Kendall Work Phone: [facility] 01-15-2023 08:06-0400 Body height 167.[address] Kendrick Kendall Work Phone: [facility] 01-15-2023 08:06-0400 Body mass index (BMI) [Ratio] 37.5 kg/m2 Dr. Kendrick Kendall Work Phone: [facility] 01-15-2023 08:06-0400 Body temperature 95.3 [degF] Dr. Kendrick Kendall Work Phone: [facility] 01-15-2023 08:06-0400 Body weight 105.[address] Kendrick Kendall Work Phone: [facility] 01-15-2023 08:06-0400 Diastolic blood pressure 85 mm[Hg] Dr. Kendrick Kendall Work Phone: [facility] 01-15-2023 08:06-0400 Heart rate 68 /min Dr. Kendrick Kendall Work Phone: [facility] 01-15-2023 08:06-0400 Respiratory rate 20 /min Dr. Kendrick Kendall Work Phone: [facility] 01-15-2023 08:06-0400 SaO2% (BldA) [Mass fraction] 95 % Dr. Kendrick Kendall Work Phone: [facility] 01-15-2023 08:06-0400 Systolic blood pressure 148 mm[Hg] Dr. Kendrick Kendall Work Phone: [facility] 11-20-2022 10:00-0500 Body temperature 97.9 [degF] Dr. Kendrick Kendall Work Phone: [facility] 11-20-2022 10:00-0500 Diastolic blood pressure 78 mm[Hg] Dr. Kendrick Kendall Work Phone: [facility] 11-20-2022 10:00-0500 Heart rate 55 /min Dr. Kendrick Kendall Work Phone: [facility] 11-20-2022 10:00-0500 Respiratory rate 16 /min Dr. Kendrick Kendall Work Phone: [facility] 11-20-2022 10:00-0500 SaO2% (BldA) [Mass fraction] 97 % Dr. Kendrick Kendall Work Phone: [facility] 11-20-2022 10:00-0500 Systolic blood pressure 109 mm[Hg] Dr. Kendrick Kendall Work Phone: [facility] 11-20-2022 07:53-0500 Body height 167.[address] Kendrick Kendall Work Phone: [facility] 11-20-2022 07:53-0500 Body mass index (BMI) [Ratio] 36.6 kg/m2 Dr. Kendrick Kendall Work Phone: [facility] 11-20-2022 07:53-0500 Body weight 102.[address] Kendrick Kendall Work Phone: [facility] 10-30-2022 07:07-0500 Body height 167.[address] Sabina Simons Work Phone: [facility] 10-30-2022 07:02-0500 Body mass index (BMI) [Ratio] 37.1 kg/m2 Dr. Sabina Simons Work Phone: [facility] 10-30-2022 07:02-0500 Body temperature 98.1 [degF] Dr. Sabina Simons Work Phone: [facility] 10-30-2022 07:02-0500 Body weight 104.[address] Sabina Simons Work Phone: [facility] 10-30-2022 07:02-0500 Diastolic blood pressure 86 mm[Hg] Dr. Sabina Simons Work Phone: [facility] 10-30-2022 07:02-0500 Heart rate 56 /min Dr. Sabina Simons Work Phone: [facility] 10-30-2022 07:02-0500 Respiratory rate 18 /min Dr. Sabina Simons Work Phone: [facility] 10-30-2022 07:02-0500 SaO2% (BldA) [Mass fraction] 96 % Dr. Sabina Simons Work Phone: [facility] 10-30-2022 07:02-0500 Systolic blood pressure 152 mm[Hg] Dr. Sabina Simons Work Phone: [facility] 10-16-2022 13:02-0500 Body mass index (BMI) [Ratio] 36.8 kg/m2 Dr. Sabina Simons Work Phone: [facility] 10-16-2022 13:02-0500 Body weight 103.[address] Sabina Simons Work Phone: [facility] 01-30-2023 13:02-0500 Diastolic blood pressure 80 mm[Hg] Dr. Sabina Simons Work Phone: [facility] 10-16-2022 13:02-0500 Respiratory rate 16 /min Dr. Sabina Simons Work Phone: [facility] 10-16-2022 13:02-0500 Systolic blood pressure 129 mm[Hg] Dr. Sabina Simons Work Phone: [facility] 07-23-2022 01:08-0400 Diastolic blood pressure 82 mm[Hg] Dr. Sabina Simons Work Phone: [facility] 07-23-2022 01:08-0400 Heart rate 67 /min Dr. Sabina Simons Work Phone: [facility] 07-23-2022 01:08-0400 Respiratory rate 15 /min Dr. Sabina Simons Work Phone: [facility] 07-23-2022 01:08-0400 SaO2% (BldA) [Mass fraction] 97 % Dr. Sabina Simons Work Phone: [facility] 07-23-2022 01:08-0400 Systolic blood pressure 150 mm[Hg] Dr. Sabina Simons Work Phone: [facility] 07-22-2022 21:44-0400 Body height 167.[address] Sabina Simons Work Phone: [facility] Work Phone: 07-22-2022 21:44-0400 Body mass index (BMI) [Ratio] 38.5 kg/m2 Dr. Sabina Simons Work Phone: [facility] 07-22-2022 21:44-0400 Body temperature 97 [degF] Dr. Sabina Simons Work Phone: [facility] 07-22-2022 21:44-0400 Body weight 108.[address] Sabina Simons Work Phone: [facility] 07-13-2022 07:50-0400 Body height 167.[address] Sabina Simons Work Phone: [facility] Work Phone: 07-13-2022 07:50-0400 Body mass index (BMI) [Ratio] 38.6 kg/m2 Dr. Sabina Simons Work Phone: [facility] 07-13-2022 07:50-0400 Body temperature 97.3 [degF] Dr. Sabina Simons Work Phone: [facility] 07-13-2022 07:50-0400 Body weight 108.[address] Sabina Simons Work Phone: [facility] 07-13-2022 07:50-0400 Diastolic blood pressure 78 mm[Hg] Dr. Sabina Simons Work Phone: [facility] 07-13-2022 07:50-0400 Heart rate 76 /min Dr. Sabina Simons Work Phone: [facility] 07-13-2022 07:50-0400 Respiratory rate 17 /min Dr. Sabina Simons Work Phone: [facility] 07-13-2022 07:50-0400 SaO2% (BldA) [Mass fraction] 96 % Dr. Sabina Simons Work Phone: [facility] 07-13-2022 07:50-0400 Systolic blood pressure 133 mm[Hg] Dr. Sabina Simons Work Phone: [facility] 06-28-2022 22:47-0400 Diastolic blood pressure 102 mm[Hg] [facility] Work Phone: 06-28-2022 22:47-0400 Heart rate 63 /min [facility] Work Phone: 06-28-2022 22:47-0400 Respiratory rate 17 /min [facility] Work Phone: 06-28-2022 22:47-0400 SaO2% (BldA) [Mass fraction] 95 % [facility] Work Phone: 06-28-2022 22:47-0400 Systolic blood pressure 167 mm[Hg] [facility] Work Phone: 06-28-2022 20:14-0400 Body height 167.[address] [facility] Work Phone: 06-28-2022 20:14-0400 Body mass index (BMI) [Ratio] 38.5 kg/m2 [facility] Work Phone: 06-28-2022 20:14-0400 Body weight 108.[address] [facility] Work Phone: 06-28-2022 19:13-0400 Body temperature 97.8 [degF] [facility] Work Phone: Encounters Encounter Date Encounter Type Care Provider Facility Start: 06-29-2025 End: 06-29-[address] Babak Clarke MD -[facility] Work Phone: Start: 06-29-2025 End: 06-29-[address] Kendrick Kendall DO Work Phone: -[facility] Start: 06-08-2025 End: 06-08-[address] Kendrick Kendall DO Work Phone: -Cat Scan [facility] Start: 06-08-2025 End: 06-08-[address] Kendrick Kendall DO -Cat Scan [facility] Work Phone: Start: 06-08-2025 End: 06-08-2025 ambulatory Babak Clarke Facility:[facility] Start: 05-29-2025 End: 05-29-2025 Subsequent hospital visit by physician Xr [facility] Work Phone: Radiology Comment on above: SOB (shortness of br eath) [R06.02] Start: 05-29-2025 End: 05-29-2025 Office outpatient visit 25 minutes Jose Astudillo MD Work Phone: [facility] Comment on above: Moderate persistent asthma with (acute) exacerbation (HCC) (Primary Dx); Acute bacterial rhinosinusitis; SOB (shortness of breath) Start: 05-29-2025 End: 05-29-2025 ambulatory [facility] Facility:[facility] Start: 05-12-2025 End: 05-12-2025 Subsequent hospital visit by physician Xr [facility] Work Phone: Radiology Comment on above: Pharyngitis, unspeci fied etiology [J02.9] Start: 05-12-2025 End: 05-12-2025 ambulatory [facility] Facility:[facility] Start: 05-12-2025 End: 05-12-2025 Patient encounter procedure Reyna Alva APRN.CNP Work Phone: [facility] Comment on above: Pharyngitis, unspeci fied etiology (Primary Dx); Rhinosinusitis; Acute cough; Abnormal finding on chest xray; Uncomplicated asthma, unspecified asthma severity, unspecified whether persistent (HCC) Start: 03-17-2025 Non-patient / Non-visit Dr. Radha marley MD -[facility] Work Phone: Start: 02-16-2025 End: 02-16-2025 Patient encounter procedure Jodie HARKINS -[facility] Work Phone: Start: 02-16-2025 End: 02-16-[address] Kendrick Kendall DO Work Phone: [facility] Work Phone: Start: 12-29-2024 End: 12-29-2024 Patient encounter procedure oJdie HARKINS -[facility] Work Phone: Start: 12-29-2024 End: 12-29-2024 ambulatory Kendrick Kendall Facility:[facility] Start: 12-29-2024 End: 12-29-[address] Kendrick Kendall DO Work Phone: [facility] Work Phone: Start: 12-29-2024 End: 12-29-[address] Babak Clarke MD -Laboratory, Specimen Work Phone: Start: 12-29-2024 End: 12-29-[address] Babak Clarke MD -[facility] Work Phone: Start: 12-29-2024 End: 12-29-2024 ambulatory Babak Clarke Facility:[facility] Start: 12-29-2024 End: 12-29-2024 ambulatory Babak Clarke Facility:[facility] Start: 12-10-2024 ambulatory [facility] Facility: [facility] Start: 12-10-2024 Non-patient / Non-visit Dr. Jonathon ward DO -[facility] Start: 12-08-2024 End: 12-08-[address] Kendrick Kendall DO Work Phone: [facility] Work Phone: Start: 12-08-2024 End: 12-08-2024 Patient encounter procedure Jodie Salguero NP-[facility] -Pulmonary Services/Neurology Work Phone: Start: 12-08-2024 End: 12-08-2024 ambulatory [facility] Facility:[facility] Start: 12-01-2024 ambulatory [facility] Facility: [facility] Start: 12-01-2024 Non-patient / Non-visit Dr. Barrett Olmos MD -[facility] Start: 12-01-2024 End: 12-01-2024 Admission to same day surgery center Dr. Kimmie Olmos MD -Endoscopy Work Phone: Start: 12-01-2024 End: 12-01-[address] Kendrick Kendall DO Work Phone: [facility] Work Phone: Start: 11-24-2024 ambulatory Babak Clarke Facility: [facility] Start: 11-20-2024 End: 11-20-2024 ambulatory SABINA SMIONS Facility:[facility] Start: 11-20-2024 End: 11-20-2024 Patient encounter procedure Morgan Saravia NAVAL ARCHITECT SPECIALIST Work Phone: [facility] Comment on above: Sinobronchitis (Prim balbina Dx) Start: 11-17-2024 End: 11-17-[address] Kendrick Kendall DO Work Phone: [facility] Work Phone: Start: 11-17-2024 End: 11-17-[address] Kendrick Kendall DO -Outpatient Breast Imaging Work Phone: Start: 11-17-2024 End: 11-17-2024 ambulatory Kendrick Faiza Facility:[facility] Start: 11-10-2024 End: 11-10-[address] Kimmie Olmos MD -[facility] Work Phone: Start: 11-10-2024 End: 11-10-2024 ambulatory Kendrick Faiza Facility:[facility] Start: 11-10-2024 End: 11-10-2024 Patient encounter procedure Jodie HARKINS -Pulmonary Services/Neurology Work Phone: Start: 11-10-2024 End: 11-10-[address] Kendrick Kendall DO Work Phone: [facility] Work Phone: Start: 11-10-2024 End: 11-10-2024 ambulatory Kendrick Kendall Facility:[facility] Start: 10-27-2024 End: 10-27-[address] Kendrick Kendall DO -Ultrasound, [facility] Work Phone: Start: 10-27-2024 End: 10-27-2024 Patient encounter procedure Jodie HARKINS -[facility] Work Phone: Start: 10-27-2024 End: 10-27-2024 ambulatory Kendrick Kendall Facility:[facility] Start: 10-27-2024 End: 10-27-2024 ambulatory Kendrick Faiza Facility:[facility] Start: 10-20-2024 End: 10-20-[address] Kendrick Kendall DO -Laboratory, [facility] Start: 10-20-2024 End: 10-20-2024 ambulatory Kendrick Kendall Facility:[facility] Start: 08-18-2024 End: 08-18-[address] Usman Tate MD -Laboratory, Specimen Work Phone: Start: 08-18-2024 End: 08-18-2024 ambulatory Kendrick Kendall Facility:[facility] Start: 12-10-2023 End: 12-10-[address] Kendrick Kendall Work Phone: [facility] Work Phone: Start: 12-10-2023 End: 12-10-[address] Kendrick Kendall Work Phone: [facility], [facility] Work Phone: Start: 11-26-2023 End: 11-26-[address] Kendrick Kendall Work Phone: [facility] Work Phone: Start: 11-26-2023 End: 11-26-[address] Kendrick Kendall Work Phone: [facility]-Physical Therapy Work Phone: Start: 11-19-2023 End: 11-19-[address] Kendrick Kendall Work Phone: [facility] Work Phone: Start: 11-19-2023 End: 11-19-[address] Kendrick Kendall Work Phone: [facility]-Cat Scan, [facility] Work Phone: Start: 11-19-[address] Kendrick Kendall Work Phone: [facility]-Physical Therapy Work Phone: Start: 11-15-2023 End: 11-15-[address] Kendrick Kendall Work Phone: [facility] Work Phone: Start: 11-15-2023 End: 11-15-[address] Kendrick Kendall Work Phone: [facility]-Outpatient Bone Densitometry Work Phone: Start: 10-29-2023 End: 10-29-[address] Kendrick Kendall Work Phone: [facility] Work Phone: Start: 10-29-2023 End: 10-29-[address] Kendrick Kendall Work Phone: [facility]-Laboratory, Specimen Work Phone: Start: 10-29-[address] Kendrick Kendall Work Phone: [facility]-Physical Therapy Work Phone: Start: 10-23-2023 End: 10-23-[address] Kendrick Kendall Work Phone: [facility] Work Phone: Start: 10-22-2023 End: 10-22-[address] Kendrick Kendall Work Phone: [facility]-Pulmonary Medicine [facility] Work Phone: Start: 10-15-[address] Kendrick Kendall Work Phone: [facility]-Physical Therapy Work Phone: Start: 10-15-2023 End: 10-15-[address] Kendrick Kendall Work Phone: [facility] Work Phone: Start: 10-15-2023 End: 10-15-[address] Kendrick Kendall Work Phone: [facility]-LaboratoryDaksha [facility] Start: 10-01-2023 Non-patient / Non-visit Dr. Louie Kendall Work Phone: [facility] Start: 10-01-2023 End: 10-01-[address] Kendrick Kendall Work Phone: [facility] Work Phone: Start: 10-01-2023 End: 10-01-[address] Kendrick Kendall Work Phone: [facility]-Cardiovascula r Services Work Phone: Start: 10-01-[address] Kendrick Kendall Work Phone: [facility]-Physical Therapy Work Phone: Start: 02-09-2023 End: 02-09-[address] Kendrick Kendall Work Phone: [facility] Work Phone: Start: 02-09-2023 End: 02-09-[address] Kendrick Kendall Work Phone: [facility] Start: 01-27-2023 End: 01-27-[address] Kendrick Kendall Work Phone: [facility] Start: 01-15-2023 End: 01-15-[address] Kendrick Kendall Work Phone: [facility]-Pulmonary Medicine [facility] Start: 01-01-2023 End: 01-01-[address] Kendrick Kendall Work Phone: [facility] Work Phone: Start: 01-01-2023 End: 01-01-[address] Kendrick Kendall Work Phone: [facility]-Sleep Lab Start: 12-26-2022 Non-patient / Non-visit Dr. Louie Kendall Work Phone: [facility] Start: 12-25-2022 End: 12-25-[address] Kendrick Kendall Work Phone: [facility] Work Phone: Start: 12-25-2022 End: 12-25-[address] Kendrick Kendall Work Phone: [facility]-Pulmonary Services/Neurology Start: 11-20-2022 Non-patient / Non-visit Dr. Louie Kendall Work Phone: [facility] Start: 11-20-2022 End: 11-20-2022 Admission to same day surgery center Dr. Kendrick Kendall Work Phone: [facility]-Endoscopy Start: 11-03-2022 End: 11-03-[address] Kendrick Kendall Work Phone: [facility] Work Phone: Start: 11-03-2022 End: 11-03-[address] Kendrick Kendall Work Phone: [facility]-Laboratory, Specimen Start: 11-03-2022 End: 11-03-[address] Kendrick Kendall Work Phone: [facility] Start: 10-30-2022 End: 10-30-[address] Sabina Simons Work Phone: [facility]-Pulmonary Medicine [facility] Start: 10-23-2022 End: 10-23-[address] Sabina Simons Work Phone: [facility] Work Phone: Start: 10-23-2022 End: 10-23-[address] Sabina Simons Work Phone: [facility]-Outpatient Breast Imaging Start: 10-16-2022 End: 10-16-[address] Sabina Simons Work Phone: [facility] Start: 07-22-2022 End: 07-23-2022 Emergency department patient visit Dr. Sabina Simons Work Phone: [facility]-Emergency Department Start: 07-13-2022 End: 07-13-[address] Sabina Simons Work Phone: [facility] Work Phone: Start: 07-13-2022 End: 07-13-[address] Sabina Simons Work Phone: [facility]-Laboratory, Specimen Start: 07-13-2022 End: 07-13-[address] Sbaina Simons Work Phone: [facility] Start: 07-10-2022 End: 07-10-[address] Sabina Simons Work Phone: [facility] Work Phone: Start: 07-10-2022 End: 07-10-[address] Sabina Simons Work Phone: [facility]-Laboratory, Daksha Conner [facility] Start: 06-28-2022 End: 06-28-2022 Emergency department patient visit [facility]Emergency Department Start: 06-26-2022 End: 06-26-[address] [facility] Work Phone: Start: 06-26-2022 End: 06-26-2022 Patient encounter procedure [facility]-Ultrasound, [facility] Start: 05-29-2022 Registered Referred [facility] Start: 06-05-2011 End: 08-16-2012 Patient encounter status Morgan King OCTAVIO Work Phone: [facility] Procedures Date Procedure Procedure Detail Performing Clinician Start: 06-08-2025 US scan of thyroid Dr. Kendrick Kendall DO Work Phone: Start: 06-08-2025 CT of chest without contrast Dr. Kendrick Curry DO Work Phone: Start: 05-29-2025 Radiologic exam chest 2 views Jose johnson MD Work Phone: Start: 05-12-2025 Radiologic exam chest 2 views Reyna Ri ggs PULVERIZER OPERATOR.NAVAL ARCHITECT SPECIALIST Work Phone: Start: 05-12-2025 Iadna streptococcus group a amplified probe tq Reyna Alva PULVERIZER OPERATOR.NAVAL ARCHITECT SPECIALIST Work Phone: Start: 12-01-[address] Kendrick [...] scan of thyroid Start: 07-08-2012 Colonoscopy Morgan Saravia APRN.NAVAL ARCHITECT SPECIALIST Work Phone: Start: 06-06-2012 Lipid 1996 panel - Serum or Plasma Valeriano Saravia APRN.NAVAL ARCHITECT SPECIALIST Work Phone: Plan of Treatment Date Care Activity Detail Author Start: 08-04-2025 ambulatory Ambulatory Facility:[facility] Start: 05-18-2025 Influenza vaccination Influenza Vaccine (#1) [facility] Start: 12-08-2024 Walking distance 6 minutes [facility] Start: 12-01-2024 Egd transoral biopsy single/multiple EGD BIOPSY SINGLE/MULTIPLE [facility] Start: 12-01-2024 Patient discharge [facility] Start: 09-17-2024 Advance Directive Discussion Advance Directive Discussion [facility] Start: 09-17-2024 Medicare Advantage Annual Wellness Visit Medicare Advantage Annual Wellness Visit [facility] Start: 05-18-2024 Covid-19 Vaccine ( season) Covid-19 Vaccine ( season) [facility] Start: 2023 Screening for osteoporosis Bone Density Screening [facility] Start: 11-20-2022 Colonoscopy w/biopsy single/multiple COLONOSCOPY AND BIOPSY [facility] Start: 11-20-2022 Egd transoral biopsy single/multiple EGD BIOPSY SINGLE/MULTIPLE [facility] Start: 11-20-2022 Patient discharge [facility] Start: 08-16-2022 Urine microalbumin profile DTaP,Tdap,Td Vaccine (3 - Td or Tdap) [facility] Start: 07-22-[address] [facility] Start: 07-08-2022 Screening for malignant neoplasm of colon [facility] Start: 12-04-2017 Diabetes Screening Diabetes Screening [facility] Start: 06-06-2017 Lipid panel Lipid Screening [facility] Start: 02-25-2015 Screening for malignant neoplasm of breast Mammogram Screening [facility] Start: 2008 Shingrix Vaccine (1 of 2) Shingrix Vaccine (1 of 2) [facility] Start: 2003 Screening for malignant neoplasm of colon [facility] Start: 1976 Annual PCP Team Chronic Disease Visit Annual PCP Team Chronic Disease Visit [facility] Start: 1976 Anxiety Screening Anxiety Screening [facility] Start: 1976 BP Controlled (<130/80) BP Controlled (<130/80) [facility] Start: 1976 Depression Screening Depression Screening [facility] Start: 1976 Spirometry Spirometry [facility] Measurement of respi ratory function [facility] Patient Education [facility] Work Phone: Patient referral [facility] Work Phone: Polysomnography [facility] US Thyroid gland [facility] Immunizations Immunization Date Immunization Notes Care Provider Ryan hunt 08-27-2024 influenza virus vacc ine, unspecified formulation Reyna Alva PULVERIZER OPERATOR.NAVAL ARCHITECT SPECIALIST Work Phone: [facility] 07-01-2014 influenza, seasonal, injectable Morgan Saravia PULVERIZER OPERATOR.NAVAL ARCHITECT SPECIALIST Work Phone: [facility] 07-12-2013 influenza virus vacc ine, unspecified formulation Morgan Saravia PULVERIZER OPERATOR.NAVAL ARCHITECT SPECIALIST Work Phone: [facility] Work Phone: 08-16-2012 influenza virus vacc ine, unspecified formulation Morgan Saravia PULVERIZER OPERATOR.NAVAL ARCHITECT SPECIALIST Work Phone: [facility] Work Phone: 08-16-2012 tetanus toxoid, redu aparna diphtheria toxoid, and acellular pertussis vaccine, adsorbed Morgan Saravia PULVERIZER OPERATOR.NAVAL ARCHITECT SPECIALIST Work Phone: [facility] 08-18-2009 novel influenza-H1N1 -09, all formulations Morgan Saravia PULVERIZER OPERATOR.NAVAL ARCHITECT SPECIALIST Work Phone: [facility] 09-26-2000 pneumococcal polysaccharide vaccine, 23 valent Morgan Saravia PULVERIZER OPERATOR.NAVAL ARCHITECT SPECIALIST Work Phone: [facility] 07-04-2000 diphtheria and tetan us toxoids, adsorbed for pediatric use Morgan Saravia ZOFIA.NAVAL ARCHITECT SPECIALIST Work Phone: [facility] Payers Date Payer Category Payer Medicare ([employer]) O ANUSHA DVANTAGE O [id number] 2024 Self-pay [id number] 2023 Unknown [id number] Unknown [facility] [place] [place] [address] [id number] Unknown MEJIA RULE [id number] Unknown [facility] PACKAGE PLAN . [id number] Unknown [id number] Unknown [id number] 2.16.840.1.353587.3.579.2 .462 Unknown [id number] 2.16.840.1.436166.3.579.2 .462 Unknown [id number] 2.16.840.1.102457.3.579.2 .462 Unknown [id number] 2.16.840.1.394107.3.579.2 .462 Unknown [id number] 2.16.840.1.268040.3.579.2 .462 Unknown [id number] 2.16.840.1.912648.3.579.2 .462 Unknown [id number] 2.16.840.1.694009.3.579.2 .462 Unknown [id number] 2.16.840.1.679318.3.579.2 .462 Unknown [id number] 2.16.840.1.791214.3.579.2 .462 Unknown [id number] 2.16.840.1.270558.3.579.2 .462 Unknown [id number] 2.16.840.1.243970.3.579.2 .462 Unknown [id number] 2.16.840.1.544362.3.579.2 .462 Unknown [id number] 2.16.840.1.268831.3.579.2 .462 Unknown [id number] 2.16.840.1.240409.3.579.2 .462 Unknown [id number] 2.16.840.1.998150.3.579.2 .462 Unknown [id number] 2.16.840.1.636496.3.579.2 .462 Unknown [id number] 2.16.840.1.137495.3.579.2 .462 Unknown [id number] 2.16.840.1.338401.3.579.2 .462 Unknown [id number] 2.16.840.1.410661.3.579.2 .462 Unknown [id number] 2.16.840.1.566130.3.579.2 .462 Unknown [id number] 2.16.840.1.208902.3.579.2 .462 Social History Date Type Detail Facility Start: 06-28-2022 End: 10-23-2023 Tobacco smoking status FLIS Unknown if ever smoked [facility] Start: 1960 Sex Assigned At Female [facility] Start: 11-20-2024 End: 11-28-2024 Tobacco smoking status NHIS Ex-smoker [facility] Start: 09-17-1974 End: 09-17-1989 History of tobacco use Current smoker [facility] Start: 09-17-1974 End: 09-17-1989 History of tobacco use Cigarette Smoker [facility] Start: 11-20-2024 End: 05-29-2025 Cigarettes smoked current (pack per day) - Reported 2 [facility] Start: 11-20-2024 Tobacco use and exposure Smokeless tobacco non-user [facility] Start: 11-20-2024 End: 05-29-2025 Alcoholic beverage intake Current non-drinker of alcohol (finding) [facility] Start: 11-20-2024 End: 05-29-2025 Tobacco use panel [facility] Start: 1960 Sex assigned at Not on file [facility] Start: 11-22-2024 End: 12-31-2024 Sex Female (finding) [facility] Start: 08-18-2012 Sex Female [facility] NEGATED: Highlighted row Not [facility] Goals Date Patient Goal Desired Activity /State Functional Status Date Assessment Result Facility 02-15-2015 Are you deaf, or do you have serious difficulty hearing No 02/15/2015 8:08 AM Jazz Marie LPN No [facility] 02-15-2015 Are you blind, or do you have serious difficulty seeing, even when wearing glasses No 02/15/2015 8:08 AM Jazz Marie LPN No [facility] 02-15-2015 Do you have serious difficulty walking or climbing stairs No 02/15/2015 8:08 AM EDT Jazz Thakur LPN No [facility] 02-15-2015 Do you have difficul ty dressing or bathing No 02/15/2015 8:08 AM EDT Jazz Thakur LPN No [facility] 02-15-2015 Because of a physica l, mental, or emotional condition, do you have difficulty doing errands alone such as visiting a physician's office or shopping No 02/15/2015 8:08 AM EDT Jazz Thakur LPN No [facility] Mental Status Date Assessment Result Facility 12-01-2024 Cognitive function Voice/Name [facility] Work Phone: 11-20-2022 Cognitive function Voice/Name [facility] Work Phone: 07-22-2022 Cognitive function Voice/Name [facility] Work Phone: 06-28-2022 Cognitive function Voice/Name [facility] Work Phone: 02-15-2015 Because of a physica l, mental, or emotional condition, do you have serious difficulty concentrating, remembering, or making decisions No 02/15/2015 8:08 AM EDT Jazz Thakur LPN No [facility] Clinical Notes 12-26-2022 to 06-29-2025 Patient InstructionsChikis Andrade RT(R) - 05/29/2025 6:50 PM Jose Jay MD - 05/29/2025 6:35 PM Reyna Hewitt APRN.NAVAL ARCHITECT SPECIALIST - 05/12/2025 7:26 PM EDT Note Date & Type Note Facility 06-29-2025 Progress note [facility] 06-11-2025 Radiology Diagnostic study note [facility] [address] [place] [address] Thyroid MR#: [id number] Acct: [id number] Name: BARBARA DIANA Rep #: [id number] : 1960 F 64 From: Beverly Dos Santos MD PCP: Dr. Kendrick Kendall, DO Status: REG CLI Study:Thyroid Date of Exam: 06/08/25 Exam# [id number] Ordering Dr: Nelly Clarke MD PROCEDURE: THYROID 06/08/2025 REASON FOR EXAM: THYROID NODULE TECHNIQUE: Procedure Code: USTHY Modality: US Procedure: THYROID COMPARISON: Ultrasound thyroid 06/26/2022 FINDINGS: Right thyroid lobe size: 4.5 x 1.8 x 2.2 cm with volume of 9.5 mL Left thyroid lobe size: 5.3 x 2.7 x 2.9 cm with volume of 21 mL. Isthmus: 0.4 cm Background parenchymal echotexture is homogeneous. Nodules: Right 1. Lobe: Right, Location: Lower, Size: 1.5 x 1.3 x 1.1 cm cm, previously measured 1.6 x 1.1 x 1.3 cm stability: Stable Composition: Mixed cystic and solid (+1) Echogenicity: Hypoechoic (+2) Margin: Smooth (+0) Shape: Wider than tall (+0) Echogenic Foci: None (+0) TI-RADS 2 TI-RADS: <2 = TR 1 * 2 = TR 2 * 3 = TR 3 * 4-6 = TR 4 * >6 = TR 5 2. Lobe: Right, Location: Lower, Size: 0.6 x 0.5 x 0.7 cm, previously measured 0.5 x 0.3 x 0.6 stability: Minimally larger Composition: Mixed cystic and solid (+1) Echogenicity: Hyper to Isoechoic (+1) Margin: Smooth (+0) Shape: Wider than tall (+0) Echogenic Foci: None (+0) TI-RADS 2 (minimally enlarged when compared to prior study) TI-RADS: <2 = TR 1 * 2 = TR 2 * 3 = TR 3 * 4-6 = TR 4 * >6 = TR 5 3. Lobe: Right, Location: Lower, Size: 0.7 x 0.6 x 0.3 cm, previously measured0.6 x 0.4 x 0.3 stability: Minimally larger Composition: Mixed cystic and solid (+1) Echogenicity: Hyper to Isoechoic (+1) Margin: Ill-defined (+0) Shape: Wider than tall (+0) Echogenic Foci: None (+0) TI-RADS 2 (slightly enlarged when compared to prior study.) TI-RADS: <2 = TR 1 * 2 = TR 2 * 3 = TR 3 * 4-6 = TR 4 * >6 = TR 5 Left 4. Lobe: Left, Location: Lower, Size: 3.9 x 2.5 x 2.5 cm previously measured 4x 3.1 x 2.5 cm stability: slightly decreased when compared to prior study Composition: Mixed cystic and solid (+1) Echogenicity: Hypoechoic (+2) Margin: Ill-defined (+0) Shape: Wider than tall (+0) Echogenic Foci: Peripheral calcification)(+2) Overall findings are consistent with TI-RADS 3 TI-RADS: <2 = TR 1 * 2 = TR 2 * 3 = TR 3 * 4-6 = TR 4 * >6 = TR 5 US/Thyroid IMPRESSION: Redemonstration of TI-RADS 2 right-sided nodules which are stable to slightly increased when compared to prior study. There is 3.9 cm mixed cystic and solid nodule with suggestion of peripheral calcification and vascularity. TI-RADS 3. FNA is recommended if not already performed. Stable enlarged left thyroid lobe measuring 5.3 cm with volume of 21 mL. RECOMMENDATION: Based on most suspicious nodule. Nodule size = largest diameter Only evaluate nodule if =>5 mm. Growth > 20% in 2 dimensions = worsening. Follow up to 4 nodules. Recommend biopsy for no more than 2 nodules. Reading Location: [id number] CC: Dr. Kendrick Kendall DO; Dr. Babak Clarke MD ~ Clicker Operator: Signed [facility] 06-09-2025 Radiology Diagnostic study note [facility] [address] [place] [address] Chest without Contrast MR#: [id number] Acct: [id number] Name: BARBARA DIANA Rep #: [id number] : 1960 F 64 From: Ibeth Jacobs MD PCP: Dr. Kendrick Kendall DO Status: REG CLI Study:Chest without Contrast Date of Exam: 06/08/25 Exam# [id number] Ordering Dr: Kendrick Kendall DO PROCEDURE: CHEST WITHOUT CONTRAST 06/08/2025 REASON FOR EXAM: FU LUNG NODULE TECHNIQUE: Chest CT without contrast. Coronal and Sagittal reconstruction series were provided. One or more dose reduction techniques were used (e.g., Automated exposure control, adjustment of the mA and/or kV according to patient size, use of iterative reconstruction technique RADIATION DOSE SUMMARY: DLP: 683 mGycm COMPARISON: 11/19/2023 FINDINGS: LUNGS AND PLEURA: No focal consolidations. No pleural effusion. No pneumothorax. No pleural thickening. Stable 7 mm right middle lobe nodule, grossly unchanged. Again seen is subtle 3mm ground-glass nodular density within the right upper lobe best seen on series 2, image 3. Calcified left lower lobe granuloma. MEDIASTINUM: No lymphadenopathy or mass. The heart shows no acute findings. The aorta shows no acute findings. The pulmonary trunk and branches of the vessels in the mediastinum are within normal limits. SUPRACLAVICULAR AND AXILLARY: No abnormalities seen in these regions. No mass or significant lymphadenopathy. 2.8 x 2.6 cm left thyroid nodule. UPPER ABDOMEN: Small hiatal hernia. BONES AND SOFT TISSUES: The bony structures show no significant acute findings. No focal bony mass lesions noted. The subcutaneous soft tissues are unremarkable. CT/Chest without Contrast IMPRESSION: Stable 7 mm right middle lobe nodule. Stable subtle subtle 3 mm ground-glass nodular density within the right upper lobe. Stable 2.8 cm left thyroid nodule. Reading Location: [id number] CC: Dr. Kendrick Kendall DO ~ Clicker Operator: Signed [facility] 05-29-2025 Instructions Jose Astudillo MD - 05/29/2025 [...] for further management documented in this encounter [facility] 05-29-2025 History of Present illness Narrative [...] PATIENT PRESENTS WITH AN IMPLANTABLE OR ATTACHED DIRECTOR OF SPEECH PATHOLOGY: No RADIOLOGY DEPARTMENT: General X-ray: Exam(s) Completed: Chest X-Ray PERIPHERAL IV DATA: Not applicable SIGNED BY: RT Octavia(iNck) May 29, 2025 6:50 PM documented in this encounter [facility] 05-29-2025 Note HNO ID: [id number] Author: CHIKIS ANDRADE RT(Nick) Service: ? Author Type: Technologist Type: Progress [...] PATIENT PRESENTS WITH AN IMPLANTABLE OR ATTACHED DIRECTOR OF SPEECH PATHOLOGY: No RADIOLOGY DEPARTMENT: General X-ray: Exam(s) Completed: Chest X-Ray PERIPHERAL IV DATA: Not applicable SIGNED BY: Chikis Andrade, RT(R) May 29, 2025 6:50 PM [facility] 05-29-2025 Note HNO ID: [id number] Author: JOSE ASTUDILLO MD Service: ? Author [...] May 29, 2025 6:35 PM MDM Procedures [facility] 05-29-2025 History of Present illness Narrative [facility] [place] Marilu Barbara Diana is a 64 year old [...] PM MDM Procedures documented in this encounter [facility] 05-12-2025 Note HNO ID: [id number] Author: REYNA ALVA APRN.SUKHDEV Service: ? Author Type: Nurse Practitioner Type: Progress Notes Filed: 05/12/2025 19:27 Note Text: [facility] Diana is a 64 year old female. [...] Worsened this week, with productive cough and garbage coming up. - Reports wheezing. - Denies relief from Tessalon Perles in the past. Denies CP Denies dyspnea. Denies hemoptysis Sinus Pain - Reports whole face hurts. - Associated with sinus pressure. - Took [...] apnea) 08/05/2014 Split study 06/28/2014 CPAP @ [address] [place] [address] BASELINE RESPIRATORY DATA: This study was performed [...] cough, (+) sputum (more content not included)... [facility] 05-12-2025 History of Present illness Narrative [facility] [place] Marilu Barbara Diana is a 64 year old [...] Worsened this week, with productive cough and garbage coming up. - Reports wheezing. - Denies relief from Tessalon Perles in the past. Denies CP Denies dyspnea. Denies hemoptysis Sinus Pain - Reports whole face hurts. - Associated with sinus pressure. - Took [...] apnea) 08/05/2014 Split study 06/28/2014 CPAP @ [address] [place] [address] BASELINE RESPIRATORY DATA: This study was performed [...] benefit for asthma symptoms. and Recording using Health Benefits Direct software for draft documentation of the visit was discussed with the patient/authorized sales representative printing; all questions welcomed and answered. Patient/authorized sales representative printing agreed to proceed MDM Procedures [1] Social [...] Drug use: No documented in this encounter [facility] 05-12-2025 History of Present illness Narrative [...] PATIENT PRESENTS WITH AN IMPLANTABLE OR ATTACHED DIRECTOR OF SPEECH PATHOLOGY: No RADIOLOGY DEPARTMENT: General X-ray: Exam(s) Completed: Chest X-Ray PERIPHERAL IV DATA: Not applicable SIGNED BY: Nicole Lacy May 12, 2025 7:09 PM documented in this encounter [facility] 05-12-2025 Note HNO ID: [id number] Author: VALENTINA BECERRA Tech Service: ? Author Type: Horse And Wagon Driver Type: Progress Notes Filed: 05/12/2025 19:14 Note [...] PATIENT PRESENTS WITH AN IMPLANTABLE OR ATTACHED DIRECTOR OF SPEECH PATHOLOGY: No RADIOLOGY DEPARTMENT: General X-ray: Exam(s) Completed: Chest X-Ray PERIPHERAL IV DATA: Not applicable SIGNED BY: Nicole Lacy May 12, 2025 7:09 PM [facility] 12-10-2024 Procedure note [facility] 12-01-2024 History and physi leila note Note Date/Time December 01, 2024 10:20am [facility] Medical Records Department [address] [place] [address] History & Physical Exam 12/01/24 0947 MR#: [id number] Acct: [id number] Name: LIBRABARBARA Rep #:[id number] : 1960 64 From: Kimmie Olmos MD PCP: Dr. Kendrick Kendall, Status:[facility] Location: [place] [address] History and Physical Date of Admission: 12/01/24 Date of Service: 11/10/24 MR#: [id number] Acct: [id number] Name: LIBRABARBARA KAY Rep #: [id number] : 1960 Provider: Dr. Kimmie Olmos MD Age/Sex: 64/F Location: [facility] Status: Signed Intake Vital Signs 05/05/2413:35 10/27/2508:12 [...] (Reviewed 10/27/24 @ 13:28 by Jodie Salguero SALES OPERATIONS MANAGER, SALES OPERATIONS MANAGER-C) Other Asthma Cancer Diabetes Hypertension Social History [...] healthy appearing, comfortable and no acute distress [facility] Head: normocephalic and atraumatic Neck Neck: [...] cut, break 40 mg PO QDAY 30 [id number] sucralfate Take an hour before meals and [...] no further questions. Kimmie Olmos M.D. Pager: [phone] [facility] [address] [place] [address], [address] [place] [address] Office: 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 Kimmie Olmos MD ~* Signed [facility] Work Phone: 1(330) 612-189203-17-2025 Consult note [facility] Medical Records Department [address] [place] [address] Anesthesia Postop Eval II 12/01/24 1115 MR#: [id number] Acct: [id number] Name: BARBARA DIANA Rep #:[id number] : 1960 64 From: Caty Gomez PCP: Dr. Kendrick Kendall DO Status:REG SDC Y Race: C Location: [address] Anesthesia Postop Eval I Sum Postop Eval Completion status Anesthesia document: Postop Eval 1 completed: Yes Anesthesia Postop Eval I Summary Anesthesia Postop Eval I Summary: Anesthesia Postop Eval I: Assessment Summary Airway patent Yes 12/01/24 11:09 [email or web address] Spontaneous unlabored Yes 12/01/24 11:09 [email or web address] respirations Mental status Awake 12/01/24 11:09 [email or web address] nausea No 12/01/24 11:09 [email or web address] Vomiting No 12/01/24 11:09 [email or web address] Anesthesia Postop Eval I: Fluid Summary Crystalloid volume administer 30 12/01/24 11:09 [email or web address] (ml) Colloids volume administered ( ml) Blood Product volume administered (ml) Total IV fluid infused 30 12/01/24 11:09 [email or web address] Anesthesia Postop Eval I: Summary Notes Anesthesia Complication No 12/01/24 11:09 [email or web address] Anesthesia Complication Comment: Post-operative progress note Anesthesia: Postop Eval II Evaluation Mental status: Awake Pain Level: 0 nausea: No Vomiting: No 12/01/24 1115 a> Date _ Caty Traner Signature: Date CC: ~ Signed [facility]03-17-2025 Procedure note [facility] Medical Records Department [address] [place] [address] EGD Report MR#: [id number] Acct: [id number] Name: BARBARA DIANA Rep #:[id number] : 1960 64 From: Kimmie Olmos MD PCP: Dr. Kendrick Kendall, DO Status:REG SD Patient Name: Barbara Diana Procedure Date: 12/01/2024 [...] present medications. Procedure Code(s): --- Professional --- 33988, PT, Esophagogastroduodenoscopy, flexible, transoral; with biopsy, single or multiple Diagnosis Code(s): --- Professional --- K22.89, Other specified disease of esophagus K22.70, Romero's esophagus without dysplasia K44.9, Diaphragmatic hernia without obstruction or gangrene K31.89, Other diseases of stomach and duodenum CPT copyright 2021 [employer]. All rights reserved. The codes documented in this report are preliminary and upon oil heater installer review may be revised to meet current compliance requirements. MD Kimmie Hernandes MD 12/01/2024 11:09:31 AM This report has been signed electronically. Number of Addenda: 0 Note Initiated On: 12/01/2024 10:44 AM 12/01/24 1109 Date _ Kimmie Olmos MD Cosigner Signature: Date (if indicated) CC: Dr. Kendrick Kendall, DO; Dr. Kimmie Olmos MD ~ Date Dictated: 12/01/24 1044 Date Transcribed: Clicker Operator: TR Signed [facility]03-17-2025 Procedure note [facility] Medical Records Department [address] [place] [address] Operative Report - CC Letter MR#: [id number] Acct: [id number] Name: LIBRABARBARA Rep #:[id number] : 1960 64 From: Kimmie Olmos MD PCP: Dr. Kendrick Kendall DO Status:REG [facility] 12/01/2024 Kendrick Kendall [address] [facility] [place] [address] [place] [address] Re : Upper GI endoscopy procedure for [...] ~ Date Dictated: 12/01/24 1044 Date Transcribed: Clicker Operator: TR Signed [facility]03-17-2025 Consult note [facility] Medical Records Department [address] [place] [address] Anesthesia Postop Eval I 12/01/24 1108 MR#: [id number] Acct: [id number] Name: BARBARA DIANA Rep #:[id number] : 1960 64 From: Jarad Monson CRNA PCP: Dr. Kendrick Kendall, DO Status:[place] [facility] [place] Race: C Location: [place] [address] Anesthesia: Postop Eval I Current Vital Signs [...] Eval 1 completed: Yes 12/01/24 1109 y PELLETIZER> Date _ Jarad Monson PELLETIZER Cosigner Signature: Date CC: ~ Signed [facility]03-17-2025 Consult note [facility] Medical Records Department [address] [place] [address] Pre-Anesthesia Evaluation 12/01/24 1022 MR#: [id number] Acct: [id number] Name: BARBARA DIANA Rep #:[id number] : 1960 64 From: Caty Gomez PCP: Dr. Kendrick Kendall, DO Status:REG [facility] [place] [place] Race: C Location: [place] [address] ASA Classification* ASA Classification ASA Classification: 3 [...] 10/20/24 TSH 2.080 uIU/mL (0.358-3.740) 10/20/24 08:52 12/09 COAG Pre-Assessment Diagnosis/Proposed Procedure Planned Operative Procedure(s): EGD Anesthesia History Anesthesia History - guest service supervisor: Anesthesia History - guest service supervisor Hx Hospitalization No 11/28/24 14:13 Any Problems [...] take am of surgery PONV PONV - guest service supervisor: PONV - guest service supervisor Female Yes 11/28/24 14:13 HX of Motion [...] 12/01/24 09:21 Respiratory Assessment Respiratory Assessment - guest service supervisor: Respiratory Tract Infection Hx - guest service supervisor Hx Respiratory Tract Infection Yes: URI TREATED/RESOLVED 11/28/24 14:13 STOP Sleep Apnea STOP Sleep Apnea - guest service supervisor: STOP Sleep Apnea - guest service supervisor Hx Hypertension Yes: CONTROLLED ON MED 11/28/24 [...] Tobacco Use History Tobacco Use History - guest service supervisor: Tobacco Use History - guest service supervisor Tobacco Use Smoking Status Former smoker 11/28/24 14:13 Hx Tobacco Use No 11/28/24 14:13 Years Smoking Packs Smoked per Day Smoking Cessation Date was No - quit smoking greater 11/28/24 14:13 within the last 15 years than 15 years ago Hx Smoking Cessation Date Hx Smoking Cessation No 11/28/24 14:13 Counseling Hematologic Medial History Hematologic Hx - guest service supervisor: Hematologic Medical Hx - business 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03-17-2025 History and physical note [facility] Medical Records Department [address] [place] [address] History & Physical Exam 12/01/24 0947 MR#: [id number] Acct: [id number] Name: BARBARA DIANA Rep #:[id number] : 1960 64 From: Kimmie Olmos MD PCP: Dr. Kendrick Kendall, DO Status:[facility] Location: [place] [address] History and Physical Date of Admission: 12/01/24 Date of Service: 11/10/24 MR#: [id number] Acct: [id number] Name: BARBARA DIANA Rep #: [id number] : 1960 Provider: Dr. Kimmie Olmos MD Age/Sex: 64/F Location: [facility] Status: Signed Intake Vital Signs 05/05/2413:35 10/27/2508:12 [...] (Reviewed 10/27/24 @ 13:28 by Jodie Salguero SALES OPERATIONS MANAGER, SALES OPERATIONS MANAGER-C) Other Asthma Cancer Diabetes Hypertension Social History (Reviewed 10/27/24 @ 13:28 by Jodie Salguero SALES OPERATIONS MANAGER, SALES OPERATIONS MANAGER-C) Smoking Status: Former smoker second hand exposure: [...] healthy appearing, comfortable and no acute distress [facility] Head: normocephalic and atraumatic Neck Neck: [...] cut, break 40 mg PO QDAY 30 shkj1BA sucralfate Take an hour before meals and [...] no further questions. Kimmie Olmos M.D. Pager: [phone] [facility] [address] [place] [address], [facility], [address] [place] [address] Office: [phone] Coding Level of Care Code Off vis,est,level [...] DO; Dr. Kimmie Olmos MD ~* Signed [facility]03-17-[address]25 [facility] Medical Records Department [address] [place] [address] History Physical Exam 12/01/24 0947 MR#: [id number] Acct: [id number] Name: AIXA DIANAYOLA MISHRA Rep #: [id number] : 1960 64 From: Kimmie Olmos MD PCP: Dr. Kendrick Kendall DO Status:[facility] Location: [place] [address] History and Physical Date of Admission: 12/01/24 Date of Service: 11/10/24 MR#: [id number] Acct: [id number] Name: BARBARA DIANA Rep #: [id number] : 1960 Provider: Dr. Kimmie Olmos MD Age/Sex: 64/F Location: [facility] Status: Signed Intake Vital Signs 05/05/2413:35 10/27/2508:12 [...] (Reviewed 10/27/24 @ 13:28 by Jodie Salguero SALES OPERATIONS MANAGER, SALES OPERATIONS MANAGER-C) Other Asthma Cancer Diabetes Hypertension Social History (Reviewed 10/27/24 @ 13:28 by Jodie Salguero SALES OPERATIONS MANAGER, SALES OPERATIONS MANAGER-C) Smoking Status: Former smoker second hand exposure: [...] No wheezing Gastro Gastrointestinal: (more content not included)...[facility] 11-20-2024 Instructions* Patient Instructions* Morgan Saravia APRN.CNP - 11/20/2024 7:38 PM EST ASSESSMENT/PLAN: 1. [...] HYCLATE 100 MG TABLET [facility] NoteHNO ID: [id number] Author: MORGAN SARAVIA APRN.CNP Service: ? Author [...] apnea) 08/05/2014 Split study 06/28/2014 CPAP @ [address] [place] [address] BASELINE RESPIRATORY DATA: This study was performed [...] for shortness of breat (more content not included)...[facility]03-06-2025 History of Present illness Narrative* Morgan Saravia APRN.NAVAL ARCHITECT SPECIALIST - 11/20/2024 7:36 PM EST [facility] [...] apnea) 08/05/2014 Split study 06/28/2014 CPAP @ [facility]. 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 Work Phone: 1(726) 910-255002-10-2025 Evaluation note* Diagnosis Onset Date Resolution Status [...] 2:53pm NICOLAS on CPAP chronic December 29, 2 025 2:53pm Asthma acute February 16, 2025 2:22pm Obesity chronic February 16, 2025 2:22pm NICOLAS on CPAP chronic February 16 2:22pm [facility] Work Phone: 1(900) 629-359903-11-2024 Discharge summary Author Rika Cross [facility] November 26, 2023 4:44pm Note Date/Time November 26, 2023 4:[address] [facility] Physical Therapy [facility] [address] [facility] [place] [address] / REHABILITATION SERVICES DISCHARGE SUMMARY MR#: [id number] Acct: [id number] Name: BARBARA FREEMAN Rep #: [id number] : 1960 63 From: Rika Thompson PT, Cert. MDT Referring Dr.: Dr. Radha Osoiro MD Status: REG RCR Insurance: [employer] MEDICARE SELF PAY INSURANCE Discharge Summary D/C summary: It has been my pleasure to treat BARBARA SANFORD referred by Dr. Radha Osorio MD, with the diagnosis of MIXED INCONTINENCE for a total of 11 visit(s). Discharge Date: 11/26/23 Please see the following information for a summary of their discharge status. Subjective Subjective: EVERY ONCE IN A BLUE [place]ASQUE[place] IF I HAVE A LOT OF WATER AND WAIT TO GO TO THE BATHROOM I HAVE TROUBLE GETTING MY PANTS DOWN IN TIME. PATIENT REPORTS SHE IS DOING GOOD WITH THE EX'S AND PLANS TO CONTINUE THEM. Overall Improvement % Improvement: 95 Objective Objective/Function: PATIENT TOLERATED NEW EX WELL AND COMMUNICATED A GOOD UNDERSTANDING OF ALL INSTRUCTIONS AFTER GIVEN. SHE IS APPROPRIATE FOR AND AGREEABLE TO DISCHARGE TO [facility]. SHE HAS DONE REALLY WELL WITH [...] please feel free to call me at [phone]. Thank you for the referral of thispatient. Sincerely, Rika Thompson, PT, Cert MDT Balance/Gait/Functional tests Improvement % Improvement: 95 <Electronically signed by Rika Thompson PT Cert. MDT> 11/26/23 1644 CC: Dr. Radha Osorio MD; Dr. Kendrick Kendall, DO ~ EILEEN Signed [facility] Work Phone: 1(179) 296-114504-11-2023 Procedure [facility] Consult note Author Caty Gomez [facility] Note Date/Time December 01, 2024 10: 24am [facility] Medical Records Department [address] [place] [address] Pre-Anesthesia Evaluation 12/01/24 1022 MR#: [id number] Acct: [id number] Name: BARBARA DIANA Rep #:[id number] : 1960 64 From: Caty Gomez PCP: Dr. Kendrick Kendall, Status:REG [facility] Y Race: C Location: [place] [address] ASA Classification* ASA Classification ASA Classification: 3 [...] 10/20/24 TSH 2.080 uIU/mL (0.358-3.740) 10/20/24 08:52 12/09 COAG Pre-Assessment Diagnosis/Proposed Procedure Planned Operative Procedure(s): EGD Anesthesia History Anesthesia History - guest service supervisor: Anesthesia History - guest service supervisor Hx Hospitalization No 11/28/24 14:13 Any Problems [...] take am of surgery PONV PONV - guest service supervisor: PONV - guest service supervisor Female Yes 11/28/24 14:13 HX of Motion [...] 12/01/24 09:21 Respiratory Assessment Respiratory Assessment - guest service supervisor: Respiratory Tract Infection Hx - guest service supervisor Hx Respiratory Tract Infection Yes: URI TREATED/RESOLVED 11/28/24 14:13 STOP Sleep Apnea STOP Sleep Apnea - guest service supervisor: STOP Sleep Apnea - guest service supervisor Hx Hypertension Yes: CONTROLLED ON MED 11/28/24 [...] Tobacco Use History Tobacco Use History - guest service supervisor: Tobacco Use History - guest service supervisor Tobacco Use Smoking Status Former smoker 11/28/24 14:13 Hx Tobacco Use No 11/28/24 14:13 Years Smoking Packs Smoked per Day Smoking Cessation Date was No - quit smoking greater 11/28/24 14:13 within the last 15 years than 15 years ago Hx Smoking Cessation Date Hx Smoking Cessation No 11/28/24 14:13 Counseling Hematologic Medial History Hematologic Hx - guest service supervisor: Hematologic Medical Hx - business 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 Work Phone: Consult note Author Jarad Monson [facility] Note Date/Time December 01, 2024 11: 09am [facility] Medical Records Department [address] [place] [address] Anesthesia Postop Eval I 12/01/24 1108 MR#: [id number] Acct: [id number] Name: BARBARA DIANA Rep #:[id number] : 1960 64 From: Jarad Monson CRNA PCP: Dr. Kendrick Kendall, DO Status:REG [facility] Y Race: C Location: [address] Anesthesia: Postop Eval I Current Vital Signs [...] CRNA Cosigner Signature: Date CC: ~ Signed [facility] Work Phone: Consult note Author Caty Gomez [facility] Note Date/Time December 01, 2024 11: 15am [facility] Medical Records Department [address] [place] [address] Anesthesia Postop Eval II 12/01/24 1115 MR#: [id number] Acct: [id number] Name: BARBARA DIANA Rep #:[id number] : 1960 64 From: Caty Gomez PCP: Dr. Kendrick Kendall, DO Status:REG [facility] Y Race: C Location: [place] [address] Anesthesia Postop Eval I Sum Postop Eval Completion status Anesthesia document: Postop Eval 1 completed: Yes Anesthesia Postop Eval I Summary Anesthesia Postop Eval I Summary: Anesthesia Postop Eval I: Assessment Summary Airway patent Yes 12/01/24 11:09 [email or web address] Spontaneous unlabored Yes 12/01/24 11:09 [email or web address] respirations Mental status Awake 12/01/24 11:09 [email or web address] nausea No 12/01/24 11:09 [email or web address] Vomiting No 12/01/24 11:09 [email or web address] Anesthesia Postop Eval I: Fluid Summary Crystalloid volume administer 30 12/01/24 11:09 [email or web address] (ml) Colloids volume administered ( ml) Blood Product volume administered (ml) Total IV fluid infused 30 12/01/24 11:09 [email or web address] Anesthesia Postop Eval I: Summary Notes Anesthesia Complication No 12/01/24 11:09 [email or web address] Anesthesia Complication Comment: Post-operative progress note Anesthesia: Postop Eval II Evaluation Mental status: Awake Pain Level: 0 nausea: No Vomiting: No 12/01/24 1115 <Electronically signed by Caty patel> Date _ Caty Modi Signature: Date CC: ~ Signed [facility] Work Phone: Evaluation noteNo assessment information available [facility] Work Phone: Evaluation note* Diagnosis Onset Date Resolution Status [id number] acute Asthma noneactive [facility] Work Phone: Evaluation note* Diagnosis Onset Date Resolution Status [id number] acute Asthma noneactive GERD (gastroesophageal reflux disease) acute Hx of colonic polyp acute Lipoma of back acute Allergic rhinitis due to allergen chronic Incidental lung nodule, > 3mm and < 8mm chronic NICOLAS on CPAP chronic Wheezing chronic [facility] Work Phone: Evaluation note* Diagnosis Onset Date Resolution Status GERD (gastroesophageal reflux disease) acute Hx of colonic polyp acute Lipoma of back acute Allergic rhinitis due to allergen chronic Incidental lung nodule, > 3mm and < 8mm chronic NICOLAS on CPAP chronic Wheezing chronic Lipoma of back acute [facility] Work Phone: Evaluation note* Diagnosis Onset Date Resolution Status GERD (gastroesophageal reflux disease) acute Hx of colonic polyp acute Lipoma of back acute Allergic rhinitis due to allergen chronic Incidental lung nodule, > 3mm and < 8mm chronic NICOLAS on CPAP chronic Wheezing chronic Lipoma of back acute GERD (gastroesophageal reflux disease) acute Hx of colonic polyp acute [facility] Work Phone: Evaluation note* Diagnosis Onset Date [...] < 8mm chronic NICOLAS on CPAP chronic [facility] Work Phone: Evaluation note* Diagnosis Onset Date Resolution Status Pulmonary granuloma acute BMI 37.0-37.9, adult chronic NICOLAS on CPAP chronic Venous insufficiency of both lower extremities acute Venous stasis ulcer of left lower leg with edema of left lower leg acute [facility] Work Phone: Evaluation note* Diagnosis Sinobronchitis- Primary Unspecified sinusitis (chronic) documented in this encounter [facility] note* Diagnosis Pharyngitis, unspecified etiology- Primary Rhinosinusitis Unspecified sinusitis (chronic) Acute cough Abnormal finding on chest xray Other nonspecific abnormal finding of lung field Uncomplicated asthma, unspecified asthma severity, unspecified whether persistent (HCC) Pharyngitis, unspecified etiology Rhinosinusitis Unspecified sinusitis (chronic) Acute cough documented in this encounter [facility] note* Diagnosis Pharyngitis, unspecified etiology Rhinosinusitis Unspecified sinusitis (chronic) Acute cough documented in this encounter [facility] note* Diagnosis Moderate persistent asthma with (acute) exacerbation (HCC)- Primary Acute bacterial rhinosinusitis Acute sinusitis, unspecified SOB (shortness of breath) Shortness of breath SOB (shortness of breath) Shortness of breath [facility] SOB (shortness of breath) Shortness of breath [facility] Diagnosis Onset Date Resolution Status Admit Date Multiple thyroid nodules chronic June 29, 2025 7:54am [facility] Work Phone: Progress note Author Babak Clarke [facility] Note Date/Time June 29, 2025 8 :56am [facility] [address] [facility] [place] [address] OFFICE VISIT Date of Service: 06/29/25 MR#: [id number] Acct: [id number] Name: BARBARA DIANA Rep #: [id number] : 1960 Provider: Dr. Yayo Clarke MD Age/Sex: 64/F Location: [facility] Status: Signed Intake Vital Signs 02/16/25 08:18 06/29/25 08:03 Height 5 ft 6 in 5 ft 6 in Weight: 233 lb 238 lb 6 oz BMI 37.5 38.5 BP 145/70 H 138/75 H Blood Pressure Location Lt radial Rt brachial Position Sitting Sitting Respiration 16 18 Pulse 73 75 Pulse Source NIBP Monitor Temp 97.8 F 97.2 F L Temp Source Temporal Pulse Oximetry (%) 96 98 Oxygen Delivery Method room air room air Intake Visit Reasons: discuss left thyroid lobectomy with isthmusectomy Chief Complaint: discuss left thyroid lobectomy with isthmusectomy Is patient in pain?: No Allergies adhesive tape Allergy (Intermediate, Verified 06/29/25 08:04) Rash grass pollen Allergy (Verified 06/29/25 08:04) Unknown mold Allergy (Verified 06/29/25 08:04) Unknown Medications ?Medication ?Instructions ?Recorded ?Confirmed ?Type multivitamin (One-A-Day Essential 1 tab PO QAM 8 06/29/25 History tablet) losartan 50 mg tablet 50 mg PO DAILY 07/13/2206/17 History estradiol 0.5 mg tablet 0.5 mg PO DAILY 10/16/22 History fexofenadine 180 mg tablet 180 mg PO DAILY 11/16/22 History fluticasone propionate 50 2 spray intranasal BID Aller gic 01/15/23 06/29/25 Rx mcg/actuation nasal rhinitis #30 mL spray,suspension (Flonase Allergy Relief) albuterol sulfate 90 mcg/actuation 1 - 2 inh inhalatio n PRN PRN 10/27/24 06/29/25 Rx aerosol inhaler ASTHMA #8.5 grams sucralfate 1 gram tablet 1 g PO QACHS #56 tabs 06/29/25 Rx budesonide-formoterol HFA 160 2 inh inhalation BID #1 ea 12/29/24 06/29/25 Rx mcg-4.5 mcg/actuation aerosol inhaler (Breyna) omeprazole 40 mg capsule,delayed 40 mg PO QDAY #30 cap s 04/28/25 06/29/25 Rx release Have you fallen in the past year?: [...] Patient is a 64-year-old female who presents to discuss possible left thyroid lobectomy. The patient reports persistent neck fullness and intermittent choking episodes. She notes that her symptoms improved after aspiration of the left thyroid nodulein December, but have worsened again over the past 2 weeks. She also reports intermittent voice changes at work, with her coworkers asking if she has a cold,and an increase in cough frequency. She describes a sensation of phlegm buildup that triggers coughing. She has a history of a left thyroid nodule that measured 4 x 3.1 x 2.5 cm in October and 3.9 x 2.5 x 2.5 cm in May. The nodule is TIRADS 3 and predominantly cystic, making FNA biopsy challenging. The right thyroid lobe contains a stable 1.5 cm nodule and two subcentimeter nodules with minimal cystic fluid. She is considering surgery in August after completing ablation procedures for varicose veins of her legs. She inquired about GLP-1 medications for weight loss and expressed concern aboutpotential weight gain after thyroid surgery. She has a family history of obesity, with her brother weighing approximately 400-500 lbs. Below is recapitulated from patient's prior visit for ease of review: Patient is a 64-year-old female who presents [...] cystic fluid. She states that she felt so much better following this aspiration procedure and noticed an immediate impact to her swallow and cough symptoms. However, gradually since that time she now finds that medicinesseem to get stuck, her cough has returned with intensity, and she even finds that she must stop [facility]. She notes that this exacerbation [...] as having mixed composition. Additionally there were 5mm and 6 mm mixed composition nodules identified alongside this more dominant nodule of the right side. The left thyroid lobe measured 6.1 x 2.6 x 3.3 cm. Within this lobe radiology identified a nodule measuring 4.0 x 3.1 x 2.5 cm witha predominantly cystic appearance. As above, an FNA was [place] [address] Dmitry Elliott with a final [place] 2 diagnosis. Other tests include: TSH: 2.08 [...] numbness and No tingling Exam Const General: cooperative Nutritional Appearance: obese Orientation: alert, awake and oriented x3 Neck Other: Enlarged thyroid gland bilaterally with soft palpable left-sided thyroid nodule. This mildly tender with palpation. Assessment and Plan Assessment and Plan (1) Multiple thyroid nodules: Status: Chronic Comment: Patient is a 64-year-old female, euthyroid from an endocrine standpoint, who [...] procedure but that there was a significant riskof reaccumulation. Based on patient's history and her symptoms I do believe they are compressive in nature and recommended she consider left thyroid lobectomy with isthmusectomy. I briefly discussed the advantages of this procedure over total thyroidectomy. I did discuss repeating her thyroid ultrasound noted to be sure there is no growth of her dominant right- sided thyroid nodule which presently meets criteria for [...] submitted for cytology. Postprocedure instructions were provided. Update 06/29/2025: - Left thyroid nodule with regrowth noted on interval ultrasound (May): 3.9 x 2.5 x 2.5 cm compared to 4 x 3.1 x 2.5 cm in October; TIRADS 3, mildly suspicious. - Persistent/recurrent compressive symptoms (dysphagia, hoarseness, cough) likely due to recurrent laryngeal nerve compression. - Previous aspirations (December, by myself and Dr. Elliott) provided temporary relief; symptoms have worsened over the past 2 weeks. - Diagnostic FNA biopsy not feasible due to high cystic fluid content. - Discussed surgical options: total thyroidectomy vs. left thyroid lobectomy with isthmusectomy; recommend left lobectomy with isthmusectomy to minimize surgical risk and preserve right thyroid function. - Reviewed surgical risks: bleeding, infection, hypoparathyroidism, recurrent laryngeal nerve injury, potential need for thyroid hormone replacement, and possible transient or permanent voice changes. - Explained intraoperative nerve monitoring and parathyroid preservation techniques to minimize risks. - Outpatient surgery planned, pending final scheduling; patient understands and consents to procedure and associated risks. Plan: Left thyroid lobectomy with isthmusectomy and intraoperative nerve monitoring tentatively set for July. Outpatient disposition expected. Plan Details Additional Comments: Note was completed with the assistance of AI technology and ambient listening. Patient provided their consent for use of this technology during the duration oftheir visit. Provider has reviewed dictation prior to incorporation within the electronic medical record. Coding Level of Care Code Off vis,est,level 4 Diagnoses Multiple thyroid nodules E04.2 Clinical Quality Measures Falls Risk Screening/Assistive Devices Have you fallen in the past year?: No 06/29/25 1536 <Electronically signed by Babak Clarke MD> Date _ Babak Clarke MD Cosigner Signature: Date (if applicable) CC: Dr. 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 Nontoxic single thyroid nodule NEURO BILATERAL THYROID NODULES FNA OF LEFT MID TO LOWER THYROID NODULE CHEST PAIN Reason for Visit [id number] Asthma Chief Complaint BILATERAL THYROID NO DULES FNA OF LEFT MID TO LOWER THYROID NODULE CHEST PAIN LIPOMA ON BACK/CSCOPE SCREENING Sleep apnea Reason for Visit [id number] Asthma GERD (gastroesophageal reflux disease) Hx of [...] 2024 1:03pm Allergic rhinitis due to allergen Februa 2024 1:03pm NICOLAS on CPAP October 27, [...] on CPAP February 16, 2025 2:22p m Chief Complaint Admit Date PULM NODULE June 08, 2025 6:26am Chief Complaint Admit Date PULM NODULE June 08, 2025 6:26am discuss left thyroid lobectomy with isth musectomy June 29, 2025 7:54am Reason for Visit Admit Date Multiple thyroid nodules June 29, 2 025 7:54am Advance Directives No Advanced Directives Records Found Advance Directive Response Recorded Date/ Time Living Will No June 28 8:03pm Power of Senior Sales Consultant No June 28, 2022 8:03pm Advance Directive Response Recorded Date/ Time Living Will No July 22 9:49pm Power of Senior Sales Consultant No July 22, 2022 9:49pm Advance Directive Response Recorded Date/ Time Living Will No July 22 8:49pm Power of Senior Sales Consultant No July 22, 2022 8:49pm Advance Directive Response Recorded Date/ Time Living Will No November 16, 2022 10:48am Power of Senior Sales Consultant No November 16 10:48am Advance Directive Response Recorded Date/ Time Living Will No November 16, 2022 9:48am Power of Senior Sales Consultant No November 16 9:48am Advance Directive Response Recorded Date/ Time Living Will No November 16, 2022 10:48am Power of Senior Sales Consultant No November 16 10:48am Living Will No November 28, 2024 2:13pm Power of Senior Sales Consultant No November 28 2:13pm Advance Directive Response Recorded Date/ Time Living Will No November 16, 2022 10:48am Do you have a Healthcare Power of Senior Sales Consultant? No November 16, 2022 10:48am Living Will No November 28, 2024 2:13pm Do you have a Healthcare Power of Senior Sales Consultant? No November 28, 2024 2:13pm Family History [...] Inactive Member Role Status Dates Dr. Kendrick eKndall DO Primary Care Provider Active Dr. Usman Tate MD Attending Provider, Other Provi altaf Active Team Status: Active Member Role Status Dates Dr. Kendrick Kendall DO Primary Care Prov ider, Attending Provider, Referring Provider Active Team Status: Inactive Member Role Status Dates Dr. Kendrick Kendall DO Primary Care Provider Active Dr. Radha Osorio MD Attending Provider Active Oxygen Tank Filler Relationship Specialty Start Date End Date Sabina Simons DO [address] [place] [address] PCP - General Family Medicine 11/29/21 Team [...] 2024 End: October 27, 2024 Jodie Salguero SALES OPERATIONS MANAGER, SALES OPERATIONS MANAGER-C Attending Provider Active Start: October 27, 2024 [...] 2024 End: November 10, 2024 Jodie Salguero SALES OPERATIONS MANAGER, SALES OPERATIONS MANAGER-C Attending Provider Active Start: November 10, 2024 End: November 10, 2024 Jodie Salguero SALES OPERATIONS MANAGER, SALES OPERATIONS MANAGER-C Referring Provider Active Start: November 10, 2024 [...] 2024 End: December 08, 2024 Jodie Salguero SALES OPERATIONS MANAGER, SALES OPERATIONS MANAGER-C Attending Provider Active Start: December 08, 2024 End: December 08, 2024 Jodie Salguero SALES OPERATIONS MANAGER, SALES OPERATIONS MANAGER-C Referring Provider Active Start: December 08, 2024 End: December 08, 2024 Team Status: Active Member Role Status Dates Dr. Kendrick Kendall DO Primary Care Provider Active Start: December 10, 2024 Jodie Salguero SALES OPERATIONS MANAGER, SALES OPERATIONS MANAGER-C Referring Provider Active Start: December 10, 2024 Jodie Salguero SALES OPERATIONS MANAGER, SALES OPERATIONS MANAGER-C Other Provider Active Start: December 10, 2024 [...] 2024 End: December 29, 2024 Jodie Salguero SALES OPERATIONS MANAGER, SALES OPERATIONS MANAGER-C Attending Provider Active Start: December 29, 2024 End: December 29, 2024 Team Status: Inactive Member Role Status Dates Dr. Kendrick Kendall DO Primary Care Provider Active Start: February 16, 2025 End: February 16, 2025 Dr. Kendrick Kendall DO Referring Provider Active Start: February 16, 2025 End: February 16, 2025 Jodie Salguero SALES OPERATIONS MANAGER, SALES OPERATIONS MANAGER-C Attending Provider Active Start: February 16, 2025 End: February 16, 2025 Oxygen Tank Filler Relationship Specialty Start Date End Date Sabina Simons DO [address] [place], [place] [id number] PCP - General Family Medicine 11/29/21 Oxygen Tank Filler Relationship Specialty Start Date End Date Sabina Simons DO [address] [place], [place] [address] PCP - General Family Medicine 11/29/21 Oxygen Tank Filler Relationship Specialty Start Date End Date Sabina Simons DO [address] [place], [place] [id number] PCP - General Family Medicine 11/29/21 Kendrick Kendall DO [address] [place] [address] Family Medicine 05/29/25 Oxygen Tank Filler Relationship Specialty Start Date End Date Sabina Simons DO [address] [address] PCP - General Family Medicine 11/29/21 Kendrick Kendall DO [address] [place] [address] [facility] Medicine 05/29/25 Team Status: Active Member Role/Relationship Status Dates Dr. Kendrick Kendall DO Primary care physician Active Team Status: Inactive Member Role/Relationship Status Dates Dr. Kendrick Kendall DO Primary care physician Active Start: March 17, 2025 Dr. Radha Osorio MD Attending physician Active Start: March 17, 2025 Team Status: Inactive Member Role/Relationship Status Dates Dr. Kendrick Kendall DO Primary care physician Active Start: June 08, 2025 End: June 08, 2025 Dr. Kendrick Kendall DO Attending physician Active Start: June 08, 2025 End: June 08, 2025 Dr. Kendrick Kendall DO Referring Provider Active Start: June 08, 2025 End: June 08, 2025 Dr. Babak Clarke MD Nurse Practitioner Active Start: June 08, 2025 End: June 08, 2025 Team Status: Inactive Member Role/Relationship Status Dates Dr. Kendrick Kendall DO Primary care physician Active Start: June 29, 2025 End: June 29, 2025 Dr. Kendrick Kendall DO Referring Provider Active Start: June 29, 2025 End: June 29, 2025 Dr. Babak Clarke MD Attending physician Active Start: June 29, 2025 End: June 29, 2025 Source Comments (unrecognize d section and content) In the event this informatio n is protected by the Federal Confidentiality of Alcohol and Drug Abuse Patient Records regulations: The Federal rules restrict any use of the information to criminally investigate or prosecute any alcohol or drug abuse patient.[facility] the event this information is protected by the Federal Confidentiality of Alcohol and Drug Abuse Patient Records regulations: The Federal rules restrict any use of the information to criminally investigate or prosecute any alcohol or drug abuse patient.[facility] the event this information is protected by the Federal Confidentiality of Alcohol and Drug Abuse Patient Records regulations: The Federal rules restrict any use of the information to criminally investigate or prosecute any alcohol or drug abuse patient.[facility] the event this information is protected by the Federal Confidentiality of Alcohol and Drug Abuse Patient Records regulations: The Federal rules restrict any use of the information to criminally investigate or prosecute any alcohol or drug abuse patient.[facility] the event this information is protected by the Federal Confidentiality of Alcohol and Drug Abuse Patient Records regulations: The Federal rules restrict any use of the information to criminally investigate or prosecute any alcohol or drug abuse patient.[facility] Reason for Visit (unrecogniz ed section and content) Reason Comments Cough Chest congestion, SO B, wheeze, sinus pressure and pain x 2 weeks Reason Comments Headache X 3 weeks Sore Throat Cough Chest Congestion Reason Comments Cough Chest congestion, Sh ortness of Breath, wheezing, bilateral ear pain x2 weeks, persisting from 05/12 INFORMATION SOURCE (unrecogn ized section and content) DATE CREATED AUTHOR 06/01/2025 [facility] DATE CREATED AUTHOR 'S ALFRED ATION 07/23/2025 [facility] FOR RECORDS PERTAINING TO PATIENTS WHO ARE [...] BE BASED ON THE PRIMARY CLINICAL RECORDS. [employer] [facility]. provides no warranty or guarantee of the accuracy or completeness of information in this document.
[2025-08-04] MEDS: Lactated Ringers 1,000 ML 15 ML IV (06:30)
--- NOTE | 2025-08-04 06:37 | HP.PCM_ITS ---
History and Physical Date of Admission: 08/04/25 Date of Service: 06/29/25 MR#: [id number] Acct: [id number] Name: BARBARA SMYTH Rep #: [id number] : 1960 Provider: Dr. Babak Clarke MD Age/Sex: 64/F Location: [facility] Status: Signed Intake Vital Signs 02/17/2508:18 06/29/2508:03 Height 5 ft 6 in 5 ft 6 in Weight: 233 lb 238 lb 6 oz BMI 37.5 38.5 BP 145/70 H 138/75 H Blood Pressure Location Lt radial Rt brachial Position Sitting Sitting Respiration 16 18 Pulse 73 75 Pulse Source NIBP Monitor Temp 97.8 F 97.2 F L Temp Source Temporal Pulse Oximetry (%) 96 98 Oxygen Delivery Method room air room air Intake Visit Reasons: discuss left thyroid lobectomy with isthmusectomy Chief Complaint: discuss left thyroid lobectomy with isthmusectomy Is patient in pain?: No Allergies adhesive tape Allergy (Intermediate, Verified 06/29/25 08:04) Rash grass pollen Allergy (Verified 06/29/25 08:04) Unknown mold Allergy (Verified 06/29/25 08:04) Unknown Medications ?Medication ?Instructions ?Recorded ?Confirmed ?Type multivitamin (One-A-Day Essential 1 tab PO QAM 12/03/17 06/29/25 History tablet) losartan 50 mg tablet 50 mg PO DAILY 07/13/22 06/29/25 History estradiol 0.5 mg tablet 0.5 mg PO DAILY 10/16/22 06/29/25 Histor y fexofenadine 180 mg tablet 180 mg PO DAILY 11/16/22 06/29/25 Histor y fluticasone propionate 50 2 spray intranasal BID Allergic 01/15/23 06/29/25 Rx mcg/actuation nasal rhinitis #30 mL spray,suspension (Flonase Allergy Relief) albuterol sulfate 90 mcg/actuation 1 - 2 inh inhalation PRN PRN 10/27/24 06/29/25 Rx aerosol inhaler ASTHMA #8.5 grams sucralfate 1 gram tablet 1 g PO QACHS #56 tabs 11/10/24 06/29/25 Rx budesonide-formoterol HFA 160 2 inh inhalation BID #1 ea 12/29/2406/17 Rx mcg-4.5 mcg/actuation aerosol inhaler (Breyna) omeprazole 40 mg capsule,delayed 40 mg PO QDAY #30 caps 04/28/25 06/29/25 Rx release Have you fallen in the past year?: No PFSH Medical History Thyroid disease Difficulty swallowing Barretts esophagus BMI 37.0-37.9, adult Wears hearing aid Wears dentures Wears glasses Post-menopausal History of steroid therapy Arthritis Back pain Injury of head and neck TIA (transient ischemic attack) History of IBS Gastric reflux Former smoker CPAP (continuous positive airway pressure) dependence Asthma History of edema Hx of lipoma Wheezing Allergic rhinitis due to allergen Incidental lung nodule, > 3mm and < 8mm NICOLAS on CPAP SOB (shortness of breath) HTN (hypertension) Surgical History Hx of colonoscopy History of esophagogastroduodenoscopy (EGD) Hx of umbilical hernia repair History of hysterectomy H/O foot surgery History of tonsillectomy Family History Other Asthma Cancer Diabetes Hypertension Social History Smoking Status: Former smoker second hand exposure: Yes alcohol intake: never HPI HPI HPI: Patient is a 64-year-old female who presents to discuss possible left thyroid lobectomy. The patient reports persistent neck fullness and intermittent choking episodes. She notes that her symptoms improved after aspiration of the left thyroid nodule in December, but have worsened again over the past 2 weeks. She also reports intermittent voice changes at work, with her coworkers asking if she has a cold, and an increase in cough frequency. She describes a sensation of phlegm buildup that triggers coughing. She has a history of a left thyroid nodule that measured 4 x 3.1 x 2.5 cm in October and 3.9 x 2.5 x 2.5 cm in May. The nodule is TIRADS 3 and predominantly cystic, making FNA biopsy challenging. The right thyroid lobe contains a stable 1.5 cm nodule and two subcentimeter nodules with minimal cystic fluid. She is considering surgery in August after completing ablation procedures for varicose veins of her legs. She inquired about GLP-1 medications for weight loss and expressed concern about potential weight gain after thyroid surgery. She has a family history of obesity, with her brother weighing approximately 400-500 lbs. Below is recapitulated from patient's prior visit for ease of review: Patient is a 64-year-old female who presents for evaluation of thyroid nodules. They are referred for surgical consultation from Dr. Kendall. This was discovered years ago and patient has even previously sought surgical consultation. Patient last seen by Dr. Elliott 07/13/2022 when he performed FNA biopsy of patient's left dominant thyroid nodule as well as aspiration of additional cystic fluid. She states that she felt so much better following this aspiration procedure and noticed an immediate impact to her swallow and cough symptoms. However, gradually since that time she now finds that medicines seem to get stuck, her cough has returned with intensity, and she even finds that she must stop while talking to regroup for voice. She notes that this exacerbation has occurred rather acutely over the last 3 to 4 months. In addition above patient notes that she has experienced some weight gain and some shortness of breath. Regarding the latter she reports that she is due to see pulmonary medicine but believes that her shortness of breath, experience more acutely, was related to her becoming sick. She notes that she had a fav orable response to initiation of both steroid and antibiotic treatments. Previous work-up has included thyroid ultrasound. This study was performed on 10/27/2024 and showed a right thyroid lobe measuring 4.6 x 1.9 x 2.0 cm. Within this lobe radiology identified 3 nodules with the largest measuring 1.6 x 1.4 x 1.2 cm. It is described as having mixed composition. Additionally there were 5 mm and 6 mm mixed composition nodules identified alongside this more dominant nodule of the right side. The left thyroid lobe measured 6.1 x 2.6 x 3.3 cm. Within this lobe radiology identified a nodule measuring 4.0 x 3.1 x 2.5 cm with a predominantly cystic appearance. As above, an FNA was performed in [address] Dmitry Elliott with a final [place] 2 diagnosis. Other tests include: TSH: 2.08 (10/20/2024) ROS General General: No weight change, appetite, fatigue, colon cancer or breast cancer HEENT HEENT: No difficulty swallowing, eye injury, eye surgery, swollen glands or hoarseness Endo Endocrine: Yes thyroid disease; No diabetes mellitus, thyroid cancer, Hair loss, heat intolerance or cold intolerance Skin Skin: No rash or changing moles Musc Musculoskeletal: Yes back problems and arthritis; No rheumatoid arthritis, gout or joint pain Cardio Cardiovascular: Yes high blood pressure and shortness of breath with exertion; No murmur, pacemaker, heart disease, atrial fibrillation, heart attack, heart stent, palpitations or chest pain Psych Psychiatric: No depression, anxiety or hearing voices Resp Respiratory: Yes shortness of breath, Yes sleep apnea, No cough, No COPD, Yes asthma, No emphysema and No wheezing Gastro Gastrointestinal: No abdominal pain, No nausea or vomiting, No diarrhea, No constipation, No blood in stool, Yes acid reflux, No hemorrhoids, No ulcers, No gallbladder problem and No black,tarry stools [place] Hematologic: No blood thinners, No blood disorders, No bleeding, No anemia and No blood clots Neuro Neurologic: No numbness and No tingling Exam Const General: cooperative Nutritional Appearance: obese Orientation: alert, awake and oriented x3 Neck Other: Enlarged thyroid gland bilaterally with soft palpable left-sided thyroid nodule. This mildly tender with palpation. Assessment and Plan Assessment and Plan (1) Multiple thyroid nodules: Status: Chronic Comment: Patient is a 64-year-old female, euthyroid from an endocrine standpoint, who makes repeat surgical consultation related to development of compressive symptoms. Specifically, she describes difficulty swallowing, cough, and some vocal changes. While patient has bilateral thyroid nodularity she exhibits a dominant 4 cm mixed composition nodule of the left thyroid lobe that would seem to be the most likely cause for her symptoms. In fact, patient previously underwent aspiration of this nodule with Dr. Dmitry Elliott and post procedurally appreciated significant relief of symptoms. Therefore, with her reencountering symptoms she requested repeat cyst aspiration. I discussed with her that the nodule would be amenable to this procedure but that there was a significant risk of reaccumulation. Based on patient's history and her symptoms I do believe they are compressive in nature and recommended she consider left thyroid lobectomy with isthmusectomy. I briefly discussed the advantages of this procedure over total thyroidectomy. I did discuss repeating her thyroid ultrasound noted to be sure there is no growth of her dominant right-sided thyroid nodule which presently meets criteria for a TI-RADS 3 nodule at 1.6 cm in greatest dimension. 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 She mentioned potentially undergoing surgery just prior to a vacation she has upcoming in January. I discouraged this sort of planning and instead we resolved to revisit this concern at a follow-up visit when hopefully her schedule becomes more manageable. For the meantime her cyst was successfully aspirated with a total output of just over 7 mL cystic fluid. This was submitted for cytology. Postprocedure instructions were provided. Update 06/29/2025: - Left thyroid nodule with regrowth noted on interval ultrasound (May): 3.9 x 2.5 x 2.5 cm compared to 4 x 3.1 x 2.5 cm in October; TIRADS 3, mildly suspicious. - Persistent/recurrent compressive symptoms (dysphagia, hoarseness, cough) likely due to recurrent laryngeal nerve compression. - Previous aspirations (December, by myself and Dr. Elliott) provided temporary relief; symptoms have worsened over the past 2 weeks. - Diagnostic FNA biopsy not feasible due to high cystic fluid content. - Discussed surgical options: total thyroidectomy vs. left thyroid lobectomy with isthmusectomy; recommend left lobectomy with isthmusectomy to minimize surgical risk and preserve right thyroid function. - Reviewed surgical risks: bleeding, infection, hypoparathyroidism, recurrent laryngeal nerve injury, potential need for thyroid hormone replacement, and possible transient or permanent voice changes. - Explained intraoperative nerve monitoring and parathyroid preservation techniques to minimize risks. - Outpatient surgery planned, pending final scheduling; patient understands and consents to procedure and associated risks. Plan: Left thyroid lobectomy with isthmusectomy and intraoperative nerve monitoring tentatively set for July. Outpatient disposition expected. Plan Details Additional Comments: Note was completed with the assistance of AI technology and ambient listening. Patient provided their consent for use of this technology during the duration of their visit. Provider has reviewed dictation prior to incorporation within the electronic medical record. I have examined the patient and the H&P has been reviewed. There are no clinical changes since date of exam. Patient confirms she has been in her usual state of health. She does remark of some ongoing hoarseness of voice. Procedure and post procedure details are reviewed including postprocedure recovery expectations and limitations. All questions have been answered to patient's satisfaction. Consents were confirmed. Proceed to the operating room for left thyroid lobectomy and isthmusectomy using intraoperative nerve monitoring.
--- NOTE | 2025-08-04 07:30 | THYROID_PTH ---
PATIENT: BARBARA SMYTH LOC: [facility] U#:[id number] AGE/SX: 64/F ROOM: [facility]315 RE08/04/[address]: Dr. Babak Clarke MD : 1960 BED: 1 DIS: 08/05/2025 SPEC #: [id number] RECD: 08/04/25 10:42 STATUS: NIRANJAN VEGADara #: [id number] NELSON: 08/04/25 07:[address]: Babak Clarke DEPT: SURGICAL PATHOLOGY RECD BY: Dharmesh Solitario ENTERED: 08/04/25 11:47 SP TYPE: THYROID OTHR DR: Dr. Kendrick Kendall, DO Tissues: A - Thyroid gland, NOS Procedures: Surgery Specimen Level V HEADER OPERATION: Left thyroid lobectomy with isthmus and IONM PRE-OP DIAGNOSIS: Multiple thyroid nodules TISSUE SUBMITTED: A- Left thyroid lobe and isthmus *stitch evans left superior pole* MICROSCOPIC DIAGNOSIS A. Left thyroid lobe and isthmus, thyroidectomy: * Nodular hyperplasia * Areas of stromal fibrosis and calcifications * Histologic features consistent with previous FNA MICROSCOPIC DESCRIPTION Slides are reviewed. GROSS DESCRIPTION A. Received in formalin labeled with the patient's name and date of . Designated as Left thyroid lobe and isthmus is a 23.2 g hemithyroidectomy with a suture designated as left superior pole and is comprised of the following: Left lobe: 5.6 x 3.9 x 2.5 cmIsthmus: 1.7 x 1.6 x 0.5 cm focally disrupted and cauterized isthmus The capsular surfaces are somewhat shaggy with focal, superficial defects. The specimen is inked as follows: Left anterior lobe: GreenLeft posterior lobe: BlackIsthmus: [place] The specimen is serially sectioned from superior to inferior revealing a 3.9 x 3.1 x 2.5 cm multiloculated cystic mass spanning the mid to lower pole of the left lobe and containing blood-tinged, serous fluid; the capsule of the mass is fibrotic and grossly abuts the overlying inked surfaces. The remainder of the cut surfaces are dark red and soft with focal cyst containing colloid material. [employer] sections (representing approximately 90% of the specimen) are submitted in 15 cassettes from superior to inferior, to include the entirety of the mass, as follows: A1: Left lobe, superior, perpendicularA2: Left lobe, superior with colloid nodulesA3-A5: Left lobe, middle, massA6: IsthmusA7-A12: Left lobe, inferior, usnwX66-Q10: Left lobe, inferior, mass, perpendicular IA 08/04/2025PT:[id number]
--- NOTE | 2025-08-04 07:33 | PCM.PRE.AN2 ---
ASA Classification* ASA Classification ASA Classification: 3 Assessment & Plan Anesthesia* Anesthesia Assessment Anesthesia Assessment: Discussed sedation and/or anesthesia options, risks, benefits, and alternatives with patient/parents/legal guardian/POA. Questions invited. The patient/parents/legal guardian/POA seems to understand and agrees to proceed with anesthesia plan. Reviewed the physical assessment, medical history, allergy history and patient home medications list prior to surgery/procedure/anesthetic and documented any changes. Performed airway and anesthesia risk assessments. Anesthesia Type Anesthesia Type: General History Source History Obtained from:: Patient and Chart Anesthesia Focused Assessment* Temperature: 98.1 F Pulse Rate: 71 Blood Pressure: 141/76 Respiratory Rate: 16 Pulse Ox: 95 Oxygen Delivery Method: Room Air Airway Assessment Mouth opens: >3 cm Mallampati Score: II Teeth Condition: Missing (Only a few lower teeth present in the mouth) Neck Range of motion (ROM): Full ROM Labs Anesthesia Preop lab: CBC WBC, (4.4-11.0) 5.1 K/mm3 10/20/24, 08:52 RBC, (4.2-5.4) 4.48 M/mm3 10/20/24, 08:52 Hgb, (12.0-15.0) 12.7 g/dL 10/20/24, 08:52 Hct, (37-47) 41.2 % 10/20/24, 08:52 Plt Count, (150-450) 346 K/mm3 10/20/24, 08:52 CHEMISTRY Potassium, (3.5-5.1) 3.8 mmol/L 10/20/24, 08:52 Sodium, (136-145) 140 mmol/L 10/20/24, 08:52 Magnesium, (1.8-2.4) 2.2 mg/dL 04/12/15, 10:00 BUN, (7-18) 14 mg/dL 10/20/24, 08:52 Creatinine, (0.55-1.02) 1.03 mg/dL H 10/20/24, 08:52 Glucose, (74-106) 128 mg/dL H 10/20/24, 08:52 TSH, (0.358-3.740) 2.080 uIU/mL 10/20/24, 08:52 COAG Pre-Assessment Diagnosis/Proposed Procedure Planned Operative Procedure(s): LEFT THYROID LOBECTOMY WITH ISTHMUS IONM Anesthesia History 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 When Was Last Pacemaker Check QUESTION #4 FULL TEXT: You/Your Family Experience fever (hyperthermia) with Anesthesia Last Oral Intake Last Oral intake: Last Oral Intake NPO since 04:30 08/04/25 06:51 Meds taken in AM with sips of Yes 08/04/25 06:51 water? Meds patient instructed to take am of surgery PONV PONV - chemistry quality control technician: PONV - chemistry quality control technician Female Yes 07/21/25 15:59 HX of Motion Sickness Yes 07/21/25 15:59 HX of N/V After Surgery No 07/21/25 15:59 Non-Smoker Yes 07/21/25 15:59 Duration of Surgery greater Yes 07/21/25 15:59 than 60 minutes Number of Risk Factors 4 07/21/25 15:59 PONV Score Severe Risk 07/21/25 15:59 Height & Weight Height & Weight: Anesthesia: Height & Weight Height 5 ft 6 in 08/04/25 06:51 Weight: 106 kg 08/04/25 06:51 Body Mass Index (BMI) 37.7 08/04/25 06:51 Respiratory Assessment Respiratory Assessment - chemistry quality control technician: Respiratory Tract Infection Hx - chemistry quality control technician Hx Respiratory Tract Infection No 07/21/25 15:59 STOP Sleep Apnea STOP Sleep Apnea - chemistry quality control technician: STOP Sleep Apnea - chemistry quality control technician Hx Hypertension Yes: CONTROLLED WITH MEDS 07/21/25 15:59 Hx Sleep Apnea Yes 07/21/25 15:59 CPAP Yes 07/21/25 15:59 BIPAP No 07/21/25 15:59 Do you snore loudly (louder than talking or can be heard Do you often feel tired/ fatigued/ sleepy during daytime? Has anyone observed you stop breathing during sleep? STOP Results Positive 07/21/25 15:59 QUESTION #5 FULL TEXT : Do you snore loudly (louder than talking or can be heard through closed doors)? 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 Specify any problems Hx of Preganancy in last 3 No 07/21/25 15:59 Months Nurse Filling Out Transfusion [email or web address] 07/21/25 15:59 & Questions: Date: 07/21/25 07/21/25 15:59 Time: 16:02 07/21/25 15:59 Patient unable to answer at this time (ie. confused, unrespo /Reproduction History /Reproductive History - chemistry quality control technician: /Reproductive Hx- chemistry quality control technician Hx Now Gestational Age (in weeks): EDC: Hx Hx Para Hx Section SAB No 11/28/24 14:13 Does the father of the baby or his family experience fever w Father of the baby Malignant Hypertension history comment Active Medications Active Medications: Current Medications Generic Name Dose Route Start Last Admin Trade Name Freq PRN Reason Stop Dose Admin Lactated Ringer's 1,000 mls @ 15 mls/hr 08/04/25 06:30 08/04/25 06:30 IV 15 mls/hr .Q48H FIORELLA Administration PFSH Medical History Shortness of breath on exertion Thyroid disease Difficulty swallowing Barretts esophagus BMI 37.0-37.9, adult Wears hearing aid Wears dentures Wears glasses Post-menopausal History of steroid therapy Arthritis Back pain Injury of head and neck TIA (transient ischemic attack) History of IBS Gastric reflux Former smoker CPAP (continuous positive airway pressure) dependence Asthma History of edema Hx of lipoma Wheezing Allergic rhinitis due to allergen Incidental lung nodule, > 3mm and < 8mm NICOLAS on CPAP SOB (shortness of breath) HTN (hypertension) Home Medications ?Medication ?Instructions ?Recorded ?Last Taken ?Type multivitamin (One-A-Day Essential 1 tab PO QAM 12/03/17 11/30/24 History tablet) losartan 50 mg tablet 50 mg PO DAILY 07/13/22 08/04/25 04:30 History estradiol 0.5 mg tablet 0.5 mg PO DAILY 10/16/22 11/30/24 History fexofenadine 180 mg tablet 180 mg PO DAILY 11/16/22 11/30/24 History fluticasone propionate 50 2 spray intranasal BID Allergic 01/15/23 11/30/24 Rx mcg/actuation nasal rhinitis #30 mL spray,suspension (Flonase Allergy Relief) albuterol sulfate 90 mcg/actuation 1 - 2 inh inhalation PRN PRN 10/27/24 12/01/24 06:00 Rx aerosol inhaler ASTHMA #8.5 grams budesonide-formoterol HFA 160 2 inh inhalation BID #1 ea 12/29/24 08/04/25 04:30 Rx mcg-4.5 mcg/actuation aerosol inhaler (Breyna) omeprazole 40 mg capsule,delayed 40 mg PO QDAY #30 caps 04/28/25 08/04/25 04:30 Rx release Allergy/AdvReac Type Severity Reaction Status Date / Time adhesive tape Allergy Intermediate Rash Verified 08/04/25 06:48 grass pollen Allergy Unknown Verified 08/04/25 06:48 mold Allergy Unknown Verified 08/04/25 06:48 Family History Other Asthma Cancer Diabetes Hypertension Surgical History Hx of colonoscopy History of esophagogastroduodenoscopy (EGD) Hx of umbilical hernia repair History of hysterectomy H/O foot surgery History of tonsillectomy Social History Smoking Status: Former smoker second hand exposure: Yes alcohol intake: never Review of Systems (Anesthesia) ROS Narrative System reviewed and no additional complaints, except as documented.
[2025-08-04] MEDS: Midazolam 2 MG/2 ML Syringe IV (07:41)
[2025-08-04] MEDS: Lidocaine 1% (5 ml sdv) 5 ML Vial IV (07:47)
[2025-08-04] MEDS: Lactated Ringers 2,000 ML 2000 ML IV (08:55)
[2025-08-04] MEDS: fentaNYL 100 MCG/2 ML Ampul 200 MCG IV (10:05)
--- NOTE | 2025-08-04 10:49 | OP.PCM_ITS ---
Operative Report (Standard) Operative Information Date of Procedure: 08/04/25 Pre-Operative Diagnosis: Multinodular goiter with compressive symptomology Post-Operative Diagnosis: Same Surgery/Procedure Performed: Left thyroid lobectomy with isthmusectomy using intraoperative neuromonitoring assisted living executive director: Yes Auto Slip Cover Installer: Mando Hernandez Tasks completed by event sales assistant: Opening & closing and Retracting Type of Anesthesia: General/Supplemental RN Documented Start/Stop Times: Operation Date: 08/04/25 07:30 Case Time Into Pre-Op 08/04/25 06:15 Out of Pre-Op 08/04/25 07:34 Anesthesia Start 08/04/25 07:41 Into Room 08/04/25 07:41 Procedure Start 08/04/25 08:18 Procedure End 08/04/25 10:56 Anesthesia End 08/04/25 11:11 Out of Room 08/04/25 11:11 Into Recovery 08/04/25 11:12 Out of Recovery 08/04/25 12:18 Into Phase II Recovery 08/04/25 12:19 Out of Phase II 08/04/25 17:57 Procedure Start Time: 08:18 Procedure Stop Time: 10:56 Select all DRAINS/GRAFTS/IMPLANTS that apply: None Estimated Blood Loss: 30 Specimen collected: Yes Description of specimen(s) removed: Left thyroid lobe and isthmus with stitch marking left superior pole Description of surgery: After appropriate identification in the preoperative holding area, the patient was brought to the operating room where she was positioned supine on the operating room table. Induction of general endotracheal anesthetic was begun and a NIMS tube was placed under glidescope view to confirm coaptation with the vocal cords anteriorly. Tube was then secured and the patient was positioned with a shoulder roll so that her head was in extension but supported. The Nims electrodes were placed and connected to the monitor. We had appropriate resistance showing on the monitor and tapping at the level of the cricoid produce a graphical representation of the impulse on the monitor. Patient's neck was then prepped and draped in usual sterile fashion and a formal timeout was conducted from those present. The lowest skin fold to the sternal notch was selected for incision site (this resided approximately 2 fingerbreadths cephalad to the notch). An incision was extended for 2.5 cm on either side of midline. Electrocautery was used to deepen this incision through the level of the platysma. Subplatysmal flaps were raised with the use of electrocautery and blunt dissection. The strap muscles were then divided along the medial raphe bringing us down to the level of the thyroid. Capsular attachments to the thyroid were divided with the use of LigaSure or cautery (there were many more adhesions than typically encountered?felt to be low due to patient's history of prior FNA biopsies). Retractors were placed providing visualization of the r ight superior pole of the thyroid. The vessels of the superior pole were sequentially ligated with the use of the LigaSure device. As we moved towards the thyroid gland away from the pole vessels, we were careful to identify the superior parathyroid gland and preserve its vascular pedicle. We then moved inferiorly and there was a large thyroid cyst occupying the majority of the inferior pole and extending just deep to the left clavicle. Gentle upward and medial traction was placed on the thyroid to free the muscular attachments posteriorly to be able to visualize the polar vessels. Then these were sequentially divided with the LigaSure device. The inferior parathyroid gland never grossly visualized and was felt to be most likely located deeper in the chest given the inferior extent of patient's inferior pole. With the poles freed the thyroid was mobilized medially and anteriorly until I was able to deliver the gland above the level of the incision plane. I bluntly the remaining strap muscle fibers from the thyroid capsule and using blunt dissection parallel to the presumed course of the recurrent laryngeal nerve, exposed the tracheoesophageal groove. Here I encountered a positive signal for the left recurrent laryngeal nerve and was shortly thereafter able to visualize the nerve as it entered the cricothyroid membrane (only a small distal section of the nerve was visible). The nerve positively identified, I relieved the attachments of the thyroid gland to the underlying trachea with the use of LigaSure. As I approached the nerve insertion of the cricothyroid membrane, I elected to leave a minuscule amount of thyroid tissue intact using 4-0 silk ligatures. The recurrent laryngeal nerve signal was checked prior to the division of any thyroid tissue. In the cephalad portion of the incision, I did encountered what appeared to be a small extension of a pyramidal lobe and this was taken en bloc with the specimen after dissection to avoid injury to the laryngeal musculature. Once I had assured clearance from the nerve, the remaining thyroid tissue was removed from the anterior surface of the trachea with electrocautery to include the entirety of the thyroid isthmus. The specimen was divided with the LigaSure device for hemostasis, oriented with a suture through the left superior pole, and passed off the field fresh for pathologic processing. Pressure was applied to the surgical cavity and there was some slight oozing along the anterior surface of the trachea well away from the recurrent laryngeal nerve where selective electrocautery was applied. Closer to the nerve there was some additional oozing and Surgicel hemostatic agent was placed while pressure was applied. Once this pressure was relieved, the surgical cavity was again inspected and we found hemostasis to be intact. We also confirmed the presence of the superior parathyroid gland as well as a well-functioning recurrent laryngeal nerve. Satisfied with this result, the strap muscles were closed with a running 3-0 Vicryl stitch leaving a small gap at the inferior aspect of the suture line. The platysmal flaps were closed with interrupted 3-0 Vicryl. Some additional local anesthetic was infiltrated throughout the dermis and the skin was closed in a subcuticular fashion using 4- 0 Monocryl. Steri-Strips were applied. Telfa and Tegaderm were used as a dressing. The patient was then awakened from anesthetic without event and was taken to PACU for ongoing recovery. Surgical Findings: ? Large thyroid lobe partially extending beneath the left clavicle ? Visually intact left superior parathyroid gland (left inferior parathyroid gland not visualized grossly) but slightly ischemic ? Left recurrent laryngeal nerve grossly identified and function intact by Nims signal Complications Complications: No Admit VTE Documentation VTE Mechan Device Prophylaxis: SCD's
--- NOTE | 2025-08-04 10:52 | DCINST_ITS ---
Discharge Instructions Diet Discharge Diet: No restrictions (However recommend a liquid to soft diet initially postoperatively) Activity Discharge Activity: May Not Drive (While it remains difficult to check blind spots quickly) May shower in (days): 2 Ice area for (Minutes): 20 Lifting Restrictions: No lifting greater than 15 pounds for 2 weeks after surgery Dressing / Incision Call your doctor if your incision/area has: Continuous Slow Oozing, Sudden Increased Bleeding, Increased Pain/ Swelling, Increased Redness and Swelling at the incision site Call your doctor if you observe: Numbness or Tingling Remove Dressing in: 2 days (Please leave Steri-Strips intact until they fall off spontaneously or are taken off at your follow-up visit) Cleanse incision/area with: Soap & Water Follow Up Care Please Follow Up With: Babak Clarke MD When: 10-14 days postop Test Results: Test results from this visit will be discussed in further detail at your follow- up appointment, if applicable. Discharge Plan Admission Primary Reason for Your Visit: Thyroid surgery Attending Provider: Babak Clarke Primary Care Provider: Kendrick Kendall Instructions Print Language: Nicaraguan Discharge Orders/Prescriptions Prescriptions: No Action multivitamin [One-A-Day Essential] tablet 1 tab PO QAM losartan 50 mg tablet 50 mg PO DAILY estradiol 0.5 mg tablet 0.5 mg PO DAILY Patient Comments: TAKE 1/2 TO 1 (ONE-HALF TO ONE) TABLET BY MOUTH ONCE DAILY fluticasone propionate [Flonase Allergy Relief] 50 mcg/actuation spray,suspension 2 spray intranasal BID Qty: 30 6RF Rx Instructions: administer into each nostril albuterol sulfate 90 mcg/actuation HFA aerosol inhaler 1 - 2 inh INHALATION PRN PRN (Reason: ASTHMA) Qty: 8.5 6RF budesonide-formoterol [Breyna] 160-4.5 mcg/actuation HFA aerosol inhaler 2 inh inhalation BID Qty: 1 11RF fexofenadine [Bettina] 180 mg Tablet 180 mg PO DAILY omeprazole 40 mg capsule,delayed release(DR/EC) 40 mg PO QDAY Qty: 30 5RF Rx Instructions: swallow whole; do not crush, chew, dissolve, cut, break Referrals / Follow Up: Kendrick Kendall DO [Primary Care Provider, Family Practice] Disposition Disposition (needs filled in before D/C Order can be placed): Home, Self Care
--- NOTE | 2025-08-04 11:17 | PCM.POST.ANE ---
Anesthesia: Postop Eval I Current Vital Signs Temperature: 98.6 F Pulse Rate: 89 Blood Pressure: 168/82 Respiratory Rate: 20 Pulse Ox: 97 Oxygen Delivery Method: Venturi Mask Oxygen Flow Rate (L/min): 6 Assessment Airway patent: Yes Spontaneous unlabored respirations: Yes Mental status: Asleep nausea: No Vomiting: No Anesthesia Complication: No Fluid Hydration Crystalloid volume administer (ml): 1,700 Total IV fluid infused: 1,700 Progress Note Anesthesia document: Postop Eval 1 completed: Yes
--- NOTE | 2025-08-04 16:29 | POSTOPAN2_ITS ---
Anesthesia Postop Eval I Sum Postop Eval Completion status Anesthesia document: Postop Eval 1 completed: Yes Anesthesia Postop Eval I Summary Anesthesia Postop Eval I Summary: Anesthesia Postop Eval I: Assessment Summary Airway patent Yes 08/04/25 11:18 [email or web address] Spontaneous unlabored Yes 08/04/25 11:18 SERVICE [email or web address] respirations Mental status Asleep 08/04/25 11:18 [email or web address] nausea No 08/04/25 11:18 [email or web address] Vomiting No 08/04/25 11:18 [email or web address] Anesthesia Postop Eval I: Fluid Summary Crystalloid volume administer 1,700 08/04/25 11:18 SERVICE [email or web address] (ml) Colloids volume administered ( ml) Blood Product volume administered (ml) Total IV fluid infused 1,700 08/04/25 11:18 SERVICE [email or web address] Anesthesia Postop Eval I: Summary Notes Anesthesia Complication No 08/04/25 11:18 [email or web address] Anesthesia Complication Comment: Post-operative progress note Anesthesia: Postop Eval II Evaluation Mental status: Awake and Calm Pain Level: 1 nausea: No Vomiting: No Complications Anesthesia Complication: No
--- NOTE | 2025-08-04 16:29 | PCM.POSTANE2 ---
Anesthesia Postop Eval I Sum Postop Eval Completion status Anesthesia document: Postop Eval 1 completed: Yes Anesthesia Postop Eval I Summary Anesthesia Postop Eval I Summary: Anesthesia Postop Eval I: Assessment Summary Airway patent Yes 08/04/25 11:18 CERTIFIED VEHICLE FIRE [email or web address] Spontaneous unlabored Yes 08/04/25 11:18 CERTIFIED VEHICLE FIRE [email or web address] respirations Mental status Asleep 08/04/25 11:18 CERTIFIED VEHICLE FIRE [email or web address] nausea No 08/04/25 11:18 CERTIFIED VEHICLE FIRE [email or web address] Vomiting No 08/04/25 11:18 CERTIFIED VEHICLE FIRE [email or web address] Anesthesia Postop Eval I: Fluid Summary Crystalloid volume administer 1,700 08/04/25 11:18 CERTIFIED VEHICLE FIRE [email or web address] (ml) Colloids volume administered ( ml) Blood Product volume administered (ml) Total IV fluid infused 1,700 08/04/25 11:18 CERTIFIED VEHICLE FIRE [email or web address] Anesthesia Postop Eval I: Summary Notes Anesthesia Complication No 08/04/25 11:18 CERTIFIED VEHICLE FIRE [email or web address] Anesthesia Complication Comment: Post-operative progress note Anesthesia: Postop Eval II Evaluation Mental status: Awake and Calm Pain Level: 1 nausea: No Vomiting: No Complications Anesthesia Complication: No
--- NOTE | 2025-08-04 17:40 | PCM.PN.BLA ---
Progress Note Patient had been progressing well in her postoperative recovery, however, I was notified by postoperative nursing approximately 4 hours in the patient's recovery that she was developing progressive hypertension. She denies any significant discomfort but her vitals trend was undeniably. I instructed them to administer 1 g of Tylenol p.o. and recheck patient's blood pressure at 30 minutes. This was completed but only with a marginal improvement in patient's blood pressure which still exceeds 170 mmHg systolic. At this level I am uncomfortable sending patient home given her recent postoperative status and risk for postoperative hematoma. (Exam at this time is reassuring). Therefore I will admit patient to observation for ongoing monitoring with as needed hydralazine ordered as well as patient's home antihypertensives ordered. Patient and her family expressed understanding and appreciation.
[2025-08-05 02:32] VITALS: BP 133/69; PULSE 72; RESP 16; TEMP 36.9; O2SAT 97
[2025-08-05 07:20] VITALS: PULSE 78; RESP 20
[2025-08-05 07:59] VITALS: BP 168/81; PULSE 74; RESP 18; TEMP 36.6; O2SAT 98
--- NOTE | 2025-08-05 09:21 | DCINST_ITS ---
Discharge Instructions DC O2, CPAP, BIPAP needs Home O2 Discharge instructions: No Dressing / Incision May shower in (days): 1 Ice area for (Minutes): 20 Dressing / Incision Call your doctor if your incision/area has: Continuous Slow Oozing, Sudden Increased Bleeding, Increased Pain/ Swelling, Increased Redness and Swelling at the incision site Call your doctor if you observe: Numbness or Tingling Remove Dressing in: 1 day (Please leave Steri-Strips intact until they fall off spontaneously or are taken off at your follow-up visit) Cleanse incision/area with: Soap & Water Follow Up Care Please Follow Up With: Babak Clarke MD When: 7 to 10 days Test Results: Test results from this visit will be discussed in further detail at your follow- up appointment, if applicable. Discharge Plan Admission Admit Date/Time: 08/04/25 17:36 Primary Reason for Your Visit: Thyroid surgery Attending Provider: Babak Clarke Primary Care Provider: Kendrick Kendall Instructions Additional Instructions / Restrictions: Please keep a log of blood pressures twice daily for a week Discharge Orders/Prescriptions Prescriptions: No Action multivitamin [One-A-Day Essential] tablet 1 tab PO QAM losartan 50 mg tablet 50 mg PO DAILY estradiol 0.5 mg tablet 0.5 mg PO DAILY Patient Comments: TAKE 1/2 TO 1 (ONE-HALF TO ONE) TABLET BY MOUTH ONCE DAILY fluticasone propionate [Flonase Allergy Relief] 50 mcg/actuation spray,suspension 2 spray intranasal BID Qty: 30 6RF Rx Instructions: administer into each nostril albuterol sulfate 90 mcg/actuation HFA aerosol inhaler 1 - 2 inh INHALATION PRN PRN (Reason: ASTHMA) Qty: 8.5 6RF budesonide-formoterol [Breyna] 160-4.5 mcg/actuation HFA aerosol inhaler 2 inh inhalation BID Qty: 1 11RF fexofenadine [Bettina] 180 mg Tablet 180 mg PO DAILY omeprazole 40 mg capsule,delayed release(DR/EC) 40 mg PO QDAY Qty: 30 5RF Rx Instructions: swallow whole; do not crush, chew, dissolve, cut, break Referrals / Follow Up: Kendrick Kendall DO [Primary Care Provider, Family Practice] Disposition Disposition (needs filled in before D/C Order can be placed): Home, Self Care
--- NOTE | 2025-08-05 09:24 | PCM.DC.SUM ---
Providers Date of Admission: 08/04/25 Primary Care Physician: Dr. Kendrick Kendall, DO Reason For Visit: Left Thyroid lobectomy w/isthmus & IONM Medications at Discharge Home Medications multivitamin (One-A-Day Essential tablet) 1 tab PO QAM 12/03/17 losartan 50 mg tablet 50 mg PO DAILY 07/13/22 estradiol 0.5 mg tablet 0.5 mg PO DAILY 10/16/22 fexofenadine 180 mg tablet 180 mg PO DAILY 11/16/22 fluticasone propionate 50 mcg/actuation nasal spray,suspension (Flonase Allergy Relief) 2 spray intranasal BID Allergic rhinitis #30 mL 01/15/23 albuterol sulfate 90 mcg/actuation aerosol inhaler 1 - 2 inh inhalation PRN PRN ASTHMA #8.5 grams 10/27/24 budesonide-formoterol HFA 160 mcg-4.5 mcg/actuation aerosol inhaler (Breyna) 2 inh inhalation BID #1 ea 12/29/24 omeprazole 40 mg capsule,delayed release 40 mg PO QDAY #30 caps 04/28/25 Hospital Course Operations - (Left thyroid lobectomy) Procedures None Summary of Care Provided Hospital Course: Patient is 64-year-old female and then underwent uneventful left thyroid lobectomy with isthmusectomy using intraoperative nerve monitoring 08/04/2025. Approximately 4 hours into her postoperative recovery nursing noted progressive increase in her recorded blood pressures. Patient was asymptomatic at that point. However, review of the EMR showed no precedent for this level of hypertension. Nursing was asked to administer pain medication and recheck vitals, but when the recheck showed vital signs to be little changed I elected to admit patient to overnight observation for ongoing monitoring and ability to frequently check blood pressure to try to control risk for postoperative bleeding. Patient was administered 1 as needed dose of hydralazine prior to arriving to the floor but thereafter did not require further dosing. She did well in her recovery and her blood pressure spontaneously improved. Her exam postoperative day 1 is reassuring. Postoperative expectations were reviewed. She was then granted discharge to home. Physical Exam Const alert, oriented x3 and no apparent distress Neck Neck Narrative: Mild soft tissue swelling, no evidence of postoperative hematoma, soft, mildly tender to palpation. Operative dressing clean dry and intact Weight / BMI Weight Weight: 233 lb 11.04 oz Body Mass Index (BMI) 37.7 D/C Instructions May shower in (days): 1 Ice area for (Minutes): 20 Call your doctor if your incision/area has: Continuous Slow Oozing, Sudden Increased Bleeding, Increased Pain/ Swelling, Increased Redness and Swelling at the incision site Call your doctor if you observe: Numbness or Tingling Cleanse incision/area with: Soap & Water DC O2, CPAP, BIPAP Needs Home O2 Discharge instructions: No Please Follow Up With: Babak Clarke MD When: 7 to 10 days Meaningful Use Info Meaningful Use Meaningful Use Diagnoses (Choose all that apply): None applicable Discharge Plan Admission Admit Date/Time: 08/04/25 17:36 Primary Reason for Your Visit: Thyroid surgery Attending Provider: Babak Clarke Primary Care Provider: Kendrick Kendall Instructions Additional Instructions / Restrictions: Please keep a log of blood pressures twice daily for a week Discharge Orders/Prescriptions Prescriptions: No Action multivitamin [One-A-Day Essential] tablet 1 tab PO QAM losartan 50 mg tablet 50 mg PO DAILY estradiol 0.5 mg tablet 0.5 mg PO DAILY Patient Comments: TAKE 1/2 TO 1 (ONE-HALF TO ONE) TABLET BY MOUTH ONCE DAILY fluticasone propionate [Flonase Allergy Relief] 50 mcg/actuation spray,suspension 2 spray intranasal BID Qty: 30 6RF Rx Instructions: administer into each nostril albuterol sulfate 90 mcg/actuation HFA aerosol inhaler 1 - 2 inh INHALATION PRN PRN (Reason: ASTHMA) Qty: 8.5 6RF budesonide-formoterol [Breyna] 160-4.5 mcg/actuation HFA aerosol inhaler 2 inh inhalation BID Qty: 1 11RF fexofenadine [Bettina] 180 mg Tablet 180 mg PO DAILY omeprazole 40 mg capsule,delayed release(DR/EC) 40 mg PO QDAY Qty: 30 5RF Rx Instructions: swallow whole; do not crush, chew, dissolve, cut, break Referrals / Follow Up: Kendrick Kendall DO [Primary Care Provider, Family Practice] Disposition Disposition (needs filled in before D/C Order can be placed): Home, Self Care Charges/Coding Visit Charges Inpatient E&M: 59056 Disch Hosp
[2025-08-05 10:19] VITALS: BP 139/83; PULSE 77; RESP 18; TEMP 36.4; O2SAT 97
== END 2025-08-05 12:07 | disposition home or self-care (01) ==
LOC: SDC 18:10 → MS3 18:10
PROVIDERS: Admitting Provider Surgery; PCP Family Medicine; Referring Provider Family Medicine; Visit Provider Surgery
PROC: (CPT 60220; principal; 2025-08-04 07:15)
DX: E04.2 Nontoxic multinodular goiter (principal); R06.02 Shortness of breath; Z79.899 Other long term (current) drug therapy; K21.9 Gastro-esophageal reflux disease without esophagitis; R13.10 Dysphagia, unspecified; R49.0 Dysphonia; Z87.891 Personal history of nicotine dependence; I10 Essential (primary) hypertension
CPT/HCPCS: 60220; 00320; 88307; 94640; A4648; J2405

== ENCOUNTER → 2025-08-24 | Outpatient (CLI) | payer MEDICARE, SELFPAY ==
--- NOTE | 2025-08-24 11:40 | RAD_ITS ---
PROCEDURE: HIP, UNI W/ PELVIS 2-3 VIEWS 08/24/2025 REASON FOR EXAM: PAIN Pain in left hip TECHNIQUE: Procedure Code: [facility] Modality: DX Procedure: HIP, UNI W/ PELVIS 2-3 VIEWS Laterality: Left COMPARISON: None FINDINGS: Bones: There are no fractures or dislocations. Joints: Mild osteoarthritic changes are seen involving the SI joints bilaterally. Osteoarthritic changes are seen involving the pubic symphysis. There is juxta-articular sclerosis seen involving the SI joints bilaterally as well as the pubic symphysis. Moderate arthritic changes are seen involving both hips. Soft tissues: No appreciable soft tissue swelling is seen. Other: Phleboliths are seen in the pelvis. RAD/HIP, UNI W/ Pelvis 2-3 Views IMPRESSION: Juxta-articular sclerosis is seen involving the SI joints and pubic symphysis. Mild osteoarthritic changes are seen involving the SI joints and pubic symphysi s. Moderate osteoarthritic changes are seen involving both hips. There are no fractures or dislocations. Reading Location: [id number]
--- NOTE | 2025-08-24 11:40 | RAD_ITS ---
PROCEDURE: L/S SPINE MIN 4 VIEWS 08/24/2025 REASON FOR EXAM: PAIN TECHNIQUE: Procedure Code: RADSPLS Modality: DX Procedure: L/S SPINE MIN 4 VIEWS COMPARISON: None FINDINGS: Lumbar spine five views. Vertebral body height is maintained. There is grade 1 spondylolisthesis at L4-5, 0.8 cm. There is loss of disc height which is most severe from L3-5. There is moderate facet sclerosis. Osteopenia is noted. There is visible atherosclerosis. RAD/L/S Spine Min 4 Views IMPRESSION: There is grade 1 spondylolisthesis at L4-5, 0.8 cm. There is loss of disc height which is most severe from L3-5. Reading Location: [facility]
--- NOTE | 2025-08-24 11:41 | RAD_ITS ---
PROCEDURE: KNEE 4 OR MORE VIEWS 08/24/2025 REASON FOR EXAM: PAIN Left knee pain TECHNIQUE: Procedure Code: RADKN Modality: DX Procedure: KNEE 4 OR MORE VIEWS Laterality: Left COMPARISON: None FINDINGS: Bones: There is normal mineralization of the osseous structures. There are no fractures or dislocations. Joints: Four views of the left knee demonstrate very mild osteoarthritic changes of the medial femorotibial joint. The lateral femorotibial joint and patellofemoral joint are well preserved. Effusion: No effusion. Soft tissues: Soft tissues are unremarkable. RAD/Knee 4 or More Views IMPRESSION: Very mild osteoarthritic changes are seen involving the left knee otherwise, un remarkable left knee study. Reading Location: [id number]
== END | disposition home or self-care (01) ==
LOC: MTRAD 11:39
PROVIDERS: PCP Family Medicine; Referring Provider Family Medicine; Visit Provider Family Medicine
DX: M25.552 Pain in left hip (principal); M25.562 Pain in left knee; M54.50 Low back pain, unspecified
CPT/HCPCS: 72110; 73502; 73564

== ENCOUNTER → 2025-09-07 | Outpatient (CLI) | payer MEDICARE, SELFPAY ==
[2025-09-07 10:46] LABS: Free T3 2.9 pg/mL (2.18-3.98)
== END | disposition home or self-care (01) ==
LOC: LAB 08:17
PROVIDERS: PCP Family Medicine; Referring Provider Surgery; Visit Provider Surgery
DX: E04.2 Nontoxic multinodular goiter (principal)
CPT/HCPCS: 36415; 84439; 84443; 84481